=== PATIENT | female | born 1950 | race Two or more races ===

== ENCOUNTER 2023-02-03 12:11 | Outpatient (OUT) | payer MEDICARE, OTHER, SELFPAY ==
--- NOTE | 2023-02-03 | XR_ITS ---
[address] [address] Patient Name: DAMIR STAPLES MRN: [id number] date: 1950 Sex: F Assigned Patient Location: US Current Patient Location: US Accession/Order Number: [id number] Exam Date: 02/03/2023 12:45 Report Date: 02/03/2023 13:25 At the request of: SHAIKH FELICIANO Procedure: XR knee LT 3V PROCEDURE: XR knee LT 3V COMPARISON: None. HISTORY: left knee pain M25.562 FINDINGS: BONES:No acute fracture or dislocation. Mild degenerative changes with marginal osteophyte formation SOFT TISSUES:Negative. No visible soft tissue swelling. EFFUSION:None visible. OTHER: Negative. XR/XR knee LT 3V IMPRESSION: Mild degenerative changes Electronically authenticated by: ISABELLE ALICIA Date: 02/03/2023 13:25
--- NOTE | 2023-02-03 | US_ITS ---
The [address] [address] Patient Name: DAMIR STAPLES MRN: [id number] date: 1950 Sex: F Assigned Patient Location: US Current Patient Location: US Accession/Order Number: [id number] Exam Date: 02/03/2023 12:30 Report Date: 02/03/2023 13:03 At the request of: SHAIKH FELICIANO Procedure: US venous doppler LE LT EXAM: US venous doppler LE LT HISTORY: left leg pain M79.605 . Knee and leg pain for 3 weeks. COMPARISON: None. TECHNIQUE: Multiple sonographic images of the deep veins of the left lower extremity were obtained, supplemented with Doppler. FINDINGS: The deep veins of the left lower extremity are fairly well visualized from the groin to the mid calf. No filling defect is identified to indicate a thrombus. There is normal compression and augmentation to flow throughout. US/US venous doppler LE LT IMPRESSION: There is no direct or indirect evidence of deep vein thrombosis in the left lower extremity at this time. Electronically authenticated by: LYLE QUIÑONES Date: 02/03/2023 13:03
== END 2023-02-03 12:12 | disposition home or self-care (01) ==
LOC: US 12:19
PROVIDERS: PCP Internal Medicine; Visit Provider Internal Medicine
DX: M25.562 Pain in left knee (principal); M79.605 Pain in left leg
CPT/HCPCS: 73562; 93971

== ENCOUNTER 2024-04-25 14:31 | Emergency (ER) | payer MEDICARE, SELFPAY ==
[2024-04-25 14:46] VITALS: BP 182/85; PULSE 94; TEMP 36.8; O2SAT 95; BMI 27.1
--- NOTE | 2024-04-25 14:53 | XR_ITS ---
The [address] [address] Patient Name: DAMIR STAPLES MRN: [id number] date: 1950 Sex: F Assigned Patient Location: ER Current Patient Location: ED.MAIN Accession/Order Number: [id number] Exam Date: 04/25/2024 15:20 Report Date: 04/25/2024 16:10 At the request of: JACKELYN BURGOS Procedure: XR chest 1V EXAM: XR chest 1V, 04/25/2024. HISTORY: Cough. COMPARISON STUDY: PA and lateral chest 10/01/2014. FINDINGS: Upright AP chest image was obtained. XR/XR chest 1V IMPRESSION: 1. Calcified intrathoracic nodes with right upper lobe calcified granuloma and chronic biapical fibrotic changes from old healed granulomatous disease again noted. 2. Interval placement of left upper chest dual-lead pacer. Heart size is mildly enlarged. Moderate-sized hiatal hernia is noted. 3. No dense consolidation, effusion, edema, failure or pneumothorax otherwise noted. 4. No acute osseous abnormality. Electronically authenticated by: FRED MALIK Date: 04/25/2024 16:10
--- NOTE | 2024-04-25 14:53 | ECG_ITS ---
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
--- NOTE | 2024-04-25 15:01 | ED_ITS ---
HPI - SOB/Dyspnea General Chief Complaint: Shortness of Breath/Dyspnea Stated Complaint: urti complaints Time Seen by Provider: 04/25/24 14:37 Source: patient Mode of arrival: walk-in History of Present Illness HPI Narrative: Patient presents to ED complaining of cough and shortness of breath. She said she has been sick for about 5 days. She said she has been feeling maybe a little bit better but she still seems short of breath and winded. She states she has some pressure and tightness in her esophageal area but when she says that she points to her chest. She does have a cardiac history and pacemaker in place. No syncope. She says her cough is nonproductive. She states she has a lot of sinus drainage especially when she lays down at night. She denies any fevers. She was sent over by urgent care because they were worried about her work of breathing and shortness of breath with her recent history of cough. They also states over the phone that she was a poor historian but she does have an extensive cardiac history. Related Data Allergies Allergy/AdvReac Type Severity Reaction Status Date / Time amoxicillin (From Augmentin) AdvReac Severe Abdominal Verified 04/25/24 14:46 Pain clavulanic acid (From AdvReac Severe Abdominal Verified 04/25/24 14:46 Augmentin) Pain Sulfa (Sulfonamide AdvReac Severe Flushing Verified 04/25/24 14:46 Antibiotics) Review of Systems ROS Status of ROS 10 or more systems reviewed and unremark able except as noted in history and below PFSH PFSH Social History Little interest or pleasure in doing things: not at all Feeling down, depressed, or hopeless: not at all Exam Narrative Exam Narrative: Time Seen: [] Vital Signs: [Per nurse's notes.] General: [Alert] Skin: [Warm, dry, no rash.] Head: [Normocephalic, atraumatic.] Neck: [Supple, trachea midline.] Eye: [Pupils are equal, round and reactive to light, extraocular movements are intact, normal conjunctiva.] Ears, nose, mouth and throat: oral mucosa moist. Cardiovascular: [Regular rate and rhythm, no murmur.] Respiratory: [Lungs are clear to auscultation, respirations are non-labored, breath sounds are equal.] Chest wall: [No tenderness, no deformity.] Gastrointestinal: [Soft, nontender, non distended, normal bowel sounds.] MSK: 5 out of 5 muscle strength x 4 extremities no calf pain or edema Lymphatics: [No lymphadenopathy.] Psychiatric: [Cooperative, appropriate mood & affect.] Neurological: [Alert and oriented to person, place, time, and situation, no focal neurological deficit observed.] Constitutional Vital Signs, click to edit/add: Last Vital Signs Temp 98.2 F 04/25/24 14:46 Pulse 94 H 04/25/24 14:46 Resp 20 04/25/24 14:46 BP 178/84 H 04/25/24 16:06 Pulse Ox 95 04/25/24 14:46 O2 Del Method Room Air 04/25/24 14:46 Course Vital Signs Vital signs: Vital Signs Temperature 98.2 F 04/25/24 14:46 Pulse Rate 94 H 04/25/24 14:46 Respiratory Rate 20 04/25/24 14:46 Blood Pressure 182/85 H 04/25/24 14:46 Pulse Oximetry 95 04/25/24 14:46 Oxygen Delivery Method Room Air 04/25/24 14:46 Temperature 98.2 F 04/25/24 14:46 Pulse Rate 94 H 04/25/24 14:46 Respiratory Rate 20 04/25/24 14:46 Blood Pressure 178/84 H 04/25/24 16:06 Pulse Oximetry 95 04/25/24 14:46 Oxygen Delivery Method Room Air 04/25/24 14:46 MDM - SOB/Dyspnea MDM Narrative Medical decision making narrative: Patient's labs are negative including troponin and D-dimer as well as BNP. Patient does not appear to be in heart failure based on chest x-ray and BNP. No evidence of ACS. D-dimer was negative signifying no PE. No evidence of pneumonia on the chest x-ray. Patient does states she has been feeling better and was feeling worse at the beginning of this sickness 5 days ago. No hypoxia. I do not see any indication at this time for hospital admission or further workup or emergency intervention. Patient is to follow-up with her family doctor. Return to ED if worsening symptoms. She is comfortable with care plan for home. Differential Diagnosis Differential diagnosis: Likely congestive heart failure, community acquired pneumonia, pulmonary embolism and other (Flu COVID viral illness) Lab Data Attestation: I reviewed the patient's lab results. Labs: Lab Results 04/25/24 04/25/24 Range/Units 15:14 15:16 WBC 5.9 (4.0-11.0) 10^3/uL RBC 4.73 (4.20-5.40) 10^6/uL Hgb 15.1 (12.0-16.0) g/dL Hct 44.5 (36.0-48.0) % MCV 94.1 (81.0-99.0) fL MCH 31.9 (26.7-34.0) pg MCHC 33.9 (29.9-35.2) g/dL RDW 12.7 (11.0-15.0) % Plt Count 239 (150-450) 10^3/uL MPV 9.0 L (9.5-13.5) fL Neut % (Auto) 59.2 (43.0-75.0) % Lymph % (Auto) 28.5 (20.5-60.0) % [place] % (Auto) 7.2 (1.7-12.0) % Eos % (Auto) 4.6 (0.9-7.0) % Baso % (Auto) 0.5 (0.2-2.0) % Neut # (Auto) 3.5 (1.4-6.5) 10^3/uL Lymph # (Auto) 1.7 (1.2-3.8) 10^3/uL [place] # (Auto) 0.4 (0.3-0.8) 10^3/uL Eos # (Auto) 0.3 (0.0-0.7) 10^3/uL Baso # (Auto) 0.0 (0.0-0.1) 10^3/uL Abs Immat Gran (auto) 0.00 (0.00-0.03) 10^3/uL Imm/Tot Granulo (auto) 0.0 (0.0-0.5) % D-Dimer 0.19 (<=0.59) mg/L FEU Sodium 146 H (136-145) mmol/L Potassium 3.8 (3.5-5.1) mmol/L Chloride 106 (98-107) mmol/L Carbon Dioxide 31.8 (21.0-32.0) mmol/L Anion Gap 12.0 BUN 13.0 (7.0-18.0) mg/dL Creatinine 0.88 (0.55-1.02) mg/dL Est GFR ( Amer) >60 (>=60 mL/min/1.73m^2) Est GFR (Non-Af Amer) >60 (>=60 mL/min/1.73m^2) BUN/Creatinine Ratio 14.8 Glucose 110 H (74-106) mg/dL Calcium 9.3 (8.5-10.1) mg/dL Total Bilirubin 1.2 H (0.2-1.0) mg/dL AST 20 (15-37) U/L ALT 23 (14-59) U/L Alkaline Phosphatase 97 (46-116) U/L Troponin I High Sens 8.6 (4.0-51.3) pg/mL NT-Pro-B Natriuret Pep 106.0 (<=900.0) pg/mL Total Protein 7.1 (6.4-8.2) g/dL Albumin 3.5 (3.4-5.0) g/dL Globulin 3.6 g/dL Albumin/Globulin Ratio 1.0 Influenza Type A Ag Negative Influenza Type B Ag Negative SARS-CoV-2 Ag (CV2AG) Negative (NEGATIVE) Imaging Data Chest x-ray: Radiologist's impression: ITS Impressions Chest X-Ray 04/25/24 14:53 IMPRESSION: 1. Calcified intrathoracic nodes with right upper lobe calcified granuloma and chronic biapical fibrotic changes from old healed granulomatous disease again noted. 2. Interval placement of left upper chest dual-lead pacer. Heart size is mildly enlarged. Moderate-sized hiatal hernia is noted. 3. No dense consolidation, effusion, edema, failure or pneumothorax otherwise noted. 4. No acute osseous abnormality. Electronically authenticated by: FRED MALIK Date: 04/25/2024 16:10 ECG Data Attestation: I personally reviewed and interpreted this ECG as follows: Interpretation: EKG INTERPRETATION Time: [] 1459 Rate: [] 76 Rhythm: _ [] Sinus rhythm ST segments: _ [] T waves: _ [] Ectopy: _ [] P wave/[place] interval: _ [] QRS interval: _ [] QT interval: _ [] Comparison: _ [] Comparison EKG date: [] Performed by: [self] [facility] Discharge Plan Discharge Chief Complaint: Shortness of Breath/Dyspnea Clinical Impression: Viral syndrome Patient Disposition: Home, Self-Care Time of Disposition Decision: 16:04 Condition: Good Mode of Transportation: Private Vehicle Print Language: Micronesian Instructions: Viral Syndrome (ED) Referrals: ISSAC WHEAT [Primary Care Provider] - 1 week
--- OUTSIDE RECORDS SUMMARY | 2024-04-25 15:03 | XMS_ITS | CCD ---
Author Organization [facility] Care Team Providers Care [employer] Name Role Phone Angel Titus Unavailable Unavailable Unavailable MD Angel Titus Primary Care Provider MD Toney Prajapati Attending Provider DO Lazara Merchant Primary Care Provider NABILA Reyez Emergency Provider MD Ольга Raya Attending Provider MD Angel Titus Primary Care Provider MD Juliana Elder Other Provider Unavailable MD Kai Vang Other Provider Unava ilable MD Connie Thomas Attending Provider DO Lazara Merchant G Primary Care Provider MD Toney Prajapati Attending Provider Gabbi Velásquez Unavailable Juani Whitney Unavailable NABILA Whitney Attending Provider [phone] Shaikh Thacker Unavailable Unavailable Unavailable DO Lazara Merchant G Primary Care Provider NABILA Whitney Attending Provider MD Toney Prajapati Attending Provider CARLTON Reyez Attending Provider Cassie Reyez Unavailable Ganesh Coronel Unavailable MD Ольга Raya Attending Provider NON STAFF Primary Care Provider UnavailMD Lewis Lim Attending Provider MD King Thacker Attending Provider NON STAFF Primary Care Provider UnavailMD Ольга Moses Attending Provider MD Toney Prajapati Attending Provider DO Piop Beck Emergency Provider MD Kirstie [facility] Primary Care Provider NON STAFF Primary Care Provider UnavailMD Della Gamez Attending Provider Cassia, Dr. Corbin Attending Unavaila ble Traboulssi, Dr. Corbin Referring Unavaila ble Traboulssi, Dr. Corbin Attending Unavaila ble Traboulssi, Dr. Corbin Referring Unavaila ble Traboulssi, Dr. Corbin Attending Unavaila ble Traboulssi, Dr. Corbin Referring Unavaila ble Traboulssi, Dr. Corbin Attending Unavaila ble Traboulssi, Dr. Corbin Referring Unavaila ble Kirstie BRITO [facility] Primary Care Provider Idris Thacker MDikh Primary Care Provider Idris Thacker MDikh Primary Care Provider MD Ольга Raya Attending Provider MD Kirstie [facility] Primary Care Provider MD King Thacker Attending Provider MD Kirstie [facility] Primary Care Provider MD Toney Prajapati Attending Provider Kirstie RBITO [facility] Primary Care Provider Kirstie BRITO [facility] Primary Care Provider NON STAFF Primary Care Provider Unavailabl Ольга Hammond MD Attending Provider Deepak Alvarado MD Primary Care Provider [phone] Issac Edouard NP Unavailable Ольга Raya Attending Unavailable NON STAFF Primary Care Unavailable Trabbahman, Moleticiahaf Admitting Unavailable Fawwad, Calderon Primary Care Unavailable DeRiso, Toney Admitting Unavailable DeRiso Toney Attending Unavailable Fawwad, Calderon Admitting Unavailable Fawwad, Calderon Primary Care Unavailable Fajosephd, Calderon Attending Unavailable Cassia Mojudyf Admitting Unavailable TrabNoemy fallf Attending Unavailable Fawwad, Calderon Primary Care Unavailable Fawwad, Calderon Primary Care Unavailable DeRiso, Toney Admitting Unavailable DeRiso, Toney Attending Unavailable DeRiso, Toney Admitting Unavailable DeRiso, Toney Attending Unavailable NON STAFF Primary Care Unavailable TRABBAHMAN, MOLETICIAHAF Attending Unavailable FAWWAD, CALDERON Primary Care Unavailable NOEMY RAYAF Attending Unavailable TRABOULMAXWELLI, MOLETICIAHAF Referring Unavailable FAWWAD, CALDERON Primary Care Unavailable ADELAIDA AGUILA Attending Unavailable FAWWAD, CALDERON Referring Unavailable BRLINA VARELA Attending Unavailable FAWWAD, CALDERON Referring Unavailable BRLINA VARELA Attending Unavailable FAWWAD, CALDERON Referring Unavailable ADELAIDA AGUILA Attending Unavailable FAWWAD, CALDERON Referring Unavailable BRINKLINA Attending Unavailable FAWWAD, CALDERON Referring Unavailable FAWWAD, CALDERON Attending Unavailable ADELAIDA AGUILA Attending Unavailable FAWWAD, CALDERON Referring Unavailable FAWWAD, CALDERON Attending Unavailable FAWWAD, CALDERON Attending Unavailable FAWWAD, CALDERON Attending Unavailable ANKITA NUNEZ Attending Unavailable ISSAC EDOUARD Attending Unavailabl e RUSANKITA MARES Attending Unavailable ISSAC EDOUARD Attending Unavailabl e SERVICE, JOBST Referring Unavailable FAWWAD, CALDERON Primary Care Unavailable SERVICE, JOBST Referring Unavailable FAWWAD, [facility] Primary Care Unavailable SERVICE, JOBST Referring Unavailable FAWWAD, [facility] Primary Care Unavailable FAWWAD, [facility] Referring Unavailable FAWWAD, [facility] Primary Care Unavailable SERVICE, JOBST Referring Unavailable FAWWAD, [facility] Primary Care Unavailable SERVICE, JOBST Referring Unavailable FAWWAD, [facility] Primary Care Unavailable FAWWAD, [facility] Referring Unavailable FAWWAD, [facility] Primary Care Unavailable SERVICE, JOBST Referring Unavailable FAWWAD, [facility] Primary Care Unavailable SERVICE, JOBST Referring Unavailable FAWWAD, [facility] Primary Care Unavailable SERVICE, JOBST Referring Unavailable FAWWAD, [facility] Primary Care Unavailable SERVICE, JOBST Referring Unavailable FAWWAD, [facility] Primary Care Unavailable SERVICE, JOBST Referring Unavailable FAWWAD, [facility] Primary Care Unavailable SERVICE, JOBST Referring Unavailable FAWWAD, [facility] Primary Care Unavailable SERVICE, JOBST Referring Unavailable FAWWAD, [facility] Primary Care Unavailable SERVICE, JOBST Referring Unavailable FAWWAD, [facility] Primary Care Unavailable SERVICE, JOBST Referring Unavailable FAWWAD, [facility] Primary Care Unavailable SERVICE, JOBST Referring Unavailable FAWWAD, [facility] Primary Care Unavailable SERVICE, JOBST Referring Unavailable FAWWAD, [facility] Primary Care Unavailable JOBST ANTI COAG, AKA JOBST MTM MED THERAPY MGMT Referring Unavailable FAWWAD, [facility] Primary Care Unavailable Allergies Allergy Classification Reported Allergen(s) Allergy Type Date of Onset Reaction(s) Facility (20 sources) Sulfamethoxazole / Trimethoprim; Translations: [Bactrim DS TABS] Drug Allergy 01-11-20 Unknown, Other [place] [id number] [place] Work Phone: (20 sources) Amoxicillin / Clavulanate; Translations: [Augmentin] Drug Allergy 06-21-19 [facility] (10 sources) Sulfonamides (Antibiotic); Translations: [Sulfa Drugs] Allergy to drug (finding) Fatigue [address] Work Phone: (20 sources) Sulfamethoxazole; Translations: [sulfamethoxazole] Drug Allergy 06-21-19 22 [facility] (20 sources) Trimethoprim; Translations: [Trimethoprim] Drug Allergy 06-21-19 22 [facility] (7 sources) Sulfonamides (Antibiotic) Propensity to adverse reactions Unknown [employer] Other (19 sources) Amoxicillin; Translations: [amoxicillin] Drug Allergy 08-27-19 GI intolerance [facility] (19 sources) Clavulanate; Translations: [clavulanic acid] Drug Allergy 08-27-19 23 GI intolerance [facility] (20 sources) Sulfonamides (Antibiotic); Translations: [SULFA (SULFONAMIDE ANTIBIOTICS)] Drug Intolerance 05-23-19 18 Other [facility] Work Phone: (5 sources) Penicillins Drug Allergy 04-18-19 24 Unknown [facility] (12 sources) Amoxicillin-Pot Clavulanate; Translations: [AMOXICILLIN-POT CLAVULANATE] Drug Intolerance 06-21-19 23 GI intolerance, Unknown [facility] (1 source) Sulfonamides (Antibiotic) Drug allergy (disorder) 03-25-20 23 [facility] (1 source) Sulfamethoxazole / Trimethoprim; Translations: [SULFAMETHOXAZOLE-T RIMETHOPRIM] Drug Allergy 01-11-20 23 [facility] 3 Repository Medications Current Medications Medication Drug Class(es) Dates Sig (Normalized) Sig (Original) [id number] 200 actuat albuterol 0.09 mg/actuat metered dose inhaler (20 sources) beta2-Adrenergic Agonist Start: 07-28-2023 End: 04-18-2024 take 2 puff(s) by inhalation every four hours for wheezing albuterol HFA 90 mcg/act inhaler Indications: Reactive airway disease with wheezing without complication, unspecified asthma severity, unspecified whether persistent ([facility]) Inhale 2 puffs every 4 (four) hours if needed for wheezing 8.5 g 3 03/19/2024 04/18/2024 Active Start: 06-18-2022 take 2 puff(s) by in halation four times daily as needed Albuterol Sulfate HFA 108 (90 Base) MCG/ACT 2 puffs Inhalation 4 times a day prn Jun, Active Start: 06-18-2022 End: 01-11-2023 albuterol 90 mcg/actuation i nhaler Inhale. 0 06/18/2022 01/11/2023 Discontinued (Therapy completed) Start: 06-18-2022 take 2 puff(s) by in halation four times daily as needed Albuterol Sulfate HFA 108 (90 Base) MCG/ACT 2 puffs Inhalation 4 times a day prn Jun, Not-Taking/PRN Start: 05-30-2017 take 2 puff(s) by in halation every six hours as needed for wheezing albuterol (PROVENTIL HFA;VENTOLIN HFA) 90 mcg/actuation inhaler Indications: Asthma, unspecified asthma severity, unspecified whether complicated, unspecified whether persistent Inhale 2 puffs every 6 (six) hours as needed for wheezing or shortness of breath. 1 Inhaler 05/30/2017 Active End: 12-19-2023 take 2 puff(s) by inhalation every six hours albuterol HFA 90 mcg/act inhaler Inhale 2 puffs every 6 (six) hours if needed 12/19/2023 Discontinued (Duplicate order) amoxicillin 875 mg oral tablet (2 sources) Penicillin-class Antibacterial Start: 02-26-2022 take 1 tablet by mouth every twelve hours Amoxicillin 875 MG 1 tablet Orally Twice a day for 10 day(s) Feb, Active Start: 11-09-2021 take 1 tablet by neha th every twelve hours Amoxicillin 875 MG 1 tablet Orally every 12 hrs for 7 days Nov, Active betamethasone valerate 1.2 mg/ml topical foam (8 sources) Corticosteroid betamethasone va lerate (LUXIQ) 0.12 % foam Apply 1 application. topically in the morning and 1 application. before bedtime. Active Calcium Carbonate-Vitamin D3 (Calcium 500 + D) 500 mg(1,250mg) -200 unit Tablet (14 sources) Start: 03-01-2020 Calcium Carbonate-Vitamin D3 (Calcium 500 + D) 500 mg(1,250mg) -200 unit Tablet Active 1 TAB PO Daily March 01, 2020 2:53pm Start: 03-01-2020 Calcium Carbon ate-Vitamin D3 (Calcium 500 + D) 500 mg(1,250mg) -200 unit Tablet Active 1 TAB PO Daily March 01, 2020 12:00am Start: 03-01-2020 Calcium Carbon ate-Vitamin D3 (Calcium 500 + D) 500 mg(1,250mg) -200 unit Tablet Active 1 TAB PO Daily March 01, 2020 1:00am cloNIDine hydrochloride 0.2 mg oral tablet (8 sources) Central alpha-2 Adrenergic Agonist Start: 10-29-2022 take 1 tablet by mouth once daily as needed Clonidine Hcl 0.2 mg tablet Active 0.2 MG PO Daily as needed for hypertensive emergency October 29, 2022 10:03pm Coenzyme Q10 30 MG (4 sources) take 1 capsule by mouth once daily Coenzyme Q10 30 MG 1 capsule with a meal Orally Once a day Active dorzolamide 20 mg/ml / timolol 5 mg/ml ophthalmic solution (14 sources) Carbonic Anhydrase Inhibitor, beta-Adrenergic Estephania Start: 01-01-2019 Dorzolamide-Timolo l 22.3-6.8 mg/mL drops Active 1 APPLIC EYE-BOTH Twice daily December 31, 2018 11:00pm doxycycline hyclate 100 mg oral tablet (14 sources) Tetracycline-clas s Drug Start: 06-20-2021 take 1 tablet by mouth twice daily Doxycycline Hyclate 100 mg tablet Active 100 MG PO Twice daily June 19, 2021 11:00pm Fish Oils (7 sources) take 1 capsule by mouth once daily Fish Oil 1000 MG 1 capsule Orally Once a day Active furosemide 20 mg oral tablet (20 sources) Loop Diuretic Start: 06-26-2022 End: 01-11-2023 take 1 tablet by mouth once daily furosemide (LASIX) 20 mg tablet Take 1 tablet (20 mg total) by mouth daily. 30 tablet 2 06/26/2022 Active Start: 11-09-2017 End: 05-09-2018 take 1 tablet by mouth once daily Furosemide 20 mg tablet Discontinued 20 MG PO Daily November 08, 2017 11:00pm May 09, 2018 1:08pm latanoprost 0.05 mg/ml ophthalmic solution (20 sources) Prostaglandin Analog Start: 07-17-[address] (Xalatan) 0.005 % ophthalmic solution Administer into affected eye(s). as directed 07/17/2021 Active Start: 07-17-2021 Latanoprost 0. 005 % Ophthalmic Solution as directed Quantity: 0 Refills: 0 Ordered: 15-Apr-2022 DO Start : 17-Jul-2021 Active Start: 01-01-2019 Latanoprost 0. 005 % drops Active 1 APPLIC EYE-BOTH Bedtime December 31, 2018 11:00pm Start: 01-01-2019 Latanoprost Ac tive 1 APPLIC EYE-BOTH Bedtime January 01, 2019 12:00am take 1 drop(s) into the eye(s) once daily latanoprost (XALATAN) 0.005 % ophthalmic solution Administer 1 drop to both eyes nightly. Active take 1 drop(s) into the eye(s) at bedtime latanoprost (Xalatan) 0.005 % ophthalmic solution Administer 1 drop into both eyes at bedtime Active take 1 drop(s) into the eye(s) once daily in the evening Latanoprost 0.005 % 1 drop into affected eye in the evening Ophthalmic Once a day Active take 1 drop(s) into the eye(s) once daily in the evening Latanoprost 0.005 % 1 drop into affected eye in the evening Ophthalmic Once a day Active lisinopril 20 mg oral tablet (20 sources) Angiotensin Converting Enzyme Inhibitor Start: 03-19-2024 End: 09-15-2024 take 1.5 tablets by mouth once daily lisinopril 20 MG tablet Indications: Benign essential hypertension (CMS/HCC) Take 1.5 tablets (30 mg) by mouth Daily 03/19/2024 09/15/2024 Active Start: 11-11-2023 End: 05-09-2024 take 1 tablet by mouth once daily lisinopril 20 MG tablet Indications: Benign essential hypertension (CMS/HCC) Take 1 tablet (20 mg) by mouth Daily 90 tablet 1 11/11/2023 03/19/2024 Discontinued (Dose adjustment) Start: 06-25-2022 take 4 tablets by mo uth once daily lisinopril 5 mg tablet Take 4 tablets (20 mg) by mouth once daily. 06/25/2022 Active Start: 01-26-2022 End: 08-07-2023 take 1 tablet by mouth in the morning lisinopril 20 MG tablet Indications: Benign essential hypertension (CMS/HCC) Take 1 tablet (20 mg) by mouth in the morning. 90 tablet 0 05/09/2023 08/07/2023 Active Start: 10-15-2018 take 1 tablet by neha th in the morning lisinopriL (PRINIVIL,ZESTRIL) 5 mg tablet Take 1 tablet (5 mg total) by mouth in the morning. 30 tablet 2 06/26/2022 Active loratadine 10 mg oral tablet (9 sources) Start: 06-23-2023 End: 03-19-2024 take 1 tablet by mouth once daily loratadine (Claritin) 10 MG tablet Indications: Seasonal allergic rhinitis, unspecified trigger Take 1 tablet (10 mg) by mouth Daily 90 tablet 06/23/2023 03/19/2024 Discontinued (Med list cleanup) metoprolol tartrate 50 mg oral tablet (20 sources) beta-Adrenergic Estephania Start: 06-25-2022 End: 09-18-2024 take 1 tablet by mouth in the morning, then take 1 tablet by mouth at bedtime metoprolol tartrate (LOPRESSOR) 50 mg tablet Take 1 tablet (50 mg total) by mouth in the morning and 1 tablet (50 mg total) before bedtime. 60 tablet 2 06/25/2022 Active montelukast 10 mg oral tablet (20 sources) Leukotriene Receptor Antagonist Start: 10-13-2018 End: 06-17-2024 take 1 tablet by mouth once daily montelukast (Singulair) 10 MG tablet Indications: Allergic rhinitis, unspecified seasonality, unspecified trigger Take 1 tablet (10 mg) by mouth Daily 90 tablet 03/19/2024 06/17/2024 Active nitrofurantoin, macrocrystals 25 mg / nitrofurantoin, monohydrate 75 mg oral capsule (2 sources) Nitrofuran Antibacterial Start: 02-12-2022 take 1 capsule by mouth every twelve hours Macrobid 100 MG 1 cap(s) Orally 2 times a day for 5 day(s) Feb, Active nystatin [id number] unt/ml / triamcinolone acetonide 1 mg/ml topical cream (8 sources) Polyene Antifungal, Corticosteroid Start: 11-18-2022 nystatin-triamcin olone (MYCOLOG II) cream Indications: Yeast infection Apply 1 Application topically 4 (four) times a day as needed (itching). 60 g 2 11/18/2022 Active [place] 4-Ojo-Gis-Fish Oil (Fish Oil) 1,000 mg (120 mg-180 mg) Capsule (14 sources) Start: 01-01-2019 take 1 capsule by mouth once daily [place] 2-Fib-Iva-Fish Oil (Fish Oil) 1,000 mg (120 mg-180 mg) Capsule Active 1 CAP PO Daily January 01, 2019 1:58am Start: 01-01-2019 take 1 capsule by mo uth once daily [place] 0-Gdn-Mza-Fish Oil (Fish Oil) 1,000 mg (120 mg-180 mg) Capsule Active 1 CAP PO Daily December 31, 2018 11:00pm Start: 01-01-2019 take 1 capsule by mo uth once daily [place] 6-Wow-Gvh-Fish Oil (Fish Oil) 1,000 mg (120 mg-180 mg) Capsule Active 1 CAP PO Daily January 01, 2019 12:00am pantoprazole 40 mg delayed release oral tablet (20 sources) Proton Pump Inhibitor Start: 06-25-2022 End: 03-19-2024 take 1 tablet by mouth in the morning, then take 1 tablet by mouth at bedtime pantoprazole (PROTONIX) 40 mg EC tablet Take 1 tablet (40 mg total) by mouth in the morning and 1 tablet (40 mg total) before bedtime. 60 tablet 2 06/25/2022 Active Start: 06-25-2022 End: 07-26-2023 take 1 tablet by mouth before mealtime pantoprazole (ProtoNix) 40 MG EC tablet Indications: Gastroesophageal reflux disease without esophagitis Take 1 tablet (40 mg) by mouth in the morning. Take before meals. 90 tablet 0 04/27/2023 07/26/2023 Active phenazopyridine hydrochloride 200 mg oral tablet (2 sources) Start: 02-12-2022 take 1 tablet by mouth every eight hours Pyridium 200 MG 1 tablet after meals Orally Three times a day for 2 day(s) Feb, Active predniSONE 10 mg oral tablet (9 sources) Start: 06-25-2022 predniSONE (DELTASONE) 10 mg tablet 40 mg for 5 days, 30 mg for 4, 20 mg for 3, 10 mg for 2, then stop 40 tablet 06/25/2022 Active Start: 06-25-2022 End: 01-11-2023 predniSONE (Deltasone) 10 mg tablet Take by mouth. 0 06/25/2022 01/11/2023 Discontinued (Therapy completed) ubidecarenone 100 mg oral ca psule (20 sources) Start: 03-01-2020 Coenzyme Q10 ( Co Q-10) 100 mg Capsule Active 100 MG PO Daily March 01, 2020 12:00am Start: 01-01-2019 End: 01-23-2019 Coenzyme Q10 (Coq-10) 30 mg Capsule Discontinued 30 MG PO Daily December 31, 2018 11:00pm January 23, 2019 6:55am take 2 capsules by outh once in the morning, then take 2 capsules by mouth at bedtime coenzyme Q10 30 mg capsule Take 2 capsules (60 mg total) by mouth in the morning and 2 capsules (60 mg total) before bedtime. Active warfarin sodium 4 mg oral tablet (20 sources) Vitamin K Antagonist Start: 03-19-2024 warfarin (Coumadin) 4 MG tablet Indications: Paroxysmal atrial fibrillation (CMS/HCC) Take 1 tablet (4 mg) by mouth See administration instructions 1/2 tablet Sat/Wed, 1 tablet rest of the week. 03/19/2024 Active Start: 03-19-2024 warfarin (Coum sulaiman) 4 MG tablet Indications: Paroxysmal atrial fibrillation (CMS/HCC) Take 1 tablet (4 mg) by mouth See administration instructions 1/2 tablet Sat/Wed, 1 tablet rest of the week. 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 90 tablet 3 01/24/2024 Active Start: 05-08-2020 take 1 tablet by neha th once daily Warfarin 4 mg Tablet Active 4 MG PO Daily May 08, 2020 12:00am End: 03-19-2024 warfarin (Coumadin) 5 MG tab let 1 (one) time each day at the same time 03/19/2024 Discontinued (Med list cleanup) Warfarin Sodium TABS as directed [facility] Quantity: 0 Refills: 0 Ordered: 02-Dec-2022 DO Active Warfarin 1mg Act chio Warfarin Sodium TABS [facility] Quantity: 0 Refills: 0 Ordered: 08-Apr-2021 DO Active Completed/Discontinued Medications Medication Drug Class(es) Dates Sig (Normalized) Sig (Original) acetaminophen 325 mg / HYDROcodone bitartrate 5 mg oral tablet (14 sources) Opioid Agonist Start: 01-23-2019 End: 02-12-2019 take 0.5 tablet by mouth every four to six hours as needed for pain Hydrocodone-Acetami nophen ([place]) 5-325 mg Tablet Discontinued 0.5 TAB PO EVERY 4-6 HOURS as needed for Pain 7 3 January 22, 2019 11:00pm February 12, 2019 3:02pm alendronic acid 70 mg oral tablet (20 sources) Bisphosphonate Start: 04-21-2023 End: 02-23-2024 alendronate (Fosamax) 70 MG tablet Indications: Osteopenia, unspecified location Take 1 tablet (70 mg) by mouth every 7 (seven) days 12 tablet 04/21/2023 02/23/2024 Discontinued (Therapy completed) Start: 12-31-2016 End: 11-11-2020 take 1 tablet by mouth every week alendronate (FOSAMAX) 70 mg tablet Take 1 tablet (70 mg total) by mouth once a week. 05/03/2020 Active Start: 12-31-2016 End: 05-04-2017 Alendronate 70 mg tablet Discontinued TABLET December 30, 2016 11:00pm May 04, 2017 10:44am Fosamax 70 MG Or al Tablet TAKE DIRECTED. Quantity: 0 Refills: 0 Ordered: 08-Apr-2021 DO Active amLODIPine 5 mg oral tablet (14 sources) Dihydropyridine Calcium Channel Estephania Start: 12-31-2016 End: 10-15-2018 take 1 tablet by mouth once daily Amlodipine 5 mg tablet Discontinued 5 MG PO Daily December 30, 2016 11:00pm October 15, 2018 2:19pm atenolol 100 mg oral tablet (20 sources) beta-Adrenergic Estephania Start: 08-26-2021 End: 01-11-2023 take 1 tablet by mouth once daily atenolol (Tenormin) 100 mg tablet Take 1 tablet (100 mg) by mouth once daily. 0 08/26/2021 01/11/2023 Discontinued (Therapy completed) Start: 04-08-2021 take 1 tablet by neha th once daily Atenolol 50 MG Oral Tablet TAKE 1 TABLET DAILY. Quantity: 90 Refills: 3 Ordered: 08-Apr-2021 Ольга Raya MD Start : 08-Apr-2021 Active Start: 05-06-2020 take 1 tablet by neha th once daily Atenolol 25 MG Oral Tablet TAKE ONE TABLET BY MOUTH DAILY Quantity: 90 Refills: 0 Ordered: 29-Jan-2021 Ольга Raya MD Start : 06-May-2020 Active Start: 09-06-2019 take 2 tablets by mo uth once daily Atenolol 25 mg Tablet Active 50 MG PO Daily September 05, 2019 11:00pm Start: 09-06-2019 take 50 mg by mouth once daily Atenolol Active 50 MG PO Daily September 06, 2019 12:00am Start: 12-31-2016 End: 10-15-2018 take 1 tablet by mouth twice daily Atenolol 50 mg tablet Discontinued 50 MG PO Twice daily December 30, 2016 11:00pm October 15, 2018 2:19pm azithromycin 250 mg oral tablet (2 sources) Macrolide Antimicrobial Start: 06-18-2022 Azithromycin 250 MG 2 tablet on the first day, then 1 tablet daily for 4 days Orally Once a day for 5 day(s) Jun, Not-Taking/PRN clindamycin 300 mg oral capsule (18 sources) Lincosamide Antibacterial Start: 01-05-2019 End: 01-23-2019 take 2 capsules by mouth three times daily Clindamycin Hcl 300 mg capsule Discontinued 600 MG PO Three times daily 12 January 04, 2019 11:00pm January 23, 2019 6:55am Start: 01-05-2019 End: 01-23-2019 take 600 mg by mouth three times daily Clindamycin Hcl Discontinued 600 MG PO Three times daily 12 January 05, 2019 12:00am January 23, 2019 7:55am take 2 capsules by m outh every eight hours Clindamycin HCl 300 MG 2 capsules Orally every 8 hrs Not-Taking clotrimazole 20 mg/ml vaginal cream (3 sources) Azole Antifungal Start: 12-17-2021 Clotrimazole 2 % 1 application Externally Once a day for 14 days Dec, Not-Taking fluticasone propionate 0.05 mg/actuat metered dose nasal spray (5 sources) Corticosteroid Start: 12-19-2023 End: 02-23-2024 take 1 spray(s) nasal route once daily fluticasone (Flonase Allergy Relief) 50 MCG/ACT nasal spray Indications: Seasonal allergic rhinitis, unspecified trigger Administer 1 spray into each nostril Daily Shake gently. Before first use, prime pump. After use, clean tip and replace cap. 16 g 2 12/19/2023 02/23/2024 Discontinued (Therapy completed) hydroCHLOROthiazide 25 mg / spironolactone 25 mg oral tablet (4 sources) Thiazide Diuretic, Aldosterone Antagonist Start: 12-02-2022 take 1 tablet by mouth once daily Spironolactone-H CTZ 25-25 MG Oral Tablet TAKE 1 TABLET DAILY. Quantity: 90 Refills: 3 Ordered: 02-Dec-2022 Ольга Raya MD Start : 02-Dec-2022 Active new start/ stop lasix End: 01-04-2024 take 1 tablet by mouth every other day spironolacton-hydrochlorothiaz (Aldactaz izabella) 25-25 mg tablet Take 1 tablet (25 mg) by mouth once daily. Every other day 01/04/2024 Discontinued (Therapy completed) ketoconazole 20 mg/ml medicated shampoo (1 source) Azole Antifungal Start: 05-28-2022 End: 01-11-2023 ketoconazole (NIZOral) 2 % shampoo Apply topically. 0 05/28/2022 01/11/2023 Discontinued (Therapy completed) methylPREDNISolone 4 mg oral tablet (3 sources) Corticosteroid Start: 06-18-2022 Medrol 4 MG as directed Orally as directed for 6 days Jun, Not-Taking/PRN Start: 11-09-2021 methylPREDNISo lone 4 MG as directed Orally Once a day for 6 days Nov, Active Multivitamin preparation (19 sources) Start: 01-01-2019 End: 03-01-2020 take 1 tablet by mouth once daily Multivitamin Discontinued 1 TAB PO Daily January 01, 2019 1:58am March 01, 2020 2:54pm Start: 01-01-2019 End: 03-01-2020 take 1 tablet by mouth once daily Multivitamin Discontinued 1 TAB PO Daily December 31, 2018 11:00pm March 01, 2020 1:54pm Start: 01-01-2019 End: 03-01-2020 take 1 tablet by mouth once daily Multivitamin Discontinued 1 TAB PO Daily January 01, 2019 12:00am March 01, 2020 2:54pm Multivitamin Act chio Multivitamin Tablet (2 sources) Start: 01-01-2019 End: 03-01-2020 take 1 tablet by mouth once daily Multivitamin Tablet Discontinued 1 TAB PO Daily December 31, 2018 11:00pm March 01, 2020 1:54pm sucralfate 1000 mg oral tablet (1 source) Aluminum Complex Start: 06-25-2022 End: 01-11-2023 sucralfate (Carafate) 1 gram tablet Take by mouth. 0 06/25/2022 01/11/2023 Discontinued (Therapy completed) tamsulosin hydrochloride 0.4 mg oral capsule (3 sources) alpha-Adrenergic Estephania take 1 capsule by mouth once daily Tamsulosin HCl - 0.4 MG Oral Capsule TAKE 1 CAPSULE Daily Quantity: 0 Refills: 0 Ordered: 08-Apr-2021 DO Active Triamcinolone (7 sources) Corticosteroid Start: 01-02-2020 Kenalog -40 mg 30 Dec, 2019 40 mg Problems Active Problems Problem Classification Problem Date Documented Date Episodic/Chronic Asthma (20 sources) Exacerbation of asthma; Translations: [Unspecified asthma with (acute) exacerbation] Onset: 07-28-2023 06-21-2022 Chronic Cancer of breast (20 sources) Malignant tumor of breast ; Translations: [Malignant neoplasm of unspecified site of unspecified female breast] Onset: 07-28-2023 02-13-2019 Chronic Cardiac dysrhythmias (20 sources) Paroxysmal atrial fibrillation; Translations: [Atrial fibrillation] Onset: 05-01-2020 01-10-2023 Chronic Cardiac dysrhythmias (20 sources) Bradycardia; Translations: [Other specified cardiac dysrhythmias] Onset: 01-10-2023 03-01-2020 Episodic Comment on above: Problem List clean-u p per request of Phys. EHR Cmte Chronic obstructive pulmonary disease and bronchiectasis (2 sources) Bronchitis, not specified as acute or chronic Onset: 11-09-2021 Resolved: 11-09-2021 Episodic Conduction disorders (20 sources) Cardiac pacemaker in situ; Translations: [Cardiac pacemaker in situ] Onset: 01-10-2023 10-13-2018 Chronic Comment on above: Problem List clean-u p per request of Phys. EHR Cmte Congestive heart failure; nonhypertensive (20 sources) Chronic heart failure co-occurrent with normal ejection fraction; Translations: [Chronic diastolic (congestive) heart failure] Onset: 06-22-2022 04-19-2023 Chronic Esophageal disorders (14 sources) Gastroesophageal reflux disease; Translations: [Gastro-esophageal reflux disease without esophagitis] Onset: 04-19-2023 04-19-2023 Chronic Essential hypertension (20 sources) Benign essential hypertension; Translations: [Benign essential hypertension] Onset: 01-10-2023 02-13-2019 Chronic Comment on above: Problem List clean-u p per request of Phys. EHR Cmte Genitourinary symptoms and ill-defined conditions (9 sources) Dysuria; Translations: [Dysuria] Onset: 12-17-2021 Resolved: 12-17-2021 Episodic Lymphadenitis (16 sources) Mediastinal lymphadenopathy; Translations: [Localized enlarged lymph nodes] 02-13-2019 Episodic Nonspecific chest pain (20 sources) Atypical chest pain; Translations: [Other chest pain] Onset: 01-10-2023 01-23-2019 Episodic Comment on above: Problem List clean-u p per request of Phys. 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, site unspecified] Onset: 06-23-2023 06-23-2023 Chronic Other aftercare (20 sources) Long-term current use of anticoagulant; Translations: [penitentiary (current) use of anticoagulants] Onset: 05-01-2020 04-19-2023 Episodic Other connective tissue disease (2 sources) Pain in hallux; Translations: [Pain in right toe(s)] 02-23-2024 Episodic Other ear and sense organ disorders (9 sources) Conductive hearing loss, bilateral; Translations: [Conductive hearing loss, bilateral] Onset: 06-23-2023 06-23-2023 Chronic Other lower respiratory disease (20 sources) Pulmonary granuloma; Translations: [Pulmonary fibrosis, unspecified] Onset: 07-28-2023 12-31-2016 Chronic Other lower respiratory disease (2 sources) Pulmonary fibrosis, unspecified; Translations: [Other diseases of lung, not elsewhere classified] 10-19-2021 Chronic Other lower respiratory disease (14 sources) Dyspnea; Translations: [Shortness of breath] 10-13-2018 Episodic Comment on above: Problem List clean-u p per request of Phys. EHR Cmte Other nervous system disorders (2 sources) Difficulty walking; Translations: [Difficulty in walking, not elsewhere classified] 02-23-2024 Chronic Other nutritional; endocrine; and metabolic disorders (4 sources) Body mass index 25-29 - overweight; Translations: [Body Mass Index 27.0-27.9, adult] Episodic Other skin disorders (2 sources) Ingrowing nail; Translations: [Ingrowing nail] 02-23-2024 Episodic Other upper respiratory disease (11 sources) Seasonal allergic rhinitis; Translations: [Other seasonal allergic rhinitis] Onset: 06-23-2023 06-23-2023 Chronic Other upper respiratory disease (2 sources) Allergic rhinitis; Translations: [Allergic rhinitis, unspecified] 03-19-2024 Chronic Other upper respiratory infections (14 sources) Sinusitis; Translations: [Chronic sinusitis, unspecified] 06-20-2021 Chronic Comment on above: Problem List clean-u p per request of Phys. EHR Cmte Skin and subcutaneous tissue infections (2 sources) Paronychia of toe of right foot; Translations: [Cellulitis of right toe] 02-23-2024 Episodic Unclassified (1 source) Encounter for checking and testing of cardiac pacemaker pulse generator [battery]; Translations: [Encounter for checking and testing of cardiac pacemaker pulse generator [battery]] Onset: 04-29-2023 Urinary tract infections (3 sources) Urinary tract infection, site not specified; Translations: [Acute cystitis without hematuria] Episodic Past or Other Problems Problem Classification Problem Date Documented Da te Episodic/Chronic Acute bronchitis (8 sources) Acute bronchiolitis; Translations: [Acute bronchiolitis, unspecified] Onset: 06-20-2022 06-21-2022 Episodic Cancer of breast (20 sources) History of malignant neoplasm of breast; Translations: [Personal history of malignant neoplasm of breast] Onset: 07-28-2023 01-01-2019 Episodic Gastrointestinal hemorrhage (8 sources) Melena; Translations: [Melena] Onset: 06-21-2022 06-21-2022 Episodic Mood disorders (9 sources) Mood disorders Onset: 06-23-2023 06-23-2023 Other aftercare (20 sources) Drug therapy finding; Translations: [Long-term (current) use of anticoagulants] Onset: 01-10-2023 01-10-2023 Episodic Other aftercare (9 sources) Anticoagulant effect; Translations: [intermediate teacher (current) use of anticoagulants] Onset: 09-26-2023 09-26-2023 Episodic Other aftercare (2 sources) intermediate teacher (current) use of anticoagulants; Translations: [intermediate teacher (current) use of anticoagulants] Onset: 05-01-2020 Episodic Other and unspecified benign neoplasm (17 sources) History of polyp of colon; Translations: [Personal history of colonic polyps] Onset: 06-20-2022 06-24-2022 Episodic Other connective tissue disease (10 sources) Pain in right thumb; Translations: [Pain in right finger(s)] Onset: 12-19-2023 12-19-2023 Episodic Other female genital disorders (1 source) Other specified noninflammatory disorders of vagina Onset: 12-17-2021 Resolved: 12-17-2021 Episodic Other nutritional; endocrine; and metabolic disorders (20 sources) Overweight in adulthood with body mass index of 25 or more but less than 30; Translations: [Overweight] Onset: 01-10-2023 01-10-2023 Episodic Other nutritional; endocrine; and metabolic disorders (2 sources) Overweight; Translations: [Overweight] Onset: 01-10-2023 Episodic Other nutritional; endocrine; and metabolic disorders (2 sources) Body mass index (BMI) 27.0-27.9, adult; Translations: [Body mass index (BMI) 27.0-27.9, adult] Onset: 01-10-2023 Episodic Other screening for suspected conditions (not mental disorders or infectious disease) (20 sources) Hormone level - finding; Translations: [Other specified abnormal findings of blood chemistry] Onset: 06-21-2022 10-13-2018 Episodic Comment on above: Problem List clean-u p per request of Phys. EHR Cmte Other upper respiratory infections (9 sources) Acute upper respiratory infection; Translations: [Acute upper respiratory infection, unspecified] Onset: 09-26-2023 09-26-2023 Episodic Otitis media and related conditions (1 source) Otitis media, unspecified, bilateral Onset: 11-09-2021 Resolved: 11-09-2021 Episodic Respiratory failure; insufficiency; arrest (adult) (8 sources) Acute hypoxemic respiratory failure; Translations: [Acute respiratory failure with hypoxia] Onset: 06-21-2022 06-21-2022 Episodic Unclassified (10 sources) Never smoked tobacco; Translations: [Never a smoker] Unclassified (1 source) Contact with and (suspected) exposure to covid-19 Z20.822 Unclassified (2 sources) Onset: 04-05-2023 Resolved: 01-04-2024 04-05-2023 Viral infection (1 source) COVID-19 Results Test Name Value Interpretation Reference Range Facility POCT Protime / INRon 04-05- 025 INR Coag (PPP) [Relative time] 1.8 {INR} Abnormal 0.8 - 1.2 [facility] Interpretation and review of laboratory results Abnormal [facility] POCT Protime / INRon 03-07-2 024 INR Coag (PPP) [Relative time] 2 {INR} Abnormal 0.8 - 1.2 [facility] Interpretation and review of laboratory results Abnormal [facility] POCT Protime / INRon 02-20-2 024 INR Coag (PPP) [Relative time] 2.6 {INR} Abnormal 0.8 - 1.2 [facility] Interpretation and review of laboratory results Abnormal [facility] Basic Metabolic Panelon 02-02 Anion gap [Moles/Vol] 10.8 mmol/L Normal 6.0-15.0 [facility] Comment on above: Performed By: #### B MP #### [facility] [address] [place] [address] Calcium [Mass/Vol] 9.2 mg/dL Normal 8.6-10.3 [facility] Comment on above: Result Comment: PERF ORMED BY: [place] [address] PATHOLOGIST SWIFT TENDER DYLAN KHALIL M.D. Performed By: #### B MP #### [address] Chloride [Moles/Vol] 107 mmol/L Normal 98-107 [facility] Comment on above: Performed By: #### B MP #### [address] CO2 [Moles/Vol] 27.2 mmol/L Normal 21.0-31.0 [facility] Comment on above: Performed By: #### B MP #### [address] Creatinine [Mass/Vol] 0.69 mg/dL Normal 0.60-1.20 [facility] Comment on above: Performed By: #### B MP #### [place] [address] [place] GFR/1.73 sq M.predicted MDRD (S/P/Bld) [Vol rate/Area] mL/min/{1.73_m2} Normal [facility] Comment on above: Performed By: #### B MP #### [address] Glucose [Mass/Vol] 82 mg/dL Normal 70-100 [facility] Comment on above: Result Comment: [place] Glucose Reference Range is dependent on time and content of last meal. Glucose of more than 200 mg/dL in a nonstressed, ambulatory subject supports the diagnosis of Diabetes Mellitus. ADA recommended reference range Performed By: #### B MP #### [address] Potassium [Moles/Vol] 5.0 mmol/L Normal 3.5-5.1 [facility] Comment on above: Result Comment: Hemo lysis is present at a level that could interfere with the result. Contact lab if redraw is required Performed By: #### B MP #### [address] Sodium [Moles/Vol] 140 mmol/L Normal 136-145 [facility] Comment on above: Performed By: #### B MP #### [facility] [address] Urea nitrogen [Mass/Vol] 12 mg/dL Normal 7-25 [facility] Comment on above: Performed By: #### B MP #### [facility] [address] Calcium [Mass/volume] in Ser um or PlasmaOrdered By: Ольга Raya on 02-13-2024 Calcium [Mass/Vol] Calcium [Mass/volume ] in Serum or Plasma 8.6-10.3 [facility] Carbon dioxide, total [Moles /volume] in Serum or PlasmaOrdered By: Ольга Raya on 02-13-2024 CO2 [Moles/Vol] Carbon dioxide, tota l [Moles/volume] in Serum or Plasma 21.0-31.0 [facility] Chloride [Moles/volume] in S shanice or PlasmaOrdered By: Ольга Raya on 02-13-2024 Chloride [Moles/Vol] Chloride [Moles/vol ume] in Serum or Plasma 98-107 [facility] Creatinine [Mass/volume] in Serum or PlasmaOrdered By: Ольга Raya on 02-13-2024 Creatinine [Mass/Vol] Creatinine [Mass/v olume] in Serum or Plasma 0.60-1.20 [facility] Glucose [Mass/volume] in Ser um or PlasmaOrdered By: лОьга Raya on 02-13-2024 Glucose [Mass/Vol] Glucose [Mass/volume ] in Serum or Plasma 70-100 [facility] Comment on above: ADA recommended refe rence rangeRandom Glucose Reference Range is dependent on time and content of last meal. Glucose of more than 200 mg/dL in a nonstressed, ambulatory subject supports the diagnosis of Diabetes Mellitus. No Panel InformationOrdered By: Ольга Raya on 02-13-2024 Estimated GFR (CKD-EPI) > 60.0 mL/Min [facility] Creatinine Clearance (Chem N/A [facility] Potassium [Moles/volume] in Serum or PlasmaOrdered By: Ольга Raya on 02-13-2024 Potassium [Moles/Vol] Potassium [Moles/v olume] in Serum or Plasma 3.5-5.1 [facility] Comment on above: Hemolysis is present at a level that could interfere with the result.Contact lab if redraw is required Serum or plasma anion gap de terminationOrdered By: Ольга Raya on 02-13-2024 Anion gap [Moles/Vol] Serum or plasma an ion gap determination 6.0-15.0 [facility] Sodium [Moles/volume] in Ser um or PlasmaOrdered By: Ольга Raya on 02-13-2024 Sodium [Moles/Vol] Sodium [Moles/volume ] in Serum or Plasma 136-145 [facility] Urea nitrogen [Mass/volume] in Serum or PlasmaOrdered By: Ольга Raya on 02-13-2024 Urea nitrogen [Mass/Vol] Urea nitrogen [Mass/volume] in Serum or Plasma 7-25 [facility] POCT Protime / INRon 024 INR Coag (PPP) [Relative time] 2.4 {INR} Abnormal 0.8 - 1.2 [facility] Interpretation and review of laboratory results Abnormal [facility] POCT Protime / INRon 024 INR Coag (PPP) [Relative time] 3.6 {INR} Abnormal 0.8 - 1.2 [facility] Interpretation and review of laboratory results [facility]normal [facility] MM screening mammo BI w/CADo n 10-24-2023 MM screening mammo BI w/CAD [facility] [place] [address] Mammography Report Signed Patient: Damir Staples MR#: [id number] 64 : 1950 Acct:[id number] Age/Sex: 73 / F ADM Date: 10/24/23 Loc: [place] Room: Type: [facility] Attending Dr: Shaikh Kirstie BRITO Copies to: Shaikh Kirstie MD Ordering Provider: Shaikh Kirstie MD Date of Service: 10/24/23 MM/MM screening mammo BI w/CAD: SCREENING BILATERAL Screening Full Field digital mammogram with 3-D imaging. Full field digital CC and MLO imaging performed. CAD utilized. COMPARISON: 10/21/2022 HISTORY: Annual screening BREAST COMPOSITION: Scattered fibroglandular densities of the breast parenchyma identified BREAST CALCIFICATIONS: Benign calcifications present. VASCULAR CALCIFICATIONS: None ARCHITECTURAL DISTORTION: None BREAST NODULE: None AXILLARY LYMPH NODES: Normal POSTSURGICAL CHANGES: Stable right lumpectomy changes MM/MM screening mammo BI w/CAD IMPRESSION: No mammographic evidence of malignancy. Routine follow-up recommended in one year. RESULT CODE: 2 Benign Findings(s) DENSITY CODE: 2 (approximately 25-50% glandular) FOLLOW UP: 1YR THE FALSE-NEGATIVE RATE OF MAMMOGRAPHY IS APPROXIMATELY 10%. IMAGING OF A PALPABLE ABNORMALITY MUST BE BASED ON CLINICAL GROUNDS. PATIENT WAS ENTERED INTO A REMINDER SYSTEM WITH A TARGET DUE DATE FOR THE NEXT MAMMOGRAM. Impression dictated by: Lencho Julian M.D.10/24/2023 2:39 PM Dictation Location: [facility] Transcribed By: [facility] 10/24/23 1439 Dictated By: Lencho Julian DO 10/24/23 1437 Signed By: 10/24/23 1439 Normal [facility] POCT Protime / INRon 024 INR Coag (PPP) [Relative time] 2.5 {INR} Abnormal 0.8 - 1.2 [facility] Interpretation and review of laboratory results Abnormal [facility] POCT Protime / INRon 024 INR Coag (PPP) [Relative time] 2.2 {INR} Abnormal 0.8 - 1.2 [facility] Interpretation and review of laboratory results Abnormal [facility] CBC AND AUTO DIFFon 04-20-19 ABSOLUTE BASOPHIL 0.0 X10E9/L Normal 0.0-0.2 [facility] Comment on above: Performed By: #### C BCA, CMP #### [facility] ([id number]) [address], [address] [place] [address] ABSOLUTE NEUTROPHIL 4.2 X10E9/L Normal 1.5-6.6 [facility] Comment on above: Performed By: #### C BCA, CMP #### [facility] ([id number]) [address], [address] [place] [address] Basophils/100 WBC (Bld) 0.4 % Normal [facility] Comment on above: Performed By: #### C HEIDE, CMP #### [facility] ([id number]) [address], [address] [place] [address] Eosinophils (Bld) [#/Vol] 0.2 10*3/uL Normal 0.0-0.4 [facility] Comment on above: Performed By: #### C HEIDE, CMP #### [facility] ([id number]) [address], [address] [place] [address] Eosinophils/100 WBC (Bld) 3.1 % Normal [facility] Comment on above: Performed By: #### C HEIDE, CMP #### [facility] ([id number]) [address], [address] [place] [address] Erythrocyte distribution width (RBC) [Ratio] 14.4 % Normal 11.5-15.0 [facility] Comment on above: Performed By: #### C BCA, CMP #### [facility] ([id number]) [address], [address] [place] [address] Hematocrit (Bld) [Volume fraction] 42.1 % Normal 35-47 [facility] Comment on above: Performed By: #### C BCA, CMP #### [facility] ([id number]) [address], [address] [place] [address] Hemoglobin (Bld) [Mass/Vol] 14.1 g/dL Normal 11.7-15.5 [facility] Comment on above: Performed By: #### C BCA, CMP #### [facility] ([id number]) [address] [address] [place] [address] Lymphocytes (Bld) [#/Vol] 1.8 10*3/uL Normal 1.0-3.5 [facility] Comment on above: Performed By: #### C BCA, CMP #### [facility] ([id number]) [address], [address] [place] [address] Lymphocytes/100 WBC (Bld) 27.5 % Normal [facility] Comment on above: Performed By: #### C HEIDE, CMP #### [facility] ([id number]) [address] [facility] [address] [place] [address] MCH (RBC) [Entitic mass] 32.9 pg Normal 27-34 [facility] Comment on above: Performed By: #### C BCA, CMP #### [facility] ([id number]) [address], [address] [place] [address] MCHC (RBC) [Mass/Vol] 33.6 g/dL Normal 32-36 [facility] Comment on above: Performed By: #### C BCA, CMP #### [facility] ([id number]) [address], [address] [place] [address] MCV (RBC) [Entitic vol] 98 fL Normal 80-100 [facility] Comment on above: Performed By: #### C BCA, CMP #### [facility] ([id number]) [address], [address] [place] [address] Monocytes (Bld) [#/Vol] 0.5 10*3/uL Normal 0-0.9 [facility] Comment on above: Performed By: #### C BCA, CMP #### [facility] ([id number]) [address], [address] [place] [address] Monocytes/100 WBC (Bld) 6.8 % Normal [facility] Comment on above: Performed By: #### C HEIDE, CMP #### [facility] ([id number]) [address], [facility] [address] [place] [address] Neutrophils/100 WBC (Bld) 62.2 % Normal [facility] Comment on above: Performed By: #### C BCA, CMP #### [facility] ([id number]) [address] [address] [place] [address] Platelet mean volume (Bld) [Entitic vol] 7.6 fL Normal 7-12 [facility] Comment on above: Performed By: #### C HEIDE, CMP #### [facility] ([id number]) [address] [address] [place] [address] Platelets (Bld) [#/Vol] 257 10*3/uL Normal 150-450 [facility] Comment on above: Performed By: #### C HEIDE, CMP #### [facility] ([id number]) [address], [facility] [address] [place] [address] RBC COUNT 4.30 X10E12/L Normal 3.80-5.20 [facility] Comment on above: Performed By: #### C BCA, CMP #### [facility] ([id number]) [address] [address] [place] [address] WBC (Bld) [#/Vol] 6.7 10*3/uL Normal 4.0-11.0 [facility] Comment on above: Performed By: #### C BCA, CMP #### [facility] ([id number]) [address], [address] [place] [address] COMPREHENSIVE METABOLIC PANE Pranay 04-20-2023 Albumin [Mass/Vol] 4.1 g/dL Normal 3.2-5.3 [facility] Comment on above: Performed By: #### C BCA, CMP #### [facility] ([id number]) [address], [address] [place] [address] ALP [Catalytic activity/Vol] 107 U/L Normal 39-130 [facility] Comment on above: Performed By: #### C BCA, CMP #### [facility] ([id number]) [address], [address] [place] [address] ALT [Catalytic activity/Vol] 11 U/L Normal 0-31 [facility] Comment on above: Performed By: #### C BCA, CMP #### [facility] ([id number]) [address], [address] [place] [address] Anion gap [Moles/Vol] 7 mmol/L Normal 5-15 [facility] Comment on above: Performed By: #### C BCA, CMP #### [facility] ([id number]) [address], [address] [place] [address] AST [Catalytic activity/Vol] 22 U/L Normal 0-41 [facility] Comment on above: Performed By: #### C BCA, CMP #### [facility] ([id number]) [address], [address] [place] [address] Bilirubin [Mass/Vol] 0.7 mg/dL Normal 0.3-1.2 [facility] Comment on above: Performed By: #### C BCA, CMP #### [facility] ([id number]) [address], [address] [place] [address] Calcium [Mass/Vol] 8.5 mg/dL Normal 8.5-10.5 [facility] Comment on above: Performed By: #### C BCA, CMP #### [facility] ([id number]) [address], [address] [place] [address] Chloride [Moles/Vol] 104 mmol/L Normal 98-109 [facility] Comment on above: Performed By: #### C BCA, CMP #### [facility] ([id number]) [address], [address] [place] [address] CO2 [Moles/Vol] 27 mmol/L Normal 22-32 [facility] Comment on above: Performed By: #### C BCA, CMP #### [facility] ([id number]) [address], [address] [place] [address] Creatinine [Mass/Vol] 0.74 mg/dL Normal 0.40-1.00 [facility] Comment on above: Result Comment: METH OD TRACEABLE TO IDMS STANDARD Performed By: #### C BCA, CMP #### [facility] ([id number]) [address], [address] [place] [address] GFR/1.73 sq M.predicted among non-blacks MDRD (S/P/Bld) [Vol rate/Area] 86 mL/min/{1.73_m2} Normal >59 [facility] Comment on above: Result Comment: Reported eGFR is based on the CKD-EPI 2020 equation that does not use a race coefficient. Performed By: #### C BCA, CMP #### [facility] ([id number]) [address], [address] [place] [address] Glucose [Mass/Vol] 158 mg/dL High 65-99 [facility] Comment on above: Performed By: #### C BCA, CMP #### [facility] ([id number]) [address] [place] [address] Potassium [Moles/Vol] 4.3 mmol/L Normal 3.5-5.0 [facility] Comment on above: Performed By: #### C BCA, CMP #### [facility] ([id number]) [address], [address] [place] [address] Protein [Mass/Vol] 6.7 g/dL Normal 6.0-8.0 [facility] Comment on above: Performed By: #### C BCA, CMP #### [facility] ([id number]) [address], [address] [place] [address] Sodium [Moles/Vol] 138 mmol/L Normal 134-146 [facility] Comment on above: Performed By: #### C BCA, CMP #### [facility] ([id number]) [address], [address] [place] [address] Urea nitrogen [Mass/Vol] 22 mg/dL Normal 5-27 [facility] Comment on above: Performed By: #### C BCA, CMP #### [facility] ([id number]) [address], [address] [place] [address] COVID + FLU Quick Testingon 03-25-2023 SARS-CoV-2 (COVID-19) RNA JUVENAL+probe Ql (Unsp spec) Positive [employer] Other COVID + FLU Quick Testing negaitve [employer] Other Office Visit (Cardiology)on 12-02-2022 Follow-up visit Diagnoses/Problems Assessed Benign essential hypertension (401.1) (I10) Bradycardia (427.89) (R00.1) Paroxysmal atrial fibrillation (427.31) (I48.0) Sick sinus syndrome due to SA node dysfunction (427.81) (I49.5) Pacemaker (V45.01) (Z95.0) Atypical chest pain (786.59) (R07.89) Never a smoker Overweight with body mass index (BMI) of 27 to 27.9 in adult (278.02,V85.23) (E66.3,Z68.27) Anticoagulated (V58.61) (Z79.01) Orders Benign essential hypertension Start: Spironolactone-HCTZ 25-25 MG Oral Tablet; TAKE 1 TABLET DAILY Basic Metabolic Panel; Status:Active - Retrospective Authorization; Requested for:[id number]; Overweight with body mass index (BMI) of 27 to 27.9 in adult Healthy Weight Tips; Status:Complete - Retrospective Authorization; Done: [id number] Some eating tips that can help you lose weight.; Status:Complete - Retrospective Authorization; Done: [id number] SocHx: Never a smoker Tobacco Use Screening; Status:Complete; Done: [id number] Unlinked Stop: Furosemide 20 MG Oral Tablet Patient Instructions Please bring all medicines, vitamins, and herbal supplements with you when you come to the office. Prescriptions will not be filled unless you are compliant with your follow up appointments or have a follow up appointment scheduled as per instruction of your physician. Refills should be requested at the time of your visit. Continue with Coumadin management follow up as directed. Follow up in 4 months Blood Pressure Follow Up In 6 weeks Chief Complaint DAMIR STAPLES is being seen for a 3-4 month follow-up of. History of Present Illness Patient is here for follow-up continue management for previous evaluation for shortness of breath and diastolic heart failure, sick sinus syndrome with permanent pacemaker implantation, hypertension and paroxysmal atrial fibrillation since last time I saw her she had a visit to the emergency room because of significantly elevated the blood pressure. He reports recent intermittent episodes of headaches. Her recent visit to the emergency room noted and reviewed with her. She reports compliance with her medication. Assessment 1. Uncontrolled hypertension 2. Sick sinus syndrome with permanent pacemaker implantation. With appropriate device function 3. Previous evaluation for shortness of breath attributed to diastolic heart failure. Previous work-up reviewed with patient 4. Paroxysmal atrial fibrillation on Coumadin therapy noted on device check 5. Mild obesity 5. Previous complaint of chest pain. Stress test was negative previous echo also showed normal LV function Plan 1. I advised the patient to present medical therapy and continue to restrict her salt intake, try to lose weight and exercise and I advised her in regard to nonpharmacologic approach for hypertension 2. I reviewed with her her recent lab work and hospitalization record 3. Advised her to stop Lasix and start Aldactazide 1 tablet daily and to have a blood pressure check in 4 weeks and a basic metabolic profile 4. I advised her to notify me if with changes of her cardiac symptoms 5., Benefits alternative anticoagulation reviewed with patient 6. I will see back in the office in 3 months and follow-up Surgical History Problems History of Carpal tunnel surgery History of Complete colonoscopy History of Knee surgery History of Lumpectomy History of Pacemaker insertion Current Meds Medication NameInstruction Furosemide 20 MG Oral TabletTAKE 1 TABLET DAILY DIRECTED. Latanoprost 0.005 % Ophthalmic Solutionas directed Lisinopril 20 MG Oral TabletTAKE 1 TABLET DAILY. Metoprolol Tartrate 50 MG Oral TabletTAKE 1 TABLET TWICE DAILY. Montelukast Sodium 10 MG Oral TabletTAKE 1 TABLET DAILY. Pantoprazole Sodium 40 MG Oral Tablet Delayed ReleaseTAKE 1 TABLET TWICE DAILY 30 MINUTES BEFORE BREAKFAST AND DINNER. Warfarin Sodium TABSas directed [facility] Patient did not bring medication list or bottles. Updated verbally with patient Allergies Medication Augmentin Adverse Reaction; Gatrointestinal upset; Recorded By: Blanca Kemp; 04/08/2021 4:07:05 PM Sulfa Drugs Adverse Reaction; Fatigue; Recorded By: Blanca Kemp; 04/08/2021 4:07:05 PM Bactrim DS TABS Recorded By: Darlene Anderson; 01/29/2021 3:52:41 PM Social History Problems Daily caffeine consumption, 2-3 servings a day Never a smoker No illicit drug use Occasional alcohol use Review of Systems Constitutional: not feeling tired. Cardiovascular: no intermittent leg claudication and as noted in HPI. Respiratory: no cough and no shortness of breath. Gastrointestinal: no change in bowel habits and no blood in stools. Integumentary: no skin rashes. Neurological: no seizures and no frequent falls. All other systems have been reviewed and are negative for complaint. Vitals Vital Signs Recorded: 02Dec2022 02:10PMRecorded: 02Dec2022 01:44PM [id number], RUE, [id number], LUE, Sitting Erika (more content not included)... Normal [employer] Tobacco Screening.on 023 Fall risk assessment a) No falls within the last year [facility] y [address] DO Work Phone: Tobacco use status CP b) No [facility] [employer] y [address] DO Work Phone: Tobacco Screening. Yes [facility] y 250 DO Work Phone: Activated partial thrombopla stin time (aPTT) in platelet poor plasma by coagulation aOrdered By: Pipo Beck on 10-29-2022 aPTT Coag (PPP) [Time] 38.6 s 25.1-36.5 [facility] Alanine aminotransferase [En zymatic activity/volume] in Serum or PlasmaOrdered By: Pipo Beck on 10-29-2022 ALT [Catalytic activity/Vol] 17 U/L 7-52 [facility] Albumin [Mass/volume] in Ser um or Plasma by Bromocresol green (BCG) dye binding methoOrdered By: Pipo Beck on 10-29-2022 Albumin BCG dye [Mass/Vol] 4.4 g/dL 3.5-5.7 [facility] Alkaline phosphatase [Enzyma tic activity/volume] in Serum or PlasmaOrdered By: Pipo Beck on 10-29-2022 ALP [Catalytic activity/Vol] 86 U/L 34-104 [facility] Aspartate aminotransferase [ Enzymatic activity/volume] in Serum or PlasmaOrdered By: Pipo Beck on 10-29-2022 AST [Catalytic activity/Vol] 21 U/L 13-39 [facility] Basophils Auto (Bld) [#/Vol] Ordered By: Pipo Beck on 10-29-2022 Basophils (Bld) [#/Vol] 0.0 10*3/uL 0.0-0.2 [facility] Basophils/100 WBC Auto (Bld) Ordered By: Pipo Beck on 10-29-2022 Basophils/100 WBC (Bld) 0.6 % . [facility] Bilirubin.direct [Mass/volum e] in Serum or PlasmaOrdered By: Pipo Beck on 10-29-2022 Bilirubin.direct [Mass/Vol] 0.10 mg/dL 0.03-0.18 [facility] Bilirubin.total [Mass/volume ] in Serum or PlasmaOrdered By: Pipo Beck on 10-29-2022 Bilirubin [Mass/Vol] 0.8 mg/dL 0.3-1.0 [facility] Calcium [Mass/volume] in Ser um or PlasmaOrdered By: Pipo Beck on 10-29-2022 Calcium [Mass/Vol] 9.7 mg/dL 8.6-10.3 [facility] Carbon dioxide, total [Moles /volume] in Serum or PlasmaOrdered By: Pipo Beck on 10-29-2022 CO2 [Moles/Vol] 28.5 mmol/L 21.0-31.0 [facility] Chloride [Moles/volume] in S shanice or PlasmaOrdered By: Pipo Beck on 10-29-2022 Chloride [Moles/Vol] 105 mmol/L 98-107 [facility] Creatine kinase [Enzymatic a ctivity/volume] in Serum or PlasmaOrdered By: Pipo Beck on 10-29-2022 CK [Catalytic activity/Vol] 64 U/L 30-223 [facility] Creatinine [Mass/volume] in Serum or PlasmaOrdered By: Pipo Beck on 10-29-2022 Creatinine [Mass/Vol] 0.77 mg/dL 0.60-1.20 [facility] Eosinophils Auto (Bld) [#/Vo l]Ordered By: Pipo Beck on 10-29-2022 Eosinophils (Bld) [#/Vol] 0.2 10*3/uL 0.0-0.45 [facility] Eosinophils/100 WBC Auto (Bl d)Ordered By: Pipo Beck on 10-29-2022 Eosinophils/100 WBC (Bld) 3.5 % . [facility] Erythrocyte distribution wid th Auto (RBC) [Ratio]Ordered By: Pipo Beck on 10-29-2022 Erythrocyte distribution width (RBC) [Ratio] 14.0 % 11.9-15.3 [facility] Globulin Calc (S) [Mass/Vol] Ordered By: Pipo Beck on 10-29-2022 Globulin (S) [Mass/Vol] 3.0 g/dL [facility] Glucose [Mass/volume] in Ser um or PlasmaOrdered By: Pipo Beck on 10-29-2022 Glucose [Mass/Vol] 103 mg/dL 70-100 [facility] Comment on above: ADA recommended refe rence rangeRandom Glucose Reference Range is dependent on time and content of last meal. Glucose of more than 200 mg/dL in a nonstressed, ambulatory subject supports the diagnosis of Diabetes Mellitus. Hematocrit Auto (Bld) [Volum e fraction]Ordered By: Pipo Beck on 10-29-2022 Hematocrit (Bld) [Volume fraction] 43.0 % 34.0-46.4 [facility] Hemoglobin [Mass/volume] in BloodOrdered By: Pipo Beck on 10-29-2022 Hemoglobin (Bld) [Mass/Vol] 14.5 g/dL 11.8-15.4 [facility] Laboratory - CoagulationOrde red By: Piop Beck on 10-29-2022 PT Coag (PPP) [Time] 19.2 s 9.0-12.9 [facility] Leukocytes [#/volume] correc rebecca for nucleated erythrocytes in Blood by Automated counOrdered By: Pipo Beck on 10-29-2022 WBC corrected for nucl RBC Auto (Bld) [#/Vol] 7.0 10*3/uL 3.8-11.6 [facility] Lymphocytes Auto (Bld) [#/Vo l]Ordered By: Pipo Beck on 10-29-2022 Lymphocytes (Bld) [#/Vol] 1.9 10*3/uL 1.00-4.8 [facility] Lymphocytes/100 WBC Auto (Bl d)Ordered By: Pipo Beck on 10-29-2022 Lymphocytes/100 WBC (Bld) 26.8 % . [facility] MCH Auto (RBC) [Entitic mass ]Ordered By: Pipo Beck on 10-29-2022 MCH (RBC) [Entitic mass] 30.7 pg 24.7-34.3 [facility] MCHC Auto (RBC) [Mass/Vol]Or dered By: Pipo Beck on 10-29-2022 MCHC (RBC) [Mass/Vol] 33.8 g/dL 32.0-35.0 [facility] MCV Auto (RBC) [Entitic vol] Ordered By: Pipo Beck on 10-29-2022 MCV (RBC) [Entitic vol] 91.0 fL 80-100 [facility] Monocyte distribution width [Entitic volume] in Blood by AutomatedOrdered By: Pipo Beck on 10-29-2022 Monocyte distribution width Auto (Bld) [Entitic vol] 20.10 % 0.00-20.00 [facility] Comment on above: For adults in ED, MD W > 20.0 may be associated with a higher risk of sepsis during the first 12 hrs of hospital admission Monocytes Auto (Bld) [#/Vol] Ordered By: Pipo Beck on 10-29-2022 Monocytes (Bld) [#/Vol] 0.5 10*3/uL 0.0-0.8 [facility] Monocytes/100 WBC Auto (Bld) Ordered By: Pipo Beck on 10-29-2022 Monocytes/100 WBC (Bld) 7.6 % . [facility] Natriuretic peptide B [Mass/ Vol]Ordered By: Pipo Beck on 10-29-2022 Natriuretic peptide B (Bld) [Mass/Vol] 77.0 pg/mL 5-100 [facility] Neutrophils Auto (Bld) [#/Vo l]Ordered By: Pipo Beck on 10-29-2022 Neutrophils (Bld) [#/Vol] 4.3 10*3/uL 1.8-7.7 [facility] Neutrophils/100 WBC Auto (Bl d)Ordered By: Pipo Beck on 10-29-2022 Neutrophils/100 WBC (Bld) 61.5 % . [facility] No Panel InformationOrdered By: Pipo Beck on 10-29-2022 Estimated GFR (CKD-EPI) > 60.0 mL/Min [facility] Creatinine Clearance (Chem 53.88 [facility] Nucleated erythrocytes [Pres ence] in Blood by Automated countOrdered By: Pipo Beck on 10-29-2022 Nucleated RBC Auto Ql (Bld) 0.1 /100{WBC} 0-0.5 [facility] Platelet mean volume Auto (B ld) [Entitic vol]Ordered By: Pipo Beck on 10-29-2022 Platelet mean volume (Bld) [Entitic vol] 7.1 fL 6.3-10.7 [facility] Platelet poor plasma interna tional normalized ratio (INR) by coagulation assay (relatOrdered By: Pipo Beck on 10-29-2022 INR Coag (PPP) [Relative time] 1.7 {INR} [facility] Comment on above: INR Therapeutic Rang e A) Pre- and Peroperative OAT started two weeks before surgery. NOT HIP SURGERY: 1.5 - 2.5 HIP SURGERY: 2 - 3B) Primary and secondary prevention of venous THROMBOSIS: 2 - 3C) Active venous thrombosis, pulmonary embolismand prevention of recurrent venous thrombosis: 2 - 3D) Prevention of arterial thromboembolismincluding patients with mechanical heart valves: 3 - 4.5 Platelets Auto (Bld) [#/Vol] Ordered By: iPpo Beck on 10-29-2022 Platelets (Bld) [#/Vol] 270 10*3/uL 150-450 [facility] Potassium [Moles/volume] in Serum or PlasmaOrdered By: Pipo Beck on 10-29-2022 Potassium [Moles/Vol] 3.8 mmol/L 3.5-5.1 [facility] Protein [Mass/volume] in Ser um or PlasmaOrdered By: Pipo Beck on 10-29-2022 Protein [Mass/Vol] 7.4 g/dL 6.4-8.9 [facility] RBC Auto (Bld) [#/Vol]Ordere d By: Pipo Beck on 10-29-2022 RBC (Bld) [#/Vol] 4.72 10*6/uL 3.60-5.00 [facility] Serum or plasma albumin/glob ulin mass ratioOrdered By: Pipo Beck on 10-29-2022 Albumin/Globulin [Mass ratio] 1.5 {ratio} [facility] Serum or plasma anion gap de terminationOrdered By: Pipo Beck on 10-29-2022 Anion gap [Moles/Vol] 12.3 mmol/L 6.0-15.0 [facility] Serum or plasma non-glucuron idated bilirubin measurement (mass/volume)Ordered By: Pipo Beck on 10-29-2022 Bilirubin.indirect [Mass/Vol] 0.7 mg/dL [facility] Sodium [Moles/volume] in Ser um or PlasmaOrdered By: Pipo Beck on 10-29-2022 Sodium [Moles/Vol] 142 mmol/L 136-145 [facility] Troponin I.cardiac [Mass/vol ume] in Serum or Plasma by Detection limit <= 0.01 ng/Ordered By: Pipo Beck on 10-29-2022 Troponin I.cardiac DL <= 0.01 ng/mL [Mass/Vol] 4.9 pg/mL 0.0-15.0 [facility] Urea nitrogen [Mass/volume] in Serum or PlasmaOrdered By: Pipo Beck on 10-29-2022 Urea nitrogen [Mass/Vol] 19 mg/dL 7-25 [facility] WBC Auto (Bld) [#/Vol]Ordere d By: Pipo Beck on 10-29-2022 WBC (Bld) [#/Vol] 7.0 10*3/uL 3.8-11.6 [facility] Calcium [Mass/volume] in Ser um or PlasmaOrdered By: Ольга Raya on 10-21-2022 Calcium [Mass/Vol] 9.2 mg/dL 8.6-10.3 [facility] Carbon dioxide, total [Moles /volume] in Serum or PlasmaOrdered By: Ольга Raya on 10-21-2022 CO2 [Moles/Vol] 32.2 mmol/L 21.0-31.0 [facility] Chloride [Moles/volume] in S shanice or PlasmaOrdered By: Ольга Raya on 10-21-2022 Chloride [Moles/Vol] 108 mmol/L 98-107 [facility] Creatinine [Mass/volume] in Serum or PlasmaOrdered By: Ольга Raya on 10-21-2022 Creatinine [Mass/Vol] 0.75 mg/dL 0.60-1.20 [facility] Glucose [Mass/volume] in Ser um or PlasmaOrdered By: Ольга Raya on 10-21-2022 Glucose [Mass/Vol] 75 mg/dL 70-100 [facility] Comment on above: ADA recommended refe rence rangeRandom Glucose Reference Range is dependent on time and content of last meal. Glucose of more than 200 mg/dL in a nonstressed, ambulatory subject supports the diagnosis of Diabetes Mellitus. No Panel InformationOrdered By: Ольга Raya on 10-21-2022 Estimated GFR (CKD-EPI) > 60.0 mL/Min [facility] Creatinine Clearance (Chem N/A [facility] No Panel Informationon 10-21 > 60.0 Normal [facility] y 250 DO Work Phone: [phone] 8.2\S\8.2 Normal 6.0-15.0 [facility] [employer] y 250 DO Work Phone: [phone] 9.2\S\9.2 Normal 8.6-10.3 [facility] y 250 DO Work Phone: [phone] Comment on above: PERFORMED BY:[facility] [place], [place] [id number] MEDICAL DIRECTORDYLAN KHALIL M.D. 32.2\S\32.2 above high threshold 21.0-31.0 [facility] y 250 DO Work Phone: [phone] 108\S\108 above high threshold 98-107 [facility] Yoli y 250 DO Work Phone: [phone] 4.4\S\4.4 Normal 3.5-5.1 [facility] y 250 DO Work Phone: [phone] 144\S\144 Normal 136-145 [facility] [employer] y 250 DO Work Phone: [phone] 0.75\S\0.75 Normal 0.60-1.20 [facility] [employer] y 250 DO Work Phone: [phone] 17\S\17 Normal 7-25 [facility] [employer] y 250 DO Work Phone: [phone] 75\S\75 Normal 70-100 [facility] [employer] y 250 DO Work Phone: [phone] Comment on above: Random Glucose Refer ence Range is dependent on time and content of last meal. Glucose of more than 200 mg/dL in a nonstressed, ambulatory subject supports the diagnosis of Diabetes Mellitus. ADA recommended reference range Potassium [Moles/volume] in Serum or PlasmaOrdered By: Ольга Raya on 10-21-2022 Potassium [Moles/Vol] 4.4 mmol/L 3.5-5.1 [facility] Serum or plasma anion gap de terminationOrdered By: Ольга Raya on 10-21-2022 Anion gap [Moles/Vol] 8.2 mmol/L 6.0-15.0 [facility] Sodium [Moles/volume] in Ser um or PlasmaOrdered By: Ольга Raya on 10-21-2022 Sodium [Moles/Vol] 144 mmol/L 136-145 [facility] Urea nitrogen [Mass/volume] in Serum or PlasmaOrdered By: Ольга Raya on 10-21-2022 Urea nitrogen [Mass/Vol] 17 mg/dL 10-26 [facility] Creatinine (Bld) [Mass/Vol]O rdered By: Lewis Ohara on 08-26-2022 Creatinine [Mass/Vol] 0.9 mg/dL 0.6-1.3 [facility] Comment on above: ER/ESD physician is notified/shown all ISTAT results.Critical values may be confirmed by laboratory testing ifdeemed necessary by ER attending doctor. Office Visit (Cardiology)on 08-02-2022 Follow-up visit Diagnoses/Problems Assessed Atypical chest pain (786.59) (R07.89) Benign essential hypertension (401.1) (I10) Paroxysmal atrial fibrillation (427.31) (I48.0) Pacemaker (V45.01) (Z95.0) Sick sinus syndrome due to SA node dysfunction (427.81) (I49.5) Never a smoker Bradycardia (427.89) (R00.1) Anticoagulated (V58.61) (Z79.01) Overweight with body mass index (BMI) of 27 to 27.9 in adult (278.02,V85.23) (E66.3,Z68.27) Orders Benign essential hypertension, Paroxysmal atrial fibrillation Basic Metabolic Panel; Status:Active - Retrospective Authorization; Requested for:08Nov2022; Overweight with body mass index (BMI) of 27 to 27.9 in adult Healthy Weight Tips; Status:Complete - Retrospective Authorization; Done: 02Aug2022 Some eating tips that can help you lose weight.; Status:Complete - Retrospective Authorization; Done: [id number] SocHx: Never a smoker Tobacco Use Screening; Status:Complete; Done: [id number] Patient Instructions Please bring all medicines, vitamins, and herbal supplements with you when you come to the office. Prescriptions will not be filled unless you are compliant with your follow up appointments or have a follow up appointment scheduled as per instruction of your physician. Refills should be requested at the time of your visit. Follow up in 3 months chem. 6 3 months Chief Complaint DAMIR STAPLES is being seen for follow-up of a [facility]. History of Present Illness Patient is here for follow-up continue management for previous evaluation for atypical chest pain, sick sinus syndrome, hypertension. I received a phone call recently that she was in the hospital for questionable heart failure. I was able to retrieve the records and review. Chest x-ray was not very convincingly consistent with heart failure. Her BNP was normal. She reports she felt better with low-dose diuretics. She denies lightheadedness, dizziness or syncope. His previous echocardiogram showed normal LV systolic function. Previous stress test was negative. Assessment 1. Complaint of shortness of breath with questionable diastolic heart failure. Seems to be improving. Her BMP and chest x-ray was okay. The previous echo showed normal LV systolic function. Previous stress test was negative 2. Sick sinus syndrome with recent permanent pacemaker implantation. With appropriate device function 3. Hypertension controlled 4. Paroxysmal atrial fibrillation on Coumadin therapy 5. Mild obesity 5. BS t complaint of chest pain. Stress test was negative previous echo also showed normal LV function Plan 1. I advised the patient to present medical therapy and continue to restrict her salt intake 2. I reviewed with her her recent lab work and hospitalization record 3. Patient was counseled regarding losing weight and exercise 4. I advised her to notify me if symptoms does not improve. If continues to have shortness of breath we may consider cardiac catheterization 5., Benefits alternative anticoagulation reviewed with patient 6. I will see er back in the office in 3 months and follow-up Surgical History Problems History of Carpal tunnel surgery History of Complete colonoscopy History of Knee surgery History of Lumpectomy History of Pacemaker insertion Current Meds Medication NameInstruction Furosemide 20 MG Oral TabletTAKE 1 TABLET DAILY DIRECTED. Latanoprost 0.005 % Ophthalmic Solutionas directed Lisinopril 5 MG Oral TabletTAKE 1 TABLET DAILY. Metoprolol Tartrate 50 MG Oral TabletTAKE 1 TABLET TWICE DAILY. Montelukast Sodium 10 MG Oral TabletTAKE 1 TABLET DAILY. Pantoprazole Sodium 40 MG Oral Tablet Delayed ReleaseTAKE 1 TABLET TWICE DAILY 30 MINUTES BEFORE BREAKFAST AND DINNER. [facility] Allerg[facility] Medication Augmentin Adverse Reaction; Gatrointestinal upset; Recorded By: Blanca Kemp; 04/08/2021 4:07:05 PM Sulfa Drugs Adverse Reaction; Fatigue; Recorded By: Blanca Kemp; 04/08/2021 4:07:05 PM Bactrim DS TABS Recorded By: Darlene Anderson; 01/29/2021 3:52:41 PM Social History Problems Daily caffeine consumption, 2-3 servings a day Never a smoker No illicit drug use Occasional alcohol use Review of Systems Constitutional: not feeling tired. Cardiovascular: no intermittent leg claudication and as noted in HPI. Respiratory: shortness of breath, but no cough. Gastrointestinal: no change in bowel habits and no blood in stools. Integumentary: no skin rashes. Neurological: no seizures and no frequent falls. All other systems have been reviewed and are negative for complaint. Vitals Vital Signs Recorded: 02Aug2022 10:49AM Heart Rate84, L Radial Ioepbdip159, LUE, Sitting [id number], LUE, Sitting Height5 ft [id number] lb BMI Fphcynuukq52.54 kg/m2 BSA Calculated1.61 Tobacco Useb) No PHQ-2 #1. Over the last 2 weeks have you felt down, depressed or hopeless? (If yes, answer PHQ-9 below)No PHQ-2 (more content not included)... Normal [employer] Tobacco Screening.on 023 Adult depression screening assessment No [facility] [employer] DO Work Phone: Fall risk assessment a) No falls within the last year [facility] [facility] DO Work Phone: Tobacco use status CPHS b) No [facility] DO Work Phone: Urinalysis - AUTOMATEDon Appearance (U) cloudy [employer] Other Bilirubin Ql (U) Negative [employer] Other Color (U) yellow [employer] Other Glucose Ql (U) Negative [employer] Other Hemoglobin Ql (U) Negative [employer] Other Ketones Ql (U) Negative [employer] Other Leukocyte esterase Test strip Ql (U) small [employer] Other Nitrite Ql (U) Negative [employer] Other pH (U) 6.0 [pH] [employer] Other Protein Ql (U) Negative [employer] Other Specific gravity (U) [Rel density] 1.010 [employer] Other Urobilinogen (U) [Mass/Vol] 0.2 mg/dL [employer] Other Urinalysis - AUTOMATED [employer] Other Urinalysis - AUTOMATEDon Appearance (U) clear [employer] Other Bilirubin Ql (U) Negative [employer] Other Color (U) yellow [employer] Other Glucose Ql (U) Negative [employer] Other Hemoglobin Ql (U) large [employer] Other Ketones Ql (U) Negative [employer] Other Leukocyte esterase Test strip Ql (U) small [employer] Other Nitrite Ql (U) Negative [employer] Other pH (U) 5.5 [pH] [employer] Other Protein Ql (U) 100 [employer] Other Specific gravity (U) [Rel density] 1.015 [employer] Other Urobilinogen (U) [Mass/Vol] 0.2 mg/dL [employer] Other Urinalysis - AUTOMATED [employer] Other Urine Cultureon 02-12-2022 Urine Culture >100,000 [employer] Other Office Visit (Cardiology)on 01-26-2022 Follow-up visit Diagnoses/Problems Assessed Benign essential hypertension (401.1) (I10) Overweight with body mass index (BMI) of 27 to 27.9 in adult (278.02,V85.23) (E66.3,Z68.27) Orders Benign essential hypertension Start: Lisinopril 20 MG Oral Tablet; TAKE 1 TABLET DAILY Basic Metabolic Panel; Status:Active; Requested for:23Feb2022; Unlinked Stop: Lisinopril 5 MG Oral Tablet Patient Instructions Increase Lisinopril from 10 mg to 20 mg daily. Lab and repeat b/p check in 6-8 weeks Chief Complaint DAMIR STAPLES is being seen for hypertension. History of Present Illness Patient is here for follow-up to management for hypertension. Last time we increase her amlodipine. Blood pressure remains elevated and actually her family physician also increase lisinopril to 10 mg daily. Despite this her blood pressure remains elevated. Assessment 1. Hypertension suboptimally controlled Plan 1. We will increase lisinopril to 20 mg daily. The patient will have a blood pressure check and BMP in 6 to 8 weeks Active Problems Problems Benign essential hypertension (401.1) (I10) Assessed By: Maggie Gandhi; Last Assessed: 26 Jan 2022 Current Meds Medication NameInstruction Atenolol 100 MG Oral TabletTAKE 1 TABLET DAILY. Latanoprost 0.005 % Ophthalmic Solutionas directed Lisinopril 5 MG Oral TabletTAKE 2 TABLET Daily Montelukast Sodium 10 MG Oral TabletTAKE 1 TABLET DAILY. [facility]in [facility] Allergies Medication Augmentin Adverse Reaction; Gatrointestinal upset; Recorded By: Blanca Kemp; 04/08/2021 4:07:05 PM Sulfa Drugs Adverse Reaction; Fatigue; Recorded By: Blanca Kemp; 04/08/2021 4:07:05 PM Bactrim DS TABS Recorded By: Darlene Anderson; 01/29/2021 3:52:41 PM Vitals Vital Signs Printed in Appendix #1 below. Signatures Electronically signed by : Ольга Raya MD; Jan 26 2022 5:07PM EST (Author) Appendix #1 Vital Signs Patient: DAMIR STAPLES; : 1950; Recorded: 26Jan2022 01:36PMRecorded: [id number] 01:31PMRecorded: [id number] 01:30PM [id number], RUE, [id number], LUE, Zdmdpqp662, LUE, Azvqzmy103, RUE, Sitting Jveccfrct49, RUE, Dysdmff55, LUE, Zdfbgsw38, LUE, Abquyvi54, RUE, Sitting Heart Rate64, R Radial Height5 ft Xhnspj954 lb BMI Divnflsahv68.54 kg/m2 BSA Calculated1.61 Normal [employer] Urine culture routineOrdered By: Juani Whitney on 12-19-2021 Bacteria identified Cx Nom (U) Strep. agalactiae Grp B [facility] No Panel InformationOrdered By: Juani Whitney on 12-17-2021 Bella albicans (JUVENAL) Negative Negative [facility] Comment on above: This test was develo ped and its performance characteristicsdetermined by [facility]. It has not been cleared orapproved by the Food and Drug Administration. Bella glabrata (JUVENAL) Negative Negative [facility] Comment on above: This test was develo ped and its performance characteristicsdetermined by [employer]. It has not been cleared orapproved by the Food and Drug Administration. Trichomonas vaginalis (JUVENAL) Negative Negative [facility] Comment on above: Performed at: =[address] [id number] Director: Maile Aponte MD, Phone: [phone] Urinalysis - AUTOMATEDon Appearance (U) clear [employer] Other Bilirubin Ql (U) Negative [employer] Other Color (U) yellow [employer] Other Glucose Ql (U) Negative [employer] Other Hemoglobin Ql (U) Negative [employer] Other Ketones Ql (U) Negative [employer] Other Leukocyte esterase Test strip Ql (U) Negative [employer] Other Nitrite Ql (U) Negative [employer] Other pH (U) 6.5 [pH] [employer] Other Protein Ql (U) Negative [employer] Other Specific gravity (U) [Rel density] 1.010 [employer] Other Urobilinogen (U) [Mass/Vol] 0.20 mg/dL [employer] Other Urinalysis - AUTOMATED [employer] Other Vaginal fluid Atopobium vagi ariel DNA detection by probe and target amplification methoOrdered By: Juani Whitney on 12-17-2021 A. vaginae DNA JUVENAL+probe Ql (Vag fld) Low - 0 Score . [facility] Vaginal fluid Megasphaera sp ecies type 1 DNA detection by probe and target amplificatOrdered By: Juani Whitney on 12-17-2021 Megasphaera sp type 1 DNA JUVENAL+probe Ql (Vag fld) Low - 0 Score . [facility] Comment on above: Calculate total scor e by adding the 3 individual bacterialvaginosis (BV) marker scores together. Total score isinterpreted as follows:Total score 0-1: Indicates the absence of BV.Total score 2: Indeterminate for BV. Additional clinical data should be evaluated to establish a diagnosis.Total score 3-6: Indicates the presence of BV.This test was developed and its performance characteristicsdetermined by [employer]. It has not been cleared or approvedby the Food and Drug Administration. Vaginal fluid bacterial vagi nosis associated bacterium 2 DNA detection by probe and tOrdered By: Juani Whitney on 12-17-2021 Bacterial vaginosis associated bacterium 2 DNA JUVENAL+probe Ql (Vag fld) Low - 0 Score . [facility] SARS-CoV-2 (COVID-19) RNA NA A+probe Ql (Resp)on 11-09-2021 SARS-CoV-2 (COVID-19) RNA JUVENAL+probe Ql (Unsp spec) Negative [employer] Other Tobacco Screening.on Adult depression screening assessment No [facility] 250 DO Work Phone: Fall risk assessment a) No falls within the last year [place] [address] DO Work Phone: Tobacco use status CP b) No [facility] 250 DO Work Phone: Tobacco Screening.on 022 Fall risk assessment a) No falls within the last year [facility] 250 DO Work Phone: Tobacco use status CPHS b) No [place] [address] DO Work Phone: [facility] CARDIAC STRESS/REST INJE CTIONon 02-09-2019 [facility] CARDIAC STRESS/REST INJECTION Patient Name: DAMIR STAPLES STUDY: MYOCARDIAL PERFUSION STRESS TEST WITH LEXISCAN Performing facility: [facility], [address] [place] [address], [address] [facility], [place] [address] [facility] Provider: Michael RAYA PCP: Dr. Kevin TITUS Supervising provider: FELIPE ROSENTHAL INDICATION: CP BRADYCARDIA HISTORY: Gender: F; Age: 68 y/o ; Height: 152.4 cm; Weight: 64.9384021 kg. HTN CP PPM Family HX CAD; Denies smoking. COMPARISON: ACCESSION NUMBER(S): [id number] ORDERING CLINICIAN: ОЛЬГА RAYA TECHNIQUE: ONE DAY protocol. Stress injection: Date:01/09/19, 34.6 mCi of Myoview IV 20 seconds after rapid injection of Lexiscan. Rest injection: Date: 01/09/19, 11.3 mCi of Myoview IV at rest. The patient had a rapid injection of 0.4 mg of Lexiscan IV over 10 seconds. Imaging was performed by GATED tomographic technique. Reason for Lexiscan: PPM STRESS TEST DATA: Resting heart rate was 86 BPM. Resting blood pressure was 128/78 mmHg. Peak blood pressure was 142/80 mmHg. Peak heart rate was 105 BPM. TEST TERMINATED DUE TO: Protocol completed FINDINGS: STRESS TEST RESULTS: Resting electrocardiogram revealed ventricular pacemaker rhythm. There were no significant ischemic ECG changes. There were no dysrhythmias. The patient did not have chest pain/symptoms during the procedure. There was a normal recovery phase. IMAGING RESULTS: Image quality was good. Rest and stress tomographic images were reviewed and revealed normal perfusion without evidence of ischemia, myocardial infarction, or left ventricular dilatation with stress. Overall left ventricular systolic function appeared to be normal without regional wall motion abnormalities. Ejection fraction was 97%. TID is 0.70 and is normal. There was no evidence of attenuation artifact. IMPRESSION: Normal Lexiscan Myoview cardiac perfusion stress test. No evidence of ischemia or myocardial infarction by perfusion imaging. Normal left ventricular systolic function, ejection fraction 97%. No previous studies are available for comparison. Electronically signed by: YANIQUE MOTLEY MD Normal [facility] Albumin [Mass/volume] in Ser um or Plasmaon 05-02-2017 Albumin [Mass/Vol] 3.9 g/dL 3.2-5.5 [facility] Basophils Auto (Bld) [#/Vol] on 05-02-2017 Basophils (Bld) [#/Vol] 0.0 10*3/uL 0.0-0.2 [facility] Basophils/100 WBC Auto (Bld) on 05-02-2017 Basophils/100 WBC (Bld) 0.3 % . [facility] Blood hemoglobin measurement (mass/volume)on 05-02-2017 Hemoglobin (Bld) [Mass/Vol] 14.6 g/dL 11.8-15.4 [facility] Creatinine and Glomerular fi ltration rate.predicted panel (S/P/Bld)on 05-02-2017 Creatinine [Mass/Vol] 0.78 mg/dL 0.44-1.03 [facility] Eosinophils Auto (Bld) [#/Vo l]on 05-02-2017 Eosinophils (Bld) [#/Vol] 0.3 10*3/uL 0.0-0.45 [facility] Eosinophils/100 WBC Auto (Bl d)on 05-02-2017 Eosinophils/100 WBC (Bld) 4.0 % . [facility] Erythrocyte distribution wid th Auto (RBC) [Ratio]on 05-02-2017 Erythrocyte distribution width (RBC) [Ratio] 13.8 % 11.9-15.3 [facility] Estimated glomerular filtrat ion rate (GFR) non- Americanon 05-02-2017 GFR/1.73 sq M.predicted among non-blacks MDRD (S/P/Bld) [Vol rate/Area] mL/min/{1.73_m2} [facility] Globulin Calc (S) [Mass/Vol] on 05-02-2017 Globulin (S) [Mass/Vol] 2.8 g/dL [facility] Hematocrit Auto (Bld) [Volum e fraction]on 05-02-2017 Hematocrit (Bld) [Volume fraction] 42.7 % 34.0-46.4 [facility] Laboratory - Chemistry and C hemistry - challengeon 05-02-2017 GFR/1.73 sq M.predicted among blacks MDRD (S/P/Bld) [Vol rate/Area] mL/min/{1.73_m2} [facility] Comment on above: GFR estimated refere nce range: According to KDOQI guidelines, <60 ml/min/1.73m2 is sufficient to diagnose a patient with chronic kidney disease. Lymphocytes Auto (Bld) [#/Vo l]on 05-02-2017 Lymphocytes (Bld) [#/Vol] 2.2 10*3/uL 1.00-4.8 [facility] Lymphocytes/100 WBC Auto (Bl d)on 05-02-2017 Lymphocytes/100 WBC (Bld) 33.2 % . [facility] MCH Auto (RBC) [Entitic mass ]on 05-02-2017 MCH (RBC) [Entitic mass] 32.6 pg 24.7-34.3 [facility] MCHC Auto (RBC) [Mass/Vol]on 05-02-2017 MCHC (RBC) [Mass/Vol] 34.2 g/dL 32.0-35.0 [facility] MCV Auto (RBC) [Entitic vol] on 05-02-2017 MCV (RBC) [Entitic vol] 95.4 fL 80-100 [facility] Monocytes Auto (Bld) [#/Vol] on 05-02-2017 Monocytes (Bld) [#/Vol] 0.6 10*3/uL 0.0-0.8 [facility] Monocytes/100 WBC Auto (Bld) on 05-02-2017 Monocytes/100 WBC (Bld) 9.7 % . [facility] Neutrophils Auto (Bld) [#/Vo l]on 05-02-2017 Neutrophils (Bld) [#/Vol] 3.5 10*3/uL 1.8-7.7 [facility] Neutrophils/100 WBC Auto (Bl d)on 05-02-2017 Neutrophils/100 WBC (Bld) 52.8 % . [facility] No Panel Informationon 05-02 Pharmacy Creatinine Clearance (Chem 40.2865 [facility] Platelet mean volume Auto (B ld) [Entitic vol]on 05-02-2017 Platelet mean volume (Bld) [Entitic vol] 7.4 fL 6.3-10.7 [facility] Platelets Auto (Bld) [#/Vol] on 05-02-2017 Platelets (Bld) [#/Vol] 272 10*3/uL 150-450 [facility] Protein [Mass/volume] in Ser um or Plasmaon 05-02-2017 Protein [Mass/Vol] 6.7 g/dL 6.1-7.9 [facility] RBC Auto (Bld) [#/Vol]on RBC (Bld) [#/Vol] 4.47 10*6/uL 3.60-5.00 [facility] Serum or plasma alanine mazariegos otransferase measurement without P-5'-P (enzymatic activion 05-02-2017 ALT No additional P-5'-P [Catalytic activity/Vol] 21 U/L 10-60 [facility] Serum or plasma albumin/glob ulin mass ratioon 05-02-2017 Albumin/Globulin [Mass ratio] 1.4 {ratio} [facility] Serum or plasma alkaline eduardo sphatase measurement (enzymatic activity/volume)on 05-02-2017 ALP [Catalytic activity/Vol] 71 U/L 32-92 [facility] Serum or plasma aspartate am inotransferase measurement (enzymatic activity/volume)on 05-02-2017 AST [Catalytic activity/Vol] 25 U/L 10-42 [facility] Serum or plasma calcium fabian urement (mass/volume)on 05-02-2017 Calcium [Mass/Vol] 9.6 mg/dL 8.2-10.2 [facility] Serum or plasma chloride cassandra surement (moles/volume)on 05-02-2017 Chloride [Moles/Vol] 103 mmol/L 95-114 [facility] Serum or plasma glucose fabian urement (mass/volume)on 05-02-2017 Glucose [Mass/Vol] 93 mg/dL 70-100 [facility] Comment on above: ADA recommended refe rence range Random Glucose Reference Range is dependent on time and content of last meal. Glucose of more than 200 mg/dL in a nonstressed, ambulatory subject supports the diagnosis of Diabetes Mellitus. Serum or plasma potassium me asurement (moles/volume)on 05-02-2017 Potassium [Moles/Vol] 3.8 mmol/L 3.5-5.1 [facility] Serum or plasma sodium measu rement (moles/volume)on 05-02-2017 Sodium [Moles/Vol] 139 mmol/L 136-146 [facility] Serum or plasma total biliru bin measurement (mass/volume)on 05-02-2017 Bilirubin [Mass/Vol] 1.2 mg/dL 0.3-1.2 [facility] Serum or plasma total carbon dioxide measurement (moles/volume)on 05-02-2017 CO2 [Moles/Vol] 27.5 mmol/L 22.0-30.0 [facility] Serum or plasma urea nitroge n measurement (mass/volume)on 05-02-2017 Urea nitrogen [Mass/Vol] 15 mg/dL 9- [facility] WBC Auto (Bld) [#/Vol]on WBC (Bld) [#/Vol] 6.5 10*3/uL 3.8-11.6 [facility] Vital Signs Date Time Vital Sign Value Performing Clinician Facility 03-19-2024 10:33-0500 Body height 152.4 cm Issac Edouard MOLDING ENGINEER Work Phone: [facility] 03-19-2024 10:33-0500 Body mass index (BMI) [Ratio] 27.58 kg/m2 Issac Edouard MOLDING ENGINEER Work Phone: [facility] 03-19-2024 10:33-0500 Body temperature 96.4 [degF] Issac Edouard MOLDING ENGINEER Work Phone: [facility] 03-19-2024 10:33-0500 Body weight 64.05 kg Issac Edouard MOLDING ENGINEER Work Phone: [facility] 03-19-2024 10:33-0500 Diastolic blood pressure 82 mm[Hg] Issac Edouard MOLDING ENGINEER Work Phone: [facility] 03-19-2024 10:33-0500 Heart rate 87 /min Issac Edouard MOLDING ENGINEER Work Phone: [facility] 03-19-2024 10:33-0500 Respiratory rate 16 /min Issac Edouard MOLDING ENGINEER Work Phone: [facility] 03-19-2024 10:33-0500 SaO2% (BldA) [Mass fraction] 97 % Issac Edouard MOLDING ENGINEER Work Phone: [facility] 03-19-2024 10:33-0500 Systolic blood pressure 144 mm[Hg] Issac Edouard MOLDING ENGINEER Work Phone: [facility] 02-23-2024 13:27-0500 Body height 152.4 cm Ankita Nunez DPM Work Phone: [facility] 02-23-2024 13:27-0500 Body mass index (BMI) [Ratio] 28.12 kg/m2 Ankita Hayden DPM Work Phone: [facility] 02-23-2024 13:27-0500 Body weight 65.32 kg Ankita Mayra DPM Work Phone: [facility] 01-04-2024 13:31-0400 Body height 152.4 cm Ольга Raya MD Work Phone: [facility] 01-04-2024 13:31-0400 Body mass index (BMI) [Ratio] 27.34 kg/m2 Ольга Raya MD Work Phone: [facility] 01-04-2024 13:31-0400 Body weight 63.5 kg Ольга Raya MD Work Phone: [facility] 01-04-2024 13:31-0400 Diastolic blood pressure 80 mm[Hg] Ольга Raya MD Work Phone: [facility] 01-04-2024 13:31-0400 Heart rate 66 /min Ольга Raya MD Work Phone: [facility] 01-04-2024 13:31-0400 Systolic blood pressure 138 mm[Hg] Ольга Raya MD Work Phone: [facility] 12-19-2023 10:06-0400 Body height 152.4 cm Issac Edouard MOLDING ENGINEER Work Phone: [facility] 12-19-2023 10:06-0400 Body mass index (BMI) [Ratio] 28.12 kg/m2 Issac Edouard MOLDING ENGINEER Work Phone: [facility] 12-19-2023 10:06-0400 Body temperature 96.69 [degF] Issac Edouard MOLDING ENGINEER Work Phone: [facility] 12-19-2023 10:06-0400 Body weight 65.32 kg Issac Vegaspatrick MOLDING ENGINEER Work Phone: [facility] 12-19-2023 10:06-0400 Diastolic blood pressure 84 mm[Hg] Issac Edouard MOLDING ENGINEER Work Phone: [facility] 12-19-2023 10:06-0400 Heart rate 81 /min Issac Edouard MOLDING ENGINEER Work Phone: [facility] Comment on above: 95% O2 12-19-2023 10:06-0400 Systolic blood pressure 150 mm[Hg] Issac Edouard MOLDING ENGINEER Work Phone: [facility] 04-05-2023 13:20-0500 Body height 152.4 cm Ольга Raya MD Work Phone: [facility] 04-05-2023 13:20-0500 Body mass index (BMI) [Ratio] 27.93 kg/m2 Ольга Raya MD Work Phone: [facility] 04-05-2023 13:20-0500 Body weight 64.86 kg Ольга Raya MD Work Phone: [facility] 04-05-2023 13:20-0500 Diastolic blood pressure 80 mm[Hg] Ольга Raya MD Work Phone: [facility] 04-05-2023 13:20-0500 Heart rate 60 /min Ольга Raya MD Work Phone: [facility] 04-05-2023 13:20-0500 Systolic blood pressure 120 mm[Hg] Ольга Raya MD Work Phone: [facility] 03-25-2023 10:00-0500 Body height 152.4 cm Cassie Reyez Other [employer] Other 03-25-2023 10:00-0500 Body mass index (BMI) [Ratio] 27.34 kg/m2 Cassie Reyez Other [employer] Other 03-25-2023 10:00-0500 Body temperature 98.1 [degF] Cassie Reyez Other [employer] Other 03-25-2023 10:00-0500 Body weight 63.5 kg Cassie Reyez Other [employer] Other 03-25-2023 10:00-0500 Diastolic blood pressure 66 mm[Hg] Cassie Reyez Other [employer] Other 03-25-2023 10:00-0500 Respiratory rate 18 /min Cassie Reyez Other [employer] Other 03-25-2023 10:00-0500 SaO2% (BldA) [Mass fraction] 98 % Cassie Reyez Other [employer] Other 03-25-2023 10:00-0500 Systolic blood pressure 109 mm[Hg] Cassie iNnamond Other [employer] Other 01-11-2023 13:50-0400 Body height 152.4 cm Ольга Raya MD Work Phone: [facility] 01-11-2023 13:50-0400 Body mass index (BMI) [Ratio] 28.32 kg/m2 Ольга Raya MD Work Phone: [facility] 01-11-2023 13:50-0400 Body weight 65.77 kg Ольга Raya MD Work Phone: [facility] 01-11-2023 13:50-0400 Diastolic blood pressure 80 mm[Hg] Ольга Raya MD Work Phone: [facility] 01-11-2023 13:50-0400 Systolic blood pressure 138 mm[Hg] Ольга Raya MD Work Phone: [facility] 01-11-2023 13:46-0400 Heart rate 68 /min Ольга Raya MD Work Phone: [facility] 12-02-2022 14:10-0400 Diastolic blood pressure 89 mm[Hg] Calderonmarsha Thacker Work Phone: [facility] 250 DO Work Phone: 12-02-2022 14:10-0400 Systolic blood pressure 165 mm[Hg] Shaikh Teresageovanna Work Phone: [facility] 250 DO Work Phone: 12-02-2022 13:44-0400 Body height 152.4 cm Shaikh Mckennawad Work Phone: [facility] 250 DO Work Phone: 12-02-2022 13:44-0400 Body mass index (BMI) [Ratio] 27.93 kg/m2 Shaikh Teresafeliciawad Work Phone: [facility] 250 DO Work Phone: 12-02-2022 13:44-0400 Body surface area Derived from formula 1.62 m2 Shaikh Teresafeliciawad Work Phone: [facility] 250 DO Work Phone: 12-02-2022 13:44-0400 Body weight 64.86 kg Shaikh Mckennawad Work Phone: [facility] 250 DO Work Phone: 12-02-2022 13:44-0400 Diastolic blood pressure 106 mm[Hg] Shaikh Mckennawad Work Phone: [facility] 250 DO Work Phone: 12-02-2022 13:44-0400 Heart rate 70 /min Shaikh Mckennawad Work Phone: [facility] 250 DO Work Phone: 12-02-2022 13:44-0400 Systolic blood pressure 198 mm[Hg] Shaikh Mckennawad Work Phone: [facility] 250 DO Work Phone: 10-29-2022 23:00-0400 Diastolic blood pressure 81 mm[Hg] [facility] 10-29-2022 23:00-0400 Heart rate 74 /min [facility] 10-29-2022 23:00-0400 Respiratory rate 18 /min [facility] 10-29-2022 23:00-0400 SaO2% (BldA) [Mass fraction] 94 % [facility] 10-29-2022 23:00-0400 Systolic blood pressure 180 mm[Hg] [facility] 10-29-2022 20:06-0400 Body height 152.4 cm [facility] 10-29-2022 20:06-0400 Body temperature 97.7 [degF] [facility] 10-29-2022 20:06-0400 Body weight 64.05 kg [facility] 08-02-2022 10:49-0400 Body height 152.4 cm Shaikh Mckennawad Work Phone: [facility] 600 DO Work Phone: 08-02-2022 10:49-0400 Body mass index (BMI) [Ratio] 27.54 kg/m2 Shaikh Mckennawad Work Phone: [facility] [employer] 600 DO Work Phone: 08-02-2022 10:49-0400 Body surface area Derived from formula 1.61 m2 Shaikh Kirstie Work Phone: [facility] [employer] 600 DO Work Phone: 08-02-2022 10:49-0400 Body weight 63.96 kg Shaikh Kirstie Work Phone: [facility] [employer] 600 DO Work Phone: 08-02-2022 10:49-0400 Diastolic blood pressure 70 mm[Hg] Shaikh Kirstie Work Phone: [facility] [employer] 600 DO Work Phone: 08-02-2022 10:49-0400 Heart rate 84 /min Shaikh Kirstie Work Phone: [facility] [employer] 600 DO Work Phone: 08-02-2022 10:49-0400 Systolic blood pressure 132 mm[Hg] Shaikh Kirstie Work Phone: [facility] [employer] 600 DO Work Phone: 06-18-2022 13:35-0400 Body height 152.4 cm Cassie Reyez Other [employer] Other 06-18-2022 13:35-0400 Body mass index (BMI) [Ratio] 27.34 kg/m2 Cassie Reyez Other [employer] Other 06-18-2022 13:35-0400 Body temperature 97.9 [degF] Cassie Reyez Other [employer] Other 06-18-2022 13:35-0400 Body weight 63.5 kg Cassie Reyez Other [employer] Other 06-18-2022 13:35-0400 Respiratory rate 18 /min Cassie Reyez Other [employer] Other 06-18-2022 13:35-0400 SaO2% (BldA) [Mass fraction] 93 % Cassie Reyez Other [employer] Other 03-09-2022 13:17-0500 Diastolic blood pressure 80 mm[Hg] Shaikh [facility]ckennawad [facility] DO Work Phone: 03-09-2022 13:17-0500 Systolic blood pressure 132 mm[Hg] Shaikh Mckennawad Work Phone[facility] [place] [facility] DO Work Phone: 03-09-2022 13:16-0500 Body height 152.4 cm Shaikh Mckennawad Work [facility] DO Work Phone: 03-09-2022 13:16-0500 Body mass index (BMI) [Ratio] 27.73 kg/m2 Shaikh Mckennawad Work [facility] DO Work Phone: 03-09-2022 13:16-0500 Body surface area Derived from formula 1.61 m2 Shaikh Mckennawad [facility] Phone[facility] 250 DO Work Phone: 03-09-2022 13:16-0500 Body weight 64.41 kg Shaikh Teresawwad Work Phone: [facility] 250 DO Work Phone: 03-09-2022 13:16-0500 Diastolic blood pressure 84 mm[Hg] Shaikh Kirstie Work Phone: [facility] [employer] 250 DO Work Phone: 03-09-2022 13:16-0500 Systolic blood pressure 138 mm[Hg] Shaikh Kirstie Work Phone: [facility] [employer] 250 DO Work Phone: 02-26-2022 11:40-0500 Body height 152.4 cm Ganesh Coronel Other [employer] Other 02-26-2022 11:40-0500 Body mass index (BMI) [Ratio] 27.73 kg/m2 Ganesh Coronel Other [employer] Other 02-26-2022 11:40-0500 Body temperature 97.7 [degF] Ganesh Coronel Other [employer] Other 02-26-2022 11:40-0500 Body weight 64.41 kg Ganesh Coronel Other [employer] Other 02-26-2022 11:40-0500 Diastolic blood pressure 66 mm[Hg] Ganesh Coronel Other [employer] Other 02-26-2022 11:40-0500 Respiratory rate 18 /min Ganesh Coronel Other [employer] Other 02-26-2022 11:40-0500 SaO2% (BldA) [Mass fraction] 95 % Ganesh Coronel Other [employer] Other 02-26-2022 11:40-0500 Systolic blood pressure 119 mm[Hg] Ganesh Coronel Other [employer] Other 02-12-2022 13:00-0500 Body height 152.4 cm Cassie Reyez Other [employer] Other 02-12-2022 13:00-0500 Body mass index (BMI) [Ratio] 27.5 kg/m2 Cassie Reyez Other [employer] Other 02-12-2022 13:00-0500 Body temperature 97.7 [degF] Cassie Reyez Other [employer] Other 02-12-2022 13:00-0500 Body weight 63.87 kg Cassie Reyez Other [employer] Other 02-12-2022 13:00-0500 Diastolic blood pressure 77 mm[Hg] Cassie Reyez Other [employer] Other 02-12-2022 13:00-0500 Respiratory rate 18 /min Cassie Reyez Other [employer] Other 02-12-2022 13:00-0500 SaO2% (BldA) [Mass fraction] 96 % Cassie Reyez Other [employer] Other 02-12-2022 13:00-0500 Systolic blood pressure 152 mm[Hg] Cassie Nniamond Other [employer] Other 01-26-2022 13:36-0400 Diastolic blood pressure 78 mm[Hg] Shaikh Kirstie Work Phone: [facility] 250 DO Work Phone: 10-25-2022 13:36-0400 Diastolic blood pressure 88 mm[Hg] Calderon Fawwad Work Phone: [facility] 250 DO Work Phone: 01-26-2022 13:36-0400 Systolic blood pressure 144 mm[Hg] Calderon Fawwad Work Phone: [facility] 250 DO Work Phone: 01-26-2022 13:36-0400 Systolic blood pressure 150 mm[Hg] Shaikh Teresawwad Work Phone: [facility] 250 DO Work Phone: 01-26-2022 13:31-0400 Diastolic blood pressure 80 mm[Hg] Calderon Fawwad Work Phone: [facility] 250 DO Work Phone: 01-26-2022 13:31-0400 Systolic blood pressure 142 mm[Hg] Shaikh Teresawwad Work Phone: [facility] 250 DO Work Phone: 01-26-2022 13:30-0400 Body height 152.4 cm Shaikh Teresawwad Work Phone: [facility] 250 DO Work Phone: 01-26-2022 13:30-0400 Body mass index (BMI) [Ratio] 27.54 kg/m2 Calderon Teresawwad Work Phone: [facility] 250 DO Work Phone: 01-26-2022 13:30-0400 Body surface area Derived from formula 1.61 m2 Calderon Fawwad Work Phone: [facility] 250 DO Work Phone: 01-26-2022 13:30-0400 Body weight 63.96 kg Shaikh Faustinad Work Phone: [facility] 250 DO Work Phone: 01-26-2022 13:30-0400 Diastolic blood pressure 80 mm[Hg] Shaikh Faustinad Work Phone: [facility] 250 DO Work Phone: 01-26-2022 13:30-0400 Heart rate 64 /min Shaikh Kirstie Work Phone: [facility] 250 DO Work Phone: 01-26-2022 13:30-0400 Systolic blood pressure 152 mm[Hg] Shaikh Faustinad Work Phone: [facility] 250 DO Work Phone: 12-17-2021 12:00-0400 Body height 152.4 cm Juani Whitney Other [employer] Other 12-17-2021 12:00-0400 Body mass index (BMI) [Ratio] 27.34 kg/m2 Juani Whitney Other [employer] Other 12-17-2021 12:00-0400 Body temperature 97.4 [degF] Juani Whitney Other [employer] Other 12-17-2021 12:00-0400 Body weight 63.5 kg Juani Whitney Other [employer] Other 12-17-2021 12:00-0400 Diastolic blood pressure 77 mm[Hg] Junai Whitney Other [employer] Other 12-17-2021 12:00-0400 Respiratory rate 16 /min Juani Whitney Other [employer] Other 12-17-2021 12:00-0400 SaO2% (BldA) [Mass fraction] 99 % Juani Whitney Other [employer] Other 12-17-2021 12:00-0400 Systolic blood pressure 138 mm[Hg] Juani Whitney Other [employer] Other 11-09-2021 11:15-0400 Body height 152.4 cm Gabbi Velásquez Other [employer] Other 11-09-2021 11:15-0400 Body mass index (BMI) [Ratio] 27.73 kg/m2 Gabbi Velásquez Other [employer] Other 11-09-2021 11:15-0400 Body temperature 96.2 [degF] Gabbi Velásquez Other [employer] Other 11-09-2021 11:15-0400 Body weight 64.41 kg Gabbi Velásquez Other [employer] Other 11-09-2021 11:15-0400 Respiratory rate 18 /min Gabbi Angelesault Other [employer] Other 11-09-2021 11:15-0400 SaO2% (BldA) [Mass fraction] 94 % Gabbi Angelesault Other [employer] Other 08-26-2021 15:10-0400 Body height 152.4 cm Angel Titus Work Phone: [facility] 250 DO Work Phone: 08-26-2021 15:10-0400 Body mass index (BMI) [Ratio] 28.32 kg/m2 Angel Korey [place] Work Phone: [facility] 250 DO Work Phone: 08-26-2021 15:10-0400 Body surface area Derived from formula 1.63 m2 Angel Titus Work Phone: [facility] 250 DO Work Phone: 08-26-2021 15:10-0400 Body weight 65.77 kg Angel Titus Work Phone: [facility] 250 DO Work Phone: 08-26-2021 15:10-0400 Diastolic blood pressure 80 mm[Hg] Angel Titus Work Phone: [facility] 250 DO Work Phone: 08-26-2021 15:10-0400 Heart rate 76 /min Angel Titus Work Phone: [facility] 250 DO Work Phone: 08-26-2021 15:10-0400 Systolic blood pressure 156 mm[Hg] Angel Titus Work Phone: [facility] 250 DO Work Phone: 06-20-2021 15:15-0400 Diastolic blood pressure 98 mm[Hg] MD Angel Titus Work Phone: [facility] 06-20-2021 15:15-0400 Systolic blood pressure 182 mm[Hg] MD Angel Titus Work Phone: [facility] 06-20-2021 14:26-0400 Body height 152.4 cm MD Angel Titus Work Phone: [facility] 06-20-2021 14:26-0400 Body mass index (BMI) [Ratio] 27.8 kg/m2 MD Angel Titus Work Phone: [facility] 06-20-2021 14:26-0400 Body temperature 98.3 [degF] MD Angel Titus Work Phone: [facility] 06-20-2021 14:26-0400 Body weight 64.8 kg MD Angel Titus Work Phone: [facility] 06-20-2021 14:26-0400 Heart rate 82 /min MD Angel Titus Work Phone: [facility] 06-20-2021 14:26-0400 Respiratory rate 18 /min MD Angel Titus Work Phone: [facility] 06-20-2021 14:26-0400 SaO2% (BldA) [Mass fraction] 96 % MD Angel Titus Work Phone: [facility] 04-08-2021 16:08-0500 Body height 152.4 cm Angel Titus Work Phone: [facility] 250 DO Work Phone: 04-08-2021 16:08-0500 Body mass index (BMI) [Ratio] 28.75 kg/m2 Angel Titus Work Phone: [facility] 250 DO Work Phone: 04-08-2021 16:08-0500 Body surface area Derived from formula 1.64 m2 Angel Titus Work Phone: [facility] 250 DO Work Phone: 04-08-2021 16:08-0500 Body weight 66.77 kg Angel Titus Work Phone: [facility] 250 DO Work Phone: 04-08-2021 16:08-0500 Diastolic blood pressure 106 mm[Hg] Angel Titus Work Phone: [facility] 250 DO Work Phone: 04-08-2021 16:08-0500 Heart rate 78 /min Angel Titus Work Phone: [facility] 250 DO Work Phone: 04-08-2021 16:08-0500 Systolic blood pressure 160 mm[Hg] Angel Titus Work Phone: [facility] 250 DO Work Phone: 10-17-2020 10:02-0400 Body temperature 97 [degF] MD Angel Titus Work Phone: [facility] 10-17-2020 10:02-0400 Body weight 65.9 kg MD Angel Titus Work Phone: [facility] 10-17-2020 10:02-0400 Diastolic blood pressure 83 mm[Hg] MD Angel Titus Work Phone: [facility] 10-17-2020 10:02-0400 Heart rate 76 /min MD Angel Titus Work Phone: [facility] 10-17-2020 10:02-0400 Respiratory rate 20 /min MD Angel Titus Work Phone: [facility] 10-17-2020 10:02-0400 SaO2% (BldA) [Mass fraction] 99 % MD Angel Titus Work Phone: [facility] 10-17-2020 10:02-0400 Systolic blood pressure 141 mm[Hg] MD Angel Titus Work Phone: [facility] 05-08-2020 14:28-0500 Body height 152.4 cm MD Angel Titus Work Phone: [facility] Encounters Encounter Date Encounter Type Care Provider Facility Start: 04-05-2024 End: 04-05-2024 Follow-up encounter [facility] 1 [facility] Medication Therapy Management Comment on above: penitentiary (current) use of anticoagulants (Primary Dx) Start: 04-05-2024 End: 04-05-2024 ambulatory [facility]AP[facility] Start: 03-19-2024 End: 03-19-2024 Bamboo flowsheet Issac Edouard MOLDING ENGINEER Work Phone: [facility] Start: 03-19-2024 End: 03-19-2024 Bamboo flowsheet Issac Edouard MOLDING ENGINEER Work Phone: [facility] Start: 03-19-2024 End: 03-19-2024 ambulatory ISSAC DAVIDSONTRICK Not Available Start: 03-19-2024 End: 03-19-2024 Office outpatient visit 15 minutes Issac Edouard MOLDING ENGINEER Work Phone: [facility] Comment on above: Primary hypertension (CMS/HCC) (Primary Dx); Gastroesophageal reflux disease without esophagitis; Benign essential hypertension (CMS/HCC); Paroxysmal atrial fibrillation (CMS/HCC); Allergic rhinitis, unspecified seasonality, unspecified trigger; Reactive airway disease with wheezing without complication, unspecified asthma severity, unspecified whether persistent (CMS/HCC) Start: 03-07-2024 End: 03-07-2024 Follow-up encounter [facility] 1 [facility] Medication Therapy Management Comment on above: 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) Start: 03-07-2024 End: 03-07-2024 ambulatory [facility] Start: 02-23-2024 End: 02-23-2024 Bamboo flowsheet Ankita Nunez DPM Work Phone: [facility] Start: 02-23-2024 End: 02-23-2024 Bamboo flowsheet Ankita Nunez DPM Work Phone: [facility] Start: 02-23-2024 End: 02-23-2024 Office outpatient visit 15 minutes Ankita Nunez DP Work Phone: [facility] Comment on above: Paronychia of great toe of right foot (Primary Dx); Onychocryptosis; Pain of right great toe; Difficulty walking Start: 02-23-2024 End: 02-23-2024 ambulatory ANKITA NUNEZ Not Available Start: 02-21-2024 End: 02-21-2024 Follow-up encounter [facility] 1 [facility] Medication Therapy Management Comment on above: penitentiary (current) use of anticoagulants (Primary Dx) Start: 02-21-2024 End: 02-21-2024 ambulatory [facility] Start: 02-17-2024 End: 02-17-20[facility] Start: 02-17-2024 Non-patient / Non-visit [facility] Start: 02-13-2024 End: 02-13-2024 Patient encounter procedure [facility] [place] Work Phone: Start: 02-13-2024 End: 02-13-2024 ambulatory NON STAFF [facility] Work Phone: Start: 01-24-2024 End: 01-24-2024 Follow-up encounter [facility] 1 [facility] Medication Therapy Management Comment on above: 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); Atrial fibrillation, unspecified type ([facility]-HCC) Start: 01-24-2024 End: 01-24-2024 ambulatory [facility] Start: 01-19-2024 End: 01-19-2024 Telephone encounter Amanda Zamora MA [facility] Medication Therapy Management Start: 01-10-2024 End: 01-10-2024 Follow-up encounter [facility] 1 [facility] Medication Therapy Management Comment on above: penitentiary (current) use of anticoagulants (Primary Dx) Start: 01-10-2024 End: 01-10-2024 ambulatory [facility] Start: 01-04-2024 End: 01-04-2024 Office outpatient visit 25 minutes Ольга Raya MD Work Phone: [facility] Comment on above: Paroxysmal atrial fi brillation (Multi); Benign essential hypertension; Sick sinus syndrome due to SA node dysfunction (Multi); Atypical chest pain; Bradycardia; Pacemaker; Anticoagulated; Overweight with body mass index (BMI) of 27 to 27.9 in adult Start: 01-04-2024 End: 01-04-2024 ambulatory [facility] Start: 01-03-2024 Non-patient / Non-visit [facility] Start: 12-19-2023 End: 12-19-2023 Bamboo flowsheet Issac Davidsontrick MOLDING ENGINEER Work Phone: [facility] Start: 12-19-2023 End: 12-19-2023 Bamboo flowsheet Issac Davidsontrick MOLDING ENGINEER Work Phone: [facility] Start: 12-19-2023 End: 12-19-2023 ambulatory ISSAC EDOUARD Not Available Start: 12-19-2023 End: 12-19-2023 Office outpatient visit 15 minutes Issac Edouard MOLDING ENGINEER Work Phone: [facility] Comment on above: Benign essential hyp ertension (CMS/HCC) (Primary Dx); Gastroesophageal reflux disease without esophagitis; Seasonal allergic rhinitis, unspecified trigger; Chronic heart failure with preserved ejection fraction (CMS/HCC); Thumb pain, right Start: 12-13-2023 End: 12-13-2023 ambulatory [facility] Start: 11-18-2023 End: 11-18-2023 Patient encounter procedure MD Shaikh Thacker Work Phone: [facility] Start: 11-18-2023 End: 11-18-2023 ambulatory MD Shaikh Thacker Work Phone: [facility] Work Phone: Start: 11-09-2023 End: 11-09-2023 ambulatory [facility] Start: 10-24-2023 End: 10-24-2023 Patient encounter procedure MD Shaikh Thacker Work Phone: [facility] Work Phone: Start: 10-24-2023 End: 10-24-2023 ambulatory MD Shaikh Thacker Work Phone: [facility] Work Phone: Start: 10-24-2023 End: 10-24-2023 ambulatory [facility] Start: 10-17-2023 End: 10-17-2023 ambulatory ANKITA NUNEZ Not Available Start: 10-07-2023 End: 10-07-2023 ambulatory [facility] Start: 09-30-2023 End: 09-30-2023 ambulatory [facility] Start: 09-26-2023 End: 09-26-2023 ambulatory SHAIKH KIRSTIE Not Available Start: 09-02-2023 End: 09-02-2023 ambulatory [facility] Start: 08-23-2023 End: 08-23-2023 ambulatory [place] Start: 08-18-2023 End: 08-18-2023 Patient encounter procedure MD Shaikh Thacker Work Phone: [facility] Start: 08-18-2023 End: 08-18-2023 ambulatory MD Shaikh Thacker Work Phone: [facility] Work Phone: Start: 08-04-2023 End: 08-04-2023 ambulatory [facility] Start: 08-04-2023 End: 09-03-2023 [facility] Start: 07-28-2023 End: 07-28-2023 ambulatory SHAIKH FAUSTINAD Not Available Start: 07-08-2023 End: 07-08-2023 [facility] Start: 06-23-2023 Patient encounter procedure Issac Davidsontrick MOLDING ENGINEER Work Phone: [facility] Start: 06-23-2023 End: 06-23-2023 ambulatory SHAIKH MCKENNATATIANAD Not Available Start: 06-10-2023 End: 06-10-2023 [facility] Start: 06-10-2023 End: 06-10-2023 Follow-up encounter [facility] 1 [facility] Medication Therapy Management Comment on above: Atrial fibrillation, unspecified type (CMS-HCC) (Primary Dx); intermediate teacher (current) use of anticoagulants Start: 05-13-2023 End: 05-13-2023 Follow-up encounter [facility] 1 [facility] Medication Therapy Management Comment on above: 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) Start: 05-13-2023 End: 05-13-2023 [facility] Start: 05-09-2023 Orders Only Shaikh Kirstie BRITO Work Phone: [facility] Comment on above: Benign essential hyp ertension (CMS/HCC) (Primary Dx) Start: 05-03-2023 End: 05-03-2023 [facility] Start: 04-29-2023 End: 04-29-2023 ambulatory Calderon Mckennatatianajim Facility:[facility] Start: 04-20-2023 End: 04-20-2023 ambulatory CALDERON MCKENNAMEJim [facility] Start: 04-19-2023 End: 04-19-2023 ambulatory CALDERON FAUSTINAD Not Available Start: 04-14-2023 End: 04-14-2023 ambulatory LINA MASTERS Not Available Start: 04-12-2023 End: 04-12-2023 ambulatory ADELAIDA AGUILA Not Available Start: 04-08-2023 End: 04-08-2023 ambulatory LINA MASTERS Not Available Start: 04-06-2023 End: 04-06-2023 ambulatory LINA MASTERS Not Available Start: 04-05-2023 End: 04-05-2023 Office outpatient visit 25 minutes Ольга Raya MD Work Phone: [facility] Comment on above: Benign essential hyp ertension (Primary Dx); Pacemaker; Sick sinus syndrome due to SA node dysfunction (CMS/HCC); Anticoagulated; Overweight with body mass index (BMI) of 27 to 27.9 in adult Start: 04-05-2023 End: 04-05-2023 ambulatory [facility] Start: 03-31-2023 End: 03-31-2023 ambulatory ADELAIDA AYLA Not Available Start: 03-25-2023 End: 03-25-2023 ambulatory Cassie Reyez Other [facility] [employer] Other Start: 03-25-2023 Office outpatient vi sit 15 minutes Cassie Reyez [facility] Start: 03-22-2023 End: 03-22-2023 ambulatory ADELAIDA TATKIRBY Not Available Start: 01-11-2023 End: 01-11-2023 Office outpatient visit 10 minutes Ольга Raya MD Work Phone: [facility] Comment on above: Benign essential hyp ertension (Primary Dx) Start: 12-02-[address] Ольга Raya Facility: Start: 12-02-2022 Office outpatient vi sit 25 minutes Shaikh Kirstie Work Phone: [facility] 250 DO Work Phone: Start: 12-02-2022 End: 12-02-2022 ambulatory NON STAFF [facility] Work Phone: Start: 12-02-2022 End: 12-02-2022 Patient encounter procedure [facility] [place] Work Phone: Start: 10-29-2022 End: 10-29-2022 Emergency department patient visit [facility] Work Phone: Start: 10-29-2022 End: 10-29-2022 ambulatory NON STAFF [facility] Work Phone: Start: 10-29-2022 End: 10-29-2022 Patient encounter procedure [facility] Start: 10-29-[address] Ольга Raya Facility:[id number] Start: 10-21-2022 Chart Update Shaikh Kirstie Work Phone: [facility] 250 DO Work Phone: Start: 10-21-2022 End: 10-21-2022 ambulatory NON STAFF [facility] Work Phone: Start: 10-21-2022 End: 10-21-2022 Patient encounter procedure MD Ольга Raya Work Phone: [facility] Work Phone: Start: 09-20-2022 Rx Renewal Shaikh Kirstie Work Phone: [facility] [address] [place] Work Phone: Start: 08-26-2022 End: 08-26-2022 Patient encounter procedure MD Ольга Raya Work Phone: [facility]-CT Scan [facility] [place] Work Phone: Start: 08-02-[address] Ольга Ryaa Facility: Start: 08-02-2022 Office outpatient vi sit 25 minutes Shaikh Kirstie Work Phone: [facility] 600 DO Work Phone: Start: 07-27-[address] Ольга Raya Facility:[id number] Start: 07-27-2022 End: 07-27-2022 ambulatory NON STAFF [facility] Work Phone: Start: 07-27-2022 End: 07-27-2022 Patient encounter procedure MD Ольга Raya Work Phone: [facility] Check Start: 06-18-2022 End: 06-18-2022 ambulatory Cassie Reyez Other [employer] Other Start: 06-18-2022 Office outpatient vi sit 15 minutes Cassiethomas Reyez [facility] Start: 03-09-2022 Office outpatient vi sit 5 minutes Shaikh Kirstie Work Phone: [facility] 250 DO Work Phone: Start: 03-09-[address] Ольга Raya Facility: Start: 02-26-2022 End: 02-26-2022 ambulatory Ganesh Coronel Other [employer] Other Start: 02-26-2022 Office outpatient vi sit 15 minutes Ganesh Coronel [facility] Start: 02-12-2022 Office outpatient vi sit 25 minutes Cassie Reyez [facility] Start: 02-12-2022 End: 02-12-2022 ambulatory DO Lazara G Mayur Work Phone: [facility] Work Phone: Start: 02-12-2022 End: 02-12-2022 Departed Referred DO Lazara Mayur Work Phone: [facility] [place] Start: 01-26-2022 Office outpatient vi sit 10 minutes Calderon Kirstie Work Phone: [facility] 250 DO Work Phone: Start: 01-26-[address] Ольга Raya Facility: Start: 01-21-2022 End: 01-21-2022 Patient encounter procedure DO Lazara Merchant Work Phone: [facility]Pac[facility] Check Start: 01-21-[address] Ольга Abernathywalerebekah Facility:[id number] Start: 12-17-2021 End: 12-17-2021 ambulatory Juani Whitney Other [employer] Other Start: 12-17-2021 Office outpatient vi sit 15 minutes Juani Whitney [facility] Start: 12-17-2021 End: 12-17-2021 Departed Referred MD Angel Titus Work Phone: [facility] [place] Start: 11-09-2021 End: 11-09-2021 ambulatory Gabbi Velásquez Other [facility] [employer] Other Start: 11-09-2021 Office outpatient vi sit 15 minutes Gabbi Velásquez [facility] Start: 10-22-2021 End: 10-22-2021 Patient encounter procedure MD Angel Titus Work Phone: [facility] Start: 10-19-2021 Registered Recurring MD Yadira Titus Work Phone: [facility] Start: 08-26-2021 Office outpatient vi sit 25 minutes Angel Titus Work Phone: [facility] 250 DO Work Phone: Start: 07-22-2021 End: 07-22-2021 Patient encounter procedure MD Angel Titus Work Phone: [facility] Start: 07-06-2021 Rx Renewal Angel garcia Work Phone: [facility] 250 DO Work Phone: Start: 06-20-2021 End: 06-20-2021 Emergency department patient visit MD Angel Titus Work Phone: [facility] Start: 05-05-2021 End: 05-05-2021 Patient encounter procedure MD Angel Titus Work Phone: [facility] Start: 04-08-2021 Office outpatient vi sit 25 minutes Angel Titus Work Phone: [facility] 250 DO Work Phone: Start: 01-29-2021 AUDIT Angel garcia Work Phone: [facility] [address] [place] Work Phone: Procedures Date Procedure Procedure Detail Performing Clinician Start: 04-05-2024 Prothrombin time Jobst Service Work Phone: Start: 03-07-2024 Prothrombin time Jobst Service Work Phone: Start: 02-21-2024 Prothrombin time Jobst Service Work Phone: Start: 01-24-2024 Prothrombin time Jobst Service Work Phone: Start: 01-10-2024 Prothrombin time Jobst Service Work Phone: Start: 10-24-2023 End: 10-24-2023 Screening mammography of bilateral breasts MD Shaikh Thacker Work Phone: Start: 06-10-2023 Prothrombin time [employer] Work Phone: Start: 05-13-2023 [employer] time [employer] Work Phone: Start: 10-29-2022 CT of head without contrast Start: 10-29-2022 Plain chest X-ray Start: 10-21-2022 Screening mammograph y of bilateral breasts MD Ольга Raya Work Phone: Start: 10-02-2022 Mammography Shaikh Mckenna izaguirre MD Work Phone: Start: 08-26-2022 Computed tomography of abdomen and pelvis with contrast MD Ольга Raya Work Phone: Start: 06-25-2022 Colonoscopy Pmh 1 Start: 10-19-2021 Screening mammograph y of bilateral breasts MD Angel Titus Work Phone: Start: 10-15-2020 End: 10-15-2020 Bilateral mammography MD Angel Titus Work Phone: Start: 05-05-2020 Dual energy X-ray absorptiometry MD Angel Titus Work Phone: Start: 10-15-2019 Bilateral mammography M D Angel Titus Work Phone: Start: 10-10-2018 Bilateral mammography M D Angel Titus Work Phone: Start: 05-11-2018 Colonoscopy Shaikh Mckenna izaguirre MD Work Phone: Start: 05-05-2018 Total colonoscopy Lorenzo Titus Work Phone: Start: 05-01-2018 Dual energy X-ray absorptiometry MD Angel Titus Work Phone: Start: 09-26-2017 Screening mammography M Jim Titus Work Phone: Start: 05-02-2017 CT chest w con MD Lorenzo iTtus Work Phone: Start: 12-29-2016 CT chest w con MD Lorenzo Titus Work Phone: Decompression of med lisa nerve Angel Titus Work Phone: Insertion of pacemak er pulse generator Angel Titus Work Phone: Lumpectomy of breast Alcon Titus Work Phone: Operative procedure on knee Angel Titus Work Phone: Urine culture DO Lazara Merchant Work Phone: Plan of Treatment Date Care Activity Detail Author Start: 06-25-2032 Screening for malign ant neoplasm of colon [facility] Start: 05-11-2028 Screening for malign ant neoplasm of colon [facility] Start: 06-26-2027 Screening for malign ant neoplasm of colon Colonoscopy [facility] Start: 10-23-2024 Screening for malign ant neoplasm of breast Mammogram [facility] Start: 07-04-2024 End: 07-04-2024 Patient encounter procedure 07/04/2024 10:40 AM EDT Office Visit [facility] [address] [place] [phone] Ольга Raya MD [address] [facility] [address] [place] [phone] [facility] Start: 06-21-2024 End: 06-21-2024 Patient encounter procedure 06/21/2024 10:30 AM EDT Office Visit [facility] [address] [place] [phone] Issac Edouard NP [address] [place] [address] [facility] Start: 04-26-2024 End: 04-26-2024 Follow-up encounter 04/26/2024 10:45 AM EST Follow Up Anticoagulation [facility]ication Therapy Management [address] [place] [address] [facility] Start: 04-05-2024 End: 04-05-2024 Follow-up encounter 04/05/2024 9:45 AM EST Follow Up Anticoagulation [facility]ication Therapy Management [address] [place] [address] [facility] Start: 03-19-2024 End: 03-19-2024 Patient encounter procedure 03/19/2024 10:30 AM EST Office Visit [facility] [address] [place] [phone] Issac Edouard NP [address] [facility] [place] [address] [facility] Start: 03-07-2024 End: 03-07-2024 Follow-up encounter 03/07/2024 9:45 AM EST Follow Up Anticoagulation [facility] Medication Therapy Management [address] [place] [address] [facility] Start: 02-23-2024 End: 02-23-2024 Patient encounter procedure 02/23/2024 1:30 PM EST Office Visit [facility] [address] [place] [phone] Ankita Nunez DPM [address] [place], [place] [phone] Arrived [facility] Comment on above: Arrived Start: 02-21-2024 End: 02-21-2024 Follow-up encounter 02/21/2024 10:30 AM EST Follow Up Anticoagulation [facility] Medication Therapy Management [address] [place] [address] [facility] Start: 01-24-2024 End: 01-24-2024 Follow-up encounter 01/24/2024 10:30 AM EDT Follow Up Anticoagulation [facility] Medication Therapy Management [address] [place] [place] [address] [facility] Start: 01-04-2024 End: 01-04-2024 Patient encounter procedure 01/04/2024 1:20 PM EDT Office Visit [facility] [address] [facility] [address] [place] [phone] Ольга Raya MD [address] [facility] [address] [place] [address] [facility] Start: 12-04-2023 COVID-19 Vaccine ( season) COVID-19 Vaccine ( season) [facility] Start: 12-04-2023 Influenza vaccination [facility] Start: 10-03-2023 Screening for malign ant neoplasm of breast Mammogram [facility] Start: 07-25-2023 Adult BMI Screening Adult BMI Screen ing [facility] Start: 07-25-2023 Tobacco Screening Tobacco Screening [facility] Start: 07-08-2023 End: 07-08-2023 Follow-up encounter 07/08/2023 9:45 AM EDT Follow Up Anticoagulation [facility] Medication Therapy Management [address] [place] [address] [facility] Start: 06-23-2023 Echocardiography Echocardiogram [facility] Start: 06-23-2023 End: 06-23-2023 Patient encounter procedure 06/23/2023 11:00 AM EDT Office Visit [facility] [address] [place] [address] Shaikh Thacker MD [address] [place] [address] [facility] Start: 06-22-2023 Screening for malign ant neoplasm of colon [facility] Start: 06-10-2023 End: 06-10-2023 Follow-up encounter 06/10/2023 10:30 AM EST Follow Up Anticoagulation [facility] Medication Therapy Management [address] [place] [address] [facility] Start: 04-05-2023 FUV, Provider: Ольга Raya, Status: Pen, Time: 1:10 PM FUV, Provider: Ольга Raya, Status: Pen, Time: 1:[address] [facility] 250 DO Work Phone: Start: 04-05-2023 End: 04-05-2023 Patient encounter procedure 04/05/2023 1:10 PM EST Office Visit [facility] [address] [facility] [address] [place] [phone] Ольга Raya MD [address] [place] [address] [facility] Start: 03-11-2023 Administration of varicella zoster vaccine Zoster (Shingles) Vaccine (2 of 2) [facility] Start: 03-11-2023 Zoster Vaccines (2 of 2) Zoster Vacc macarena (2 of 2) [facility] Start: 01-11-2023 NURSEVST, Provider: JAMEY ALMEIDA SUPERVISOR TUMBLERS 1,[id number], Status: Pen, Time: 1:00 PM NURSEVST, Provider: JAMEY ALMEIDA SUPERVISOR TUMBLERS 1,[id number], Status: Pen, Time: 1:[address] [facility] 250 DO Work Phone: Start: 12-03-2022 Influenza vaccination Influenza Vacc ine (#1) [facility] Start: 12-02-2022 FUV, Provider: Ольга Raya, Status: Pen, Time: 1:20 PM FUV, Provider: Ольга Raya, Status: Pen, Time: 1:[address] [facility] 600 DO Work Phone: Start: 12-02-2022 [facility] Start: 10-29-2022 CT of head without contrast CT head/brain wo con [facility] Start: 10-29-2022 CT Unspecified body region WO contrast [facility] Start: 10-29-2022 Plain chest X-ray XR chest 1V portab le [facility] Start: 10-29-2022 XR Chest Single view [facility] Start: 08-26-2022 FUV, Provider: Ольга Raya, Status: Pen, Time: 1:10 PM FUV, Provider: Ольга Raya, Status: Pen, Time: 1:10 PM -[facility] 250 DO Work Phone: Start: 05-05-2022 Screening for osteoporosis Bone Density Scan [facility] Start: 03-09-2022 NURSEVST, Provider: JAMEY ALMEIDA SUPERVISOR TUMBLERS 1,[id number], Status: Pen, Time: 1:00 PM NURSEVST, Provider: JAMEY ALMEIDA SUPERVISOR TUMBLERS 1,[id number], Status: Pen, Time: 1:00 PM -[facility] 250 DO Work Phone: Start: 10-15-2021 Screening for malign ant neoplasm of breast Mammogram [facility] Start: 10-13-2021 NURSEVST, Provider: JAMEY ALMEIDA SUPERVISOR TUMBLERS 1,[id number], Status: Pen, Time: 2:30 PM NURSEVST, Provider: JAMEY ALMEIDA SUPERVISOR TUMBLERS 1,[id number], Status: Pen, Time: 2:30 PM -[facility] 250 DO Work Phone: Start: 08-26-2021 FUV, Provider: Ольга Raya, Status: Pen, Time: 2:40 PM FUV, Provider: Ольга Raya, Status: Pen, Time: 2:40 PM [facility] 250 DO Work Phone: Start: 05-19-2021 FUV, Provider: Ольга Raya, Status: Pen, Time: 12:50 PM [facility] 250 DO Work Phone: Start: 05-05-2021 Screening for osteoporosis Bone Density Scan [facility] Start: 08-16-2016 Fall Risk Screening Fall Risk Screen [facility] Start: 2011 RSV patient s and/or patients aged 60+ years (1 - 1-dose 60+ series) RSV patients and/or patients aged 60+ years (1 - 1-dose 60+ series) [facility] Start: 08-16-2001 Zoster Vaccines (1 of 2) Zoster Vacc macarena (1 of 2) [facility] Start: 08-16-1973 DTaP/Tdap/Td Vaccine s (1 - Tdap) DTaP/Tdap/Td Vaccines (1 - Tdap) [facility] Start: 08-16-1970 DTaP,Tdap and Td Vac cines (1 - Tdap) DTaP,Tdap and Td Vaccines (1 - Tdap) [facility] Start: 08-16-1969 Adult BMI Follow Up Plan Adult BMI F ollow Up Plan [facility] Start: 08-16-1969 Diabetes mellitus screening Diabetes Screening [facility] Start: 08-16-1969 Hepatitis C screening Hepatitis C Sc reening [facility] Start: 1963 Depression Screening Depression Scre ening [facility] Start: 02-17-1952 COVID-19 Vaccine (#1) COVID-19 Vacci ne (#1) [facility] Start: 1950 Creatinine measurement Creatinine Le wili [facility] Start: 1950 Lipid panel Lipid Panel [facility] Start: 1950 Medicare Annual Well ness (AWV) Medicare Annual Wellness (AWV) [facility] Start: 1950 Medicare Annual Well ness Visit [facility] Start: 1950 Potassium measurement Potassium Leve l [facility] Start: 1950 Screening for malign ant neoplasm of colon [facility] Atopobium vaginae DN A [Presence] in Vaginal fluid by JUVENAL with probe detection [facility] Work Phone: Bacteria identified in Urine by Culture [facility] Bacterial vaginosis associated bacterium 2 DNA [Presence] in Vaginal fluid by JUVENAL with probe detection [facility] Work Phone: Megasphaera sp type 1 DNA [Presence] in Vaginal fluid by JUVENAL with probe detection [facility] Work Phone: Patient Education [facility] Work Phone: Patient referral [facility] Work Phone: Testosterone Free [Mass/volume] in Serum or Plasma [facility] Immunizations Immunization Date Immunization Notes Care Provider [facility] 03-05-2024 influenza, seasonal, injectable Issac Edouard MOLDING ENGINEER Work Phone: [facility] 01-14-2023 Influenza, High-dose Seasonal, Quadrivalent, Preservative Free Shaikh Kirstie BRITO Work Phone: [facility] 01-14-2023 zoster vaccine recombinant Shaikh Kirstie BRITO Work Phone: [facility] 01-14-2023 Shingrix 50 MCG/0.5M L vaccine Issac Edouard MOLDING ENGINEER Work Phone: [facility] 01-14-2023 influenza virus vaccine, unspecified formulation Issac Edouard MOLDING ENGINEER Work Phone: [facility] 01-14-2023 zoster vaccine, unspecified formulation [facility] 1 [facility] 02-04-2022 Fluzone High-Dose Quadrivalent 0.7 ML Intramuscular Suspension Prefilled Syringe Shaikh Kirstie Work Phone: [facility] 250 DO Work Phone: 02-04-2022 influenza virus vaccine, unspecified formulation Ольга Raya MD Work Phone: [facility] Work Phone: 03-10-2020 influenza, high dose seasonal, preservative-free Angel Titus Work Phone: [facility] 250 DO Work Phone: 04-20-2019 influenza, high dose seasonal, preservative-free Ольга Raya MD Work Phone: [facility] Work Phone: 04-04-2019 influenza virus vaccine, unspecified formulation Angel Titus Work Phone: [facility] 250 DO Work Phone: 01-02-2019 pneumococcal polysaccharide vaccine, 23 valent Angel Nair Ariela Work Phone: [facility] 250 DO Work Phone: 06-13-2018 pneumococcal polysaccharide vaccine, 23 valent Angel Nair Ariela Work Phone: [place] [address] DO Work Phone: 01-18-2018 influenza, high dose seasonal, preservative-free Angel Titus Work Phone: [place] [address] DO Work Phone: 05-30-2017 pneumococcal conjuga te vaccine, 13 valent Angel Titus Work Phone: [place] [address] DO Work Phone: 04-13-2017 Influenza, High-dose Seasonal, Quadrivalent, Preservative Free Shaikh Kirstie BRITO Work Phone: [facility] Healthcare Payers Date Payer Category Payer Medicare HMO [employer] [id number] 2022 Self-pay [id number] 2022 Private Health Insurance [facility] [id number] [id number] 2022 Unknown [id number] 2.16.840.1.574366.19 2016 Managed Care Other (unspecified) [facility] [place] [address] [id number]. 2.7.9.002546.832.315 2016 Medicare [id number] [id number]. [id number] 2016 Unknown 2016 Medicare [id number] 2016 Medicare [id number] 2016 Unknown [id number] 1951 Unknown [id number] 2.16.840.1.276437.3.579. 2.356 1951 Unknown [id number] 2.16.840.1.716831.3.579. 2.356 1951 Unknown [id number] 2.16.840.1.104147.3.579. 2.356 1951 Unknown [id number] 2.16.840.1.670665.3.579. 2. 1951 Unknown [id number] 2.16.840.1.175704.3.579. 2. 1951 Unknown [id number] 2.16.840.1.068015.3.579. 2. 1951 Unknown [id number] 2.16.840.1.935116.3.579. 2. 1951 Unknown [id number] 2.16.840.1.116547.3.579. 2.1243 1951 Unknown [id number] 2.16.840.1.120584.3.579. 2.1243 1951 Unknown [id number] 2.16.840.1.536586.3.579. 2.1258 1951 Unknown [id number] 2.16.840.1.444800.3.579. 2.1258 1951 Unknown [id number] 2.16.840.1.816000.3.579. 2.1258 1951 Unknown [id number] 2.16.840.1.034975.3.579. 2.1258 1951 Unknown [id number] 2.16.840.1.315149.3.579. 2.1258 1951 Unknown [id number] 2.16.840.1.282868.3.579. 2.1258 1951 Unknown [id number] 2.16.840.1.139780.3.579. 2.1258 1951 Unknown [id number] 2.16.840.1.112871.3.579. 2.1258 1951 Unknown [id number] 2.16.840.1.483244.3.579. 2.1258 1951 Unknown [id number] 2.16.840.1.628450.3.579. 2.1258 1951 Unknown [id number] 2.16.840.1.288625.3.579. 2.1258 1951 Unknown [id number] 2.16.840.1.177700.3.579. 2.1258 1951 Unknown [id number] 2.16.840.1.573298.3.579. 2.1258 1951 Unknown [id number] 2.16.840.1.399330.3.579. 2.1258 1951 Unknown [id number] 2.16.840.1.168077.3.579. 2.1285 1951 Unknown [id number] 2.16.840.1.408419.3.579. 2.1285 1951 Unknown [id number] 2.16.840.1.435756.3.579. 2.1285 1951 Unknown [id number] 2.16.840.1.720150.3.579. 2.1285 1951 Unknown [id number] 2.16.840.1.615242.3.579. 2.1285 1951 Unknown [id number] 2.16.840.1.721133.3.579. 2.1285 1951 Unknown [id number] 2.16.840.1.879648.3.579. 2.1285 1951 Unknown [id number] 2.16.840.1.979695.3.579. 2.1285 1951 Unknown [id number] 2.16.840.1.814607.3.579. 2.1285 1951 Unknown [id number] 2.16.840.1.781037.3.579. 2.1285 1951 Unknown [id number] 2.16.840.1.550943.3.579. 2.1285 1951 Unknown [id number] 2.16.840.1.748502.3.579. 2.1285 1951 Unknown [id number] 2.16.840.1.373702.3.579. 2.1285 1951 Unknown [id number] 2..840.1.162311.3.579. 2.1285 1951 Unknown [id number] 2.16.840.1.587444.3.579. 2.1285 1951 Unknown [id number] 2..840.1.858892.3.579. 2.1285 1951 Unknown [id number] 2.16.840.1.989051.3.579. 2.1285 1951 Unknown [id number] 2..840.1.987106.3.579. 2.1285 1951 Unknown [id number] 2.16.840.1.446127.3.579. 2.1286 Unknown [id number] Unknown [id number] 2.16.840.1.555312.3.579. 2.531 Unknown [id number] 2.16.840.1.284389.3.579. 2.531 Unknown [id number] 2.16.840.1.036630.3.579. 2.531 Unknown [id number] 2.16.840.1.333248.3.579. 2.531 Unknown [id number] 2.16.840.1.921566.3.579. 2.531 Unknown [id number] 2.16.840.1.469149.3.579. 2.531 Social History Date Type Detail Facility Start: 05-01-2020 End: 04-19-2023 No illicit drug use No illicit drug use -[facility] 250 DO Work Phone: Start: 06-20-2021 End: 06-21-2022 Tobacco smoking status NHIS Never smoked tobacco (finding) [facility] Start: 1950 Sex Assigned At Female F [facility] Start: 05-01-2020 End: 04-19-2023 Sex Assigned At [facility] [employer] Other Start: 01-10-2023 Tobacco smoking status NHIS Tobacco smoking consumption unknown [facility] Work Phone: Start: 1950 [facility]igned [facility] Work Phone: Start: 01-01-2023 End: 01-04-2024 Exposure to SARS-CoV-2 (event) Not sure [facility] Start: 06-21-2022 End: 04-05-2023 Tobacco use and exposure Smokeless tobacco non-user [facility] Work Phone: Start: 04-05-2023 End: 03-19-2024 Alcohol intake Lifetime non-drinker (finding) [facility] Work Phone: Start: 04-19-2023 Alcohol Comment caffeine: 1-2 cups per day [facility] History of tobacco use Passive smoker [facility] Start: 07-24-2022 Alcohol intake Current drinke r of alcohol (finding) [facility] Are you worried or concerned that in the next two months you may not have stable housing that you own, rent or stay in as a part of a household? No [facility] Start: 02-17-2022 Alcohol Comment occasional [facility] Start: 06-21-2022 Gender identity Identifies as female gender (finding) [facility] Start: 06-21-2022 Sexual orientation Heterosexual (fin ding) [facility] Start: 11-07-2014 End: 02-18-2024 Sex Female (finding) [facility] NEGATED: Highlighted rowStart: DIMPLEF History of tobacco use Passive smoker [facility] Medical Equipment Procedure Code Equipment Code Equipment Origin al Text Equipment Identifier Dates Insertion, pacemaker Endocardial pacing lead [id number] FDA Start: 01-04-2019 Insertion, pacemaker Endocardial pacing lead [id number] FDA Start: 01-04-2019 Insertion, pacemaker Endocardial pacing lead [id number] FDA Start: 01-04-2019 Insertion, pacemaker Dual-chamber implantable pacemaker, rate-responsive [id number] FDA Start: 01-04-2019 Goals Date Patient Goal Desired Activity /State Personal health goal Comment on above: Formatting of this n ote might be different from the original. Evaluation of progress towards goal: safe transition from hospital to home with family support. Clinical Notes 12-31-2016 to 04-05-2024 Torie Osuna, [facility] - 04/05/2024 9:45 AM Renuka Edouard, DEAN - 03/19/2024 10:47 AM Renuka Edouard, DEAN - 03/19/2024 10:46 AM Renuka Edouard, DEAN - 03/19/2024 10:30 AM EST Note Date & Type Note Facility 04-05-2024 History of Presen t illness Narrative 15 minute [id number] follow-up anticoagulation appointment. INR performed in office per protocol. INR 1.8 (goal range: 2.0-3.0). Patient reports: Taking warfarin dosing as documented. Missed or extra doses of warfarin: No Changes to medications: No Changes to lifestyle (diet / alcohol / smoking / activity): No Recent emergency department visit / hospitalization / health changes / new contraindication to current anticoagulant: YES Heart has been racing recently-- encouraged to call mattress and foundation sewer with symptoms Signs/symptoms of bruising/bleeding or clotting or any intolerable adverse events: No Upcoming procedures: No Anticoagulant prescription needed: No Seen referring provider in the last year Duration of therapy reviewed Assessment: INR is slightly low and has been trending down the past few visits. We will increase weekly dose 10%. If INR becomes elevated, will consider changing tablet size to 2 mg for more precise dosing. Plan: Patient instructed to increase to warfarin 2 mg Sun/Tue/Thurs and 4 mg AOD. Check INR in 3 week(s). Patient verbalizes understanding of anticoagulant dosing instructions and information discussed. Dosing regimen, counseling, and follow-up appointment were provided to the patient. Patient reminded to call with questions or any medication changes. Patient instructed to seek medical attention if any major bleeding/bleeding that persists or worsens. Torie Osuna RPH 04/05/24 0952 documented in this encounter [facility] [employer] [facility] 03-19-2024 History of Presen t illness Narrative Associated Problem(s): Gastroesophageal reflux disease Taking protonix 40mg Feels symptoms are well controlled Continue current regimen. Associated Problem(s): Hypertension (CMS/HCC) Currently taking Metoprolol 50mg Lisinopril 30mg Cardiology manages Checks BP at home; Averages are 130's Denies orthostatic changes, dizziness, cough, shortness of breath, swelling in extremities. Continue current regimen. Given BP log, advised pt to record BP and bring log back with them to next visit. Images from the original note were not included. Subjective Patient ID: Damir Staples is a 73 y.o. female who presents for Follow-up. HPI Specialists: Cardiology- [facility] Follows again on 01/04/24- will have blood work done then. [facility] Reports frequent post nasal drip. HTN: Currently taking Metoprolol 50mg Lisinopril 30mg Cardiology manages Checks BP at home; Averages are 130's Denies orthostatic changes, dizziness, cough, shortness of breath, swelling in extremities. Continue current regimen. Given BP log, advised pt to record BP and bring log back with them to next visit. GERD: Taking protonix 40mg Feels symptoms are well controlled Continue current regimen. Review of Systems Constitutional: Negative for activity change, appetite change, chills, diaphoresis, fatigue, fever and unexpected weight change. HENT: Negative for congestion, ear pain, rhinorrhea, sinus pressure, sinus pain, sneezing, sore throat, trouble swallowing and voice change. Eyes: Negative for visual disturbance. Respiratory: Negative for cough, chest tightness, shortness of breath and wheezing. Cardiovascular: Negative for chest pain, palpitations and leg swelling. Gastrointestinal: Negative for abdominal distention, abdominal pain, blood in stool, constipation, diarrhea and vomiting. Genitourinary: Negative for decreased urine volume, dysuria, flank pain, frequency, hematuria and urgency. Musculoskeletal: Negative for arthralgias, gait problem, joint swelling and myalgias. Skin: Negative for rash. Neurological: Negative for dizziness, tremors, syncope, weakness, light-headedness and headaches. Psychiatric/Behavioral: Negative for decreased concentration and suicidal ideas. The patient is not nervous/anxious. Hematological: Does not bruise/bleed easily. Endocrine: Negative for cold intolerance, heat intolerance, polydipsia, polyphagia and polyuria. Objective Physical Exam Vitals reviewed. Constitutional: Appearance: Normal appearance. HENT: Right Ear: Tympanic membrane normal. Left Ear: Tympanic membrane normal. Nose: Nose normal. Mouth/Throat: Mouth: Mucous membranes are moist. Pharynx: Oropharynx is clear. Eyes: Pupils: Pupils are equal, round, and reactive to light. Cardiovascular: Rate and Rhythm: Normal rate and regular rhythm. Pulses: Normal pulses. Heart sounds: Normal heart sounds. Pulmonary: Effort: Pulmonary effort is normal. Breath sounds: Normal breath sounds. Abdominal: General: Abdomen is flat. Bowel sounds are normal. Palpations: Abdomen is soft. Musculoskeletal: General: Normal range of motion. Skin: Capillary Refill: Capillary refill takes less than 2 seconds. Neurological: Mental Status: She is alert and oriented to person, place, and time. Assessment/Plan Problem List Items Addressed This Visit Benign essential hypertension (CMS/HCC) Relevant Medications lisinopril 20 MG tablet Gastroesophageal reflux disease Taking protonix 40mg Feels symptoms are well controlled Continue current regimen. Paroxysmal atrial fibrillation (CMS/HCC) Relevant Medications warfarin (Coumadin) 4 MG tablet Hypertension (CMS/HCC) - Primary Currently taking Metoprolol 50mg Lisinopril 30mg Cardiology manages Checks BP at home; Averages are 130's Denies orthostatic changes, dizziness, cough, shortness of breath, swelling in extremities. Continue current regimen. Given BP log, advised pt to record BP and bring log back with them to next visit. Reactive airway disease with wheezing without complication (CMS/HCC) Relevant Medications albuterol HFA 90 mcg/act inhaler Other Visit Diagnoses Allergic rhinitis, unspecified seasonality, unspecified trigger Relevant Medications montelukast (Singulair) 10 MG tablet documented in this encounter [facility] 03-07-2024 History of Presen t illness Narrative 15 minute [id number] follow-up anticoagulation appointment. INR performed in office per protocol. INR 2.0 (goal range: 2.0-3.0). Patient reports: Taking warfarin dosing as documented. Missed or extra doses of warfarin: No Changes to medications: No Changes to lifestyle (diet / alcohol / smoking / activity): No Recent emergency department visit / hospitalization / health changes / new contraindication to current anticoagulant: No Signs/symptoms of bruising/bleeding or clotting or any intolerable adverse events: No Upcoming procedures: No Anticoagulant prescription needed: No Seen referring provider in the last year Duration of therapy reviewed Assessment: INR is remaining stable in therapeutic range on current warfarin regimen. Plan: Patient instructed to continue warfarin 4 mg MWF and 2 mg AOD. Check INR in 4 week(s). Patient verbalizes understanding of anticoagulant dosing instructions and information discussed. Dosing regimen, counseling, and follow-up appointment were provided to the patient. Patient reminded to call with questions or any medication changes. Patient instructed to seek medical attention if any major bleeding/bleeding that persists or worsens. Torie Osuna RPH 03/07/24 0946 documented in this encounter [facility] [employer] 02-23-2024 History of Presen t illness Narrative Images from the original note were not included. Subjective Patient ID: Damir Staples is a 73 y.o. female who presents for Ingrown Toenail (Established pt presents today with concerns with pain in RGT, ongoing for about a month. States pain mostly when in bed, unsure if it is ingrown nail. ). HPI Chief complaint: Symptomatic, mildly inflamed ingrown toenail medial margin of the right great toe; several weeks duration, impacting ADLs and her ability to wear footwear comfortably. Denies injury or trauma. Relates no recent change in activity or shoe gear. Relates mild localized redness along the medial paronychia margin, without bleeding or drainage. Attempts at self-care have been difficult, ineffective and not practical. Medications Current Outpatient Medications: albuterol HFA 90 mcg/act inhaler, Inhale 2 puffs every 4 (four) hours if needed for wheezing, Disp: 8.5 g, Rfl: 3 furosemide (Lasix) 20 MG tablet, Take 1 tablet by mouth in the morning., Disp: , Rfl: latanoprost (Xalatan) 0.005 % ophthalmic solution, Administer 1 drop into both eyes at bedtime, Disp: , Rfl: lisinopril 20 MG tablet, Take 1 tablet (20 mg) by mouth Daily, Disp: 90 tablet, Rfl: 1 metoprolol tartrate (Lopressor) 50 MG tablet, Take 1 tablet by mouth in the morning and 1 tablet in the evening., Disp: , Rfl: montelukast (Singulair) 10 MG tablet, Take 1 tablet (10 mg) by mouth in the morning., Disp: 90 tablet, Rfl: 0 warfarin (Coumadin) 4 MG tablet, Take 4 mg by mouth See administration instructions 1/2 tablet Tue/Tue, 1 tablet rest of the week., Disp: , Rfl: loratadine (Claritin) 10 MG tablet, Take 1 tablet (10 mg) by mouth Daily, Disp: 90 tablet, Rfl: 0 pantoprazole (ProtoNix) 40 MG EC tablet, Take 1 tablet (40 mg) by mouth in the morning. Take before meals. (Patient not taking: Reported on 02/23/2024), Disp: 90 tablet, Rfl: 0 Shingrix 50 MCG/0.5ML vaccine, Inject 50 mcg into the shoulder, thigh, or buttocks 1 (one) time (Patient not taking: Reported on 02/23/2024), Disp: , Rfl: warfarin (Coumadin) 5 MG tablet, 1 (one) time each day at the same time (Patient not taking: Reported on 02/23/2024), Disp: , Rfl: Allergies Amoxicillin-pot clavulanate, Sulfa antibiotics, Sulfamethoxazole-trimethoprim, Amoxicillin, Clavulanic acid, Sulfamethoxazole, and Trimethoprim Past Surgical History Past Surgical History: Procedure Laterality Date BREAST LUMPECTOMY Right 12/09/2015 with micro seed implant-ltzkowitz CARDIAC PACEMAKER PLACEMENT 12/2018 CARPAL TUNNEL RELEASE CERVICAL DISCECTOMY 1991 C-5-C-6 with fusion/Dr. Ray COLONOSCOPY 08/31/[address] cecal lipoma,focal [address] Walsh COLONOSCOPY 05/2018 polyps x2 tubular adenomas, repeat colonoscopy 3 yrs/[place] CT ANGIOGRAM HEART CORONARY 06/20/2022 CT ANGIOGRAM TAVR 06/20/2022 EGD 05/2018 esohagitis,gastritis dueodenitis KNEE ARTHROSCOPY W/ DEBRIDEMENT Left Dr. Samano NASAL SEPTUM SURGERY 1981 Deviated septum Family History Family History Problem Relation Name Age of Onset Heart disease Mother CHF /pacemaker Heart disease Father Myocardial infarction Diabetes Sister Osteoarthritis Sister knees Other (High blood pressure) Sister x2 sisters Diabetes Mother's Brother Objective General Examination: GENERAL EXAMINATION: alert and oriented. Pleasant disposition. Vascular: DORSALIS PEDIS PULSE: 2/4, bilaterally. POSTERIOR TIBIAL PULSE: 2/4, bilaterally. TEMPERATURE GRADIENT: warm to warm. EDEMA: Unremarkable for ankle edema. VARICOSITIES: absent. CAPILLARY FILLING TIME(sec): capillary fill intact bilateral digits less than 3 secs. HAIR GROWTH: present. Neurologic: TINELS SIGN: negative along the tarsal canal. SHARP SENSATION: tactile and light touch sensation intact. NEUROLOGIC: light touch (normal). Dermatologic: SKIN FINDINGS: intact. Skin turgor is good. HYPERTROPHIC LESION: no discrete forefoot or digital keratotic pressure lesions are noted. INTERDIGITAL MACERATION: clean, dry, non-inflamed. Left great toe: Effective nail plate clearing, with minimal residual toenail dystrophy and pincer deformity. Right great toe: Mild pincer toenail deformity. The medial paronychial margin is incurvated, keratotic, tender, slightly inflamed, without drainage or abscess formation. The lateral paronychial margin is non-tender, non-inflamed. Orthopedic: FOOT MORPHOLOGY: stance assessment: Symmetrical, stable, rectus foot alignment. JOINT RANGE OF MOTION: maintains functional ankle, subtalar and midtarsal joint range of motion. Demonstrates functional 1st MTP joint range of motion left. DEFORMITIES: Prominent dorsal bunion deformity right foot. Otherwise, there appeared to be no distinct or obvious forefoot or digital deformities. PAIN ELICITED WITH PALPATION OF: Unremarkable for musculoskeletal tenderness. MUSCLE STRENGTH: no focal deficits. Radiology: Assessment/Plan Onychocryptosis with mild paronychia medial margin of the right great toe. Effective repair of post-traumatic toenail dystrophy of the left great toe. Plan: Review of clinical findings, etiology and contributing/aggravating factors, treatment strategy, rationale and objectives. Right great toe: Aseptic technique: Debridement and curettage of offending incurvated medial margin; reducing direct and indirect pressure; providing favorable symptom relief. Instructions on cuticle massage. Procedure: This note was created with the assistance of a speech recognition program. While intending to generate a timely document that accurately reflects the content of the visit, no guarantee can be provided that every grammatical or spelling mistake has been or will be identified or corrected. Thank you for your understanding. Ankita Nunez DPM documented in this encounter [facility] 02-23-2024 Instructions Ankita Nunez DPM - 02/23/2024 1:30 PM EST As noted documented in this encounter [facility] 02-21-2024 History of Presen t illness Narrative 15 minute [id number] follow-up anticoagulation appointment. INR performed in office per protocol. INR 2.6 (goal range: 2.0-3.0). Patient reports: Taking warfarin dosing as documented. Missed or extra doses of warfarin: YES Patient reports she has been taking 4 mg on Tuesday Changes to medications: No Changes to lifestyle (diet / alcohol / smoking / activity): No Recent emergency department visit / hospitalization / health changes / new contraindication to current anticoagulant: No Signs/symptoms of bruising/bleeding or clotting or any intolerable adverse events: No Upcoming procedures: YES Seeing podiatry on for ingrown toe nail Anticoagulant prescription needed: No Seen referring provider in the last year Duration of therapy reviewed Assessment: INR is remaining stable in therapeutic range on current warfarin regimen. However, patient reports she has been taking 4 mg on Tuesday. Discussed her dose has not changed since October. Given patients confusion, we will continue with documented dosing and reassess in 2 weeks Plan: Patient instructed to continue warfarin 4 mg MWF and 2 mg AOD. Check INR in 2 week(s). Patient verbalizes understanding of anticoagulant dosing instructions and information discussed. Dosing regimen, counseling, and follow-up appointment were provided to the patient. Patient reminded to call with questions or any medication changes. Patient instructed to seek medical attention if any major bleeding/bleeding that persists or worsens. Torie Osuna RPH 02/21/24 1036 documented in this encounter [facility] 01-24-2024 History of Presen t illness Narrative 15 minute sqbb-ry-[id number] follow-up anticoagulation appointment. INR performed in office per protocol. INR 2.4 (goal range: 2.0-3.0). Patient reports: Taking warfarin dosing as documented. Missed or extra doses of warfarin: No Changes to medications: YES Lisinopril 30 mg daily Changes to lifestyle (diet / alcohol / smoking / activity): No Recent emergency department visit / hospitalization / health changes / new contraindication to current anticoagulant: No Signs/symptoms of bruising/bleeding or clotting or any intolerable adverse events: No Upcoming procedures: No Anticoagulant prescription needed: YES- Ramirez Armando Seen referring provider in the last year-yes Duration of therapy reviewed-yes Assessment: INR is remaining stable in therapeutic range on current warfarin regimen. Plan: Patient instructed to continue warfarin 4 mg MWF and 2 mg AOD. Check INR in 4 week(s). Patient verbalizes understanding of anticoagulant dosing instructions and information discussed. Dosing regimen, counseling, and follow-up appointment were provided to the patient. Patient reminded to call with questions or any medication changes. Patient instructed to seek medical attention if any major bleeding/bleeding that persists or worsens. Torie Osuna RPH 01/24/24 1037 documented in this encounter [facility] 01-19-2024 Miscellaneous Notes Stockbroker faxed a consult agreement (renewal) to Ольга Raya MD, however the office states they haven't seen patient for quite some time. Stockbroker JAKE requesting patient call back with the name of the provider who follows her for her Warfarin. documented in this encounter [facility] 01-19-2024 Telephone encounter Note Stockbroker faxed a consult agreement (renewal) to Ольга Raya MD, however the office states they haven't seen patient for quite some time. Stockbroker JAKE requesting patient call back with the name of the provider who follows her for her Warfarin. [facility] 01-10-2024 History of Presen t illness Narrative 15 minute [id number]-cm-[id number] follow-up anticoagulation appointment. INR performed in office per protocol. INR 3.6 (goal range: 2.0-3.0). Patient reports: Taking warfarin dosing as documented. Missed or extra doses of warfarin: No Changes to medications: YES Lisinopril increased to 30 mg daily Changes to lifestyle (diet / alcohol / smoking / activity): No Recent emergency department visit / hospitalization / health changes / new contraindication to current anticoagulant: YES Recently had a cold Currently having increased foot pain- started last night Signs/symptoms of bruising/bleeding or clotting or any intolerable adverse events: No Upcoming procedures: No Anticoagulant prescription needed: No Seen referring provider in the last year Duration of therapy reviewed Assessment: INR is elevated, possible due to recent illness. We will hold x1, then resume usual dosing. Plan: Patient instructed to hold warfarin 01/09, then resume 4 mg MWF and 2 mg AOD. Check INR in 2 week(s). Patient verbalizes understanding of anticoagulant dosing instructions and information discussed. Dosing regimen, counseling, and follow-up appointment were provided to the patient. Patient reminded to call with questions or any medication changes. Patient instructed to seek medical attention if any major bleeding/bleeding that persists or worsens. Torie Osuna RPH 01/10/24 0835 documented in this encounter [facility] 01-04-2024 History of Presen t illness Narrative Subjective Damir Staples is a 73 y.o. female Chief Complaint Follow-up HPI Patient is here for follow-up to management for hypertension, sick sinus syndrome and paroxysmal atrial fibrillation. Since last time I saw her she reports she is feeling reasonably well. She denies any complaint of chest pain, palpitation, lightheadedness, dizziness or syncope. Her blood pressure seem to be running a little bit on the higher range recently. She does not know the exact dosage of her medication. Assessment 1. Essential hypertension. She reports is running a little bit higher recently but does not know the exact dose of her lisinopril 2. Sick sinus syndrome with permanent pacemaker implantation. With appropriate device function. Recent device check noted 3. Previous evaluation for shortness of breath attributed to diastolic heart failure. Previous work-up reviewed with patient. She recently have mild COVID-19 infection 4. Paroxysmal atrial fibrillation on Coumadin therapy noted on device check 5. Mild obesity 5. Previous complaint of chest pain. Stress test was negative previous echo also showed normal LV function Plan 1. I advised the patient to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 by Connie Thomas MD) Carpal tunnel syndrome of left wrist Glaucoma Hx of cardiac pacemaker Hypertension - Surgical History Surgical History: Surgical History (Last Reviewed 10/18/20 @ 11:50 by Connie Thomas MD) H/O arthroscopic knee surgery left knee 1990 H/O lumpectomy right with radioactive seed localization on 12/09/[address] 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, retired dye worker, no children Home Medications & Allergies Allergies sulfamethoxazole [From Bactrim] Allergy (Verified 05/08/20 14:27) Hives trimethoprim [From Bactrim] Allergy (Verified 05/08/20 14:27) Hives Home Medications montelukast 10 mg tablet (Singulair) 10 mg PO QPM PRN 10/13/18 [History Confirmed 10/17/20] lisinopril 5 mg tablet 5 mg PO DAILY #30 tab 10/15/18 [Rx Confirmed 10/17/20] dorzolamide 22.3 mg-timolol 6.8 mg/mL eye drops 1 applic EYE-BOTH BID 01/01/19 [History Confirmed 10/17/20] latanoprost 0.005 % eye drops 1 applic EYE-BOTH HS 01/01/19 [History Confirmed 10/17/20] omega 2-bao-eod-fish oil 1,000 mg (120 mg-180 mg) capsule (Fish Oil) 1 cap PO DAILY 01/01/19 [History Confirmed 10/17/20] atenolol 25 mg tablet 50 mg PO DAILY 09/06/19 [History Confirmed 10/17/20] alendronate 70 mg tablet 70 mg PO QWEEK 90 Days #12 tab 12/03/19 [Rx Confirmed 10/17/20] calcium carbonate 500 mg (1,250 mg)-vitamin D3 200 unit tablet (Calcium 500 + D)1 tab PO DAILY 03/01/20 [History Confirmed 10/17/20] coenzyme Q10 100 mg capsule (Co Q-10) 100 mg PO DAILY 03/01/20 [History Confirmed 10/17/20] warfarin 4 mg tablet 4 mg PO DAILY 05/08/20 [History Confirmed 10/17/20] Objective - Height/Weight Height/Weight: Height 5 ft Weight 65.9 kg - Vital Signs Vital Signs: 10/17/20 10:02 Temperature 97 F L Pulse Rate [Left Brachial] 76 Respiratory Rate 20 Blood Pressure [Left Arm] 141/83 H 02 Sat by Pulse Oximetry 99 - Pain Bilateral Breast Pain Intensity: 5 Right Breast Pain Intensity: 3 - Emotional Needs Assessment Emotional Needs Assessment: Emotional Needs Identified? No Physical Exam Narrative: Constitutional: No acute distress, well-nourished, alert/oriented x 3, cooperative HEENT: Head: Normocephalic, atraumatic; Eyes: EOMI, PERRL, clear conjunctiva; ENT: not examined due to coronavirus pandemic; Neck: Supple, trachea midline, full range of motion Chest/breast/axilla exam: No tenderness, no supra/infra clavicular, right breastlumpectomy incision well-healed, no erythema, no dimpling, no discharge, no evidence on examination of recurrence, left breast no dimpling, no discharge no axillary adenopathy Respiratory: No accessory muscle use, anterior and posterior chest clear, no rales, no rhonchi, no wheeze, room air Cardiovascular: S1-S2, no murmur, no rubs, no gallop, no peripheral edema Gastrointestinal: Normal active bowel sounds, no abdominal tenderness, no distention, no organomegaly, no gross bleeding/bruising : No CVA tenderness; Groin: No inguinal lymphadenopathy Back/spine/pelvis exam: Full range of motion, no vertebral tenderness Skin: Intact, dry, warm, normal turgor Neurologic: Alert, oriented x3, cranial nerves II-XII intact, reflexes, moving all extremities, vision grossly intact, hearing grossly intact, normal speech, normal gait, no visible tremors Psychiatric: Normal affect, normal thought process, cooperative - ECOG Performance Status ECOG Score: 1 Results - Labs Labs: Diagram of Most Recent CBC and CMP 05/02/17 10:17 05/02/17 10:17 - Impressions Date of Service: 10/15/20 MM/MM diagnostic mammo BI w/CAD: follow up breast cancer Copies to: MD Maverick Dan MD Jonathan Diller, MD Mersiha Hadziahmetovic, MD~ DIAGNOSTIC BILATERAL MAMMOGRAM - FULL FIELD DIGITAL WITH TOMOSYNTHESIS CLINICAL DATA: History of right-sided breast cancer status post lumpectomy and radiation therapy Tomosynthesis Craniocaudal and mediolateral oblique views of the bilateral breasts were obtained using low-dose digital technique. Comparison is made to prior studies from 10/15/2019 and 10/10/2018. This examination was reviewed with the aid of CAD. There are scattered fibroglandular tissue. Surgical clips are noted in the upper outer breast with architectural distortion consistent with a history of lumpectomy. A pacer generator is present over the left chest wall. There are afew scattered punctate benign-appearing calcifications. There are no dominant masses, typically malignant calcifications or architectural distortion. There has been no significant interval change. MM/MM diagnostic mammo BI w/CAD IMPRESSION: NO MAMMOGRAPHIC EVIDENCE OF MALIGNANCY. ROUTINE FOLLOW-UP IS RECOMMENDED IN ONE YEAR. RESULT CODE: 2 Benign Findings(s) DENSITY CODE: 2 (approximately 25-50% glandular) FOLLOW UP: 1YR The false-negative rate of mammography is approximately 10-percent. Management of a palpable abnormality must be based on clinical grounds. 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 2.) Adjuvant radiotherapy (01/21/16-02/17/16) 3.) Adjuvant endocrine therapy (Arimidex 1mg PO daily) started 02/18/16--patientchose to stop after 6 months of therapy, now observation only. 09/07/2019: Patient requested visit for right breast fullness/tenderness. S/p right breast lumpectomy 12/09/2015. -Clinical examination did not suggest evidence of recurrence, axillary tenderness or lymphedema. Her next mammogram is 10/2019 and was already ordered. -RISE order for massage therapy. -Continue Fosamax as ordered by PCP. Annual wellness examination with labs in October PCP. Next DEXA scan due 04/2020. 11/08/2019: No recurrence on annual mammogram or exam (although persistent breast tenderness). I will reassess in 05/2020 after 2 year DEXA scan and subsequent f/u 11/2020 for 5 years from diagnosis. If no recurrence, she may be followed by Primary care after that visit. 05/08/2020: No recurrence on exam with improved right breast tenderness. We reviewed DEXA scan showing osteoporosis and discussed parenteral options since still showing osteoporosis despite weekly Fosamax. She declines Reclast or Denosumab therapy instead. She will f/u in 6 months after annual mammogram, andif no recurrence at that time, followup mammograms and exam with primary care. 10/17/2020: No recurrence on annual mammogram or exam. She may continue followup with primary care for annual breast exam and management of osteoporosis The patient agrees with this plan and will call if questions or concerns. Low complexity visit 20 minutes. (2) Osteoporosis She was diagnosed with osteoporosis and started on Fosamax weekly by her primarycare physician. 2 year f/u DEXA scan April 2018--repeat May 2020 with continued osteoporosis bilateral femoral neck. Continues Calcium/Vitamin D bid with weekly Fosamax and declines changing to parenteral therapy with Reclast or Denosumab. --She may have f/u DEXA scan in 05/2022. -04/2018: T score -2.8 left femoral neck. -05/2020: T score -2.5 left femoral neck--mild improvement. (3) Pacemaker Mrs. Staples noted intermittent substernal chest pain with dizziness and dyspnea--found to have second degree heart block and received pacemaker about 01/2019 with improvement of these symptoms. The patient is followed by cardiology and will see Dr. Page in followup soon. She notes intermittent tenderness to pacemaker site. She remains without dyspnea, chest pain, or erythema to site. (4) Mediastinal lymphadenopathy This has been stable on serial CT scans. She had repeat CT Chest in early Jan 2019 that was reviewed with patient--nonenlarged mediastinal lymph nodes and calcified hilar lymph node consistent with granulomatous disease. No indicationfor further imaging. - Chemo Plan Chemo Plan (Dose, Rate, Freq): 1 month AI therapy--declined further hormonal options for DCIS Goal of Treatment: Curative - Time with Patient Time Spent with Patient (Follow Up Visit): Less than 20 minutes Coordination of Care & Counseling Time: Greater than 50% of time spent with patient was for coordination of care (as documented) and [id number] counseling of patient and/or family. Dictated By: Connie Thomas MD DD/ [id number] Signed By: <Electronically signed by MD Connie Thomas> 10/18/20 [address] [facility] Work Phone: [phone] 660-774402-05-2021 Progress note Author Connie Thomas [facility] May 09, 2020 9:51pm Note Date/Time May 08, 2020 2 :31pm [facility] [place] [address] Hem/Onc Follow Up Note - OP Signed Patient: Damir Staples MR#: [id number] : 1950 Acct:[id number] Age/Sex: 69 / F Type: REG RCR Copies to: Angel Titus MD~ Subjective Date/Time of Service: Date of Service: 05/08/2020 Time of Service: 14:31 Chief Complaint: Patient is here today for 6 month follow up visit for breast cancer. No new concerns HPI: Mrs. Staples was seen by BELINDA Chairez in September 2019 for requested appointment for c/o intermittent tenderness or fullness to her right breast and left chest wall pain at pacemaker site. Damir denied any changes to her right lumpectomy incision, dimpling, discharge, axillary changes or lymphedema. Her mammogram was scheduled for October 2019 and she last saw me in November 2019 to review results--unremarkable mammogram and no longer had pain. Now denies any significant right breast pain. She stopped aromatase inhibitor therapy for DCISbeyond 6 month after radiation due to myalgias and declined another hormonal therapy. Unchanged chronic left hip pain. --Since her original diagnosis was in Dec 2015 and she is no longer on aromataseinhibitor therapy, she was advised she may f/u after 6 month mammogram, then only as needed. - Summary of Therapies Summary of Therapies: Summary of Therapies: 1.) Right breast lumpectomy with radioactive seed localization on 12/09/15 per . 2.) Adjuvant radiotherapy (01/21/16-02/17/16) 3.) Adjuvant endocrine therapy (Arimidex 1mg PO daily) started 02/18/16--stoppedmedication after 6 months due to leg cramps. ROS Details: All systems reviewed & no additional complaints except as documented Subjective/ROS - Narrative: Constitutional: Negative: No chills, fever, weakness. Positive: stable chronic mild fatigue HEENT: Negative: epistaxis, rhinorrhea, sore throat Cardiovascular: Negative: Chest pain, edema, palpitations Respiratory: Negative: Cough, shortness of breath, hemoptysis Gastrointestinal: Negative: pain, bloating, constipation, diarrhea, nausea, vomiting Genitourinary: Negative: Frequency, dysuria, flank pain, hematuria Musculoskeletal: Positive occasional left hip pain Breasts: Positive: Right tenderness/fullness (improved from prior exams), deniesdimpling, discharge, any new lumps/bumps or axillary adenopathy Neurologic: Negative: Dizziness, headache, numbness, tingling Psychiatric: Negative: Anxiety, depression Hematologic/lymphatic: Negative: Bleeding, bruising, enlarged lymph nodes Endocrine: Negative: Excessive sweating, flushing, intolerance to cold, intolerance to heat, weight gain/loss Allergic/immunology: Negative: Pruritus, rash PMFSH - History Attestation statement: The following information was validated with the patient. Source: Old Records Reviewed - Medical History Medical History: Medical History (Last Reviewed 05/08/20 @ 14:32 by Connie Thomas MD) Carpal tunnel syndrome of left wrist Glaucoma Hx of cardiac pacemaker Hypertension - Surgical History Surgical History: Surgical History (Last Reviewed 05/08/20 @ 14:32 by Connie Thomas MD) H/O arthroscopic knee surgery left knee 1990 H/O lumpectomy right with radioactive seed localization on 12/09/[address] 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 Medications & Allergies Allergies sulfamethoxazole [From Bactrim] Allergy (Verified 05/08/20 14:27) Hives trimethoprim [From Bactrim] Allergy (Verified 05/08/20 14:27) Hives Home Medications montelukast [Singulair] 10 mg PO QPM PRN 10/13/18 [History Confirmed 05/08/20] lisinopril 5 mg PO DAILY #30 tab 10/15/18 [Rx Confirmed 05/08/20] dorzolamide-timolol 1 applic EYE-BOTH BID 01/01/19 [History Confirmed 05/08/20] latanoprost 1 applic EYE-BOTH HS 01/01/19 [History Confirmed 05/08/20] omega 1-brb-boi-fish oil [Fish Oil] 1 cap PO DAILY 01/01/19 [History Confirmed 05/08/20] atenolol 50 mg PO DAILY 09/06/19 [History Confirmed 05/08/20] alendronate 70 mg PO QWEEK 90 Days #12 tab 12/03/19 [Rx Confirmed 05/08/20] calcium carbonate-vitamin D3 [Calcium 500 + D] 1 tab PO DAILY 03/01/20 [History Confirmed 05/08/20] coenzyme Q10 [Co Q-10] 100 mg PO DAILY 03/01/20 [History Confirmed 05/08/20] warfarin 4 mg PO DAILY 05/08/20 [History Confirmed 05/08/20] Objective - Height/Weight Height/Weight: Height 5 ft Weight 64.864 kg - Vital Signs Vital Signs: 05/08/20 14:28 Temperature 95 F L Pulse Rate [Left Brachial] 79 Respiratory Rate 20 Blood Pressure [Left Arm] 145/85 H 02 Sat by Pulse Oximetry 96 - Pain Bilateral Breast Pain Intensity: 5 Right Breast Pain Intensity: 3 - Emotional Needs Assessment Emotional Needs Assessment: Emotional Needs Identified? No Physical Exam Narrative: Constitutional: No acute distress, well-nourished, alert/oriented x 3, cooperative HEENT: Head: Normocephalic, atraumatic; Eyes: EOMI, PERRL, clear conjunctiva; ENT: not examined due to coronavirus pandemic; Neck: Supple, trachea midline, full range of motion Chest/breast/axilla exam: No tenderness, no supra/infra clavicular, right breastlumpectomy incision well-healed, no erythema, no dimpling, no discharge, no evidence on examination of recurrence, left breast no dimpling, no discharge no axillary adenopathy Respiratory: No accessory muscle use, anterior and posterior chest clear, no rales, no rhonchi, no wheeze, room air Cardiovascular: S1-S2, no murmur, no rubs, no gallop, no peripheral edema Gastrointestinal: Normal active bowel sounds, no abdominal tenderness, no distention, no organomegaly, no gross bleeding/bruising : No CVA tenderness; Groin: No inguinal lymphadenopathy Back/spine/pelvis exam: Full range of motion, no vertebral tenderness Skin: Intact, dry, warm, normal turgor Neurologic: Alert, oriented x3, cranial nerves II-XII intact, reflexes, moving all extremities, vision grossly intact, hearing grossly intact, normal speech, normal gait, no visible tremors Psychiatric: Normal affect, normal thought process, cooperative - ECOG Performance Status ECOG Score: 0 Results - Labs Labs: Diagram of Most Recent CBC and CMP 05/02/17 10:17 05/02/17 10:17 Normal CBC and CMP in 02/2020 - Impressions BILATERAL DIAGNOSTIC MAMMOGRAMS - FULL FIELD DIGITAL WITH TOMOSYNTHESIS AND CAD Tomosynthesis craniocaudal and mediolateral oblique views of both breasts were obtained using low-dose digital technique. Comparison is made to prior studies from September 23, 2016 through October 10, 2018. This examination was reviewed with theaid of CAD. There are scattered fibroglandular densities. Hemostasis clips and postoperative scarring are seen at the central lateral left breast. There are no developing masses, typically malignant calcifications or architectural distortion. There has been no significant interval change. MM/MM diagnostic mammo BI w/CAD IMPRESSION: NO MAMMOGRAPHIC EVIDENCE OF MALIGNANCY. ROUTINE FOLLOW-UP IS RECOMMENDED IN ONE YEAR. RESULT CODE: 2 Benign Findings(s) DENSITY CODE: 2 (approximately 25-50% glandular) FOLLOW UP: 1YR The false-negative rate of mammography is approximately 10-percent. Management of a palpable abnormality must be based on clinical grounds. Patient was entered into a reminder system with a target due date for the next mammogram. Impression dictated by: Cathy Coto M.D.10/15/2019 2:26 PM 2 year f/u DEXA scan 05/05/2020: AP Spine T-score -2.1, osteopenia Left femoral neck T score -2.5, osteoporosis Right femoral neck T score -2.6, osteoporosis We discussed change to annual Reclast IV or every 6 month Denosumab 60mg sq but she declines these options--will continue to follow with Dr. Titus her primary physician. 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 2.) Adjuvant radiotherapy (01/21/16-02/17/16) 3.) Adjuvant endocrine therapy (Arimidex 1mg PO daily) started 02/18/16--patientchose to stop after 6 months of therapy, now observation only. 09/07/2019: Patient requested visit for right breast fullness/tenderness. S/p right breast lumpectomy 12/09/2015. -Clinical examination did not suggest evidence of recurrence, axillary tenderness or lymphedema. Her next mammogram is 10/2019 and was already ordered. -RISE order for massage therapy. -Continue Fosamax as ordered by PCP. Annual wellness examination with labs in October PCP. Next DEXA scan due 04/2020. 11/08/2019: No recurrence on annual mammogram or exam (although persistent breast tenderness). I will reassess in 05/2020 after 2 year DEXA scan and subsequent f/u 11/2020 for 5 years from diagnosis. If no recurrence, she may be followed by Primary care after that visit. 05/08/2020: No recurrence on exam with improved right breast tenderness. We reviewed DEXA scan showing osteoporosis and discussed parenteral options since still showing osteoporosis despite weekly Fosamax. She declines Reclast or Denosumab therapy instead. She will f/u in 6 months after annual mammogram, andif no recurrence at that time, followup mammograms and exam with primary care. The patient agrees with this plan and will call if questions or concerns. Moderate complexity visit 30 minutes. (2) Osteoporosis She was diagnosed with osteoporosis and started on Fosamax weekly by her primarycare physician. 2 year f/u DEXA scan April 2018--repeat May 2020 with continued osteoporosis bilateral femoral neck. Continues Calcium/Vitamin D bid with weekly Fosamax and declines changing to parenteral therapy with Reclast or Denosumab. --She may have f/u DEXA scan in 05/2022. -04/2018: T score -2.8 left femoral neck. -05/2020: T score -2.5 left femoral neck--mild improvement. (3) Pacemaker Mrs. Staples noted intermittent substernal chest pain with dizziness and dyspnea--found to have second degree heart block and received pacemaker about 01/2019 with improvement of these symptoms. The patient is followed by cardiology and recent visit without new issues. She note tenderness to pacemakersite. She remains without dyspnea, chest pain, or erythema to site. (4) Mediastinal lymphadenopathy This has been stable on serial CT scans. She had repeat CT Chest in early Jan 2019 that was reviewed with patient--nonenlarged mediastinal lymph nodes and calcified hilar lymph node consistent with granulomatous disease. No indicationfor further imaging. -Will monitor clinical for symptoms. - Chemo Plan Chemo Plan (Dose, Rate, Freq): 1 month AI therapy--declined further hormonal options for DCIS Goal of Treatment: Curative - Time with Patient Time Spent with Patient (Follow Up Visit): 35 minutes - discussion of osteoporosis options Coordination of Care & Counseling Time: Greater than 50% of time spent with patient was for coordination of care (as documented) and [id number] counseling of patient and/or family. Dictated By: Connie Thomas MD DD/ [id number] Signed By: <Electronically signed by MD Connie Thomas> 05/09/20 [address] [facility] Work Phone: [phone]) 263-249308-08-2020 Progress note Author Connie Thomas [facility] November 10, 2019 10:07am Note Date/Time November 08, 2019 2:1 3pm [facility] [place] [address] Hem/Onc Follow Up Note - OP Signed Patient: Damir Staples MR#: [id number] : 1950 Acct:[id number] Age/Sex: 69 / F Type: REG RCR Copies to: MD Ольга Woods MD~ Subjective Date/Time of Service: Date of Service: 11/08/2019 Time of Service: 14:13 Chief Complaint: Patient here for two month follow up appointment to review mammogram results. Patient reports increased fatigue over the last couple of days but notes improvement today. HPI: Mrs. Staples was seen by BELINDA Chairez in September 2019 for requested appointment for c/o intermittent tenderness or fullness to her right breast and left chest wall pain at pacemaker site. Damir denied any changes to her right lumpectomy incision, dimpling, discharge, axillary changes or lymphedema. Her mammogram was scheduled for October 2019 and she is here to review results today. No change in right incisional pain. She has not continued aromatase inhibitor therapy forDCIS beyond 6 month after radiation due to myalgias and declined another hormonal therapy. Unchanged chronic left hip pain. - Summary of Therapies Summary of Therapies: Summary of Therapies: 1.) Right breast lumpectomy with radioactive seed localization on 12/09/15 per . 2.) Adjuvant radiotherapy (01/21/16-02/17/16) 3.) Adjuvant endocrine therapy (Arimidex 1mg PO daily) started 02/18/16--stoppedmedication after 6 months due to leg cramps. ROS Details: All systems reviewed & no additional complaints except as documented Subjective/ROS - Narrative: Constitutional: Negative: No chills, fever, weakness. Positive: stable chronic mild fatigue HEENT: Negative: epistaxis, rhinorrhea, sore throat Cardiovascular: Negative: Chest pain, edema, palpitations Respiratory: Negative: Cough, shortness of breath, hemoptysis Gastrointestinal: Negative: pain, bloating, constipation, diarrhea, nausea, vomiting Genitourinary: Negative: Frequency, dysuria, flank pain, hematuria Musculoskeletal: Positive occasional left hip pain Breasts: Positive: Right tenderness/fullness (unchanged), denies dimpling, discharge, any new lumps/bumps or axillary adenopathy Neurologic: Negative: Dizziness, headache, numbness, tingling Psychiatric: Negative: Anxiety, depression Hematologic/lymphatic: Negative: Bleeding, bruising, enlarged lymph nodes Endocrine: Negative: Excessive sweating, flushing, intolerance to cold, intolerance to heat, weight gain/loss Allergic/immunology: Negative: Pruritus, rash PMFSH - History Attestation statement: The following information was validated with the patient. Source: Old Records Reviewed - Medical History Medical History: Medical History (Last Reviewed 11/10/19 @ 09:59 by Connie Thomas MD) Glaucoma Hx of cardiac pacemaker Hypertension - Surgical History Surgical History: Surgical History (Last Reviewed 11/10/19 @ 09:59 by Connie Thomas MD) H/O arthroscopic knee surgery left knee 1990 H/O lumpectomy right with radioactive seed localization on 12/09/[address] 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 Medications & Allergies Allergies sulfamethoxazole [From Bactrim] Allergy (Verified 12/31/18 20:50) Hives trimethoprim [From Bactrim] Allergy (Verified 12/31/18 20:50) Hives Home Medications montelukast [Singulair] 10 mg PO QPM PRN 10/13/18 [History Confirmed 11/08/19] lisinopril 5 mg PO DAILY #30 tab 10/15/18 [Rx Confirmed 11/08/19] dorzolamide-timolol 1 applic EYE-BOTH BID 01/01/19 [History Confirmed 11/08/19] latanoprost 1 applic EYE-BOTH HS 01/01/19 [History Confirmed 11/08/19] multivitamin 1 tab PO DAILY 01/01/19 [History Confirmed 11/08/19] omega 6-jva-yzt-fish oil [Fish Oil] 1 cap PO DAILY 01/01/19 [History Confirmed 11/08/19] atenolol 50 mg PO DAILY 09/06/19 [History Confirmed 11/08/19] alendronate 70 mg PO QWEEK 90 Days #12 tab 11/08/19 [Rx] Objective - Height/Weight Height/Weight: Height 4 ft 11.84 in Weight 66.587 kg - Vital Signs Vital Signs: 11/08/19 14:11 Temperature 97.9 F Pulse Rate [Left Brachial] 71 Respiratory Rate 18 Blood Pressure [Left Arm] 161/88 H 02 Sat by Pulse Oximetry 95 - Pain Bilateral Breast Pain Intensity: 5 Right Breast Pain Intensity: 3 - Emotional Needs Assessment Emotional Needs Assessment: Emotional Needs Identified? No Distress Screening Total 0 - ECOG Performance Status ECOG Score: 1 - mild fatigue Physical Exam Narrative: Constitutional: No acute distress, well-nourished, alert/oriented x 3, cooperative HEENT: Head: Normocephalic, atraumatic; Eyes: EOMI, PERRL, clear conjunctiva; ENT: Moist mucous membrane, nares patent; Neck: Supple, trachea midline, full range of motion Chest/breast/axilla exam: No tenderness, no supra/infra clavicular, right breastlumpectomy incision well-healed, no erythema, no dimpling, no discharge, no evidence on examination of recurrence, left breast no dimpling, no discharge no axillary adenopathy Respiratory: No accessory muscle use, anterior and posterior chest clear, no rales, no rhonchi, no wheeze, room air Cardiovascular: S1-S2, no murmur, no rubs, no gallop, no peripheral edema Gastrointestinal: Normal active bowel sounds, no abdominal tenderness, no distention, no organomegaly, no gross bleeding/bruising : No CVA tenderness; Groin: No inguinal lymphadenopathy Back/spine/pelvis exam: Full range of motion, no vertebral tenderness Skin: Intact, dry, warm, normal turgor Neurologic: Alert, oriented x3, cranial nerves II-XII intact, reflexes, moving all extremities, vision grossly intact, hearing grossly intact, normal speech, normal gait, no visible tremors Psychiatric: Normal affect, normal thought process, cooperative Results - Labs Labs: Diagram of Most Recent CBC and CMP 05/02/17 10:17 05/02/17 10:17 - Impressions Date of Service: 10/15/19 MM/MM diagnostic mammo BI w/CAD: annual mammogram followup right DCIS Copies to: MD Maverick Dan MD Jonathan Diller, MD Mersiha Hadziahmetovic, MD~ CLINICAL DATA: History of right breast cancer. BILATERAL DIAGNOSTIC MAMMOGRAMS - FULL FIELD DIGITAL WITH TOMOSYNTHESIS AND CAD Tomosynthesis craniocaudal and mediolateral oblique views of both breasts were obtained using low-dose digital technique. Comparison is made to prior studies from September 23, 2016 through October 10, 2018. This examination was reviewed with theaid of CAD. There are scattered fibroglandular densities. Hemostasis clips and postoperative scarring are seen at the central lateral left breast. There are no developing masses, typically malignant calcifications or architectural distortion. There has been no significant interval change. MM/MM diagnostic mammo BI w/CAD IMPRESSION: NO MAMMOGRAPHIC EVIDENCE OF MALIGNANCY. ROUTINE FOLLOW-UP IS RECOMMENDED IN ONE YEAR. RESULT CODE: 2 Benign Findings(s) DENSITY CODE: 2 (approximately 25-50% glandular) FOLLOW UP: 1YR The false-negative rate of mammography is approximately 10-percent. Management of a palpable abnormality must be based on clinical grounds. Patient was entered into a reminder system with a target due date for the next mammogram. 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 2.) Adjuvant radiotherapy (01/21/16-02/17/16) 3.) Adjuvant endocrine therapy (Arimidex 1mg PO daily) started 02/18/16--patientchose to stop after 6 months of therapy, now observation only. 09/07/2019: Patient requested visit for right breast fullness/tenderness. S/p right breast lumpectomy 12/09/2015. -Clinical examination did not suggest evidence of recurrence, axillary tenderness or lymphedema. Her next mammogram is 10/2019 and was already ordered. -RISE order for massage therapy. -Continue Fosamax as ordered by PCP. Annual wellness examination with labs in October PCP. Next DEXA scan due 04/2020. 11/08/2019: No recurrence on annual mammogram or exam (although persistent breast tenderness). I will reassess in 05/2020 after 2 year DEXA scan and subsequent f/u 11/2020 for 5 years from diagnosis. If no recurrence, she may be followed by Primary care after that visit. The patient agrees with this plan and will call if questions or concerns. Low complexity visit 15 minutes. (2) Pacemaker Mrs. Staples noted intermittent substernal chest pain with dizziness and dyspnea--found to have second degree heart block and received pacemaker about 01/2019 with improvement of these symptoms. The patient is followed by cardiology and recent visit without new issues. She note tenderness to pacemakersite. She remains without dyspnea, chest pain, or erythema to site. (3) Osteoporosis She was diagnosed with osteoporosis and started on Fosamax weekly by her primarycare physician. 2 year f/u DEXA scan April 2018. Continue Calcium/Vitamin D bid with weekly Fosamax and may have f/u DEXA scan in 04/2020. -T score -2.8 left femoral neck. If worsening left hip pain, may xray left hip or consult ortho. (4) Mediastinal lymphadenopathy This has been stable on serial CT scans. She had repeat CT Chest in early Jan 2019 that was reviewed with patient--nonenlarged mediastinal lymph nodes and calcified hilar lymph node consistent with granulomatous disease. No indicationfor further imaging. -Will monitor clinical for symptoms. - Chemo Plan Chemo Plan (Dose, Rate, Freq): 6 months AI therapy after radiation, stopped for leg cramps, declines further AItherapy for DCIS. Goal of Treatment: Curative - Time with Patient Coordination of Care & Counseling Time: Greater than 50% of time spent with patient was for coordination of care (as documented) and [id number] counseling of patient and/or family. Dictated By: Connie Thomas MD DD/ [id number] Signed By: <Electronically signed by MD Connie Thomas> 11/10/19 [address] [facility] Work Phone: [phone]) [phone] Progress note Author Mariah Chairez [facility] September 07, 2019 7:59am Note Date/Time September 06, 2019 3:31p m [facility] [place] [address] Hem/Onc Follow Up Note - OP Signed Patient: Damir Staples MR#: [id number] : 1950 Acct:[id number] Age/Sex: 69 / F Type: REG RCR Copies to: MD Angel Dan MD~ Subjective Date/Time of Service: Date of Service: 09/06/2019 Time of Service: 15:00 Chief Complaint: Requested appointment for right breast tenderness and left chest wall- pacemaker site tenderness HPI: Mrs. Staples requested an appointment for c/o intermittent tenderness or fullness to her right breast and left chest wall pain at pacemaker site. Damir denies, any changes to her right lumpectomy incision, dimpling, discharge, axillary changes or lymphedema. Her next mammogram was scheduled and ordered for October 2019. Chronic left hip pain. - Summary of Therapies Summary of Therapies: Summary of Therapies: 1.) Right breast lumpectomy with radioactive seed localization on 12/09/15 per . 2.) Adjuvant radiotherapy (01/21/16-02/17/16) 3.) Adjuvant endocrine therapy (Arimidex 1mg PO daily) started 02/18/16--stoppedmedication after 6 months due to leg cramps. ROS Details: All systems reviewed & no additional complaints except as documented Subjective/ROS - Narrative: Subjective/ROS-narrative: Constitutional: Negative: No chills, fever, weakness positive: mild fatigue HEENT: Negative: epistaxis, rhinorrhea, sore throat Cardiovascular: Negative: Chest pain, edema, palpitations Respiratory: Negative: Cough, shortness of breath, hemoptysis Gastrointestinal: Negative: pain, bloating, constipation, diarrhea, nausea, vomiting Genitourinary: Negative: Frequency, dysuria, flank pain, hematuria Musculoskeletal: Positive occasional left hip pain Breasts: Positive: Right tenderness/fullness, denies dimpling, discharge, any new lumps/bumps or axillary adenopathy Neurologic: Negative: Dizziness, headache, numbness, tingling Psychiatric: Negative: Anxiety, depression Hematologic/lymphatic: Negative: Bleeding, bruising, enlarged lymph nodes Endocrine: Negative: Excessive sweating, flushing, intolerance to cold, intolerance to heat, weight gain/loss Allergic/immunology: Negative: Pruritus, rash PMFSH - History Attestation statement: The following information was validated with the patient. Source: Old Records Reviewed - Medical History Medical History: Medical History (Last Reviewed 09/06/19 @ 15:41 by Mariah Chairez APRN) Glaucoma Hx of cardiac pacemaker Hypertension - Surgical History Surgical History: Surgical History (Last Reviewed 09/06/19 @ 15:41 by Mariah Chairez APRN) H/O arthroscopic knee surgery left knee 1990 H/O lumpectomy right with radioactive seed localization on 12/09/[address] 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 Home Medications & Allergies Allergies sulfamethoxazole [From Bactrim] Allergy (Verified 12/31/18 20:50) Hives trimethoprim [From Bactrim] Allergy (Verified 12/31/18 20:50) Hives Home Medications alendronate [Fosamax] 70 mg PO QWEEK #12 tab 12/15/17 [Rx Confirmed 09/06/19] montelukast [Singulair] 10 mg PO QPM PRN 10/13/18 [History Confirmed 09/06/19] lisinopril 5 mg PO DAILY #30 tab 10/15/18 [Rx Confirmed 09/06/19] dorzolamide-timolol 1 applic EYE-BOTH BID 01/01/19 [History Confirmed 09/06/19] latanoprost 1 applic EYE-BOTH HS 01/01/19 [History Confirmed 09/06/19] multivitamin 1 tab PO DAILY 01/01/19 [History Confirmed 09/06/19] omega 2-tae-ldm-fish oil [Fish Oil] 1 cap PO DAILY 01/01/19 [History Confirmed 09/06/19] atenolol 25 mg PO DAILY 09/06/19 [History Confirmed 09/06/19] Objective - Height/Weight Height/Weight: Height 4 ft 11.84 in Weight 65.6 kg - Vital Signs Vital Signs: 09/06/19 14:49 Temperature 97.9 F Pulse Rate [Left Brachial] 65 Respiratory Rate 20 Blood Pressure [Left Arm] 139/73 02 Sat by Pulse Oximetry 95 - Pain Bilateral Breast Pain Intensity: 5 Right Breast Pain Intensity: 3 - Emotional Needs Assessment Emotional Needs Assessment: Emotional Needs Identified? No - ECOG Performance Status ECOG Score: 1 - mild fatigue Physical Exam Narrative: Constitutional: No acute distress, well-nourished, alert/oriented x 3, cooperative HEENT: Head: Normocephalic, atrophic Eyes: EOMI, PERRL, clear conjunctiva ENT: Moist mucous membrane, nares patent Neck: Supple, trachea midline, full range of motion Chest/breast/axilla exam: No tenderness, no supra/infra clavicular, right breastlumpectomy incision well-healed, no erythema, no dimpling, no discharge, no evidence on examination of recurrence, left breast no dimpling, no discharge no axillary adenopathy Respiratory: No accessory muscle use, anterior and posterior chest clear, no rales, no rhonchi, no wheeze, room air Cardiovascular: S1-S2, no murmur, no rubs, no gallop, no peripheral edema Gastrointestinal: Normal active bowel sounds, no abdominal tenderness, no distention, no organomegaly, no gross bleeding/bruising : No gross hematuria Groin: No inguinal lymphadenopathy Back/spine/pelvis exam: Full range of motion, no vertebral tenderness Skin: Intact, dry, warm, normal turgor Neurologic: Alert, oriented x3, cranial nerves II-XII intact, reflexes, moving all extremities, vision grossly intact, hearing grossly intact, normal speech, normal gait, no visible tremors Psychiatric: Normal affect, normal thought process, cooperative Results - Labs Labs: Diagram of Most Recent CBC and CMP 05/02/17 10:17 05/02/17 10:17 Assessment and Plan (1) 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 2.) Adjuvant radiotherapy (01/21/16-02/17/16) 3.) Adjuvant endocrine therapy (Arimidex 1mg PO daily) started 02/18/16--patientchose to stop after 6 months of therapy, now observation only. 09/07/2019: Patient requested visit for right breast fullness/tenderness. S/p right breast lumpectomy 12/09/2015. -Clinical examination did not suggest evidence of recurrence, axillary tenderness or lymphedema. Her next mammogram is 10/2019 and was already ordered. -RISE order for massage therapy. -Continue Fosamax as ordered by PCP. Annual wellness examination with labs in October PCP. -Next DEXA scan due 04/2020. -She will follow up in [address] Thomas to review mammogram. If no recurrence, will continue annual f/u to complete 5 years from diagnosis. The patient agrees with this plan and will call if questions or concerns. -Low complexity visit 15 minutes. (2) Substernal chest pain Mrs. Staples noted intermittent substernal chest pain with dizziness and dyspnea--found to have second degree heart block and received pacemaker about 01/2019 with improvement of these symptoms. -Followed by PCP and Cardiology. (3) Osteoporosis She was diagnosed with osteoporosis and started on Fosamax weekly by her primarycare physician. 2 year f/u DEXA scan April 2018. Continue Calcium/Vitamin D bid with weekly Fosamax and may have f/u DEXA scan in 04/2020. -T score -2.8 left femoral neck, if worsening left hip pain. May xray left hip or consult ortho. (4) Mediastinal lymphadenopathy This has been stable on serial CT scans. She had repeat CT Chest in early Jan 2019 that was reviewed with patient--nonenlarged mediastinal lymph nodes and calcified hilar lymph node consistent with granulomatous disease. No indicationfor further imaging. -Will monitor clinical for symptoms. (5) Pacemaker Placed 01/2019, for symptomatic second degree heart block. The patient is followed by cardiology and recent visit. She note tenderness to pacemaker site. She remains without dyspnea, chest pain, and erythema to site. - Chemo Plan Goal of Treatment: Curative - Time with Patient Coordination of Care & Counseling Time: Greater than 50% of time spent with patient was for coordination of care (as documented) and [id number] counseling of patient and/or family. Dictated By: Mariah Chairez APRN DD/ [id number] Signed By: <Electronically signed by NABILA Chairez> 09/07/19 0[facility] Work Phone: 1(808) 957-928411-12-2019 Progress note Author Connie Thomas [facility] February 13, 2019 7:02pm Note Date/Time February 12, 2019 3:09pm [facility] [place] [address] Hem/Onc Follow Up Note - OP Signed Patient: Damir Staples MR#: [id number] : 1950 Acct:[id number] Age/Sex: 68 / F Type: REG RCR Copies to: Angel Titus MD~ Subjective Date/Time of Service: Date of Service: 02/12/2019 Time of Service: 15:09 Chief Complaint: Patient is here for requested visit history of right breast cancer with complaints of right breast soreness and posibble lump. HPI: Mrs. Staples, presents to the clinic for 4 month follow-up. She met with BELINDA Chairez to review mammogram completed on 10/10/2018 which showed no evidence of recurrence. Today she notes intermittent tenderness and fullness over prior lumpectomy incision--no skin changes or dimpling, no UE lymphedema. She notes improvement of chest discomfort, dizziness and shortness of breath since pacemaker placement in early January. She otherwise denies any recent illnesses. No other issues today. DIAGNOSIS: 1. Right Ductal carcinoma in situ, nuclear grade 2-3, cribriform and comedo type. Largest area of DCIS was 1.2 cm. There was a focus of microinvasive ductalcarcinoma (0.05 cm) associated with the ductal carcinoma in situ. Margins were negative for both microinvasive and ductal carcinoma in situ. Tumor was negativefor lymphovascular invasion, and was ER/NV positive and HER-2 nonamplified by IHC. Diagnosis 12/09/2015. PAST MEDICAL HISTORY: 1. Hypertension. 2. Glaucoma. 3. Arthroscopic left knee surgery in 1990. 4. Cervical fusion in 1991. 5. Pacemaker placement for symptomatic second degree heart block 01/04/2019. ALLERGIES: She is allergic to Bactrim, this causes hives all over her body. FAMILY HISTORY: Negative for malignancy that she is aware of. Her father because of a heartattack at age 58. PERSONAL HISTORY: There is no history of smoking, alcoholism or recreational drug usage. SOCIAL HISTORY: She is and lives with her in [place]. 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 The couple have no children,but her says it is primarily because he had testicular cancer when he was young and underwent surgery and radiation therapy. GYNECOLOGICAL HISTORY: Menarche at age 15. Menopause at age 48. G0, P0, A0. - Summary of Therapies Summary of Therapies: Summary of Therapies: 1.) Right breast lumpectomy with radioactive seed localization on 12/09/15 per . 2.) Adjuvant radiotherapy (01/21/16-02/17/16) 3.) Adjuvant endocrine therapy (Arimidex 1mg PO daily) started 02/18/16--stoppedmedication after 6 months due to leg cramps. ROS Details: All systems reviewed & no additional complaints except as documented Subjective/ROS - Narrative: Subjective/ROS-narrative: Constitutional: Negative: No chills, fever, night sweats, weakness, fatigue HEENT: Negative: Blurred vision, epistaxis, rhinorrhea, sore throat, sinus congestion Cardiovascular: Negative: edema, palpitations. Positive: Intermittent substernal chest pain with anxiety (last ER visit late Jan 2019) Respiratory: Negative: Cough, hemoptysis positive: Shortness of breath at rest, improved with pacemaker placement 01/04/2019) Gastrointestinal: Negative: pain, bloating, constipation, diarrhea, nausea, vomiting Genitourinary: Negative: Frequency, dysuria, flank pain, hematuria Breasts: Negative: dimpling, lymphedema of extremity. Positive: subjective sensation right breast fullness, lateral breast pain near lumpectomy scar Neurologic: Negative: headache, numbness, tingling, dizziness (resolved after pacemaker placement 01/04/2019) Psychiatric: Negative: depression, sleep changes. Positive: Anxiety Hematologic/lymphatic: Negative: Bleeding, bruising, enlarged lymph nodes Endocrine: Negative: Excessive sweating, flushing, intolerance to cold, intolerance to heat, weight gain/loss Allergic/immunology: Negative: Pruritus, rash PMFSH - History Attestation statement: The following information was validated with the patient. Source: Old Records Reviewed - Medical History Medical History: Medical History (Last Reviewed 02/13/19 @ 18:27 by Connie Thomas MD) Glaucoma Hypertension Hx of cardiac pacemaker - Surgical History Surgical History: Surgical History (Last Reviewed 02/13/19 @ 18:27 by Connie Thomas MD) H/O arthroscopic knee surgery left knee 1990 H/O lumpectomy right with radioactive seed localization on 12/09/[address] 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 Home Medications & Allergies Allergies sulfamethoxazole [From Bactrim] Allergy (Verified 12/31/18 20:50) Hives trimethoprim [From Bactrim] Allergy (Verified 12/31/18 20:50) Hives Home Medications alendronate [Fosamax] 70 mg PO QWEEK #12 tab 12/15/17 [Rx Confirmed 02/12/19] montelukast [Singulair] 10 mg PO QPM PRN 10/13/18 [History Confirmed 02/12/19] lisinopril 5 mg PO DAILY #30 tab 10/15/18 [Rx Confirmed 02/12/19] dorzolamide-timolol 1 applic EYE-BOTH BID 01/01/19 [History Confirmed 02/12/19] latanoprost 1 applic EYE-BOTH HS 01/01/19 [History Confirmed 02/12/19] multivitamin 1 tab PO DAILY 01/01/19 [History Confirmed 02/12/19] omega 0-mmq-fcr-fish oil [Fish Oil] 1 cap PO DAILY 01/01/19 [History Confirmed 02/12/19] Objective - Height/Weight Height/Weight: Height 4 ft 11.84 in Weight 63.957 kg - Vital Signs Vital Signs: 02/12/19 15:03 Temperature 97.6 F Pulse Rate [Left Brachial] 94 H Respiratory Rate 18 Blood Pressure [Left Arm] 163/60 H 02 Sat by Pulse Oximetry 96 - Pain Bilateral Breast Pain Intensity: 6 Right Breast Pain Intensity: 2 - Emotional Needs Assessment Emotional Needs Assessment: Emotional Needs Identified? No Distress Screening Total 0 - ECOG Performance Status ECOG Score: 1 Physical Exam Narrative: Constitutional: no distress, average body habitus, alert and oriented, cooperative HEENT: Head: Normocephalic, atrophic Eyes: EOMI, PERRL, clear conjunctiva, scleral injection ENT: Moist mucous membrane, oropharynx clear, dentition, nares patent Neck: Supple, full range of motion, no lymphadenopathy, no tenderness Chest/breast/axilla exam: No palpable masses right breast, mild tenderness near lumpectomy incision--unchanged from prior exams, no left breast masses or tenderness, no lymphadenopathy or lymphedema. Respiratory: No accessory muscle use, clear to auscultation bilaterally, no rhonchi, no crackles, no wheezes Cardiovascular: Interval placement of pacemaker 01/04/2019--now regular rate and rhythm, no murmur, no rubs, no gallop, no peripheral edema, pedal pulses palpable Gastrointestinal:, Normal active bowel sounds, no tenderness, no distention, no mass, no organomegaly, no bleeding, no nausea/vomiting : No hematuria. Groin: No inguinal lymphadenopathy Back/spine/pelvis exam: Full range of motion, no tenderness, no back pain Skin: Intact, dry, warm, normal turgor Neurologic: Alert, oriented x3, cranial nerves II-XII intact, reflexes, moving all extremities, vision grossly intact, hearing grossly intact, normal speech normal gait, no tremors Psychiatric: Anxious, normal thought process, cooperative Results - Labs Labs: Diagram of Most Recent CBC and CMP 05/02/17 10:17 05/02/17 10:17 01/23/2019: WBC 8000, hemoglobin 13.8, hematocrit 40.4, Platelets 290,000, ANC 5600 Na 143, K 3.9, BUN 11, Creat 0.61, Glu 108, Ca 9.4, TB 0.9, AST 20, ALT 15, Alk Phos 69, Alb 3.7 - Impressions Date of Service: 01/03/19 CT/CT chest wo con: Nodular density right upper lobe rule out granuloma Copies to: MD Ari Haynes, DO~ CT chest withoutcontrast TECHNIQUE: Axial imaging with 2-D reconstruction. The CT exam was performed using one or more the following dose reduction techniques: Automated exposure control, adjustment of the MA and/or Kv according to patient size, or use of theiterative reconstruction technique. History: Right upper lobe density. Shortness of breath. History of breast cancer. COMPARISON: Plain film imaging 12/31/2018. CT chest 05/02/2017 The thyroid gland is normal. Central airway is patent. Esophagus is normal course and caliber. Moderate hiatal hernia identified. Heart is not enlarged. No pericardial effusion is seen. Nonenlarged mediastinal lymph nodes identified. No hilar mass or adenopathy is seen. No thoracic aortic aneurysm is seen. Calcified right peritracheal lymph node identified. Similar small calcified granulomata right upper lung identified. No new lung nodules identified. No infiltrate or congestion identified. No pleural effusion identified. No pneumothorax seen. Right breast lumpectomy changes identified. The bony structures are intact. Images of the upper abdomen are noncontributory. CT/CT chest wo con IMPRESSION: Stable remote granulomatous changes. No acute cardiopulmonary disease. No new lung nodule. Impression dictated by: Lencho Julian M.D.01/03/2019 3:00 PM Date of Service: 01/23/19 XR/XR chest 2V*: Chest Pain Copies to: Gurpreet Fountain MD~ PA AND LATERAL CHEST: CLINICAL HISTORY: Chest pain since yesterday along with cough and nausea. Recent pacemaker placement. COMPARISON: 01/10/2019 A left dual-lead pacemaker is again visualized. Central and peripheral granulomatous changes are again noted on the right. Minor chronic interstitial changes are seen. There is no developing consolidation, effusion or pneumothorax. The heart is mildly prominent. The hilar and mediastinal silhouettes are within normal limits. There is no vascular congestion. The visualized bony structures are osteopenic. There is thoracolumbar scoliotic curvature and tiny endplate spurs. XR/XR chest 2V* IMPRESSION: MILD CHRONIC CHANGES. NO ACUTE FINDINGS. 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 2.) Adjuvant radiotherapy (01/21/16-02/17/16) 3.) Adjuvant endocrine therapy (Arimidex 1mg PO daily) started 02/18/16--patientchose to stop after 6 months of therapy, now observation only. Examination of bilateral breasts and review of systems did not suggest any evidence of cancer recurrence. Mammogram without evidence of recurrence 10/2018. Will followup in 8 months (after annual mammogram)--if no recurrence, will continue annual f/u to complete 5 years from diagnosis. Patient is in agreementwith this plan. 30 minute f/u visit for evaluation of intermittent breast discomfort. (2) Substernal chest pain Mrs. Staples noted intermittent substernal chest pain with dizziness and dyspnea--found to have second degree heart block and received pacemaker about one month ago with improvement of these symptoms. She was seen in ED 3 weeks ago with atypical chest pain associated with anxiety which was deemed noncardiacin nature. Continue f/u with her primary physician and cardiology. (3) Osteoporosis She was diagnosed with osteoporosis and started on Fosamax weekly by her primarycare physician. 2 year f/u DEXA scan April 2018. Continue Calcium/Vitamin D bid with weekly Fosamax and may have f/u DEXA scan in 04/2020. (4) Mediastinal lymphadenopathy This has been stable on serial CT scans. She had repeat CT Chest in early Jan 2019 that was reviewed with patient--nonenlarged mediastinal lymph nodes and calcified hilar lymph node consistent with granulomatous disease. No indicationfor further imaging. (5) Pacemaker Placed one month ago for symptomatic second degree heart block--seen in ED for noncardiac chest pain 3 weeks ago but improved dizziness and dyspnea since placement. - Chemo Plan Chemo Plan (Dose, Rate, Freq): Patient stopped aromatase inhibitor after 6 months, now observation only. Goal of Treatment: Curative - Time with Patient Coordination of Care & Counseling Time: Greater than 50% of time spent with patient was for coordination of care (as documented) and [id number] counseling of patient and/or family. Dictated By: Connie Thomas MD DD/ [id number] Signed By: <Electronically signed by MD Connie Thomas> 02/13/19 0521 [facility] Work Phone: [phone] 570-672007-12-2019 Progress note Author Mariah Chualar [facility] October 13, 2018 10:59am Note Date/Time October 13, 2018 10:2 1am [facility] [place] [address] Hem/Onc Follow Up Note - OP Signed Patient: Damir Staples MR#: [id number] : 1950 Acct:[id number] Age/Sex: 68 / F Type: REG RCR Copies to: Angel Titus MD~ Subjective Date/Time of Service: Date of Service: 10/13/2018 Time of Service: 10:00 Chief Complaint: 6 month follow up- my breathing is off this week, I should seepulmonologist - Diagnosis DIAGNOSIS: 1. Right Ductal carcinoma in situ, nuclear grade 2-3, cribriform and comedo type. Largest area of DCIS was 1.2 cm. There was a focus of microinvasive ductalcarcinoma (0.05 cm) associated with the ductal carcinoma in situ. Margins were negative for both microinvasive and ductal carcinoma in situ. Tumor was negativefor lymphovascular invasion, and was ER/NV positive and HER-2 nonamplified by IHC. HPI: Mrs. Staples, presents to the clinic for 5 month follow-up. She is her to review her mammogram completed on 10/10/2018. She notes, she had Shortness of breath at rest for last 4 nights. She denies any recent illness, and hospitalizations. Shereports taking her atenolol 50mg this am and did not check her HR. She notes intermittent chest pain with anxiety denies neck pain, jaw pain, n/v, does not radiate. - Summary of Therapies Summary of Therapies: Summary of Therapies: 1.) Right breast lumpectomy with radioactive seed localization on 12/09/15 per . 2.) Adjuvant radiotherapy (01/21/16-02/17/16) 3.) Adjuvant endocrine therapy (Arimidex 1mg PO daily) started 02/18/16--stoppedmedication after 6 months due to leg cramps. ROS Details: All systems reviewed & no additional complaints except as documented Subjective/ROS - Narrative: Subjective/ROS-narrative: Constitutional: Negative: No chills, fever, night sweats, Positive: weakness/fatigue last 4 nights HEENT: Negative: Blurred vision, epistaxis, rhinorrhea, sore throat (she states she had a recent ENT visit with Dr. Brady) positive: Lid margins with erythema Cardiovascular: Negative: edema, palpitations Positive: Intermittent substernal chest pain with anxiety Respiratory: Negative: Cough, hemoptysis positive: Shortness of breath at rest Gastrointestinal: Negative: pain, bloating, constipation, diarrhea, nausea, vomiting Genitourinary: Negative: Frequency, dysuria, flank pain, hematuria Breasts: Negative: Pain, dimpling Neurologic: Negative: headache, numbness, tingling positive: Dizzy while laying down Psychiatric: Negative: depression, sleep changes positive: Anxiety Hematologic/lymphatic: Negative: Bleeding, bruising, enlarged lymph nodes Endocrine: Negative: Excessive sweating, flushing, intolerance to cold, intolerance to heat, weight gain/loss Allergic/immunology: Negative: Pruritus, rash PMFSH - Medical History Medical History: Medical History (Last Updated 10/13/18 @ 07:31 by Mariah Chairez APRN) Glaucoma Hypertension - Surgical History Surgical History: Surgical History (Last Updated 10/13/18 @ 07:34 by Mariah Chairez APRN) H/O arthroscopic knee surgery left knee 1990 H/O lumpectomy right with radioactive seed localization on 12/09/[address] 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 Home Medications & Allergies Allergies Allergy/AdvReac Type Severity Reaction Status Date / Time sulfamethoxazole Allergy Hives Verified 10/13/18 10:55 [From Bactrim] trimethoprim [From Bactrim] Allergy Hives Verified 10/13/18 10:55 Home Medications Medication Instructions Recorded Confirmed Type RX: amlodipine 5 mg PO DAILY 12/31/16 11/09/17 History RX: atenolol 50 mg PO BID 12/31/16 11/09/17 History RX: alendronate [Fosamax] 70 mg PO QWEEK #12 tab 12/15/17 Rx montelukast [Singulair] 10 mg PO QPM 10/13/18 10/13/18 History Objective - Height/Weight Height/Weight: Height 4 ft 11.84 in Weight 65.6 kg - Vital Signs Vital Signs: 10/13/18 10:02 Temperature 97.8 F Pulse Rate [Left Brachial] 47 L Respiratory Rate 20 Blood Pressure [Left Arm] 134/71 02 Sat by Pulse Oximetry 98 - Pain Bilateral Breast Pain Intensity: 6 - Emotional Needs Assessment Emotional Needs Assessment: Emotional Needs Identified? No - ECOG Performance Status ECOG Score: 0 Physical Exam Narrative: Constitutional: mild distress, average body habitus, alert and oriented, cooperative HEENT: Head: Normocephalic, atrophic Eyes: EOMI, PERRL, clear conjunctiva, scleral injection ENT: Moist mucous membrane, oropharynx clear, dentition, nares patent Neck: Supple, full range of motion, no lymphadenopathy, no tenderness Chest/breast/axilla exam: No tenderness, no lymphadenopathy Respiratory: No accessory muscle use, anterior and posterior chest Diminshed, ariella, SOB while laying down during examination, no rhonchi, no wheeze Cardiovascular: Sinus bradycardia, with intermittent substernal chest pain, no murmur, no rubs, no gallop, no peripheral edema, pedal pulses palpable Gastrointestinal:, Normal active bowel sounds, no tenderness, no distention, no mass, no organomegaly, no bleeding, no nausea/vomiting : No hematuria Groin: No inguinal lymphadenopathy Back/spine/pelvis exam: Full range of motion, no tenderness, no back pain Skin: Intact, dry, warm, normal turgor Neurologic: Alert, oriented x3, cranial nerves II-XII intact, reflexes, moving all extremities, vision grossly intact, hearing grossly intact, normal speech normal gait, no tremors Psychiatric: Anxious, normal thought process, cooperative Results - Labs Labs: Diagram of Most Recent CBC and CMP - Imaging Other Additional comments: MM/MM diagnostic mammo BI w/CAD IMPRESSION: NO MAMMOGRAPHIC EVIDENCE OF MALIGNANCY. ROUTINE FOLLOW-UP IS RECOMMENDED IN ONE YEAR. RESULT CODE: 2 Benign Findings(s) DENSITY CODE: 2 (approximately 25-50% glandular) FOLLOW UP: 1YR The false-negative rate of mammography is approximately 10-percent. Management of a palpable abnormality must be based on clinical grounds. Impression dictated by: Timothy Negro M.D.10/10/2018 12:36 PM Dictation Location: [facility] Transcribed By: [facility] 10/10/18 1236 Dictated By: Timothy Negro MD 10/10/18 1231 Signed By: <Electronically signed by MD Timothy Negro in OV> 10/10/18 1236 Assessment and Plan (1) Substernal chest pain Mrs. Staples presented to clinic with c/o 4 days sob with intermittent substernal chest pain. She reports no recent illness, and hospitalizations. She took her atenolol 50 mg this a.m. Her current heart rate in the office was 47. On examination, she complained of substernal chest pain with anxiety, did not radiate down the arm, jaw, neck, further denies nausea/vomiting. We brought herover to the ER for further cardiac work-up. 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 2.) Adjuvant radiotherapy (01/21/16-02/17/16) 3.) Adjuvant endocrine therapy (Arimidex 1mg PO daily) started 02/18/16--patientchose to stop after 6 months of therapy, now observation only. Examination of bilateral breasts and review of systems did not suggest any evidence of cancer recurrence. Mammogram ordered for 09/2018. Will followup in 6 months--if no recurrence, will continue annual f/u to complete 5 years from diagnosis. Patient is in agreement with this plan. 30 minute f/u visit for transfer of care from Dr. Elder. 10/13/2018: -Physical examination benign bilateral breasts completed. Mammogram completed 10/10/2018 no evidence of malignancy. (3) Osteoporosis She was diagnosed with osteoporosis and started on Fosamax weekly by her primarycare physician. 2 year f/u DEXA scan is improved. Continue Calcium/Vitamin D bid with weekly Fosamax and may have f/u DEXA scan in 04/2020. (4) Mediastinal lymphadenopathy This has been stable on serial CT scans. Plan is to repeat a CT scan in 4 months 10/13/2018: Ct scan chest not completed for this visit will order prior to next visit - Chemo Plan Goal of Treatment: Curative - Time with Patient Total Time Spent with Patient: 30 min Coordination of Care & Counseling Time: Greater than 50% of time spent with patient was for coordination of care (as documented) and [id number] counseling of patient and/or family. Dictated By: Mariah Chairez APRN DD/ 1021 Signed By: <Electronically signed by NABILA Chairez> 10/13/18 1059 [facility] Work Phone: [phone] Progress note Author Connie Thomas [facility] May 10, 2018 11:03pm Note Date/Time May 09, 2018 1 :20pm [facility] [place] [id number] Hem/Onc Follow Up Note - OP Signed Patient: Damir Staples MR#: [id number] : 1950 Acct:[id number] Age/Sex: 67 / F Type: REG RCR Copies to: Angel Titus MD, Fredric DO~ Subjective Date/Time of Service: Date of Service: 05/09/2018 Time of Service: 13:19 Chief Complaint: Patient is here for follow up history of right breast cancer, amada for review. Patient complains of biltateral breast ache. - Diagnosis DIAGNOSIS: 1. Right Ductal carcinoma in situ, nuclear grade 2-3, cribriform and comedo type. Largest area of DCIS was 1.2 cm. There was a focus of microinvasive ductalcarcinoma (0.05 cm) associated with the ductal carcinoma in situ. Margins were negative for both microinvasive and ductal carcinoma in situ. Tumor was negativefor lymphovascular invasion, and was ER/NV positive and HER-2 nonamplified by IHC. PAST MEDICAL HISTORY: 1. Hypertension. 2. Glaucoma. 3. Arthroscopic left knee surgery in 1990. 4. Cervical fusion in 1991. ALLERGIES: She is allergic to Bactrim, this causes hives all over her body. FAMILY HISTORY: Negative for malignancy that she is aware of. Her father because of a heartattack at age 58. PERSONAL HISTORY: There is no history of smoking, alcoholism or recreational drug usage. SOCIAL HISTORY: She is and lives with her in [place]. 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 The couple have no children,but her says it is primarily because he had testicular cancer when he was young and underwent surgery and radiation therapy. GYNECOLOGICAL HISTORY: Menarche at age 15. Menopause at age 48. G0, P0, A0. HPI: Patient returns to the clinic for transfer of care from Dr. Elder. Notes breast tenderness both breasts--left breast over 3 years (before breast cancer diagnosis right breast). Ms. Damir Staples had a routine screening mammogram at a hospital in [place] through the [facility]. Per history, it showed some abnormal calcifications but an initial biopsy was nondiagnostic. She was then referred toDr. Shipman. On 12/05/2015, she had a seed localization of the right breast lesion and then on 12/09/2015, she underwent right lumpectomy with radioactive seed. Specimen radiograph was obtained and a biopsy marking clip and radiation seed were present within the tissue. She completed adjuvant radiation therapy, then placed on Arimidex 02/2016. She noted myalgias then decided to stop therapy after about 6 months due to myalgias. She declines repeat trial of AI therapy or Tamoxifen. Here for every 6 month f/u. Not followed by Dr. Silverman--last seen about 2 years ago. 2 year f/u DEXA bone density reviewed improved spine osteopenia by 6%, hip improved by 9.8%. Colonoscopy this week wth Dr. Walsh, constipation every 3-4 days, no melana orBRBPR. last 10 years ago. No other complaints today. - Summary of Therapies Summary of Therapies: 1.) Right breast lumpectomy with radioactive seed localization on 12/09/15 per . 2.) Adjuvant radiotherapy (01/21/16-02/17/16) 3.) Adjuvant endocrine therapy (Arimidex 1mg PO daily) started 02/18/16--stoppedmedication after 6 months due to leg cramps. ROS Details: All systems reviewed & no additional complaints except as documented Constitutional: fair state of general health, no weight gain, no weight loss Eyes: no change in vision, no double vision ENT: no headaches, no vertigo, no lightheadedness, no nasal congestion, no rhinorrhea, no epistaxis, no sore throat Cardiovascular: no chest pain, no palpitations, no syncope, no dyspnea on exertion, no edema, no heart murmur Respiratory: no cough, no pain with respirations, no respiratory infections, no shortness of breath, no sputum production, no TB exposure, no wheezing Gastrointestinal: no change in appetite, no dysphagia, no indigestion, no abdominal pain, no nausea, no vomiting, no jaundice, no constipation, no diarrhea, no change in bowel habits Genitourinary: no frequency, no dysuria, no hematuria, no oliguria, no stones, no urinary retention Musculoskeletal: no joint pain, no swelling, no redness Integumentary: no rash, no bruising LEFT breast: tenderness, no changes, no lumps, no swelling, no nipple discharge RIGHT breast: tenderness, incision site - well healed, mild stable fibrocystic changes, no changes, no lumps, no swelling, no nipple discharge Neurological: no dizzy, no headache, no numbness, no memory loss, no parasthesias, no pre-existing deficit, no tremors Psychiatric: no anxiety, no depression Endocrine: no excessive sweating - off aromatase inhibitor since mid 2016, no intolerance to heat Hematologic/Lymphatic: no anemia, no enlarged lymph nodes Allergic/Immunologic: no reaction to drugs ONC PMFSH - General Attestation statement: The following information was validated with the patient. Source: Old Records Reviewed - Medical History Medical history: Arthritis, Cancer - right breast DCIS with microinvasion, Glaucoma, Hypertension - Surgical History Surgical history female: breast surgery - Social History Hx Recreational Drug Use?: No Home Medications & Allergies Allergies Allergy/AdvReac Type Severity Reaction Status Date / Time No Known Allergies Allergy Verified 12/29/16 12:14 Home Medications Medication Instructions Recorded Confirmed Type amlodipine 5 mg PO DAILY 12/31/16 11/09/17 History atenolol 50 mg PO BID 12/31/16 11/09/17 History alendronate [Fosamax] 70 mg PO QWEEK #12 tab 12/15/17 Rx Objective - Resuscitation Status Resuscitation Status: Full Code - Height/Weight Height/Weight: Height 4 ft 11.84 in Weight 64.41 kg - Vital Signs Vital Signs: 05/09/18 13:09 Temperature 96.8 F L Pulse Rate [Left Brachial] 76 Respiratory Rate 18 Blood Pressure [Left Arm] 143/82 H 02 Sat by Pulse Oximetry 96 - Pain Bilateral Breast Pain Intensity: 6 - Emotional Needs Assessment Emotional Needs Assessment: Emotional Needs Identified? Yes Distress Screening Total 0 - ECOG Performance Status ECOG Score: 0 Physical Exam - Constitutional no acute distress, average body habitus, no chronically ill appearing, cooperative - Routine HEENT Exam Head: normocephalic, atraumatic, no cushingoid faces Eye: EOMI, PERRL, no conjunctival injection, no scleral icterus ENT: mucous membranes moist, oropharynx clear, dentition normal - Routine Neck Exam supple, full ROM, no lymphadenopathy, no thyromegaly, no tenderness - Routine Chest/Breast/Axilla Exam Chest wall: no tenderness, no mass Breast: tenderness - bilateral, unchanged from prior exams, no mass, no swelling, scars - well healed lumpectomy incision Axillae: no lymphadenopathy, no swelling - no right upper extremity lymphedema - Routine Respiratory Exam no accessory muscle use, CTA bilaterally, no respiratory distress, no rhonchi, no wheezes, no crackles - Routine Cardiovascular Exam RRR, no murmur, no gallop, no irregular rhythm - Routine Abdominal Exam soft, normoactive bowel sounds, no tenderness, no distended, no organomegaly, nomass - Routine Exam Groin: Present: inguinal lymphadenopathy - Routine Extremities Exam Present: full ROM, pulses intact, normal capillary refill. Absent: cyanosis, clubbing, edema, calf tenderness, tenderness - Routine Back/Spine/Pelvis Exam Back/Spine: Present: full ROM. Absent: CVA tenderness, paraspinal tenderness, vertebral tenderness - Routine Skin Exam Present: intact, warm, normal turgor. Absent: petechiae, lesions, jaundice, rash, ecchymosis - Routine Neurological Exam Present: alert, oriented X3, CN II-XII intact, moving all extremities, vision grossly intact, hearing grossly intact, normal speech. Absent: sensory deficit,motor deficit, abnormal gait, tremors - Routine Psychiatric Exam Present: normal affect, normal thought process, cooperative. Absent: depressed,anxious Results - Labs Labs: Diagram of Most Recent CBC and CMP 05/02/17 10:17 05/02/17 10:17 - Impressions Any impression(s) listed above is documentation that was entered by the reading physician into a diagnostic report(s) for Damir Staples. I have reviewedthe report(s) and am incorporating any findings in the treatment plan of this patient where applicable. Date of Service: 09/26/17 MM/MM screening mammo BI w/CAD: cancer screening Copies to: Kai Vang MD, Hammad MD~ Bilateral Screening Full Field digital mammogram with 3-D imaging. Full field digital CC and MLO imaging performed. CAD utilized. COMPARISON: 09/23/16 HISTORY:Screening FINDINGS: The breast parenchyma is heterogeneously dense. No developing architectural distortion, developing focal breast asymmetry or developing malignant calcifications identified. Post therapy changes of the RIGHT breast including scarring and surgical clips in the superior portion are stable. IMPRESSION:No mammographic evidence of malignancy. Routine follow-up recommended in one year. RESULT CODE: 1 Negative DENSITY CODE: 3 FOLLOW UP: 1YR THE FALSE-NEGATIVE RATE OF MAMMOGRAPHY IS APPROXIMATELY 10%. IMAGING OF A PALPABLE ABNORMALITY MUST BE BASED ON CLINICAL GROUNDS. PATIENT WAS ENTERED INTO A REMINDER SYSTEM WITH A TARGET DUE DATE FOR THE NEXT MAMMOGRAM. 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 2.) Adjuvant radiotherapy (01/21/16-02/17/16) 3.) Adjuvant endocrine therapy (Arimidex 1mg PO daily) started 02/18/16--patientchose to stop after 6 months of therapy, now observation only. Examination of bilateral breasts and review of systems did not suggest any evidence of cancer recurrence. Mammogram ordered for 09/2018. Will followup in 6 months--if no recurrence, will continue annual f/u to complete 5 years from diagnosis. Patient is in agreement with this plan. 30 minute f/u visit for transfer of care from Dr. Elder. (2) Osteoporosis Status: Chronic She was diagnosed with osteoporosis and started on Fosamax weekly by her primarycare physician. 2 year f/u DEXA scan is improved. Continue Calcium/Vitamin D bid with weekly Fosamax and may have f/u DEXA scan in 04/2020. (3) Mediastinal lymphadenopathy Status: Chronic This has been stable on serial CT scans. Plan is to repeat a CT scan in 4 months just before her next visit - Chemo Plan Chemo Plan (Dose, Rate, Freq): Patient stopped aromatase inhibitor after 6 months, now observation only. Goal of Treatment: Curative - Time with Patient Total Time Spent with Patient: 30 min Coordination of Care & Counseling Time: Greater than 50% of time spent with patient was for coordination of care (as documented) and [id number] counseling of patient and/or family. Dictated By: Connie Thomas MD DD/ [id number] Signed By: <Electronically signed by MD Connie Thomas> 05/10/18 2220 [facility] Work Phone: [phone] Progress note Author Maverick Elder [facility] September 28, 2017 11:36am Note Date/Time September 28, 2017 11:[address] [place] [address] Cancer Center at [address] [address] Hem/Onc Follow Up Note - OP Signed Patient: Damir Staples MR#: [id number] : 1950 Acct:[id number] Age/Sex: 67 / F Type: REG RCR Copies to: Angel Titus MD~ Subjective Date/Time of Service: Date of Service: 09/28/2017 Time of Service: 11:35 Chief Complaint: Patient here fto follow up mammogram results. HPI: Patient returns to the clinic for a pre-scheduled follow-up visit that reports that 1. there has been no significant change in symptoms since the last visit ROS Details: All systems reviewed & no additional complaints except as documented Home Medications & Allergies Allergies Allergy/AdvReac Type Severity Reaction Status Date / Time No Known Allergies Allergy Verified 12/29/16 12:14 Home Medications Medication Instructions Recorded Confirmed Type Ca-D3-mag ax-ymds-bcb-bianka-bor 2 tab PO DAILY 12/31/16 05/04/17 History [Calcium 600-D3 Plus] alendronate [Fosamax] 70 mg PO QWEEK 12/31/16 05/04/17 History amlodipine 1 tab PO DAILY 12/31/16 05/04/17 History anastrozole 1 tab PO DAILY 12/31/16 05/04/17 History atenolol 2 tab PO DAILY 12/31/16 05/04/17 History dorzolamide-timolol 1 drp OPHTHALMIC BID 12/31/16 05/04/17 History latanoprost 1 drp OPHTHALMIC DAILY 12/31/16 05/04/17 History meloxicam 1 tab PO DAILY PRN 12/31/16 05/04/17 History Objective - Resuscitation Status Resuscitation Status: Full Code - Height/Weight Height/Weight: Height 5 ft Weight 68.946 kg - Vital Signs Vital Signs: Temp 97.7 F 09/28/17 10:40 Pulse 72 09/28/17 10:40 Resp 16 09/28/17 10:40 BP 140/83 09/28/17 10:40 Pulse Ox 96 09/28/17 10:40 - Emotional Needs Assessment Emotional Needs Assessment: Emotional Needs Identified? No Distress Screening Total 0 - ECOG Performance Status ECOG Score: 0 Physical Exam Narrative: Examination of bilateral breasts, bilateral axillary, infraclavicular, supraclavicular and cervical lymph nodes was carefully performed. She is a lumpectomy scar on the right side. There was no clinical evidence of cancer recurrence. - Routine HEENT Exam Head: normocephalic, atraumatic Eye: EOMI, PERRL, normal accommodation ENT: mucous membranes moist, dentition normal - Routine Neck Exam supple, full ROM - Routine Chest/Breast/Axilla Exam Chest wall: no tenderness, no mass Breast: no mass Axillae: no lymphadenopathy - Routine Respiratory Exam no accessory muscle use, no respiratory distress - Routine Cardiovascular Exam RRR - Routine Abdominal Exam soft, normoactive bowel sounds, no tenderness, no distended - Routine Extremities Exam Present: full ROM, pulses intact, normal capillary refill - Routine Back/Spine/Pelvis Exam Back/Spine: Present: full ROM - Routine Skin Exam Present: intact, warm, normal turgor - Routine Neurological Exam Present: alert, oriented X3, normal reflexes, normal speech - Routine Psychiatric Exam Present: normal affect, normal thought process Results - Labs CBC & Chem 7: 05/02/17 10:17 05/02/17 10:17 Labs: Laboratory Last Values WBC 6.5 X10E3/uL (3.8-11.6) 05/02/17 10:17 RBC 4.47 x10E6/uL (3.60-5.00) 05/02/17 10:17 Hgb 14.6 g/dL (11.8-15.4) 05/02/17 10:17 Hct 42.7 % (34.0-46.4) 05/02/17 10:17 MCV 95.4 fl (80-100) 05/02/17 10:17 MCH 32.6 pg (24.7-34.3) 05/02/17 10:17 MCHC 34.2 g/dL (32.0-35.0) 05/02/17 10:17 RDW 13.8 % (11.9-15.3) 05/02/17 10:17 Plt Count 272 x10E3/uL (150-450) 05/02/17 10:17 MPV 7.4 fl (6.3-10.7) 05/02/17 10:17 Neut % (Auto) 52.8 % (.) 05/02/17 10:17 Lymph % (Auto) 33.2 % (.) 05/02/17 10:17 Foard % (Auto) 9.7 % (.) 05/02/17 10:17 Eos % (Auto) 4.0 % (.) 05/02/17 10:17 Baso % (Auto) 0.3 % (.) 05/02/17 10:17 Neut # (Auto) 3.5 x10E3/uL (1.8-7.7) 05/02/17 10:17 Lymph # (Auto) 2.2 x10E3/uL (1.00-4.8) 05/02/17 10:17 Foard # (Auto) 0.6 x10E3/uL (0.0-0.8) 05/02/17 10:17 Eos # (Auto) 0.3 x10E3/uL (0.0-0.45) 05/02/17 10:17 Baso # (Auto) 0.0 x10E3/uL (0.0-0.2) 05/02/17 10:17 PHA Creatinine Clear 40.2865 05/02/17 10:17 Sodium 139 mmol/L (136-146) 05/02/17 10:17 Potassium 3.8 mmol/L (3.5-5.1) 05/02/17 10:17 Chloride 103 mmol/L (95-114) 05/02/17 10:17 Carbon Dioxide 27.5 mmol/L (22.0-30.0) 05/02/17 10:17 BUN 15 mg/dL (9-23) 05/02/17 10:17 Creatinine 0.78 mg/dL (0.44-1.03) 05/02/17 10:17 Est GFR ( Amer) > 60 05/02/17 10:17 Est GFR (Non-Af Amer) > 60 05/02/17 10:17 Glucose 93 mg/dL (70-100) 05/02/17 10:17 Calcium 9.6 mg/dL (8.2-10.2) 05/02/17 10:17 Total Bilirubin 1.2 mg/dL (0.3-1.2) 05/02/17 10:17 AST 25 U/L (10-42) 05/02/17 10:17 ALT 21 U/L (10-60) 05/02/17 10:17 Alkaline Phosphatase 71 U/L (32-92) 05/02/17 10:17 Total Protein 6.7 gm/dL (6.1-7.9) 05/02/17 10:17 Albumin 3.9 gm/dL (3.2-5.5) 05/02/17 10:17 Globulin 2.8 gm/dL 05/02/17 10:17 Albumin/Globulin Ratio 1.4 05/02/17 10:17 Assessment and Plan (1) 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 Shipman. 2.) Adjuvant radiotherapy (01/21/16-02/17/16) 3.) Adjuvant endocrine therapy (Arimidex 1mg PO daily) started 02/18/16. Examination of bilateral breasts and review of systems did not suggest any evidence of cancer recurrence. Mammogram was negative. (2) Osteoporosis Status: Chronic She was recently diagnosed with osteoporosis and started on Fosamax by her primary care physician (3) Granulomatous lung disease Status: Chronic This was reported on CT scan done in December 2016. She is asymptomatic and is currently being observed (4) Mediastinal lymphadenopathy Status: Chronic This has been stable on serial CT scans. Plan is to repeat a CT scan in 4 months just before her next visit - Time Spent with Patient Greater than 50% of time spent with patient was for coordination of care (as documented) and [id number] counseling of patient and/or family. Dictated By: Maverick Elder MD DD/ [id number] Signed By: <Electronically signed by Maverick Elder MD> 09/28/17 1136 [facility] Work Phone: [phone] Progress note Author Maverick Elder [facility] May 04, 2017 11:05am Note Date/Time May 04, 2017 1 1:02am [facility] [place] [id number] Hem/Onc Follow Up Note - OP Signed Patient: Damir Staples MR#: [id number] : 1950 Acct:[id number] Age/Sex: 66 / F Type: REG RCR Copies to: Angel Titus MD~ Subjective Date/Time of Service: Date of Service: 05/04/2017 Time of Service: 11:00 Chief Complaint: Patient here for four month follow up appointment with labs andCT. HPI: Patient returns to the clinic for a pre-scheduled follow-up visit that reports that 1. there has been no significant change in symptoms since the last visit ROS Details: All systems reviewed & no additional complaints except as documented Home Medications & Allergies Allergies Allergy/AdvReac Type Severity Reaction Status Date / Time No Known Allergies Allergy Verified 12/29/16 12:14 Home Medications Medication Instructions Recorded Confirmed Type Ca-D3-mag vz-lgok-iuf-bianka-bor 2 tab PO DAILY 12/31/16 05/04/17 History [Calcium 600-D3 Plus] alendronate [Fosamax] 70 mg PO QWEEK 12/31/16 05/04/17 History amlodipine 1 tab PO DAILY 12/31/16 05/04/17 History anastrozole 1 tab PO DAILY 12/31/16 05/04/17 History atenolol 2 tab PO DAILY 12/31/16 05/04/17 History dorzolamide-timolol 1 drp OPHTHALMIC BID 12/31/16 05/04/17 History latanoprost 1 drp OPHTHALMIC DAILY 12/31/16 05/04/17 History meloxicam 1 tab PO DAILY PRN 12/31/16 05/04/17 History Objective - Resuscitation Status Resuscitation Status: Full Code - Height/Weight Height/Weight: Height 5 ft Weight 68.356 kg - Vital Signs Vital Signs: Last Vital Signs Temp 97.6 F 05/04/17 10:45 Pulse 66 05/04/17 10:45 Resp 16 05/04/17 10:45 BP 131/71 05/04/17 10:45 Pulse Ox 95 05/04/17 10:45 - Emotional Needs Assessment Emotional Needs Assessment: Emotional Needs Identified? No Distress Screening Total 0 - ECOG Performance Status ECOG Score: 0 Physical Exam Narrative: Examination of bilateral breasts, bilateral axillary, infraclavicular, supraclavicular and cervical lymph nodes was carefully performed. She is a lumpectomy scar on the right side. There was no clinical evidence of cancer recurrence. - Routine HEENT Exam Head: normocephalic, atraumatic Eye: EOMI, PERRL, normal accommodation ENT: mucous membranes moist, dentition normal - Routine Neck Exam supple, full ROM - Routine Chest/Breast/Axilla Exam Chest wall: no tenderness, no mass Breast: no mass Axillae: no lymphadenopathy - Routine Respiratory Exam no accessory muscle use, no respiratory distress - Routine Cardiovascular Exam RRR - Routine Abdominal Exam soft, normoactive bowel sounds, no tenderness, no distended - Routine Extremities Exam Present: full ROM, pulses intact, normal capillary refill - Routine Back/Spine/Pelvis Exam Back/Spine: Present: full ROM - Routine Skin Exam Present: intact, warm, normal turgor - Routine Neurological Exam Present: alert, oriented X3, normal reflexes, normal speech - Routine Psychiatric Exam Present: normal affect, normal thought process Results - Labs CBC & Chem 7: 05/02/17 10:17 05/02/17 10:17 Labs: Laboratory Last Values WBC 6.5 X10E3/uL (3.8-11.6) 05/02/17 10:17 RBC 4.47 x10E6/uL (3.60-5.00) 05/02/17 10:17 Hgb 14.6 g/dL (11.8-15.4) 05/02/17 10:17 Hct 42.7 % (34.0-46.4) 05/02/17 10:17 MCV 95.4 fl (80-100) 05/02/17 10:17 MCH 32.6 pg (24.7-34.3) 05/02/17 10:17 MCHC 34.2 g/dL (32.0-35.0) 05/02/17 10:17 RDW 13.8 % (11.9-15.3) 05/02/17 10:17 Plt Count 272 x10E3/uL (150-450) 05/02/17 10:17 MPV 7.4 fl (6.3-10.7) 05/02/17 10:17 Neut % (Auto) 52.8 % (.) 05/02/17 10:17 Lymph % (Auto) 33.2 % (.) 05/02/17 10:17 Foard % (Auto) 9.7 % (.) 05/02/17 10:17 Eos % (Auto) 4.0 % (.) 05/02/17 10:17 Baso % (Auto) 0.3 % (.) 05/02/17 10:17 Neut # (Auto) 3.5 x10E3/uL (1.8-7.7) 05/02/17 10:17 Lymph # (Auto) 2.2 x10E3/uL (1.00-4.8) 05/02/17 10:17 Foard # (Auto) 0.6 x10E3/uL (0.0-0.8) 05/02/17 10:17 Eos # (Auto) 0.3 x10E3/uL (0.0-0.45) 05/02/17 10:17 Baso # (Auto) 0.0 x10E3/uL (0.0-0.2) 05/02/17 10:17 PHA Creatinine Clear 40.2865 05/02/17 10:17 Sodium 139 mmol/L (136-146) 05/02/17 10:17 Potassium 3.8 mmol/L (3.5-5.1) 05/02/17 10:17 Chloride 103 mmol/L (95-114) 05/02/17 10:17 Carbon Dioxide 27.5 mmol/L (22.0-30.0) 05/02/17 10:17 BUN 15 mg/dL (9-23) 05/02/17 10:17 Creatinine 0.78 mg/dL (0.44-1.03) 05/02/17 10:17 Est GFR ( Amer) > 60 05/02/17 10:17 Est GFR (Non-Af Amer) > 60 05/02/17 10:17 Glucose 93 mg/dL (70-100) 05/02/17 10:17 Calcium 9.6 mg/dL (8.2-10.2) 05/02/17 10:17 Total Bilirubin 1.2 mg/dL (0.3-1.2) 05/02/17 10:17 AST 25 U/L (10-42) 05/02/17 10:17 ALT 21 U/L (10-60) 05/02/17 10:17 Alkaline Phosphatase 71 U/L (32-92) 05/02/17 10:17 Total Protein 6.7 gm/dL (6.1-7.9) 05/02/17 10:17 Albumin 3.9 gm/dL (3.2-5.5) 05/02/17 10:17 Globulin 2.8 gm/dL 05/02/17 10:17 Albumin/Globulin Ratio 1.4 05/02/17 10:17 Assessment and Plan (1) 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 Shipman. 2.) Adjuvant radiotherapy (01/21/16-02/17/16) 3.) Adjuvant endocrine therapy (Arimidex 1mg PO daily) started 02/18/16. Examination of bilateral breasts and review of systems did not suggest any evidence of cancer recurrence We will reassess her in August when she will also be due for her next mammogram (2) Osteoporosis Status: Chronic She was started on Fosamax by her primary care physician (3) Granulomatous lung disease Status: Chronic This was reported on CT scan done in December 2016. She is asymptomatic and is currently being observed. On the most recent CT scan done in April 2017 there was no evidence of progression. Plan is to repeat a CT scan in 1 year (April 2018) (4) Mediastinal lymphadenopathy Status: Chronic This has been stable on serial CT scans, including on the most recent CT scan that was done in April 2017. plan is to repeat a CT scan in 1 year - Time Spent with Patient Greater than 50% of time spent with patient was for coordination of care (as documented) and [id number] counseling of patient and/or family. Dictated By: Maverick Elder MD DD/ [id number] Signed By: <Electronically signed by Maverick Elder MD> 05/04/17 1629 [facility] Work Phone: [phone] Progress note Author Maverick Elder [facility] December 31, 2016 10:03am Note Date/Time December 31, 2016 9:59am [facility] at [address] [address] Hem/Onc Follow Up Note - OP Signed Patient: Damir Staples MR#: [id number] : 1950 Acct:[id number] Age/Sex: 66 / F Type: REG RCR cc: Angel Titus MD~ Subjective Date/Time of Service: Date of Service: 12/31/2016 Time of Service: 09:58 Chief Complaint: Patient here for four month follow up appointment with labs. HPI: Patient returns to the clinic for a pre-scheduled follow-up visit that reports that 1. there has been no significant change in symptoms since the last visit ROS Details: All systems reviewed & no additional complaints except as documented Home Medications & Allergies Allergies Allergy/AdvReac Type Severity Reaction Status Date / Time No Known Allergies Allergy Verified 12/29/16 12:14 Home Medications Medication Instructions Recorded Confirmed Type Ca-D3-mag gz-ppql-hce-bianka-bor 2 tab PO DAILY 12/31/16 12/31/16 History [Calcium 600-D3 Plus] alendronate 12/31/16 History alendronate [Fosamax] 70 mg PO QWEEK 12/31/16 12/31/16 History amlodipine 1 tab PO DAILY 12/31/16 12/31/16 History anastrozole 1 tab PO DAILY 12/31/16 12/31/16 History atenolol 2 tab PO DAILY 12/31/16 12/31/16 History dorzolamide-timolol 1 drp OPHTHALMIC BID 12/31/16 12/31/16 History latanoprost 1 drp OPHTHALMIC DAILY 12/31/16 12/31/16 History meloxicam 1 tab PO DAILY PRN 12/31/16 12/31/16 History Objective - Resuscitation Status Resuscitation Status: Full Code - Height/Weight Height/Weight: Height 5 ft Weight 68.084 kg - Vital Signs Vital Signs: Last Vital Signs Temp 97.4 F L 12/31/16 09:24 Pulse 85 12/31/16 09:24 Resp 16 12/31/16 09:24 BP 141/85 H 12/31/16 09:24 Pulse Ox 96 12/31/16 09:24 - Emotional Needs Assessment Emotional Needs Assessment: Emotional Needs Identified? No Distress Screening Total 0 - ECOG Performance Status ECOG Score: 0 Physical Exam - Routine HEENT Exam Head: normocephalic, atraumatic Eye: EOMI, PERRL, normal accommodation ENT: mucous membranes moist, dentition normal - Routine Neck Exam supple, full ROM - Routine Chest/Breast/Axilla Exam Chest wall: no tenderness, no mass Breast: no mass Axillae: no lymphadenopathy - Routine Respiratory Exam no accessory muscle use, no respiratory distress - Routine Cardiovascular Exam RRR - Routine Abdominal Exam soft, normoactive bowel sounds, no tenderness, no distended - Routine Extremities Exam Present: full ROM, pulses intact, normal capillary refill - Routine Back/Spine/Pelvis Exam Back/Spine: Present: full ROM - Routine Skin Exam Present: intact, warm, normal turgor - Routine Neurological Exam Present: alert, oriented X3, normal reflexes, normal speech - Routine Psychiatric Exam Present: normal affect, normal thought process Results - Labs CBC & Chem 7: 12/29/16 12:15 12/29/16 12:15 Labs: Laboratory Last Values WBC 5.7 X10E3/uL (3.8-11.6) 12/29/16 12:15 RBC 4.46 x10E6/uL (3.60-5.00) 12/29/16 12:15 Hgb 14.5 g/dL (11.8-15.4) 12/29/16 12:15 Hct 41.9 % (34.0-46.4) 12/29/16 12:15 MCV 94.0 fl (80-100) 12/29/16 12:15 MCH 32.6 pg (24.7-34.3) 12/29/16 12:15 MCHC 34.6 g/dL (32.0-35.0) 12/29/16 12:15 RDW 14.3 % (11.9-15.3) 12/29/16 12:15 Plt Count 245 x10E3/uL (150-450) 12/29/16 12:15 MPV 7.3 fl (6.3-10.7) 12/29/16 12:15 Neut % (Auto) 58.4 % (.) 12/29/16 12:15 Lymph % (Auto) 28.8 % (.) 12/29/16 12:15 Foard % (Auto) 7.6 % (.) 12/29/16 12:15 Eos % (Auto) 4.7 % (.) 12/29/16 12:15 Baso % (Auto) 0.5 % (.) 12/29/16 12:15 Neut # (Auto) 3.4 x10E3/uL (1.8-7.7) 12/29/16 12:15 Lymph # (Auto) 1.7 x10E3/uL (1.00-4.8) 12/29/16 12:15 Foard # (Auto) 0.4 x10E3/uL (0.0-0.8) 12/29/16 12:15 Eos # (Auto) 0.3 x10E3/uL (0.0-0.45) 12/29/16 12:15 Baso # (Auto) 0.0 x10E3/uL (0.0-0.2) 12/29/16 12:15 PHA Creatinine Clear 40.2865 12/29/16 12:15 Sodium 142 mmol/L (136-146) 12/29/16 12:15 Potassium 3.8 mmol/L (3.5-5.1) 12/29/16 12:15 Chloride 109 mmol/L (95-114) 12/29/16 12:15 Carbon Dioxide 23.3 mmol/L (22.0-30.0) 12/29/16 12:15 BUN 12 mg/dL (9-23) 12/29/16 12:15 Creatinine 0.66 mg/dL (0.44-1.03) 12/29/16 12:15 Est GFR ( Amer) > 60 12/29/16 12:15 Est GFR (Non-Af Amer) > 60 12/29/16 12:15 Glucose 142 mg/dL (70-100) H 12/29/16 12:15 Calcium 9.4 mg/dL (8.2-10.2) 12/29/16 12:15 Total Bilirubin 1.3 mg/dL (0.3-1.2) H 12/29/16 12:15 AST 24 U/L (10-42) 12/29/16 12:15 ALT 18 U/L (10-60) 12/29/16 12:15 Alkaline Phosphatase 74 U/L (32-92) 12/29/16 12:15 Total Protein 6.9 gm/dL (6.1-7.9) 12/29/16 12:15 Albumin 4.1 gm/dL (3.2-5.5) 12/29/16 12:15 Globulin 2.8 12/29/16 12:15 Albumin/Globulin Ratio 1.5 12/29/16 12:15 Assessment and Plan (1) 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 Shipman. 2.) Adjuvant radiotherapy (01/21/16-02/17/16) 3.) Adjuvant endocrine therapy (Arimidex 1mg PO daily) started 02/18/16. Examination of bilateral breasts and review of systems did not suggest any evidence of cancer recurrence (2) Osteoporosis Status: Chronic She was recently diagnosed with osteoporosis and started on Fosamax by her primary care physician (3) Granulomatous lung disease Status: Chronic This was reported on CT scan done in December 2016. She is asymptomatic and is currently being observed (4) Mediastinal lymphadenopathy Status: Chronic This has been stable on serial CT scans. Plan is to repeat a CT scan in 4 months just before her next visit - Time Spent with Patient Greater than 50% of time spent with patient was for coordination of care (as documented) and [id number] counseling of patient and/or family. Dictated By: Maverick Elder MD DD/ [id number] Signed By: <Electronically signed by Maverick Elder MD> 12/31/16 1003 [facility] Work Phone: Evaluation noteNo assessment information available [facility] Work Phone: Evaluation note* Diagnosis Onset Date Resolution Status Ductal carcinoma in situ (DC IS) of right breast with microinvasive component chronic Granulomatous lung disease c hronic Osteoporosis chronic Pacemaker chronic Substernal chest pain chroni c Mediastinal lymphadenopathy resolved [facility] Work Phone: Evaluation note* Diagnosis Benign essential hypertension- Primary Essential hypertension, benign documented in this encounter [facility] Work Phone: Evaluation note* Diagnosis Benign essential hypertension- Primary Essential hypertension, benign Pacemaker Cardiac pacemaker in situ Sick sinus syndrome due to SA node dysfunction (CMS/HCC) Anticoagulated Encounter for long-term (current) use of anticoagulants Overweight with body mass index (BMI) of 27 to 27.9 in adult documented in this encounter [facility] Work Phone: Evaluation note* Diagnosis Benign essential hypertension (CMS/HCC)- Primary Essential hypertension, benign [facility] Diagnosis intermediate teacher (current) use of anticoagulants- Primary Long-term (current) use of anticoagulants [facility] Diagnosis Atrial fibrillation, unspecified type (CMS-HCC)- Primary intermediate teacher (current) use of anticoagulants Long-term (current) use of anticoagulants [facility]* Diagnosis Paroxysmal atrial fibrillation (Multi) Atrial fibrillation Benign essential hypertension Essential hypertension, benign Sick sinus syndrome due to SA node dysfunction (Multi) Atypical chest pain Other chest pain Bradycardia Other specified cardiac dysrhythmias Pacemaker Cardiac pacemaker in situ Anticoagulated Encounter for long-term (current) use of anticoagulants Overweight with body mass index (BMI) of 27 to 27.9 in adult documented in this encounter [facility] Work Phone: Evaluation note* Diagnosis penitentiary (current) use of anticoagulants- Primary Long-term (current) use of anticoagulants [facility]* Diagnosis penitentiary (current) use of anticoagulants- Primary Long-term (current) use of anticoagulants Atrial fibrillation, unspecified type (CMS-HCC) documented [facility]* Diagnosis penitentiary (current) use of anticoagulants- Primary Long-term (current) use of anticoagulants [facility]* Diagnosis Primary hypertension (CMS/HCC)- Primary Unspecified essential hypertension Benign essential hypertension (CMS/HCC) Essential hypertension, benign Paroxysmal atrial fibrillation (CMS/HCC) Atrial fibrillation Gastroesophageal reflux disease without esophagitis Esophageal reflux Paroxysmal atrial fibrillation (CMS/HCC)- Primary Atrial fibrillation Primary hypertension (CMS/HCC) Unspecified essential hypertension Seasonal allergic rhinitis, unspecified trigger Chronic heart failure with preserved ejection fraction (CMS/HCC) Sick sinus syndrome (I49.5) Sinoatrial node dysfunction Medicare annual wellness visit, subsequent Reactive airway disease with wheezing without complication, unspecified asthma severity, unspecified whether persistent (CMS/HCC)- Primary URTI (acute upper respiratory infection)- Primary Acute upper respiratory infections of unspecified site Mild intermittent reactive airway disease with wheezing without complication (CMS/HCC) Anticoagulated on Coumadin Benign essential hypertension (CMS/HCC)- Primary Essential hypertension, benign Gastroesophageal reflux disease without esophagitis Esophageal reflux Seasonal allergic rhinitis, unspecified trigger Chronic heart failure with preserved ejection fraction (CMS/HCC) Thumb pain, right Paronychia of great toe of right foot- Primary Onychocryptosis Ingrowing nail Pain of right great toe Difficulty walking Difficulty in walking documented in this encounter [facility]* Diagnosis Benign essential hypertension (CMS/HCC)- Primary Essential hypertension, benign Gastroesophageal reflux disease without esophagitis Esophageal reflux Seasonal allergic rhinitis, unspecified trigger Chronic heart failure with preserved ejection fraction ([facility]) Thumb pain, right documented in this encounter [facility] Healthcare[facility] note* Diagnosis Primary hypertension ([facility]/HCC)- Primary Unspecified essential hypertension Benign essential hypertension ([facility]/HCC) Essential hypertension, benign Paroxysmal atrial fibrillation ([facility]/HCC) Atrial fibrillation Gastroesophageal reflux disease without esophagitis Esophageal reflux Paroxysmal atrial fibrillation ([facility]/HCC)- Primary Atrial fibrillation Primary hypertension ([facility]) Unspecified essential hypertension Seasonal allergic rhinitis, unspecified trigger Chronic heart failure with preserved ejection fraction ([facility]/HCC) Sick sinus syndrome (I49.5) Sinoatrial node dysfunction Medicare annual wellness visit, subsequent Reactive airway disease with wheezing without complication, unspecified asthma severity, unspecified whether persistent (CMS/HCC)- Primary URTI (acute upper respiratory infection)- Primary Acute upper respiratory infections of unspecified site Mild intermittent reactive airway disease with wheezing without complication (CMS/HCC) Anticoagulated on Coumadin Benign essential hypertension (CMS/HCC)- Primary Essential hypertension, benign Gastroesophageal reflux disease without esophagitis Esophageal reflux Seasonal allergic rhinitis, unspecified trigger Chronic heart failure with preserved ejection fraction ([facility]/HCC) Thumb pain, right Primary hypertension ([facility]/HCC)- Primary Unspecified essential hypertension Gastroesophageal reflux disease without esophagitis Esophageal reflux Benign essential hypertension (CMS/HCC) Essential hypertension, benign Paroxysmal atrial fibrillation ([facility]/HCC) Atrial fibrillation Allergic rhinitis, unspecified seasonality, unspecified trigger Reactive airway disease with wheezing without complication, unspecified asthma severity, unspecified whether persistent (CMS/HCC) documented in this encounter [facility] Healthcare[facility] general Narrative - Reported* Type Description Date Medical History hypertension Medical History glaucoma Medical History hx of bradycardia Medical History stomach or duodenal ulcer Medical History Atrial fibrillation Surgical History Lumpectomy with adjuvant radiot herapy Surgical History arthoscopic left knee Surgical History cervical spinal fusion Surgical History Pacemaker 2019 Hospitalization History heart palpitations 2019 [employer] Other History of Present illness Narrative* Patient is here for earlier follow-up. She complains of chest pain and left arm pain. Patient with known history of sick sinus syndrome. She is status post permanent pacemaker implantation. Since last time I saw her she report recently few episodes of constant left arm and left shoulder pain. She described localized tenderness to left shoulder. There is no clear associated, precipitated or alleviated symptoms. Patient also reports some symptoms of epigastric discomfort improved with Maalox. Patient underwent stress test years ago which was negative. Recent device check was noted and reviewed with her. * Assessment * 1. Patient with complaint of atypical chest pain. Appears musculoskeletal. She had a localized numbness over the back of her left shoulder. Symptoms ongoing and clearly not cardiac in nature. The stress test was negative. * 2. Sick sinus syndrome with recent permanent pacemaker implantation. With appropriate device function * 3. Hypertension suboptimally controlled. * 4. Patient continues to complain of minor pacemaker site discomfort. Site looks good * 5. Mild obesity * 5. Recent complaint of chest pain. Stress test was negative previous echo also showed normal LV function * 6. Paroxysmal atrial fibrillation noted on pacemaker on Coumadin therapy * Plan * 1. I advised the patient to increase her atenolol to 50 mg daily * 2. I advised the patient to avoid touching or manipulating the pacemaker pocket * 3. Patient was counseled regarding losing weight and exercise * 4. I advised patient's to take some nonsteroidal * 5. The patient continued complaint of chest pain related to the cardiac catheterization down the road * 6. I advised patient and consuled her regarding symptoms of angina and advised the patient to notify me if she had any exertional symptoms * 7 we will be assessed the patient in 1 month or earlier if need arise * 5. Risk, benefit and alternative anticoagulation reviewed with patient she understood and agreed -[facility] 250 DO Work Phone: History of Present illness Narrative* Here for follow- up to management for previous evaluation for atypical chest pain, sick sinus syndrome and mild shortness of breath. Since last time I saw her she continues to complain of same complaint of atypical symptoms of chest pain and shortness of breath. She denies lightheadedness, dizzinessor syncope. She remains fairly active. Her recent device check noted and reviewed with her. * Assessment * 1. Patient with complaint of atypical chest pain. Appears musculoskeletal. She had a localized numbness over the back of her left shoulder. Symptoms ongoing and clearly not cardiac in nature. The stress test was negative. Change from before * 2. Sick sinus syndrome with recent permanent pacemaker implantation. With appropriate device function * 3. Hypertension suboptimally controlled. * 4. Patient continues to complain of minor pacemaker site discomfort. Site looks good * 5. Mild obesity * 5. Recent complaint of chest pain. Stress test was negative previous echo also showed normal LV function * 6. Paroxysmal atrial fibrillation noted on pacemaker on Coumadin therapy * Plan * 1. I advised the patient to increase her atenolol to milligrams daily and to have a blood pressure check in 8 weeks * 2. I advised the patient to avoid touching or manipulating the pacemaker pocket * 3. Patient was counseled regarding losing weight and exercise * 4. I advised patient's to take some nonsteroidal * 5. The patient continued complaint of chest pain related to the cardiac catheterization down the road * 6. I advised patient and consuled her regarding symptoms of angina and advised the patient to notify me if she had any exertional symptoms * 7 we will be assessed the patient in 1 month or earlier if need arise * 5. Risk, benefit and alternative anticoagulation reviewed with patient she understood and [facility] Work Phone: History of Present illness Narrative* Patient is here for follow-up to management for hypertension. Last time we increase her amlodipine.Blood pressure remains elevated and actually her family physician also increase lisinopril to 10 mgdaily. Despite this her blood pressure remains elevated. * Assessment * 1. Hypertension suboptimally controlled * Plan * 1. We will increase lisinopril to 20 mg daily. The patient will have a blood pressure check and BMPin 6 to 8 weeks [facility] [address]el[address] DO Work Phone: History of Present illness Narrative* Patient is here for follow-up continue management for previous evaluation for atypical chest pain, sick sinus syndrome, hypertension. I received a phone call recently that she was in the hospital forquestionable heart failure. I was able to retrieve the records and review. Chest x-ray was not veryconvincingly consistent with heart failure. Her BNP was normal. She reports she felt better with low-dose diuretics. She denies lightheadedness, dizziness or syncope. His previous echocardiogram showed normal LV systolic function. Previous stress test was negative. * Assessment * 1. Complaint of shortness of breath with questionable diastolic heart failure. Seems to be improving. Her BMP and chest x-ray was okay. The previous echo showed normal LV systolic function. Previous stress test was negative * 2. Sick sinus syndrome with recent permanent pacemaker implantation. With appropriate device function * 3. Hypertension controlled * 4. Paroxysmal atrial fibrillation on Coumadin therapy * 5. Mild obesity * 5. BS t complaint of chest pain. Stress test was negative previous echo also showed normal LV function * Plan * 1. I advised the patient to present medical therapy and continue to restrict her salt intake * 2. I reviewed with her her recent lab work and hospitalization record * 3. Patient was counseled regarding losing weight and exercise * 4. I advised her to notify me if symptoms does not improve. If continues to have shortness of breath we may consider cardiac catheterization * 5., Benefits alternative anticoagulation reviewed with patient * 6. I will see er back in the office in 3 months and follow-up [facility] 600 DO Work Phone: History of Present illness Narrative* Patient is here for follow-up continue management for previous evaluation for shortness of breath and diastolic heart failure, sick sinus syndrome with permanent pacemaker implantation, hypertension and paroxysmal atrial fibrillation since last time I saw her she had a visit to the emergency room because of significantly elevated the blood pressure. * He reports recent intermittent episodes of headaches. Her recent visit to the emergency room noted and reviewed with her. She reports compliance with her medication. * Assessment * 1. Uncontrolled hypertension * 2. Sick sinus syndrome with permanent pacemaker implantation. With appropriate device function * 3. Previous evaluation for shortness of breath attributed to diastolic heart failure. Previous work-up reviewed with patient * 4. Paroxysmal atrial fibrillation on Coumadin therapy noted on device check * 5. Mild obesity * 5. Previous complaint of chest pain. Stress test was negative previous echo also showed normal LV function * Plan * 1. I advised the patient to present medical therapy and continue to restrict her salt intake, try to lose weight and exercise and I advised her in regard to nonpharmacologic approach for hypertension * 2. I reviewed with her her recent lab work and hospitalization record * 3. Advised her to stop Lasix and start Aldactazide 1 tablet daily and to have a blood pressure check in 4 weeks and a basic metabolic profile * 4. I advised her to notify me if with changes of her cardiac symptoms * 5., Benefits alternative anticoagulation reviewed with patient * 6. I will see back in the office in 3 months and follow-up [facility] 250 DO Work Phone: Hospital Discharge instructions Additional Instructions Follow-up with your primary care doctor Return to ED if develop worsening symptoms or concerns Take 10mg of Lisinopril instead of 5mg until you see your primary care doctor Take the clonidine as needed if your blood pressure is still elevated [facility] Phone: InstructionsNot on filedocumented in this encounter [facility]ructionsNot on filedocumented in this encounter [facility]ructionsNot on filedocumented in this encounter [facility] SystemInstructionsNot on filedocumented in this encounter [facility] SystemReason for referral (narrative)* Consultation (Routine) - Authorized Specialty Diagnoses / Procedures Referred By Contac t Referred To Contact Cardiology Diagnoses Benign essential hypertension Procedures Follow Up In Cardiology Ольга Raya MD [address] [address] Ольга Raya MD [address] [address] Referral ID Status Reason Start Date Expiration Date V isits Requested Visits Authorized [id number] Authorized 04/05/2023 04/04/2024 1 1 [facility] Work Phone: Reason for referral (narrative)* Consultation (Routine) - Authorized Specialty Diagnoses / Procedures Referred By Francisco Javier abdalla Referred To Contact Cardiology Diagnoses Paroxysmal atrial fibrillation (Multi) Procedures Follow Up In Cardiology Ольга Raya MD [facility], [place] [address] [place] [address] Ольга Raya MD [facility], [place] [address] [place] [address] Referral ID Status Reason Start Date Expiration Date V isits Requested Visits Authorized [id number] Authorized 01/04/2024 01/03/2025 1 1 [facility] Work Phone: Summary Purpose Family History No Family History Records FoundUnknown Family Member Name Dates Details Family history of myocardial infarction: Father(V17.3, Z82.49) Status:Active Heart problem: Mother Status:Active Family history of hypertensi on: Mother, Sister(V17.49, Z82.49) Status:Active Unknown Family Member Name Dates Details Family history of myocardial infarction: Father(V17.3, Z82.49) Status:Active Heart problem: Mother Status:Active Family history of hypertensi on: Mother, Sister(V17.49, Z82.49) Status:Active Family history of cardiac pa cemaker: Mother(V17.49, Z82.49) Status:Active Family history of congestive heart failure: Mother(V17.49, Z82.49) Status:Active Family history of coronary a rtery disease: Father(V17.3, Z82.49) Status:Active Family history of hyperlipid emia: Father(V18.19, Z83.438) Status:Active No pertinent family history: Brother(V49.89, Z78.9) Status:Active Unknown Family Member Name Dates Details Family history of myocardial infarction: Father(V17.3, Z82.49) Status:Active Heart problem: Mother Status:Active Family history of hypertensi on: Mother, Sister(V17.49, Z82.49) Status:Active Family history of cardiac pa cemaker: Mother(V17.49, Z82.49) Status:Active Family history of congestive heart failure: Mother(V17.49, Z82.49) Status:Active Family history of coronary a rtery disease: Father(V17.3, Z82.49) Status:Active Family history of hyperlipid emia: Father(V18.19, Z83.438) Status:Active No pertinent family history: Brother(V49.89, Z78.9) Status:Active Relationship Condition Age at Onset Recorded Date/T susie father Myocardial infarction Unknown Not Specified Presence of cardiac pacemaker Unknown Congestive heart failure Unknown Unknown Family Member Name Dates Details Family history of myocardial infarction: Father(V17.3, Z82.49) Status:Active Heart problem: Mother Status:Active Family history of hypertensi on: Mother, Sister(V17.49, Z82.49) Status:Active Family history of cardiac pa cemaker: Mother(V17.49, Z82.49) Status:Active Family history of congestive heart failure: Mother(V17.49, Z82.49) Status:Active Family history of coronary a rtery disease: Father(V17.3, Z82.49) Status:Active Family history of hyperlipid emia: Father(V18.19, Z83.438) Status:Active No pertinent family history: Brother(V49.89, Z78.9) Status:Active Unknown Family Member Name Dates Details Family history of myocardial infarction: Father(V17.3, Z82.49) Status:Active Heart problem: Mother Status:Active Family history of hypertensi on: Mother, Sister(V17.49, Z82.49) Status:Active Family history of cardiac pa cemaker: Mother(V17.49, Z82.49) Status:Active Family history of congestive heart failure: Mother(V17.49, Z82.49) Status:Active Family history of coronary a rtery disease: Father(V17.3, Z82.49) Status:Active Family history of hyperlipid emia: Father(V18.19, Z83.438) Status:Active No pertinent family history: Brother(V49.89, Z78.9) Status:Active Unknown Family Member Name Dates Details Family history of myocardial infarction: Father(V17.3, Z82.49) Status:Active Heart problem: Mother Status:Active Family history of hypertensi on: Mother, Sister(V17.49, Z82.49) Status:Active Family history of cardiac pa cemaker: Mother(V17.49, Z82.49) Status:Active Family history of congestive heart failure: Mother(V17.49, Z82.49) Status:Active Family history of coronary a rtery disease: Father(V17.3, Z82.49) Status:Active Family history of hyperlipid emia: Father(V18.19, Z83.438) Status:Active No pertinent family history: Brother(V49.89, Z78.9) Status:Active Unknown Family Member Name Dates Details Family history of myocardial infarction: Father(V17.3, Z82.49) Status:Active Heart problem: Mother Status:Active Family history of hypertensi on: Mother, Sister(V17.49, Z82.49) Status:Active Family history of cardiac pa cemaker: Mother(V17.49, Z82.49) Status:Active Family history of congestive heart failure: Mother(V17.49, Z82.49) Status:Active Family history of coronary a rtery disease: Father(V17.3, Z82.49) Status:Active Family history of hyperlipid emia: Father(V18.19, Z83.438) Status:Active No pertinent family history: Brother(V49.89, Z78.9) Status:Active Unknown Family Member Name Dates Details Family history of myocardial infarction: Father(V17.3, Z82.49) Status:Active Heart problem: Mother Status:Active Family history of hypertensi on: Mother, Sister(V17.49, Z82.49) Status:Active Family history of cardiac pa cemaker: Mother(V17.49, Z82.49) Status:Active Family history of congestive heart failure: Mother(V17.49, Z82.49) Status:Active Family history of coronary a rtery disease: Father(V17.3, Z82.49) Status:Active Family history of hyperlipid emia: Father(V18.19, Z83.438) Status:Active No pertinent family history: Brother(V49.89, Z78.9) Status:Active Unknown Family Member Name Dates Details Family history of myocardial infarction: Father(V17.3, Z82.49) Status:Active Heart problem: Mother Status:Active Family history of hypertensi on: Mother, Sister(V17.49, Z82.49) Status:Active Family history of cardiac pa cemaker: Mother(V17.49, Z82.49) Status:Active Family history of congestive heart failure: Mother(V17.49, Z82.49) Status:Active Family history of coronary a rtery disease: Father(V17.3, Z82.49) Status:Active Family history of hyperlipid emia: Father(V18.19, Z83.438) Status:Active No pertinent family history: Brother(V49.89, Z78.9) Status:Active Unknown Family Member Name Dates Details Family history of myocardial infarction: Father(V17.3, Z82.49) Status:Active Heart problem: Mother Status:Active Family history of hypertensi on: Mother, Sister(V17.49, Z82.49) Status:Active Family history of cardiac pa cemaker: Mother(V17.49, Z82.49) Status:Active Family history of congestive heart failure: Mother(V17.49, Z82.49) Status:Active Family history of coronary a rtery disease: Father(V17.3, Z82.49) Status:Active Family history of hyperlipid emia: Father(V18.19, Z83.438) Status:Active No pertinent family history: Brother(V49.89, Z78.9) Status:Active Relationship Condition Age at Onset Recorded Date/T susie father Myocardial infarction Unknown mother Presence of cardiac pacemaker Unknown Congestive heart failure Unknown Advance Directives No Advanced Directives Records Found Advance Directive Response Recorded Date/ Time Advance Directives Yes November 27, 2016 11:12am Advance Directive Response Recorded Date/ Time Advance Directives Yes November 27, 2016 10:12am Latest Code Status on File Code Status Date Activated Date Inactivated Comments Full Code 06/21/2022 3:22 AM 06/25/2022 4:30 PM Date Activated Date Inactivated Comments 06/21/2022 3:22 AM 06/25/2022 4:30 PM Chief Complaint DAMIR STAPLES is being seen for Left arm pain.DAMIR STAPLES is being seen for a 4 month follow-up of.DAMIR STAPLES is being seen for hypertension.Patient here for BP check ordered by Dr. Ольга Raya MD due to hypertension. Eileen Soto NP in suite. Patient is here due to Lisinopril dosage increase from 10-20 mg once daily at last office visit. Medication list was reviewed verbally with patient. Patient states she took medicationprior to office visit. Denies any cardiac complaints. Discussed with Jim Bonilla RN prior to discharge. To Dr. Ольга Raya MD for review.DAMIR STAPLES is being seen for follow-up of a hospitalization for [facility] 07/07.DAMIR STAPLES is being seen for a 3-4 month follow-up of. 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 Osteoporosis Pacemaker Substernal chest pain Mediastinal lymphadenopathy Chief Complaint Dysuria bradycardia Dysuria Chief Complaint bradycardia Chief Complaint bradycardia R79.89 I48.0/I10 Screening Chief Complaint R79.89 I48.0/I10 Screening bradycardia High bp Chief Complaint I48.0/I10 Screening bradycardia High bp L65.9 Chief Complaint bradycardia z12.31 Chief Complaint z12.31 bradycardia Chief Complaint Admit Date bradycardia January 03, 2024 9: 31am i10 February 13, 2024 11:22am Chief Complaint Admit Date bradycardia January 03, 2024 9: 31am i10 February 13, 2024 11:22am bradycardia February 17, 2024 7:13am Additional Source Comments INFORMATION SOURCE (unrecogn ized section and content) DATE CREATED AUTHOR 02/11/2019 [facility] DATE CREATED AUTHOR AUTHOR'S ORGANIZ ATION 12/03/2022 [facility] DATE CREATED AUTHOR AUTHOR'S ORGANIZ ATION 12/03/2022 [employer] DATE CREATED AUTHOR AUTHOR'S ORGANIZ ATION 02/25/2024 [facility] DATE CREATED AUTHOR AUTHOR'S ORGANIZ ATION 03/16/2024 [facility] DATE CREATED AUTHOR AUTHOR'S ORGANIZ ATION 03/21/2024 [facility] DATE CREATED AUTHOR AUTHOR'S ORGANIZ ATION 04/06/2024 [facility] Teams (unrecognized sec tion and content) Team Status: Active Member Role Status Dates NON STAFF Primary Care Provider Active Team Status: Active Member Role Status Dates Shaikh Kirstie MD Primary Care Provider Active Start: January 03, 2024 Toney Prajapati MD Other Provider Active Start: January 03, 2024 Cheryl Wilcox MD Attending Provider Active Start: January 03, 2024 Team Status: Inactive Member Role Status Dates NON STAFF Primary Care Provider Active Start: February 13, 2024 End: February 13, 2024 Ольга Raya MD Attending Provider Active Start: February 13, 2024 End: February 13, 2024 Team Status: Inactive Member Role Status Dates Lazara Merchant , DO Primary Care Provider Active Guillermo Reyez APRN Emergency Provider Active Team Status: Inactive Member Role Status Dates Ольга Raya MD Attending Provider Active Lazara Merchant , DO Primary Care Provider Active Team Status: Inactive Member Role Status Dates Angel Titus MD Primary Care Provider Active Toney Prajapati MD Attending Provider Active Team Status: Active Member Role Status Dates Lazara Merchant , DO Primary Care Provider Active Team Status: Inactive Member Role Status Dates Lazara Merchant , DO Primary Care Provider Active Toney Prajapati MD Attending Provider Active Team Status: Active Member Role Status Dates Angel Titus MD Primary Care Provider Active Juliana Elder MD Other Provider Active Kai Vang MD Other Provider Active Connie Thomas MD Attending Provider Active Team Status: Inactive Member Role Status Dates Lazara Merchant , DO Primary Care Provider Active Juani Whitney APRN Attending Provider Active Team Status: Inactive Member Role Status Dates Lazara Merchant , DO Primary Care Provider Active CARLTON Bueno Attending Provider Active Team Status: Inactive Member Role Status Dates Ольга aRya MD Attending Provider Active NON STAFF Primary Care Provider Active Team Status: Active Member Role Status Dates NON STAFF Primary Care Provider Active Shaikh Kirstie MD Attending Provider Active Team Status: Inactive Member Role Status Dates NON STAFF Primary Care Provider Active Lewis Ohara MD Attending Provider Active Team Status: Inactive Member Role Status Dates NON STAFF Primary Care Provider Active Ольга Raya MD Attending Provider Active Team Status: Active Member Role Status Dates Shaikh Kirstie MD Primary Care Provider Active Team Status: Inactive Member Role Status Dates NON STAFF Primary Care Provider Active Shaikh Kirstie MD Attending Provider Active Team Status: Inactive Member Role Status Dates NON STAFF Primary Care Provider Active Toney Prajapati MD Attending Provider Active Team Status: Inactive Member Role Status Dates Pipo Beck DO Emergency Provider Active Shaikh Kirstie MD Primary Care Provider Active Team Status: Active Member Role Status Dates Shaikh Kirstie MD Primary Care Provider Active Della Garcia MD Attending Provider Active Team Status: Inactive Member Role Status Dates Shaikh Kirstie MD Primary Care Provider Active Della Garcia MD Attending Provider Active Armed Security Guard Relationship Specialty Start Date End Date Shaikh Thacker MD [facility] [id number] [place] [address] PCP - General 04/04/21 Armed Security Guard Relationship Specialty Start Date End Date Shaikh Thacker MD [id number] [place] [address] PCP - General 04/04/21 Armed Security Guard Relationship Specialty Start Date End Date Shaikh Thacker MD PCP - General Internal Medicine 10/26/22 Armed Security Guard Relationship Specialty Start Date End Date Shaikh Thacker MD [facility] [place] [address] PCP - General Internal Medicine 12/18/21 Armed Security Guard Relationship Specialty Start Date End Date Shaikh Thacker MD [address] [place] [address] PCP - General Internal Medicine 12/18/21 Team Status: Inactive Member Role Status Dates Ольга Raya MD Attending Provider Active Start: August 18, 2023 End: August 18, 2023 Shaikh Kirstie MD Primary Care Provider Active Start: August 18, 2023 End: August 18, 2023 Team Status: Inactive Member Role Status Dates Shaikh Kirstie MD Primary Care Provide r, Attending Provider Active Start: October 24, 2023 End: October 24, 2023 Team Status: Inactive Member Role Status Dates Shaikh Kirstie MD Primary Care Provider Active Start: November 18, 2023 End: November 18, 2023 Toney Prajapati MD Attending Provider Active St art: November 18, 2023 End: November 18, 2023 Armed Security Guard Relationship Specialty Start Date End Date Shaikh Thacker MD PCP - General 04/04/21 Armed Security Guard Relationship Specialty Start Date End Date Shaikh Thacker MD PCP - General Internal Medicine 12/18/21 Armed Security Guard Relationship Specialty Start Date End Date Shaikh Thacker MD PCP - General Internal Medicine 12/18/21 Armed Security Guard Relationship Specialty Start Date End Date Shaikh Thacker MD PCP - General Internal Medicine 12/18/21 Team Status: Active Member Role Status Dates Toney Prajapati MD Other Provider Active Start: February 17, 2024 NON STAFF Primary Care Provider Active Start: February 17, 2024 Cheryl Wilcox MD Attending Provider Active Start: February 17, 2024 Armed Security Guard Relationship Specialty Start Date End Date Deepak Alvarado MD [address] [place] [phone] PCP - General Family Medicine 11/10/23 Issac Edouard NP [address] [place] [phone] Nurse Practitioner Family Medicine 11/10/23 Armed Security Guard Relationship Specialty Start Date End Date Deepak Alvarado MD [address] [place] [phone] PCP - General Family Medicine 11/10/23 Issac Edouard NP [address] [place] [address] Nurse Practitioner Family Medicine 11/10/23 Armed Security Guard Relationship Specialty Start Date End Date Deepak Alvarado MD [address] [place] [phone] PCP - General Family Medicine 11/10/23 Issac Edouard NP [address] [place] [address] Nurse Practitioner Family Medicine 11/10/23 Armed Security Guard Relationship Specialty Start Date End Date Deepak Alvarado MD [address] [place] [phone] PCP - General Family Medicine 11/10/23 Issac Edouard NP [address] [place] [address] Nurse Practitioner Family Medicine 11/10/23 Armed Security Guard Relationship Specialty Start Date End Date Deepak Alvarado MD [address] [place] [phone] PCP - General Family Medicine 11/10/23 Issac Edouard NP [address] [place] [phone] Nurse Practitioner Family Medicine 11/10/23 Armed Security Guard Relationship Specialty Start Date End Date Deepak Alvarado MD [address] [place] [phone] PCP - General Family Medicine 11/10/23 Issac Edouard NP [address] [place] [phone] Nurse Practitioner Family Medicine 11/10/23 Armed Security Guard Relationship Specialty Start Date End Date Shaikh Thacker MD PCP - General Internal Medicine 12/18/21 Goals (unrecognized section and content) Goals may be documented in a n alternate sectionGoals may be documented in an alternate sectionNo InformationNo InformationGoals may be documented in an alternate sectionGoals may be documented in an alternate sectionNo InformationNo InformationNo InformationNo InformationGoals may be documented in an alternate sectionGoals may be documented in an alternate sectionGoals may be documented in an alternate sectionGoals may be documented in an alternate sectionGoals may be documented in an alternate sectionNo InformationGoals may be documented in an alternate sectionGoals may be documented in an alternate sectionGoals may be documented in an alternate sectionGoals may be documented in an alternate sectionGoals may be documented in an alternate section REASON FOR VISIT (unrecogniz ed section and content) Reason Comments Follow-up Blood Pressure Check hypertension Reason Comments Hypertension Follow-up Reason Comments Follow-up 9m Specialty Diagnoses / Procedures Referred By Francisco Javier t Referred To Contact Cardiology Diagnoses Benign essential hypertension Procedures Follow Up In Cardiology Ольга Raya MD [facility] 2, [address] [address] Ольга Raya MD [facility], [facility] [address] [place] [address] Referral ID Status Reason Start Date Expiration Date V isits Requested Visits Authorized [id number] Authorized 04/05/2023 04/04/2024 1 1 Reason Comments Ingrown Toenail Established pt prese nts today with concerns with pain in RGT, ongoing for about a month. States pain mostly when in bed, unsure if it is ingrown nail. Reason Comments Hand Pain Sinus Problem Reason Comments Follow-up FOR RECORDS PERTAINING TO PATIENTS WHO ARE OR HAVE BEEN ENROLLED IN A CHEMICAL DEPENDENCY/SUBSTANCEABUSE PROGRAM, SOME INFORMATION MAY BE OMITTED. This clinical summary was aggregated from multiple sources. Caution should be exercised in using it in the provision of clinical care. This summary normalizes information from multiple sources, and as a consequence, information in this document may materially change the coding, format and clinical context of patient data. In addition, data may be omitted in some cases. CLINICAL DECISIONS SHOULD BE BASED ON THE PRIMARY CLINICAL RECORDS. [employer] provides no warranty or guarantee of the accuracy or completeness of information in this document.
[2024-04-25 15:21] LABS: Basophils Percent Auto 0.5 % (0.2-2.0); Eosinophils Absolute Auto 0.3 10^3/uL (0.0-0.7); Eosinophils Percent Auto 4.6 % (0.9-7.0); Hematocrit 44.5 % (36.0-48.0); Hemoglobin 15.1 g/dL (12.0-16.0); Lymphocytes Absolute Auto 1.7 10^3/uL (1.2-3.8); Lymphocytes Percent Auto 28.5 % (20.5-60.0); Mean Corpuscular HGB Conc 33.9 g/dL (29.9-35.2); Mean Corpuscular Hemoglobin 31.9 pg (26.7-34.0); Mean Corpuscular Volume 94.1 fL (81.0-99.0); Monocytes Absolute Auto 0.4 10^3/uL (0.3-0.8); Monocytes Percent Auto 7.2 % (1.7-12.0); Neutrophils Absolute Auto 3.5 10^3/uL (1.4-6.5); Neutrophils Percent Auto 59.2 % (43.0-75.0); Platelet Count 239 10^3/uL (150-450); Red Blood Count 4.73 10^6/uL (4.20-5.40); Red Cell Distribution Width 12.7 % (11.0-15.0); White Blood Count 5.9 10^3/uL (4.0-11.0)
[2024-04-25 15:34] LABS: Influenza Virus A Antigen Negative; Influenza Virus B Antigen Negative; Internal Control Within Normal Limits; SARS-CoV-2 Ag NEGATIVE (NEGATIVE)
[2024-04-25 15:49] LABS: Alanine Aminotransferase 23 U/L (14-59); Albumin Level 3.5 g/dL (3.4-5.0); Alkaline Phosphatase 97 U/L (46-116); Aspartate Amino Transferase 20 U/L (15-37); BUN Creatinine Ratio 14.8; Bilirubin Total 1.2 mg/dL (0.2-1.0); Calcium 9.3 mg/dL (8.5-10.1); Carbon Dioxide 31.8 mmol/L (21.0-32.0); Chloride 106 mmol/L (98-107); Estimated GFR (African America >60 (>=60 mL/min/1.73m^2); Estimated GFR (Non-African Ame >60 (>=60 mL/min/1.73m^2); Globulin 3.6 g/dL; Glucose 110 mg/dL (74-106); Potassium 3.8 mmol/L (3.5-5.1); Sodium 146 mmol/L (136-145); Total Protein 7.1 g/dL (6.4-8.2); Troponin I High Sensitivity 8.6 pg/mL (4.0-51.3)
[2024-04-25 15:51] LABS: D Dimer 0.19 mg/L FEU (<=0.59)
[2024-04-25 16:06] VITALS: BP 178/84
== END 2024-04-25 16:22 | disposition home or self-care (01) ==
PROVIDERS: Emergency Provider Emergency Medicine
DX: B34.9 Viral infection, unspecified (principal); R06.02 Shortness of breath; Z95.0 Presence of cardiac pacemaker
CPT/HCPCS: 36415; 71045; 80053; 83880; 84484; 85025; 85378; 87804; 87811; 93005; 99285

== ENCOUNTER 2024-05-30 08:56 | Outpatient (OUT) | payer MEDICARE, SELFPAY ==
--- OUTSIDE RECORDS SUMMARY | 2024-05-30 09:18 | XMS_ITS | CCD ---
Author Organization [facility] Care Team Providers Care Customs Compliance Analyst Name Role Phone Angel Titus Unavailable Unavailable [...] DO Lazara Merchant G Primary Care Provider [phone] MD Toney Prajapati Attending Provider [phone] Gabbi Velásquez Unavailable Juani Whitney Unavailable NABILA Whitney Attending Provider Shaikh Thacker Unavailable Unavailable Unavailable DO Mayur Lazara G Primary Care Provider NABILA Whitney Attending Provider MD Toney Prajapati Attending Provider [phone] CARLTON Reyez Attending Provider [phone] Cassie Reyez Unavailable Ganesh Coronel Unavailable MD Ольга Raya Attending Provider NON STAFF Primary Care Provider UnavailMD Lewis Lim Attending Provider MD King Thacker Attending Provider NON STAFF Primary Care Provider MD Ольга Santos Attending Provider MD Toney Prajapati Attending Provider DO Pipo Beck Emergency Provider MD Idris Thackerikh Primary Care Provider NON STAFF Primary Care Provider UnavailMD Della Gamez Attending Provider Cassia, Dr. Corbin Attending Unavaila ble Traboulssi, Dr. Corbin Referring Unavaila ble Traboulssi, Dr. Corbin Attending Unavaila ble Traboulssi, Dr. Corbin Referring Unavaila ble Traboulssi, Dr. Corbin Attending Unavaila ble Traboulssi, Dr. Corbin Referring Unavaila ble Traboulssi, Dr. Corbin Attending Unavaila ble Traboulssi, Dr. Corbin Referring Unavaila ble Kirstie BRITO, [facility] Primary Care Provider Kirstie BRITO, Calderon Primary Care Provider MD Ольга Raya Attending Provider MD Idris Thackerikh Primary Care Provider MD King Thacker Attending Provider MD Idris Thackerikh Primary Care Provider MD Toney Prajapati Attending Provider Kirstie BRITO [facility] Primary Care Provider NON STAFF Primary Care Provider Ольга Santos MD Attending Provider Jenny BRITO, Deepak Primary Care Provider Javan MORAN, Issac Unavailable [phone] Kirstie BRITO, [facility] Primary Care Provider SERVICE, JOBST Referring Unavailable [facility] Primary Care Unavailable SERVICE, JOBST Referring Unavailable [facility] Primary Care Unavailable SERVICE, JOBST Referring Unavailable [facility] Primary Care Unavailable [facility] Referring Unavailable [facility] Primary Care Unavailable SERVICE, JOBST Referring Unavailable [facility] Primary Care Unavailable SERVICE, JOBST Referring Unavailable [facility] Primary Care Unavailable SERVICE, JOBST Referring Unavailable [facility] Primary Care Unavailable SERVICE, JOBST Referring Unavailable [facility] Primary Care Unavailable SERVICE, JOBST Referring Unavailable [facility] Primary Care Unavailable SERVICE, JOBST Referring Unavailable [facility] Primary Care Unavailable SERVICE, JOBST Referring Unavailable [facility] Primary Care Unavailable SERVICE, JOBST Referring Unavailable [facility] Primary Care Unavailable SERVICE, JOBST Referring Unavailable [facility] Primary Care Unavailable SERVICE, JOBST Referring Unavailable [facility] Primary Care Unavailable SERVICE, JOBST Referring Unavailable [facility] Primary Care Unavailable [facility] Referr ing [facility]available [facility] Primary Care Unavailable [facility] Referr ing Unavailable [facility] Primary Care Unavailable [facility], [facility] Referr ing Unavailable [facility], [facility] Primary Care Unavailable ISSAC EDOUARD Primary Care Unavaila ble [facility] Admitting Unavailable [facility] Primary Care Unavailable [facility] Attending Unavailable [facility] Unavailable Toney Prajapati Admitting Unavailable Toney Prajapati Attending Unavailable Ольга Raya Attending Unavailable NON STAFF Primary Care Unavailable Ольга Raya Admitting Unavailable Toney Prajapati Admitting Unavailable Toney Prajapati Attending Unavailable NON STAFF Primary Care Unavailable Traboulssi, Mourhaf Admitting Unavailable Traboulssi, Mourhaf Attending Unavailable Fawwad, Calderon Primary Care Unavailable Traboulssi, Mourhaf Attending Unavailable NON STAFF Primary Care Unavailable Traboulssi, Mourhaf Admitting Unavailable TRABOULSSI, MOURHAF Attending Unavailable TRABOULSSI, MOURHAF Referring Unavailable [facility] Primary Care Unavailable Lazara Merchant DO Unavailable Sarah RN, Crystal Unavailable Javan WATERWORKS PUMP STATION OPERATOR, Issac Unavailable ISSAC EDOUARD Attending Unavailabl e MARIAH DURAN Attending Unavailable FAWW[facility], CALDERON Attending Unavailable FAWWAD, CALDERON Attending Unavailable [facility], CALDERON Attending Unavailable MAYRA, ANKITA Medrano Attending Unavailable EDOUARD, ISSAC Attending Unavailabl e RUSANKITA MARES Attending Unavailable EDOUARD, ISSAC Attending Unavailabl e Allergies Allergy Classification Reported Allergen(s) Allergy Type Date of Onset Reaction(s) Facility (20 sources) Sulfamethoxazole / Trimethoprim; Translations: [Bactrim DS TABS] Drug Allergy 01-11-20 23 Unknown, Other [address] Work Phone: (20 sources) Amoxicillin / Clavulanate; Translations: [Augmentin] Drug Allergy 06-21-19 23 [facility] (10 sources) Sulfonamides (Antibiotic); Translations: [Sulfa Drugs] Allergy to drug (finding) Fatigue [facility] 250 DO Work Phone: (20 sources) Sulfamethoxazole; Translations: [sulfamethoxazole] Drug Allergy 06-21-19 [facility] (20 sources) Trimethoprim; Translations: [Trimethoprim] Drug Allergy 06-21-19 [facility] (7 sources) Sulfonamides (Antibiotic) Propensity to adverse reactions Unknown [employer] Other (20 sources) Amoxicillin; Translations: [amoxicillin] Drug Allergy 08-27-19 23 GI intolerance [facility] (20 sources) Clavulanate; Translations: [clavulanic acid] Drug Allergy 08-27-19 23 GI intolerance [facility] (20 sources) Sulfonamides (Antibiotic); Translations: [SULFA (SULFONAMIDE ANTIBIOTICS)] Drug Intolerance 05-23-19 18 Other [facility] Work Phone: (5 sources) Penicillins Drug Allergy 04-18-19 24 Unknown [facility] (18 sources) Amoxicillin-Pot Clavulanate; Translations: [AMOXICILLIN-POT CLAVULANATE] Drug Intolerance 06-21-19 23 GI intolerance, Unknown [facility] (1 source) Sulfonamides (Antibiotic) Drug allergy (disorder) 03-25-20 23 [facility] Repository (1 source) Sulfamethoxazole / Trimethoprim; Translations: [SULFAMETHOXAZOLE-T RIMETHOPRIM] Drug Allergy 01-11-20 23 [facility] 3 Repository Medications Current Medications Medication Drug Class(es) Dates Sig (Normalized) Sig (Original) [id number] 200 actuat albuterol 0.09 mg/actuat metered dose inhaler (20 sources) beta2-Adrenergic Agonist Start: 07-28-2023 End: 04-18-2024 take 2 puff(s) by inhalation every four hours for wheezing albuterol HFA 90 mcg/act inhaler Indications: Reactive airway disease with wheezing without complication, unspecified asthma severity, unspecified whether persistent ([facility]) Inhale 2 puffs every 4 (four) hours if needed for wheezing 8.5 g 3 03/19/2024 Active Start: 06-18-2022 take 2 puff(s) by [...] Active betamethasone valerate 1.2 mg/ml topical foam (1 source) Corticosteroid betamethasone va lerate (LUXIQ) 0.12 % foam Apply 1 application. topically in the morning and 1 application. before bedtime. Active Calcium Carbonate-Vitamin D3 (Calcium 500 + D) 500 mg(1,250mg) -200 unit Tablet (15 sources) Start: 03-01-2020 Calcium Carbonate-Vitamin D3 (Calcium [...] 1:00am cloNIDine hydrochloride 0.2 mg oral tablet (9 sources) Central alpha-2 Adrenergic Agonist Start: 10-29-2022 [...] mg/ml / timolol 5 mg/ml ophthalmic solution (15 sources) Carbonic Anhydrase Inhibitor, beta-Adrenergic Artemio Start: 01-01-2019 Dorzolamide-Timolo l 22.3-6.8 mg/mL drops Active 1 APPLIC EYE-BOTH Twice daily December 31, 2018 11:00pm doxycycline hyclate 100 mg oral tablet (15 sources) Tetracycline-clas s Drug Start: 06-20-2021 take [...] End: 01-11-2023 take 1 tablet by mouth in the morning furosemide (Lasix) 20 MG tablet Take 1 tablet by mouth in the morning. 06/26/2022 Active Start: 11-09-2017 End: 05-09-2018 take [...] as directed Quantity: 0 Refills: 0 Ordered: 17-Jul-2021 DO Start : 17-Jul-2021 Active Start: 01-01-2019 Latanoprost 0. 005 % drops Active 1 APPLIC EYE-BOTH Bedtime December 31, 2018 11:00pm Start: 01-01-2019 Latanoprost Ac tive 1 APPLIC EYE-BOTH Bedtime January 01, 2019 12:00am take 1 drop(s) into the eye(s) at [...] evening Ophthalmic Once a day Active lisinopril 30 mg oral tablet (20 sources) Angiotensin Converting Enzyme Inhibitor Start: 04-04-2024 take 1 tablet by mouth once daily lisinopril 30 MG tablet Take 30 mg by mouth Daily 04/04/2024 Active Start: 03-19-2024 End: 09-15-2024 take 1.5 tablets by mouth once daily lisinopril 20 MG tablet Indications: Benign essential hypertension (CMS/HCC) Take 1.5 tablets (30 mg) by mouth Daily 03/19/2024 05/28/2024 Discontinued (Therapy completed) Start: 11-11-2023 End: 05-09-2024 take 1 tablet by mouth once daily lisinopril 20 MG tablet Indications: Benign essential hypertension (CMS/HCC) Take 1 tablet (20 mg) by mouth Daily 90 tablet 1 11/11/2023 03/19/2024 Discontinued (Dose adjustment) Start: 06-25-2022 take 4 tablets by mo [facility] once daily lisinopril 5 mg tablet Take 4 tablets (20 mg) by mouth once daily. 06/25/2022 Active Start: 01-26-2022 End: 08-07-2023 take 1 tablet by mouth in the morning lisinopril 20 MG tablet Indications: Benign essential hypertension (CMS/HCC) Take 1 tablet (20 mg) by mouth in the morning. 90 tablet 0 05/09/2023 08/07/2023 Active Start: 10-15-2018 [facility] Lisinopril 5 mg Tablet Active 5 MG PO Daily October 14, 2018 11:00pm loratadine 10 mg oral tablet (9 sources) Start: 06-23-2023 End: 03-19-2024 take 1 tablet by mouth once daily loratadine (Claritin) 10 MG tablet Indications: Seasonal allergic rhinitis, unspecified trigger Take 1 tablet (10 mg) by mouth Daily 90 tablet 06/23/2023 03/19/2024 Discontinued (Med list cleanup) metoprolol tartrate 50 mg oral tablet (20 sources) beta-Adrenergic Artemio Start: 06-25-2022 End: 09-18-2024 take 1 tablet by mouth in the morning metoprolol tartrate (Lopressor) 50 MG tablet Take 1 tablet by mouth in the morning and 1 tablet in the evening. 06/25/2022 Active montelukast 10 mg oral tablet [...] day for 5 day(s) Feb, Active nystatin [id number] unt/ml / triamcinolone acetonide 1 mg/ml topical cream (1 source) Polyene Antifungal, Corticosteroid Start: 11-18-2022 nystatin-triamcin olone (MYCOLOG II) cream Indications: Yeast infection Apply 1 Application topically 4 (four) times a day as needed (itching). 60 g 2 11/18/2022 Active [place] 3-Qst-Jea-Fish Oil (Fish Oil) 1,000 mg (120 mg-180 mg) Capsule (15 sources) Start: 01-01-2019 take 1 capsule by mouth once daily [place] 5-Xss-Zih-Fish Oil (Fish Oil) 1,000 mg (120 mg-180 mg) Capsule Active 1 CAP PO Daily January 01, 2019 1:58am Start: 01-01-2019 take 1 capsule by [facility] once daily [place] 9-Ldq-Dmd-Fish Oil (Fish Oil) 1,000 mg (120 mg-180 mg) Capsule Active 1 CAP PO Daily December 31, 2018 11:00pm Start: 01-01-2019 take 1 capsule by [facility] once daily [place] 8-Jik-Uva-Fish Oil (Fish Oil) 1,000 mg (120 mg-180 mg) Capsule Active 1 CAP PO Daily January 01, 2019 12:00am pantoprazole 40 mg delayed release oral tablet (18 sources) Proton Pump Inhibitor Start: 07-21-2022 take 1 tablet by mouth twice daily before mealtime pantoprazole (ProtoNix) 40 mg EC tablet Take 1 tablet (40 mg) by mouth 2 times a day before meals. 0 07/21/2022 Active Start: 06-25-2022 End: 03-19-2024 take 1 tablet by mouth before mealtime pantoprazole (ProtoNix) 40 MG EC tablet Indications: Gastroesophageal reflux disease without esophagitis Take 1 tablet (40 mg) by mouth in the morning. Take before meals. 90 tablet 04/27/2023 03/19/2024 Discontinued (Med list cleanup) phenazopyridine hydrochloride 200 mg oral tablet (2 sources) Start: 02-12-2022 take 1 tablet by mouth every eight hours Pyridium 200 MG 1 tablet after meals Orally Three times a day for 2 day(s) Feb, Active predniSONE 10 mg oral tablet (2 sources) Start: 06-25-2022 predniSONE (DELTASONE) 10 mg [...] 23, 2019 6:55am take 2 capsules by m outh once in the morning, then take 2 capsules by mouth at bedtime coenzyme Q10 30 mg capsule Take 2 capsules (60 mg total) by mouth in the morning and 2 capsules (60 mg total) before bedtime. Active warfarin sodium 4 mg oral tablet (20 sources) Vitamin K Antagonist Start: 11-15-2022 End: 03-19-2024 warfarin (Coumadin) 4 MG tablet Indications: Paroxysmal atrial fibrillation (CMS/HCC) Take 1 tablet (4 mg) by mouth See administration instructions 1/2 tablet Tue/Tue, 1 tablet rest of the week. 03/19/2024 Active Start: 05-08-2020 take 1 tablet by neha th once daily Warfarin 4 mg Tablet Active 4 MG PO Daily May 08, 2020 12:00am End: 03-19-2024 warfarin (Coumadin) 5 MG tab let 1 (one) time each day at the same time 03/19/2024 Discontinued (Med list cleanup) Warfarin Sodium TABS as directed [place] [facility] Quantity: 0 Refills: 0 Ordered: 02-Dec-2022 DO Active Warfarin 1mg Act chio Warfarin Sodium TABS [place] [facility] Quantity: 0 Refills: 0 Ordered: 08-Apr-2021 DO Active Completed/Discontinued Medications Medication Drug Class(es) Dates Sig (Normalized) Sig (Original) acetaminophen 325 mg / HYDROcodone bitartrate 5 mg oral tablet (15 sources) Opioid Agonist Start: 01-23-2019 End: 02-12-2019 take 0.5 tablet by mouth every four to six hours as needed for pain Hydrocodone-Acetami nophen ([place]) 5-325 mg Tablet Discontinued 0.5 TAB PO [...] 02/23/2024 Discontinued (Therapy completed) Start: 12-31-2016 End: 05-04-2017 Alendronate 70 mg tablet Discontinued TABLET December 30, 2016 11:00pm May 04, 2017 10:44am Start: 12-31-2016 End: 11-11-2020 take 1 tablet by mouth every week Alendronate 70 mg Tablet Discontinued 70 MG PO every week 12 October 31, 2020 9:06am November 11, 2020 3:30pm Fosamax 70 MG Or al Tablet TAKE DIRECTED. Quantity: 0 Refills: 0 Ordered: 08-Apr-2021 DO Active amLODIPine 5 mg oral tablet (15 sources) Dihydropyridine Calcium Channel Artemio Start: 12-31-2016 End: 10-15-2018 take 1 tablet by mouth once daily Amlodipine 5 mg tablet Discontinued 5 MG PO Daily December 30, 2016 11:00pm October 15, 2018 2:19pm atenolol 100 mg oral tablet (20 sources) beta-Adrenergic Artemio Start: 08-26-2021 End: 01-11-2023 take 1 tablet [...] Jun, Not-Taking/PRN clindamycin 300 mg oral capsule (19 sources) Lincosamide Antibacterial Start: 01-05-2019 End: 01-23-2019 [...] 2020 2:54pm Multivitamin Act chio Multivitamin Tablet (3 sources) Start: 01-01-2019 End: 03-01-2020 take 1 tablet by mouth once daily Multivitamin Tablet Discontinued 1 TAB PO Daily December 31, 2018 11:00pm March 01, 2020 1:54pm sucralfate 1000 mg oral tablet (1 source) Aluminum Complex Start: 06-25-2022 End: 01-11-2023 sucralfate (Carafate) 1 gram tablet Take by mouth. 0 06/25/2022 01/11/2023 Discontinued (Therapy completed) tamsulosin hydrochloride 0.4 mg oral capsule (3 sources) alpha-Adrenergic Artemio take 1 capsule by mouth once daily Tamsulosin HCl - 0.4 MG Oral Capsule TAKE 1 CAPSULE Daily Quantity: 0 Refills: 0 Ordered: 08-Apr-2021 DO Active Triamcinolone (7 sources) Corticosteroid Start: 01-02-2020 Kenalog -40 mg 30 Dec, 2019 40 mg Problems Active Problems Problem Classification Problem Date Documented Date Episodic/Chronic Asthma (20 sources) Reactive airway disease; Translations: [Unspecified asthma, uncomplicated] Onset: 07-28-2023 07-28-2023 Chronic Cancer of breast (20 sources) Malignant tumor of breast ; Translations: [Malignant neoplasm of unspecified site of unspecified female breast] Onset: 07-28-2023 02-13-2019 Chronic Cardiac dysrhythmias (20 sources) Paroxysmal atrial fibrillation; Translations: [Atrial fibrillation] Onset: 05-01-2020 Resolved: 05-28-2024 01-10-2023 Chronic Chronic obstructive pulmonary disease and bronchiectasis (3 sources) Bronchitis, not specified as acute or chronic; Translations: [Bronchitis, not specified as acute or chronic] Onset: 11-09-2021 Resolved: 11-09-2021 Episodic Conduction disorders (20 sources) Cardiac pacemaker in situ; Translations: [Cardiac pacemaker in situ] Onset: 01-10-2023 Resolved: 05-28-2024 10-13-2018 Chronic Comment on above: Problem List clean-u p per request of Phys. EHR Cmte Congestive heart failure; nonhypertensive (20 sources) Chronic heart failure co-occurrent with normal ejection fraction; Translations: [Chronic diastolic (congestive) heart failure] Onset: 06-22-2022 04-19-2023 Chronic Esophageal disorders (20 sources) Gastroesophageal reflux disease; Translations: [Gastro-esophageal reflux disease without esophagitis] Onset: 04-19-2023 04-19-2023 Chronic Essential hypertension (20 sources) Benign essential hypertension; Translations: [Benign essential hypertension] Onset: 01-10-2023 Resolved: 05-28-2024 02-13-2019 Chronic Comment on above: Problem List clean-u p per request of Phys. EHR Cmte Genitourinary symptoms and ill-defined conditions (9 sources) Dysuria; Translations: [Dysuria] Onset: 12-17-2021 Resolved: 12-17-2021 Episodic Lymphadenitis (17 sources) Mediastinal lymphadenopathy; Translations: [Localized enlarged lymph nodes] 02-13-2019 Episodic Osteoarthritis (7 sources) Osteoarthritis of left hip joint; Translations: [Unilateral primary osteoarthritis, left hip] Chronic Osteoporosis (20 sources) Osteoporosis; Translations: [Age-related osteoporosis without current pathological fracture] Onset: 06-23-2023 12-31-2016 Chronic Other acquired deformities (15 sources) Postural kyphosis; 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, site unspecified] Onset: 06-23-2023 06-23-2023 Chronic Other aftercare (17 sources) Anticoagulant effect; Translations: [parts counterman (current) use of anticoagulants] Onset: 09-26-2023 09-26-2023 Episodic Other connective tissue disease (2 sources) Pain in hallux; Translations: [Pain in right toe(s)] 02-23-2024 Episodic Other ear and sense organ disorders (15 sources) Conductive hearing loss, bilateral; Translations: [Conductive hearing loss, bilateral] Onset: 06-23-2023 06-23-2023 Chronic Other lower respiratory disease (20 sources) Pulmonary granuloma; Translations: [Pulmonary fibrosis, unspecified] Onset: 07-28-2023 12-31-2016 Chronic Other lower respiratory disease (2 sources) Pulmonary fibrosis, unspecified; Translations: [Other diseases of lung, not elsewhere classified] 10-19-2021 Chronic Other lower respiratory disease (5 sources) Fibrosis of lung; Translations: [Pulmonary fibrosis, unspecified] Onset: 07-28-2023 Resolved: 05-28-2024 05-28-2024 Chronic Other lower respiratory disease (20 sources) Dyspnea; Translations: [Shortness of breath] Onset: 05-17-2024 10-13-2018 Episodic Comment on above: Problem List [...] nail] 02-23-2024 Episodic Other upper respiratory disease (17 sources) Seasonal allergic rhinitis; Translations: [Other seasonal allergic rhinitis] Onset: 06-23-2023 06-23-2023 Chronic Other upper respiratory disease (2 sources) Allergic rhinitis; Translations: [Allergic rhinitis, unspecified] 03-19-2024 Chronic Other upper respiratory infections (15 sources) Sinusitis; Translations: [Chronic sinusitis, unspecified] 06-20-2021 Chronic Comment on above: Problem List clean-u p per request of Phys. EHR Cmte Skin and subcutaneous tissue infections (2 sources) Paronychia of toe of right foot; Translations: [Cellulitis of right toe] 02-23-2024 Episodic Unclassified (1 source) Cold Like Symptoms Onset: 05-17-2024 Unclassified (2 sources) Chronic heart failure co-occurrent with normal ejection fraction 05-28-2024 Urinary tract infections (3 sources) Urinary tract infection, site not specified; Translations: [Acute cystitis without hematuria] Episodic Past or Other Problems Problem Classification Problem Date Documented Da te Episodic/Chronic Acute bronchitis (1 source) Acute bronchiolitis; Translations: [Acute bronchiolitis, unspecified] Onset: 06-20-2022 06-21-2022 Episodic Cancer of breast (20 sources) History of malignant neoplasm of breast; Translations: [Personal history of malignant neoplasm of breast] Onset: 07-28-2023 01-01-2019 Episodic Cardiac dysrhythmias (20 sources) Bradycardia; Translations: [Other specified cardiac dysrhythmias] Onset: 01-10-2023 03-01-2020 Episodic Comment on above: Problem List clean-u p per request of Phys. EHR Cmte Gastrointestinal hemorrhage (1 source) Melena; Translations: [Melena] Onset: 06-21-2022 06-21-2022 Episodic Mood disorders (15 sources) Mood disorders Onset: 06-23-2023 06-23-2023 Nonspecific chest pain (20 sources) Atypical chest pain; Translations: [Other chest pain] Onset: 01-10-2023 01-23-2019 Episodic Comment on above: Problem List clean-u p per request of Phys. EHR Cmte Other aftercare (20 sources) Drug therapy finding; Translations: [Long-term (current) use of anticoagulants] Onset: 01-10-2023 Resolved: 05-28-2024 01-10-2023 Episodic Other aftercare (19 sources) Long-term current use of anticoagulant; Translations: [prison (current) use of anticoagulants] Onset: 05-01-2020 04-19-2023 Episodic Other aftercare (2 sources) prison (current) use of anticoagulants; Translations: [parts counterman (current) use of anticoagulants] Onset: 05-01-2020 Episodic Other and unspecified benign neoplasm (16 sources) History of polyp of colon; Translations: [History of colon polyps] Onset: 06-20-2022 06-23-2023 Episodic Other connective tissue disease (16 sources) Pain in right thumb; Translations: [Pain [...] conditions (not mental disorders or infectious disease) (17 sources) Hormone level - finding; Translations: [Other specified abnormal findings of blood chemistry] Onset: 06-21-2022 10-13-2018 Episodic Comment on above: Problem List clean-u p per request of Phys. EHR Cmte Other upper respiratory infections (15 sources) Acute upper respiratory infection; Translations: [Acute upper respiratory infection, unspecified] Onset: 09-26-2023 09-26-2023 Episodic Otitis media and related conditions (1 source) Otitis media, unspecified, bilateral Onset: 11-09-2021 Resolved: 11-09-2021 Episodic Respiratory failure; insufficiency; arrest (adult) (1 source) Acute hypoxemic respiratory failure; Translations: [Acute respiratory failure with hypoxia] Onset: 06-21-2022 06-21-2022 Episodic Unclassified (10 sources) Never smoked tobacco; Translations: [Never a smoker] Unclassified (1 source) Contact with and (suspected) exposure to covid-19 Z20.822 Unclassified (2 sources) Onset: 04-05-2023 Resolved: 01-04-2024 04-05-2023 Viral infection (1 source) COVID-19 Results Test Name Value Interpretation Reference Range Facility POCT Protime / INRon 025 INR Coag (PPP) [Relative time] 1.7 {INR} Abnormal 0.8 - 1.2 [facility] Interpretation and review of laboratory results Abnormal [facility] Basic Metabolic Panelon 02-02 Anion gap [Moles/Vol] 10.8 mmol/L Normal 6.0-15.0 [facility] e [facility] Comment on above: Performed By: #### B MP #### [address] Calcium [Mass/Vol] 9.2 mg/dL Normal 8.6-10.3 [facility] Comment on above: Result Comment: PERF ORMED BY: [place] [address] PATHOLOGIST RAG WILLOW OPERATOR DYLAN KHALIL M.D. Performed By: #### B MP #### [place] [address] [place] Chloride [Moles/Vol] 107 mmol/L Normal 98-107 [facility] Comment on above: Performed By: #### B MP #### [address] CO2 [Moles/Vol] 27.2 mmol/L Normal 21.0-31.0 [facility] Comment on above: Performed By: #### B MP #### [address] Creatinine [Mass/Vol] 0.69 mg/dL Normal 0.60-1.20 [facility] Comment on above: Performed By: #### B MP #### [place] [address] [place] GFR/1.73 sq M.predicted MDRD (S/P/Bld) [Vol rate/Area] mL/min/{1.73_m2} Normal [facility] Comment on above: Performed By: #### B MP #### [facility] [address] Glucose [Mass/Vol] 82 mg/dL Normal 70-100 [facility] Comment on above: Result Comment: [place] Glucose Reference Range is dependent on time and content of last meal. Glucose of more than 200 mg/dL in a nonstressed, ambulatory subject supports the diagnosis of Diabetes Mellitus. ADA recommended reference range Performed By: #### B MP #### [facility] [address] Potassium [Moles/Vol] 5.0 mmol/L Normal 3.5-5.1 [facility] Comment on above: Result Comment: Hemo lysis is present at a level that could interfere with the result. Contact lab if redraw is required Performed By: #### B MP #### [address] Sodium [Moles/Vol] 140 mmol/L Normal 136-145 [facility] Comment on above: Performed By: #### B MP #### [place] [id number] [facility] Urea nitrogen [Mass/Vol] 12 mg/dL Normal 7-25 [facility] Comment on above: Performed By: #### B MP #### [place] [id number] [facility] Calcium [Mass/volume] in Ser um or PlasmaOrdered By: Ольга Raya on 02-13-2024 Calcium [Mass/Vol] Calcium [Mass/volume ] in Serum or Plasma 8.6-10.3 [facility] Carbon dioxide, total [Moles /volume] in Serum or PlasmaOrdered By: Ольга Raya on 02-13-2024 CO2 [Moles/Vol] Carbon dioxide, tota l [Moles/volume] in Serum or Plasma 21.0-31.0 [facility] Chloride [Moles/volume] in S shanice or PlasmaOrdered By: Ольга Raya on 02-13-2024 Chloride [Moles/Vol] Chloride [Moles/vol ume] in Serum or Plasma 98-107 [facility] Creatinine [Mass/volume] in Serum or PlasmaOrdered By: Ольга Raya on 02-13-2024 Creatinine [Mass/Vol] Creatinine [Mass/v olume] in Serum or Plasma 0.60-1.20 [facility] Glucose [Mass/volume] in Ser um or PlasmaOrdered By: Ольга Raya on 02-13-2024 Glucose [Mass/Vol] Glucose [Mass/volume ] in Serum or Plasma 70-100 [facility] Comment on above: ADA recommended refe rence rangeRandom Glucose Reference Range is dependent on time and content of last meal. Glucose of more than 200 mg/dL in a nonstressed, ambulatory subject supports the diagnosis of Diabetes Mellitus. No Panel InformationOrdered By: Ольга Raya on 02-13-2024 Estimated GFR (CKD-EPI) > 60.0 mL/Min [facility] Creatinine Clearance (Chem N/A [facility] Potassium [Moles/volume] in Serum or PlasmaOrdered By: Ольга Raya on 02-13-2024 Potassium [Moles/Vol] Potassium [Moles/v olume] in Serum or Plasma 3.5-5.1 [facility] Comment on above: Hemolysis is present at a level that could interfere with the result.Contact lab if redraw is required Serum or plasma anion gap de terminationOrdered By: Ольга Raya on 02-13-2024 Anion gap [Moles/Vol] Serum or plasma an ion gap determination 6.0-15.0 [facility] Sodium [Moles/volume] in Ser um or PlasmaOrdered By: Ольга Raya on 02-13-2024 Sodium [Moles/Vol] Sodium [Moles/volume ] in Serum or Plasma 136-145 [facility] Urea nitrogen [Mass/volume] in Serum or PlasmaOrdered By: Ольга Raya on 02-13-2024 Urea nitrogen [Mass/Vol] Urea nitrogen [Mass/volume] in Serum or Plasma 7-25 [facility] MM screening mammo BI w/CADo n 10-24-2023 MM screening mammo BI w/CAD [facility] [address] [place] [address] [place] [address] Mammography Report Signed Patient: Damir Staples MR#: [id number] 64 : 1950 Acct:[id number] Age/Sex: 73 / F ADM Date: 10/24/23 Loc: [place] Room: Type: [facility] Attending Dr: Shaikh Kirstie BRITO Copies to: [...] Lencho Julian M.D.10/24/2023 2:39 PM Dictation Location: [facility] Transcribed By: [facility] 10/24/23 1439 Dictated By: Lencho Julian DO 10/24/23 1437 Signed By: 10/24/23 1439 Normal [facility] COVID + FLU Quick Testingon 03-25-2023 SARS-CoV-2 (COVID-19) RNA JUVENAL+probe Ql (Unsp spec) Positive [employer] Other COVID + FLU Quick Testing negaitve [employer] Other Office Visit (Cardiology)on 12-02-2022 Follow-up visit [...] Metabolic Panel; Status:Active - Retrospective Authorization; Requested for:[id number]; Overweight with body mass index (BMI) of 27 to 27.9 in adult Healthy Weight Tips; Status:Complete - Retrospective Authorization; Done: [id number] Some eating tips that can help you lose weight.; Status:Complete - Retrospective Authorization; Done: [id number] SocHx: Never a smoker Tobacco Use Screening; Status:Complete; Done: [id number] Unlinked Stop: Furosemide 20 MG Oral Tablet [...] BREAKFAST AND DINNER. Warfarin Sodium TABSas directed [facility] Patient did not bring medication [...] Vital Signs Recorded: 02Dec2022 02:10PMRecorded: 02Dec2022 01:44PM Jhrfuzca250, RUE, Rtajpdr878, LUE, Sitting Erika (more content not included)... Normal [facility] Tobacco Screening.on 023 Fall risk assessment a) No falls within the last year [facility] 250 DO Work Phone: Tobacco use status CPHS b) No [facility] 250 DO Work Phone: Tobacco Screening. Yes [facility] 250 DO Work Phone: Activated partial thrombopla stin time (aPTT) in platelet poor plasma by coagulation aOrdered By: Pipo Beck on 10-29-2022 aPTT Coag (PPP) [Time] 38.6 s 25.1-36.5 [facility] Alanine aminotransferase [En zymatic activity/volume] in Serum or PlasmaOrdered By: Pipo Beck on 10-29-2022 ALT [Catalytic activity/Vol] 17 U/L 7-52 [facility] Albumin [Mass/volume] in Ser um or Plasma by Bromocresol green (BCG) dye binding methoOrdered By: Pipo Beck on 10-29-2022 Albumin BCG dye [Mass/Vol] 4.4 g/dL 3.5-5.7 [facility] Alkaline phosphatase [Enzyma tic activity/volume] in Serum or PlasmaOrdered By: Pipo Beck on 10-29-2022 ALP [Catalytic activity/Vol] 86 U/L 34-104 [facility] Aspartate aminotransferase [ Enzymatic activity/volume] in Serum or PlasmaOrdered By: Pipo Beck on 10-29-2022 AST [Catalytic activity/Vol] 21 U/L 13-39 [facility] Basophils Auto (Bld) [#/Vol] Ordered By: Pipo Beck on 10-29-2022 Basophils (Bld) [#/Vol] 0.0 10*3/uL 0.0-0.2 [facility] Basophils/100 WBC Auto (Bld) Ordered By: Pipo Beck on 10-29-2022 Basophils/100 WBC (Bld) 0.6 % . [facility] Bilirubin.direct [Mass/volum e] in Serum or PlasmaOrdered By: Pipo Beck on 10-29-2022 Bilirubin.direct [Mass/Vol] 0.10 mg/dL 0.03-0.18 [facility] Bilirubin.total [Mass/volume ] in Serum or PlasmaOrdered By: Pipo Beck on 10-29-2022 Bilirubin [Mass/Vol] 0.8 mg/dL 0.3-1.0 [facility] Calcium [Mass/volume] in Ser um or PlasmaOrdered By: Pipo Beck on 10-29-2022 Calcium [Mass/Vol] 9.7 mg/dL 8.6-10.3 [facility] Carbon dioxide, total [Moles /volume] in Serum or PlasmaOrdered By: Pipo Beck on 10-29-2022 CO2 [Moles/Vol] 28.5 mmol/L 21.0-31.0 [facility] Chloride [Moles/volume] in S shanice or PlasmaOrdered By: Pipo Beck on 10-29-2022 Chloride [Moles/Vol] 105 mmol/L 98-107 [facility] Creatine kinase [Enzymatic a ctivity/volume] in Serum or PlasmaOrdered By: Pipo Beck on 10-29-2022 CK [Catalytic activity/Vol] 64 U/L 30-223 [facility] Creatinine [Mass/volume] in Serum or PlasmaOrdered By: Pipo Beck on 10-29-2022 Creatinine [Mass/Vol] 0.77 mg/dL 0.60-1.20 [facility] Eosinophils Auto (Bld) [#/Vo l]Ordered By: Pipo Beck on 10-29-2022 Eosinophils (Bld) [#/Vol] 0.2 10*3/uL 0.0-0.45 [facility] Eosinophils/100 WBC Auto (Bl d)Ordered By: Pipo Beck on 10-29-2022 Eosinophils/100 WBC (Bld) 3.5 % . [facility] Erythrocyte distribution wid th Auto (RBC) [Ratio]Ordered By: Pipo Beck on 10-29-2022 Erythrocyte distribution width (RBC) [Ratio] 14.0 % 11.9-15.3 [facility] Globulin Calc (S) [Mass/Vol] Ordered By: Pipo Beck on 10-29-2022 Globulin (S) [Mass/Vol] 3.0 g/dL [facility] Glucose [Mass/volume] in Ser um or PlasmaOrdered By: Pipo Beck on 10-29-2022 Glucose [Mass/Vol] 103 mg/dL 70-100 [facility] Comment on above: ADA recommended refe rence rangeRandom Glucose Reference Range is dependent on time and content of last meal. Glucose of more than 200 mg/dL in a nonstressed, ambulatory subject supports the diagnosis of Diabetes Mellitus. Hematocrit Auto (Bld) [Volum e fraction]Ordered By: Pipo Beck on 10-29-2022 Hematocrit (Bld) [Volume fraction] 43.0 % 34.0-46.4 [facility] Hemoglobin [Mass/volume] in BloodOrdered By: Pipo Beck on 10-29-2022 Hemoglobin (Bld) [Mass/Vol] 14.5 g/dL 11.8-15.4 [facility] Laboratory - CoagulationOrde red By: Pipo Beck on 10-29-2022 PT Coag (PPP) [Time] 19.2 s 9.0-12.9 [facility] Leukocytes [#/volume] correc rebecca for nucleated erythrocytes in Blood by Automated counOrdered By: Pipo Beck on 10-29-2022 WBC corrected for nucl RBC Auto (Bld) [#/Vol] 7.0 10*3/uL 3.8-11.6 [facility] Lymphocytes Auto (Bld) [#/Vo l]Ordered By: Pipo Beck on 10-29-2022 Lymphocytes (Bld) [#/Vol] 1.9 10*3/uL 1.00-4.8 [facility] Lymphocytes/100 WBC Auto (Bl d)Ordered By: Pipo Beck on 10-29-2022 Lymphocytes/100 WBC (Bld) 26.8 % . [facility] MCH Auto (RBC) [Entitic mass ]Ordered By: Pipo Beck on 10-29-2022 MCH (RBC) [Entitic mass] 30.7 pg 24.7-34.3 [facility] MCHC Auto (RBC) [Mass/Vol]Or dered By: Pipo Beck on 10-29-2022 MCHC (RBC) [Mass/Vol] 33.8 g/dL 32.0-35.0 [facility] MCV Auto (RBC) [Entitic vol] Ordered By: Pipo Beck on 10-29-2022 MCV (RBC) [Entitic vol] 91.0 fL 80-100 [facility] Monocyte distribution width [Entitic volume] in Blood by AutomatedOrdered By: Pipo Beck on 10-29-2022 Monocyte distribution width Auto (Bld) [Entitic vol] 20.10 % 0.00-20.00 [facility] Comment on above: For adults in ED, MD W > 20.0 may be associated with a higher risk of sepsis during the first 12 hrs of hospital admission Monocytes Auto (Bld) [#/Vol] Ordered By: Pipo Beck on 10-29-2022 Monocytes (Bld) [#/Vol] 0.5 10*3/uL 0.0-0.8 [facility] Monocytes/100 WBC Auto (Bld) Ordered By: Pipo Beck on 10-29-2022 Monocytes/100 WBC (Bld) 7.6 % . [facility] Natriuretic peptide B [Mass/ Vol]Ordered By: Pipo Beck on 10-29-2022 Natriuretic peptide B (Bld) [Mass/Vol] 77.0 pg/mL 5-100 [facility] Neutrophils Auto (Bld) [#/Vo l]Ordered By: Pipo Beck on 10-29-2022 Neutrophils (Bld) [#/Vol] 4.3 10*3/uL 1.8-7.7 [facility] Neutrophils/100 WBC Auto (Bl d)Ordered By: Pipo Beck on 10-29-2022 Neutrophils/100 WBC (Bld) 61.5 % . [facility] No Panel InformationOrdered By: Pipo Beck on 10-29-2022 Estimated GFR (CKD-EPI) > 60.0 mL/Min [facility] Creatinine Clearance (Chem 53.88 [facility] Nucleated erythrocytes [Pres ence] in Blood by Automated countOrdered By: Pipo Beck on 10-29-2022 Nucleated RBC Auto Ql (Bld) 0.1 /100{WBC} 0-0.5 [facility] Platelet mean volume Auto (B ld) [Entitic vol]Ordered By: Pipo Beck on 10-29-2022 Platelet mean volume (Bld) [Entitic vol] 7.1 fL 6.3-10.7 [facility] Platelet poor plasma interna tional normalized ratio (INR) by coagulation assay (relatOrdered By: Pipo Beck on 10-29-2022 INR Coag (PPP) [Relative time] 1.7 {INR} [facility] Comment on above: INR Therapeutic Rang e [...] 4.5 Platelets Auto (Bld) [#/Vol] Ordered By: Pipo Beck on 10-29-2022 Platelets (Bld) [#/Vol] 270 10*3/uL 150-450 [facility] Potassium [Moles/volume] in Serum or PlasmaOrdered By: Pipo Beck on 10-29-2022 Potassium [Moles/Vol] 3.8 mmol/L 3.5-5.1 [facility] Protein [Mass/volume] in Ser um or PlasmaOrdered By: Pipo Beck on 10-29-2022 Protein [Mass/Vol] 7.4 g/dL 6.4-8.9 [facility] RBC Auto (Bld) [#/Vol]Ordere d By: Pipo Beck on 10-29-2022 RBC (Bld) [#/Vol] 4.72 10*6/uL 3.60-5.00 [facility] Serum or plasma albumin/glob ulin mass ratioOrdered By: Pipo Beck on 10-29-2022 Albumin/Globulin [Mass ratio] 1.5 {ratio} [facility] Serum or plasma anion gap de terminationOrdered By: Pipo Beck on 10-29-2022 Anion gap [Moles/Vol] 12.3 mmol/L 6.0-15.0 [facility] Serum or plasma non-glucuron idated bilirubin measurement (mass/volume)Ordered By: Pipo Beck on 10-29-2022 Bilirubin.indirect [Mass/Vol] 0.7 mg/dL [facility] Sodium [Moles/volume] in Ser um or PlasmaOrdered By: Pipo Beck on 10-29-2022 Sodium [Moles/Vol] 142 mmol/L 136-145 [facility] Troponin I.cardiac [Mass/vol ume] in Serum or Plasma by Detection limit <= 0.01 ng/Ordered By: Pipo Beck on 10-29-2022 Troponin I.cardiac DL <= 0.01 ng/mL [Mass/Vol] 4.9 pg/mL 0.0-15.0 [facility] Urea nitrogen [Mass/volume] in Serum or PlasmaOrdered By: Pipo Beck on 10-29-2022 Urea nitrogen [Mass/Vol] 19 mg/dL 7-25 [facility] WBC Auto (Bld) [#/Vol]Ordere d By: Pipo Beck on 10-29-2022 WBC (Bld) [#/Vol] 7.0 10*3/uL 3.8-11.6 [facility] Calcium [Mass/volume] in Ser um or PlasmaOrdered By: Ольга Raya on 10-21-2022 Calcium [Mass/Vol] 9.2 mg/dL 8.6-10.3 [facility] Carbon dioxide, total [Moles /volume] in Serum or PlasmaOrdered By: Ольга Raya on 10-21-2022 CO2 [Moles/Vol] 32.2 mmol/L 21.0-31.0 [facility] Chloride [Moles/volume] in S shanice or PlasmaOrdered By: Ольга Raya on 10-21-2022 Chloride [Moles/Vol] 108 mmol/L 98-107 [facility] Creatinine [Mass/volume] in Serum or PlasmaOrdered By: Ольга Raya on 10-21-2022 Creatinine [Mass/Vol] 0.75 mg/dL 0.60-1.20 [facility] Glucose [Mass/volume] in Ser um or PlasmaOrdered By: Ольга Raya on 10-21-2022 Glucose [Mass/Vol] 75 mg/dL 70-100 [facility] Comment on above: ADA recommended refe rence rangeRandom Glucose Reference Range is dependent on time and content of last meal. Glucose of more than 200 mg/dL in a nonstressed, ambulatory subject supports the diagnosis of Diabetes Mellitus. No Panel InformationOrdered By: Ольга Raya on 10-21-2022 Estimated GFR (CKD-EPI) > 60.0 mL/Min [facility] Creatinine Clearance (Chem N/A [facility] No Panel Informationon 10-21 > 60.0 Normal [facility] Work Phone: 8.2\S\8.2 Normal 6.0-15.0 [facility] Work Phone: 9.2\S\9.2 Normal 8.6-10.3 [facility] Work Phone: Comment on above: PERFORMED BY:[place] [address] [place], [place] [id number] MEDICAL DIRECTORDYLAN KHALIL M.D. 32.2\S\32.2 above high threshold 21.0-31.0 [facility] DO Work Phone: 108\S\108 above high threshold 98-107 [facility] Work Phone: 4.4\S\4.4 Normal 3.5-5.1 [facility] Work Phone: 144\S\144 Normal 136-145 [facility] 250 DO Work Phone: 0.75\S\0.75 Normal 0.60-1.20 [facility] y 250 DO Work Phone: 17\S\17 Normal 7-25 [facility] DO Work Phone: 75\S\75 Normal 70-100 [facility] y 250 DO Work Phone: Comment on above: Random Glucose Refer ence Range is dependent on time and content of last meal. Glucose of more than 200 mg/dL in a nonstressed, ambulatory subject supports the diagnosis of Diabetes Mellitus. ADA recommended reference range Potassium [Moles/volume] in Serum or PlasmaOrdered By: Ольга Raya on 10-21-2022 Potassium [Moles/Vol] 4.4 mmol/L 3.5-5.1 [facility] Serum or plasma anion gap de terminationOrdered By: Ольга Raya on 10-21-2022 Anion gap [Moles/Vol] 8.2 mmol/L 6.0-15.0 [facility] Sodium [Moles/volume] in Ser um or PlasmaOrdered By: Ольга Raya on 10-21-2022 Sodium [Moles/Vol] 144 mmol/L 136-145 [facility] Urea nitrogen [Mass/volume] in Serum or PlasmaOrdered By: Ольга Raya on 10-21-2022 Urea nitrogen [Mass/Vol] 17 mg/dL 10-26 [facility] Creatinine (Bld) [Mass/Vol]O rdered By: Lewis Ohara on 08-26-2022 Creatinine [Mass/Vol] 0.9 mg/dL 0.6-1.3 [facility] Comment on above: ER/ESD physician is notified/shown [...] Metabolic Panel; Status:Active - Retrospective Authorization; Requested for:[id number]; Overweight with body mass index (BMI) of 27 to 27.9 in adult Healthy Weight Tips; Status:Complete - Retrospective Authorization; Done: 02Aug2022 Some eating tips that can help you lose weight.; Status:Complete - Retrospective Authorization; Done: 02Aug2022 SocHx: Never a smoker Tobacco Use Screening; Status:Complete; Done: 02Aug2022 Patient Instructions Please bring all medicines, vitamins, [...] seen for follow-up of a hospitalization for [facility] d/c 07/07. History of Present Illness Patient [...] Recorded: 02Aug2022 10:49AM Heart Rate84, L Radial Tyrknenk239, LUE, Sitting Fapqvnyva63, LUE, Sitting Height5 ft Ugrcnj314 lb BMI Fafbninhdj57.54 kg/m2 BSA Calculated1.61 Tobacco Useb) No PHQ-2 #1. Over the last 2 weeks have you felt down, depressed or hopeless? (If yes, answer PHQ-9 below)No PHQ-2 (more content not included)... Normal [employer] Tobacco Screening.on 023 [facility] screening assessment [facility] [employer] 600 DO Work Phone: Fall risk assessment a) No falls within the last year [facility] [employer] 600 DO Work Phone: Tobacco use status CPHS b) No [facility] [employer] 600 DO Work Phone: Urinalysis - AUTOMATEDon Appearance (U) cloudy [employer] Other Bilirubin Ql (U) Negative [employer] Other Color (U) yellow [employer] Other Glucose Ql (U) Negative [employer] Other Hemoglobin Ql (U) Negative [employer] Other Ketones Ql (U) Negative [employer] Other Leukocyte esterase Test strip Ql (U) small [employer] Other Nitrite Ql (U) Negative [employer] Other pH (U) 6.0 [pH] [employer] Other Protein Ql (U) Negative [employer] Other Specific gravity (U) [Rel density] 1.010 [employer] Other Urobilinogen (U) [Mass/Vol] 0.2 mg/dL [employer] Other Urinalysis - AUTOMATED [employer] Other Urinalysis - AUTOMATEDon Appearance (U) clear [employer] Other Bilirubin Ql (U) Negative [employer] Other Color (U) yellow [employer] Other Glucose Ql (U) Negative [employer] Other Hemoglobin Ql (U) large [employer] Other Ketones Ql (U) Negative [employer] Other Leukocyte esterase Test strip Ql (U) small [employer] Other Nitrite Ql (U) Negative [employer] Other pH (U) 5.5 [pH] [employer] Other Protein Ql (U) 100 [employer] Other Specific gravity (U) [Rel density] 1.015 [employer] Other Urobilinogen (U) [Mass/Vol] 0.2 mg/dL [employer] Other Urinalysis - AUTOMATED [employer] Other Urine Cultureon 02-12-2022 Urine Culture >100,000 [employer] Other Office Visit (Cardiology)on 01-26-2022 Follow-up visit [...] DAMIR STAPLES; : 1950; Recorded: 26Jan2022 01:36PMRecorded: 26Jan2022 01:31PMRecorded: 26Jan2022 01:30PM Lpstlwcl345, RUE, Brdukeg238, LUE, Gmyyxtz033, LUE, Jfenmil390, RUE, Sitting Ihbrsqfmo68, RUE, Fkktqeb86, LUE, Jdrnrqc19, LUE, Knoptze50, RUE, Sitting Heart Rate64, R Radial Height5 ft Xpffru787 lb BMI Tlostgugxb34.54 kg/m2 BSA Calculated1.61 Normal [facility] Urine culture routineOrdered By: Juani Whitney on 12-19-2021 Bacteria identified Cx Nom (U) Strep. agalactiae Grp B [facility] No Panel InformationOrdered By: Juani Whitney on 12-17-2021 Bella albicans (JUVENAL) Negative Negative [facility] Comment on above: This test was develo ped and its performance characteristicsdetermined by [employer]. It has not been cleared orapproved by the Food and Drug Administration. Bella glabrata (JUVENAL) Negative Negative [facility] Comment on above: This test was develo ped and its performance characteristicsdetermined by [facility]. It has not been cleared orapproved by the Food and Drug Administration. Trichomonas vaginalis (JUVENAL) Negative Negative [facility] Comment on above: Performed at: = - [address] [id number] Director: Maile Aponte MD, Phone: [phone] Urinalysis - AUTOMATEDon Appearance (U) clear [employer] Other Bilirubin Ql (U) Negative [employer] Other Color (U) yellow [employer] Other Glucose Ql (U) Negative [employer] Other Hemoglobin Ql (U) Negative [employer] Other Ketones Ql (U) Negative [employer] Other Leukocyte esterase Test strip Ql (U) Negative [employer] Other Nitrite Ql (U) Negative [employer] Other pH (U) 6.5 [pH] [employer] Other Protein Ql (U) Negative [employer] Other Specific gravity (U) [Rel density] 1.010 [employer] Other Urobilinogen (U) [Mass/Vol] 0.20 mg/dL [employer] Other Urinalysis - AUTOMATED [employer] Other Vaginal fluid Atopobium vagi ariel DNA detection by probe and target amplification methoOrdered By: Juani Whitney on 12-17-2021 A. vaginae DNA JUVENAL+probe Ql (Vag fld) Low - 0 Score . [facility] Vaginal fluid Megasphaera sp ecies type 1 DNA detection by probe and target amplificatOrdered By: Juani Whitney on 12-17-2021 Megasphaera sp type 1 DNA JUVENAL+probe Ql (Vag fld) Low - 0 Score . [facility] Comment on above: Calculate total scor e by adding the 3 individual bacterialvaginosis (BV) marker scores together. Total score isinterpreted as follows:Total score 0-1: Indicates the absence of BV.Total score 2: Indeterminate for BV. Additional clinical data should be evaluated to establish a diagnosis.Total score 3-6: Indicates the presence of BV.This test was developed and its performance characteristicsdetermined by [employer]. It has not been cleared or approvedby the Food and Drug Administration. Vaginal fluid bacterial vagi nosis associated bacterium 2 DNA detection by probe and tOrdered By: Juani Whitney on 12-17-2021 Bacterial vaginosis associated bacterium 2 DNA JUVENAL+probe Ql (Vag fld) Low - 0 Score . [facility] SARS-CoV-2 (COVID-19) RNA NA A+probe Ql (Resp)on 11-09-2021 SARS-CoV-2 (COVID-19) RNA JUVENAL+probe Ql (Unsp spec) Negative [employer] Other Tobacco Screening.on 022 Adult depression screening assessment No [facility] 250 DO Work Phone: Fall risk assessment a) No falls within the last year [facility] 250 DO Work Phone: Tobacco use status CP b) No [facility] 250 DO Work Phone: Tobacco Screening.on 022 Fall risk assessment a) No falls within the last year -[facility] 250 DO Work Phone: Tobacco use status CPHS b) No -[facility] 250 DO Work Phone: [facility] CARDIAC STRESS/REST KIARRA Otero 02-09-2019 [facility] CARDIAC STRESS/REST INJECTION Patient Name: DAMIR STAPLES STUDY: MYOCARDIAL PERFUSION STRESS TEST WITH LEXISCAN Performing facility: [facility], [address] [place] [address], [address], [place] [address] [facility] Provider: Michael RAYA PCP: Dr. Kevin TITUS Supervising provider: FELIPE ROSENTHAL INDICATION: CP BRADYCARDIA HISTORY: Gender: F; Age: 68 y/o ; Height: 152.4 cm; Weight: 64.3141456 kg. HTN CP PPM Family HX CAD; Denies smoking. COMPARISON: ACCESSION NUMBER(S): [id number] ORDERING CLINICIAN: ОЛЬГА RAYA TECHNIQUE: ONE DAY [...] Electronically signed by: YANIQUE MOTLEY MD Normal [facility] Albumin [Mass/volume] in Ser um or Plasmaon 05-02-2017 Albumin [Mass/Vol] 3.9 g/dL 3.2-5.5 [facility] [facility] Auto (Bld) [#/Vol] on 05-02-2017 Basophils (Bld) [#/Vol] 0.0 10*3/uL 0.0-0.2 [facility] Basophils/100 WBC Auto (Bld) on 05-02-2017 Basophils/100 WBC (Bld) 0.3 % . [facility] Blood hemoglobin measurement (mass/volume)on 05-02-2017 Hemoglobin (Bld) [Mass/Vol] 14.6 g/dL 11.8-15.4 [facility] Creatinine and Glomerular fi ltration rate.predicted panel (S/P/Bld)on 05-02-2017 Creatinine [Mass/Vol] 0.78 mg/dL 0.44-1.03 [facility] Eosinophils Auto (Bld) [#/Vo l]on 05-02-2017 Eosinophils (Bld) [#/Vol] 0.3 10*3/uL 0.0-0.45 [facility] Eosinophils/100 WBC Auto (Bl d)on 05-02-2017 Eosinophils/100 WBC (Bld) 4.0 % . [facility] Erythrocyte distribution wid th Auto (RBC) [Ratio]on 05-02-2017 Erythrocyte distribution width (RBC) [Ratio] 13.8 % 11.9-15.3 [facility] Estimated glomerular filtrat ion rate (GFR) non- Americanon 05-02-2017 GFR/1.73 sq M.predicted among non-blacks MDRD (S/P/Bld) [Vol rate/Area] mL/min/{1.73_m2} [facility] Globulin Calc (S) [Mass/Vol] on 05-02-2017 Globulin (S) [Mass/Vol] 2.8 g/dL [facility] Hematocrit Auto (Bld) [Volum e fraction]on 05-02-2017 Hematocrit (Bld) [Volume fraction] 42.7 % 34.0-46.4 [facility] Laboratory - Chemistry and C hemistry - challengeon 05-02-2017 GFR/1.73 sq M.predicted among blacks MDRD (S/P/Bld) [Vol rate/Area] mL/min/{1.73_m2} [facility] Comment on above: GFR estimated refere nce range: According to KDOQI guidelines, <60 ml/min/1.73m2 is sufficient to diagnose a patient with chronic kidney disease. Lymphocytes Auto (Bld) [#/Vo l]on 05-02-2017 Lymphocytes (Bld) [#/Vol] 2.2 10*3/uL 1.00-4.8 [facility] Lymphocytes/100 WBC Auto (Bl d)on 05-02-2017 Lymphocytes/100 WBC (Bld) 33.2 % . [facility] MCH Auto (RBC) [Entitic mass ]on 05-02-2017 MCH (RBC) [Entitic mass] 32.6 pg 24.7-34.3 [facility] MCHC Auto (RBC) [Mass/Vol]on 05-02-2017 MCHC (RBC) [Mass/Vol] 34.2 g/dL 32.0-35.0 [facility] MCV Auto (RBC) [Entitic vol] on 05-02-2017 MCV (RBC) [Entitic vol] 95.4 fL 80-100 [facility] Monocytes Auto (Bld) [#/Vol] on 05-02-2017 Monocytes (Bld) [#/Vol] 0.6 10*3/uL 0.0-0.8 [facility] Monocytes/100 WBC Auto (Bld) on 05-02-2017 Monocytes/100 WBC (Bld) 9.7 % . [facility] Neutrophils Auto (Bld) [#/Vo l]on 05-02-2017 Neutrophils (Bld) [#/Vol] 3.5 10*3/uL 1.8-7.7 [facility] Neutrophils/100 WBC Auto (Bl d)on 05-02-2017 Neutrophils/100 WBC (Bld) 52.8 % . [facility] No Panel Informationon 05-02 Pharmacy Creatinine Clearance (Chem 40.2865 [facility] Platelet mean volume Auto (B ld) [Entitic vol]on 05-02-2017 Platelet mean volume (Bld) [Entitic vol] 7.4 fL 6.3-10.7 [facility] Platelets Auto (Bld) [#/Vol] on 05-02-2017 Platelets (Bld) [#/Vol] 272 10*3/uL 150-450 [facility] Protein [Mass/volume] in Ser um or Plasmaon 05-02-2017 Protein [Mass/Vol] 6.7 g/dL 6.1-7.9 [facility] RBC Auto (Bld) [#/Vol]on RBC (Bld) [#/Vol] 4.47 10*6/uL 3.60-5.00 [facility] Serum or plasma alanine mazariegos otransferase measurement without P-5'-P (enzymatic activion 05-02-2017 ALT No additional P-5'-P [Catalytic activity/Vol] 21 U/L 10-60 [facility] Serum or plasma albumin/glob ulin mass ratioon 05-02-2017 Albumin/Globulin [Mass ratio] 1.4 {ratio} [facility] Serum or plasma alkaline eduardo sphatase measurement (enzymatic activity/volume)on 05-02-2017 ALP [Catalytic activity/Vol] 71 U/L 32-92 [facility] Serum or plasma aspartate am inotransferase measurement (enzymatic activity/volume)on 05-02-2017 AST [Catalytic activity/Vol] 25 U/L 10-42 [facility] Serum or plasma calcium fabian urement (mass/volume)on 05-02-2017 Calcium [Mass/Vol] 9.6 mg/dL 8.2-10.2 [facility] Serum or plasma chloride cassandra surement (moles/volume)on 05-02-2017 Chloride [Moles/Vol] 103 mmol/L 95-114 [facility] Serum or plasma glucose fabian urement (mass/volume)on 05-02-2017 Glucose [Mass/Vol] 93 mg/dL 70-100 [facility] Comment on above: ADA recommended refe rence range Random Glucose Reference Range is dependent on time and content of last meal. Glucose of more than 200 mg/dL in a nonstressed, ambulatory subject supports the diagnosis of Diabetes Mellitus. Serum or plasma potassium me asurement (moles/volume)on 05-02-2017 Potassium [Moles/Vol] 3.8 mmol/L 3.5-5.1 [facility] Serum or plasma sodium measu rement (moles/volume)on 05-02-2017 Sodium [Moles/Vol] 139 mmol/L 136-146 [facility] Serum or plasma total biliru bin measurement (mass/volume)on 05-02-2017 Bilirubin [Mass/Vol] 1.2 mg/dL 0.3-1.2 [facility] Serum or plasma total carbon dioxide measurement (moles/volume)on 05-02-2017 CO2 [Moles/Vol] 27.5 mmol/L 22.0-30.0 [facility] Serum or plasma urea nitroge n measurement (mass/volume)on 05-02-2017 Urea nitrogen [Mass/Vol] 15 mg/dL 9-23 [facility] WBC Auto (Bld) [#/Vol]on WBC (Bld) [#/Vol] 6.5 10*3/uL 3.8-11.6 [facility] Vital Signs Date Time Vital Sign Value Performing Clinician Facility 05-28-2024 10:14-0500 Body mass index (BMI) [Ratio] 27.11 kg/m2 Mariah Duran [employer] Work Phone: [facility] 05-28-2024 10:14-0500 Body temperature 97.59 [degF] Mariah Duran [employer] Work Phone: [facility] 05-28-2024 10:14-0500 Body weight 62.96 kg Mariah Duran [employer] Work Phone: [facility] 05-28-2024 10:14-0500 Diastolic blood pressure 78 mm[Hg] Mariah Duran [employer] Work Phone: [facility] 05-28-2024 10:14-0500 Heart rate 104 /min Mariah Flanneryz [employer] Work Phone: [facility] 05-28-2024 10:14-0500 Respiratory rate 20 /min Mariah Flanneryz [employer] Work Phone: [facility] 05-28-2024 10:14-0500 SaO2% (BldA) [Mass fraction] 94 % Mariah Duran [employer] Work Phone: [facility] 05-28-2024 10:14-0500 Systolic blood pressure 122 mm[Hg] Mariah Flanneryz [employer] Work Phone: [facility] 04-25-2024 13:38-0500 Body height 152.4 cm Issac Edouard [employer] Work Phone: [facility] 04-25-2024 13:38-0500 Body mass index (BMI) [Ratio] 26.56 kg/m2 Issac Edouard [employer] Work Phone: [facility] 04-25-2024 13:38-0500 Body temperature 97.2 [degF] Issac Edouard [employer] Work Phone: [facility] 04-25-2024 13:38-0500 Body weight 61.69 kg Issac Edouard [employer] Work Phone: [facility] 04-25-2024 13:38-0500 Diastolic blood pressure 78 mm[Hg] Issac Edouard [employer] Work Phone: [facility] 04-25-2024 13:38-0500 Heart rate 93 /min Issac Edouard [employer] Work Phone: [facility] 04-25-2024 13:38-0500 Respiratory rate 18 /min Issac Edouard [employer] Work Phone: [facility] 04-25-2024 13:38-0500 SaO2% (BldA) [Mass fraction] 98 % Issac Edouard [employer] Work Phone: [facility] 04-25-2024 13:38-0500 Systolic blood pressure 138 mm[Hg] Issac Edouard [employer] Work Phone: [facility] 03-19-2024 10:33-0500 Body height 152.4 cm Issac Edouard [employer] Work Phone: [facility] 03-19-2024 10:33-0500 Body mass index (BMI) [Ratio] 27.58 kg/m2 Issac Edouard [employer] Work Phone: [facility] 03-19-2024 10:33-0500 Body temperature 96.4 [degF] Issac Edouard [employer] Work Phone: [facility] 03-19-2024 10:33-0500 Body weight 64.05 kg Issac Edouard [employer] Work Phone: [facility] 03-19-2024 10:33-0500 Diastolic blood pressure 82 mm[Hg] Issac Edouard [employer] Work Phone: [facility] 03-19-2024 10:33-0500 Heart rate 87 /min Issac Edouard [employer] Work Phone: [facility] 03-19-2024 10:33-0500 Respiratory rate 16 /min Issac Edouard [employer] Work Phone: [facility] 03-19-2024 10:33-0500 SaO2% (BldA) [Mass fraction] 97 % Issac Edouard [employer] Work Phone: [facility] 03-19-2024 10:33-0500 Systolic blood pressure 144 mm[Hg] Issac Edouard [employer] Work Phone: [facility] 02-23-2024 13:27-0500 Body height 152.4 cm Ankita CORTESM Work Phone: [facility] 02-23-2024 13:27-0500 Body mass index (BMI) [Ratio] 28.12 kg/m2 Ankita Mayra DPM Work Phone: [facility] 02-23-2024 13:27-0500 Body weight 65.32 kg Ankita Mayra DPM Work Phone: [facility] 01-04-2024 13:31-0400 Body height 152.4 cm Ольга Raya MD Work Phone: [facility] 01-04-2024 13:31-0400 Body mass index (BMI) [Ratio] 27.34 kg/m2 Ольга Raya MD Work Phone: [facility] 01-04-2024 13:31-0400 Body weight 63.5 kg Ольга Ryaa MD Work Phone: [facility] 01-04-2024 13:31-0400 Diastolic blood pressure 80 mm[Hg] Ольга Raya MD Work Phone: [facility] 01-04-2024 13:31-0400 Heart rate 66 /min Ольга Raya MD Work Phone: [facility] 01-04-2024 13:31-0400 Systolic blood pressure 138 mm[Hg] Ольга Raya MD Work Phone: [facility] 12-19-2023 10:06-0400 Body height 152.4 cm Issac Cuevaszpatrick [employer] Work Phone: [facility] 12-19-2023 10:06-0400 Body mass index (BMI) [Ratio] 28.12 kg/m2 Issac Edouard [employer] Work Phone: [facility] 12-19-2023 10:06-0400 Body temperature 96.69 [degF] Issac Edouard [employer] Work Phone: [facility] 12-19-2023 10:06-0400 Body weight 65.32 kg Issac Edouard [employer] Work Phone: [facility] 12-19-2023 10:06-0400 Diastolic blood pressure 84 mm[Hg] Issac Edouard [employer] Work Phone: [facility] 12-19-2023 10:06-0400 Heart rate 81 /min Issac Edouard [employer] Work Phone: [facility] Comment on above: 95% O2 12-19-2023 10:06-0400 Systolic blood pressure 150 mm[Hg] Issac Edouard [employer] Work Phone: [facility] 04-05-2023 13:20-0500 Body height 152.4 cm Ольга Raya MD Work Phone: [facility] 04-05-2023 13:20-0500 Body mass index (BMI) [Ratio] 27.93 kg/m2 Ольга Raya MD Work Phone: [facility] 04-05-2023 13:20-0500 Body weight 64.86 kg Ольга Raya MD Work Phone: [facility] 04-05-2023 13:20-0500 Diastolic blood pressure 80 mm[Hg] Ольга Raya MD Work Phone: [facility] 04-05-2023 13:20-0500 Heart rate 60 /min Ольга Raya MD Work Phone: [facility] 04-05-2023 13:20-0500 Systolic blood pressure 120 mm[Hg] Ольга Raya MD Work Phone: [facility] 03-25-2023 10:00-0500 Body height 152.4 cm Cassie Reyez Other [employer] Other 03-25-2023 10:00-0500 Body mass index (BMI) [Ratio] 27.34 kg/m2 Cassie Reyez Other [employer] Other 03-25-2023 10:00-0500 Body temperature 98.1 [degF] Cassie Reyez Other [employer] Other 03-25-2023 10:00-0500 Body weight 63.5 kg Cassie Reyez Other [employer] Other 03-25-2023 10:00-0500 Diastolic blood pressure 66 mm[Hg] Cassie Reyez Other [employer] Other 03-25-2023 10:00-0500 Respiratory rate 18 /min Cassie Reyez Other [employer] Other 03-25-2023 10:00-0500 SaO2% (BldA) [Mass fraction] 98 % Cassie Reyez Other [employer] Other 03-25-2023 10:00-0500 Systolic blood pressure 109 mm[Hg] Cassie Reyez Other [employer] Other 01-11-2023 13:50-0400 Body height 152.4 cm Ольга Raya MD Work Phone: [facility] 01-11-2023 13:50-0400 Body mass index (BMI) [Ratio] 28.32 kg/m2 Ольга Raya MD Work Phone: [facility] 01-11-2023 13:50-0400 Body weight 65.77 kg Ольга Raya MD Work Phone: [facility] 01-11-2023 13:50-0400 Diastolic blood pressure 80 mm[Hg] Ольга Raya MD Work Phone: [facility] 01-11-2023 13:50-0400 Systolic blood pressure 138 mm[Hg] Ольга Raya MD Work Phone: [facility] 01-11-2023 13:46-0400 Heart rate 68 /min Ольга Raya MD Work Phone: [facility] 12-02-2022 14:10-0400 Diastolic blood pressure 89 mm[Hg] Shaikh Mckennawad Work Phone: [facility] [address] DO Work Phone: 12-02-2022 14:10-0400 Systolic blood pressure 165 mm[Hg] Shaikh Tereaswwad Work Phone: [facility] DO Work Phone: 12-02-2022 13:44-0400 Body height 152.4 cm Shaikh Teresawwad Work Phone: [facility] DO Work Phone: 12-02-2022 13:44-0400 Body mass index (BMI) [Ratio] 27.93 kg/m2 Shaikh Teresawwad Work Phone: [facility] DO Work Phone: 12-02-2022 13:44-0400 Body surface area Derived from formula 1.62 m2 Shaikh Teresawwad Work Phone: [facility] DO Work Phone: 12-02-2022 13:44-0400 Body weight 64.86 kg Calderon Fawwad Work Phone: [facility] DO Work Phone: 12-02-2022 13:44-0400 Diastolic blood pressure 106 mm[Hg] Shaikh Faustinad Work Phone: [facility] DO Work Phone: 12-02-2022 13:44-0400 Heart rate 70 /min Shaikh Faustinad Work Phone: [facility] DO Work Phone: 12-02-2022 13:44-0400 Systolic blood pressure 198 mm[Hg] Shaikh Kirstie Work Phone: [facility] DO Work Phone: 10-29-2022 23:00-0400 Diastolic blood pressure 81 mm[Hg] [facility] 10-29-2022 23:00-0400 Heart rate 74 /min [facility] 10-29-2022 23:00-0400 Respiratory rate 18 /min [facility] 10-29-2022 23:00-0400 SaO2% (BldA) [Mass fraction] 94 % [facility] 10-29-2022 23:00-0400 Systolic blood pressure 180 mm[Hg] [facility] 10-29-2022 20:06-0400 Body height 152.4 cm [facility] 10-29-2022 20:06-0400 Body temperature 97.7 [degF] [facility] 10-29-2022 20:06-0400 Body weight 64.05 kg [facility] 08-02-2022 10:49-0400 Body height 152.4 cm Shaikh Kirstie Work Phone: [facility] [place] [address] DO Work Phone: 08-02-2022 10:49-0400 Body mass index (BMI) [Ratio] 27.54 kg/m2 Shaikh Faustinad Work Phone: [facility] DO Work Phone: 08-02-2022 10:49-0400 Body surface area Derived from formula 1.61 m2 Shaikh Kirstie [facility] Phone: [facility] [address] DO Work Phone: 08-02-2022 10:49-0400 Body weight 63.96 kg Shaikh Faustinad [facility]: [facility] [employer] [facility] [address] DO Work Phone: 08-02-2022 10:49-0400 Diastolic blood pressure 70 mm[Hg] Shaikh Kirstie Work Phone: [facility] [facility] [address] DO Work Phone: 08-02-2022 10:49-0400 Heart rate 84 /min Shaikh Faustinad Work Phone: [facility] [employer] [address] DO Work Phone: 08-02-2022 10:49-0400 Systolic blood pressure 132 mm[Hg] Shaikh Kirstie Work Phone: [facility] [employer] [address] DO Work Phone: 06-18-2022 13:35-0400 Body height 152.4 cm Cassie Reyez Other [employer] Other 06-18-2022 13:35-0400 Body mass index (BMI) [Ratio] 27.34 kg/m2 Cassie Reyez Other [employer] Other 06-18-2022 13:35-0400 Body temperature 97.9 [degF] Cassie Reyez Other [employer] Other 06-18-2022 13:35-0400 Body weight 63.5 kg Cassie Reyez Other [employer] Other 06-18-2022 13:35-0400 Respiratory rate 18 /min Cassie Reyez Other [employer] Other 06-18-2022 13:35-0400 SaO2% (BldA) [Mass fraction] 93 % Cassie Reyez Other [employer] Other 03-09-2022 13:17-0500 Diastolic blood pressure 80 mm[Hg] Shaikh Mckennawad Work Phone: [facility] DO Work Phone: 03-09-2022 13:17-0500 Systolic blood pressure 132 mm[Hg] Shaikh Mckennawad Work Phone: [facility] DO Work Phone: 03-09-2022 13:16-0500 Body height 152.4 cm Shaikh Mckennawad Work Phone: [facility] DO Work Phone: 03-09-2022 13:16-0500 Body mass index (BMI) [Ratio] 27.73 kg/m2 Shaikh Mckennawad Work Phone: [facility] DO Work Phone: 03-09-2022 13:16-0500 Body surface area Derived from formula 1.61 m2 Shaikh Mckennawad Work Phone: [facility] DO Work Phone: 03-09-2022 13:16-0500 Body weight 64.41 kg Shaikh Mckennawad Work Phone: [facility] DO Work Phone: 03-09-2022 13:16-0500 Diastolic blood pressure 84 mm[Hg] Shaikh Teresawwad Work Phone: [facility] [employer] [address] DO Work Phone: 03-09-2022 13:16-0500 Systolic blood pressure 138 mm[Hg] Shaikh Kirstie Work Phone: [facility] [address] DO Work Phone: 02-26-2022 11:40-0500 Body height 152.4 cm Ganesh Coronel Other [employer] Other 02-26-2022 11:40-0500 Body mass index (BMI) [Ratio] 27.73 kg/m2 Ganesh Coronel Other [employer] Other 02-26-2022 11:40-0500 Body temperature 97.7 [degF] Ganesh Coronel Other [employer] Other 02-26-2022 11:40-0500 Body weight 64.41 kg Ganesh Coronel Other [employer] Other 02-26-2022 11:40-0500 Diastolic blood pressure 66 mm[Hg] Ganesh Coronel Other [employer] Other 02-26-2022 11:40-0500 Respiratory rate 18 /min Ganesh Coronel Other [employer] Other 02-26-2022 11:40-0500 SaO2% (BldA) [Mass fraction] 95 % Ganesh Coronel Other [employer] Other 02-26-2022 11:40-0500 Systolic blood pressure 119 mm[Hg] Ganesh Coronel Other [employer] Other 02-12-2022 13:00-0500 Body height 152.4 cm Cassie Reyez Other [employer] Other 02-12-2022 13:00-0500 Body mass index (BMI) [Ratio] 27.5 kg/m2 Cassie Reyez Other [employer] Other 02-12-2022 13:00-0500 Body temperature 97.7 [degF] Cassie Reyez Other [employer] Other 02-12-2022 13:00-0500 Body weight 63.87 kg Cassie Reyez Other [employer] Other 02-12-2022 13:00-0500 Diastolic blood pressure 77 mm[Hg] Cassie Reyez Other [employer] Other 02-12-2022 13:00-0500 Respiratory rate 18 /min Cassie Reyez Other [employer] Other 02-12-2022 13:00-0500 SaO2% (BldA) [Mass fraction] 96 % Cassie Reyez Other [employer] Other 02-12-2022 13:00-0500 Systolic blood pressure 152 mm[Hg] Cassie Ninamond Other [employer] Other 01-26-2022 13:36-0400 Diastolic blood pressure 78 mm[Hg] Shaikh Kirstie Work Phone: [facility] [employer] [facility] DO Work Phone: 01-26-2022 13:36-0400 Diastolic blood pressure 88 mm[Hg] Shaikh Kirstie Work Phone: [facility] DO Work Phone: 01-26-2022 13:36-0400 Systolic blood pressure 144 mm[Hg] Shaikh Mckennawad Work Phone: [facility] DO Work Phone: 01-26-2022 13:36-0400 Systolic blood pressure 150 mm[Hg] Shaikh Mckennawad Work Phone: [facility] DO Work Phone: 01-26-2022 13:31-0400 Diastolic blood pressure 80 mm[Hg] Shaikh Mckennawad Work Phone: [facility] DO Work Phone: 01-26-2022 13:31-0400 Systolic blood pressure 142 mm[Hg] Shaikh Mckennawad Work Phone: [facility] DO Work Phone: 01-26-2022 13:30-0400 Body height 152.4 cm Shaikh Mckennawad Work Phone: [facility] DO Work Phone: 01-26-2022 13:30-0400 Body mass index (BMI) [Ratio] 27.54 kg/m2 Shaikh Mckennawad Work Phone: [facility] DO Work Phone: 01-26-2022 13:30-0400 Body surface area Derived from formula 1.61 m2 Shaikh Mckennawad Work Phone: [facility] DO Work Phone: 01-26-2022 13:30-0400 Body weight 63.96 kg Shaikh Mckennawad Work Phone: [facility] DO Work Phone: 01-26-2022 13:30-0400 Diastolic blood pressure 80 mm[Hg] Shaikh Mckennawad Work Phone: [facility] DO Work Phone: 01-26-2022 13:30-0400 Heart rate 64 /min Shaikh Faustinad Work Phone: [facility] DO Work Phone: 01-26-2022 13:30-0400 Systolic blood pressure 152 mm[Hg] Shaikh Faustinad Work Phone: [facility] DO Work Phone: 12-17-2021 12:00-0400 Body height 152.4 cm Juani Whitney Other [employer] Other 12-17-2021 12:00-0400 Body mass index (BMI) [Ratio] 27.34 kg/m2 Juani Whitney Other [employer] Other 12-17-2021 12:00-0400 Body temperature 97.4 [degF] Juani Whitney Other [employer] Other 12-17-2021 12:00-0400 Body weight 63.5 kg Juani Whitney Other [employer] Other 12-17-2021 12:00-0400 Diastolic blood pressure 77 mm[Hg] Juain Whitney Other [employer] Other 12-17-2021 12:00-0400 Respiratory rate 16 /min Juani Whitney Other [employer] Other 12-17-2021 12:00-0400 SaO2% (BldA) [Mass fraction] 99 % Juani Whitney Other [employer] Other 12-17-2021 12:00-0400 Systolic blood pressure 138 mm[Hg] Juani Whtiney Other [employer] Other 11-09-2021 11:15-0400 Body height 152.4 cm Gabbi Velásquez Other [employer] Other 11-09-2021 11:15-0400 Body mass index (BMI) [Ratio] 27.73 kg/m2 Gabbi Velásquez Other [employer] Other 11-09-2021 11:15-0400 Body temperature 96.2 [degF] Gabbi Velásquez Other [employer] Other 11-09-2021 11:15-0400 Body weight 64.41 kg Gabbi Velásquez Other [employer] Other 11-09-2021 11:15-0400 Respiratory rate 18 /min Gabbi Velásquez Other [employer] Other 11-09-2021 11:15-0400 SaO2% (BldA) [Mass fraction] 94 % Gabbi Angelesault Other [employer] Other 08-26-2021 15:10-0400 Body height 152.4 cm Angel Titus Work Phone: [facility] DO Work Phone: 08-26-2021 15:10-0400 Body mass index (BMI) [Ratio] 28.32 kg/m2 Angel Titus Work Phone: [facility] DO Work Phone: 08-26-2021 15:10-0400 Body surface area Derived from formula 1.63 m2 Angel Titus Work Phone: [facility] DO Work Phone: 08-26-2021 15:10-0400 Body weight 65.77 kg Angel Titus Work Phone: [facility] DO Work Phone: 08-26-2021 15:10-0400 Diastolic blood pressure 80 mm[Hg] Angel Titus Work Phone: [facility] DO Work Phone: 08-26-2021 15:10-0400 Heart rate 76 /min Angel Titus Work Phone: [facility] DO Work Phone: 08-26-2021 15:10-0400 Systolic blood pressure 156 mm[Hg] Angel Titus Work Phone: [facility] DO Work Phone: 06-20-2021 15:15-0400 Diastolic blood pressure 98 mm[Hg] MD Angel Titus Work Phone: [facility] 06-20-2021 15:15-0400 Systolic blood pressure 182 mm[Hg] MD Angel Titus Work Phone: [facility] 06-20-2021 14:26-0400 Body height 152.4 cm MD Angel Titus Work Phone: [facility] 06-20-2021 14:26-0400 Body mass index (BMI) [Ratio] 27.8 kg/m2 MD Angel Titus Work Phone: [facility] 06-20-2021 14:26-0400 Body temperature 98.3 [degF] MD Angel Titus Work Phone: [facility] 06-20-2021 14:26-0400 Body weight 64.8 kg MD Angel Titus Work Phone: [facility] 06-20-2021 14:26-0400 Heart rate 82 /min MD Angel Titus Work Phone: [facility] 06-20-2021 14:26-0400 Respiratory rate 18 /min MD Angel Titus Work Phone: [facility] 06-20-2021 14:26-0400 SaO2% (BldA) [Mass fraction] 96 % MD Angel Titus Work Phone: [facility] 04-08-2021 16:08-0500 Body height 152.4 cm Angel Titus Work Phone: [facility] DO Work Phone: 04-08-2021 16:08-0500 Body mass index (BMI) [Ratio] 28.75 kg/m2 Angel Titus Work Phone: [facility] DO Work Phone: 04-08-2021 16:08-0500 Body surface area Derived from formula 1.64 m2 Angel Titus Work Phone: [facility] 250 DO Work Phone: 04-08-2021 16:08-0500 Body weight 66.77 kg Angel Titus Work Phone: [facility] 250 DO Work Phone: 04-08-2021 16:08-0500 Diastolic blood pressure 106 mm[Hg] Angel Titus Work Phone: [facility] 250 DO Work Phone: 04-08-2021 16:08-0500 Heart rate 78 /min Angel Titus Work Phone: [facility] 250 DO Work Phone: 04-08-2021 16:08-0500 Systolic blood pressure 160 mm[Hg] Angel Titus Work Phone: [facility] 250 DO Work Phone: 10-17-2020 10:02-0400 Body temperature 97 [degF] MD Angel Titus Work Phone: [facility] 10-17-2020 10:02-0400 Body weight 65.9 kg MD Angel Titus Work Phone: [facility] 10-17-2020 10:02-0400 Diastolic blood pressure 83 mm[Hg] MD Angel Titus Work Phone: [facility] 10-17-2020 10:02-0400 Heart rate 76 /min MD Angel Titus Work Phone: [facility] 10-17-2020 10:02-0400 Respiratory rate 20 /min MD Angel Titus Work Phone: [facility] 10-17-2020 10:02-0400 SaO2% (BldA) [Mass fraction] 99 % MD Angel Titus Work Phone: [facility] 10-17-2020 10:02-0400 Systolic blood pressure 141 mm[Hg] MD Angel Titus Work Phone: [facility] 05-08-2020 14:28-0500 Body height 152.4 cm MD Angel Titus Work Phone: [facility] Encounters Encounter Date Encounter Type Care Provider Facility Start: 05-28-2024 End: 05-28-2024 Bamboo flowsheet Mariah Duran [employer] Work Phone: [facility] Start: 05-28-2024 End: 05-28-2024 Bamboo flowsheet Mariah Duran [employer] OPERATOR Work Phone: [facility] Start: 05-28-2024 End: 05-28-2024 Office outpatient visit 25 minutes Mariah Duran [employer]ATION OPERATOR Work Phone: [facility] Comment on above: Dyspnea, unspecified type (Primary Dx); Pulmonary fibrosis, unspecified (CMS/HCC); Paroxysmal atrial fibrillation (CMS/HCC); Mild intermittent reactive airway disease with wheezing without complication (CMS/HCC); Benign essential hypertension (CMS/HCC); Chronic heart failure with preserved ejection fraction (CMS/HCC); Sick sinus syndrome due to SA node dysfunction (CMS/HCC); Gastroesophageal reflux disease without esophagitis; Anticoagulated on Coumadin; 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) Start: 05-28-2024 End: 05-28-2024 ambulatory MARIAH DURAN Not Available Start: 05-18-2024 End: 05-18-2024 ambulatory Ольга Raya Facility:[facility] Start: 05-18-2024 Non-patient / Non-visit [facility] Start: 05-17-2024 End: 05-17-2024 Emergency department patient visit ISSAC EDOUARD [facility] Start: 05-11-2024 End: 05-11-2024 ambulatory [facility] Start: 04-26-2024 End: 04-26-2024 ambulatory [facility] Start: 04-26-2024 End: 04-26-2024 Follow-up encounter [facility] Comment on above: prison (current) use of anticoagulants (Primary Dx) Start: 04-25-2024 Non-patient / Non-visit [facility] Work Phone: Start: 04-25-2024 End: 04-25-2024 Bamboo flowsheet Issac Edouard [employer] OPERATOR Work Phone: [facility] Start: 04-25-2024 End: 04-25-2024 Bamboo flowsheet Issac Cuevaszpatrick [employer] OPERATOR Work Phone: [facility] Start: 04-25-2024 End: 04-25-2024 ambulatory ISSAC EDOUARD Not Available Start: 04-25-2024 End: 04-25-2024 Office outpatient visit 10 minutes Issac Vegaspatrick [employer] OPERATOR Work Phone: [facility] Comment on above: Chronic heart failur e with preserved ejection fraction (CMS/HCC) (Primary Dx) Start: 04-05-2024 End: 04-05-2024 ambulatory [facility] Start: 03-19-2024 End: 03-19-2024 Bamboo flowsheet Issac Davidsontrick [employer] OPERATOR Work Phone: [facility] Start: 03-19-2024 End: 03-19-2024 Bamboo flowsheet Issac Edouard [employer] OPERATOR Work Phone: [facility] Start: 03-19-2024 End: 03-19-2024 ambulatory ISSAC EDOUARD Not Available Start: 03-19-2024 End: 03-19-2024 Office outpatient visit 15 minutes Issac Cuevaszpatrick [employer] OPERATOR Work Phone: [facility] Comment on above: Primary hypertension (CMS/HCC) (Primary Dx); Gastroesophageal reflux disease without esophagitis; Benign essential hypertension (CMS/HCC); Paroxysmal atrial fibrillation (CMS/HCC); Allergic rhinitis, unspecified seasonality, unspecified trigger; Reactive airway disease with wheezing without complication, unspecified asthma severity, unspecified whether persistent (CMS/HCC) Start: 03-07-2024 End: 03-07-2024 ambulatory [facility] Start: 02-23-2024 End: 02-23-2024 Bamboo flowsheet Ankita Nunez DPM Work Phone: [facility] Start: 02-23-2024 End: 02-23-2024 Bamboo flowsheet Ankita Nunez DPM Work Phone: [facility] Start: 02-23-2024 End: 02-23-2024 Office outpatient visit 15 minutes Ankita Nunez DPM Work Phone: [facility] Comment on above: Paronychia of great toe of right foot (Primary Dx); Onychocryptosis; Pain of right great toe; Difficulty walking Start: 02-23-2024 End: 02-23-2024 ambulatory ANKITA NUNEZ Not Available Start: 02-21-2024 End: 02-21-2024 ambulatory [facility] Start: 02-17-2024 End: 02-17-2024 ambulatory Toney Prajapati Facility:[facility] Start: 02-17-2024 Non-patient / Non-visit [facility] Start: 02-13-2024 End: 02-13-2024 Patient encounter procedure [facility] [place] Work Phone: Start: 02-13-2024 End: 02-13-2024 ambulatory NON STAFF [facility] Work Phone: Start: 01-24-2024 End: 01-24-2024 ambulatory [facility] Start: 01-10-2024 End: 01-10-2024 ambulatory [facility] Start: 01-04-2024 End: 01-04-2024 Office outpatient visit 25 minutes Ольга Raya MD Work Phone: [facility] Comment on above: Paroxysmal atrial fi brillation (Multi); Benign essential hypertension; Sick sinus syndrome due to SA node dysfunction (Multi); Atypical chest pain; Bradycardia; Pacemaker; Anticoagulated; Overweight with body mass index (BMI) of 27 to 27.9 in adult Start: 01-04-2024 End: 01-04-2024 ambulatory [facility] Start: 01-03-2024 Non-patient / Non-visit [facility] Start: 12-19-2023 End: 12-19-2023 Bamboo flowsheet Issac Edouard [employer] OPERATOR Work Phone: [facility] Start: 12-19-2023 End: 12-19-2023 Bamboo flowsheet Issac Davidsontrick [employer]ATION OPERATOR Work Phone: [facility] Start: 12-19-2023 End: 12-19-2023 ambulatory ISSAC DAVIDSONTRICK Not Available Start: 12-19-2023 End: 12-19-2023 Office outpatient visit 15 minutes Issac Edouard [employer] OPERATOR Work Phone: [facility] Comment on above: Benign essential hyp ertension (CMS/HCC) (Primary Dx); Gastroesophageal reflux disease without esophagitis; Seasonal allergic rhinitis, unspecified trigger; Chronic heart failure with preserved ejection fraction (CMS/HCC); Thumb pain, right Start: 12-13-2023 End: 12-13-2023 ambulatory [facility] Start: 11-18-2023 End: 11-18-2023 Patient encounter procedure MD Shaikh Thacker Work Phone: [facility]Pac[facility] Check Start: 11-18-2023 End: 11-18-2023 ambulatory MD Shaikh Thacker Work Phone: [facility] Work Phone: Start: 11-09-2023 End: 11-09-2023 ambulatory [facility] Start: 10-24-2023 End: 10-24-2023 Patient encounter procedure MD Shaikh Thacker Work Phone: [facility] Work Phone: Start: 10-24-2023 End: 10-24-2023 ambulatory MD Shaikh Thacker Work Phone: [facility] Work Phone: Start: 10-24-2023 End: 10-24-2023 ambulatory [facility] Start: 10-17-2023 End: 10-17-2023 ambulatory ANKITA NUNEZ Not Available Start: 10-07-2023 End: 10-07-2023 ambulatory [facility] Start: 09-30-2023 End: 09-30-2023 ambulatory [facility] Start: 09-26-2023 End: 09-26-2023 ambulatory SHAIKH FAUSTINAJim Not Available Start: 09-02-2023 End: 09-02-2023 ambulatory [facility] Start: 08-23-2023 End: 08-23-2023 ambulatory SHAIKH MCKENNAMDJim [facility] Start: 08-18-2023 End: 08-18-2023 Patient encounter procedure MD Shaikh Thacker Work Phone: [facility]Pac[facility] Check Start: 08-18-2023 End: 08-18-2023 ambulatory MD Shaikh Thacker Work Phone: [facility] Work Phone: Start: 08-04-2023 End: 08-04-2023 ambulatory [facility] Start: 08-04-2023 End: 09-03-2023 ambulatory [facility] Start: 07-28-2023 End: 07-28-2023 ambulatory KIRSTIE Not Available Start: 07-08-2023 End: 07-08-2023 ambulatory [facility] Start: 06-23-2023 Patient encounter procedure Issac Edouard NP Work Phone: [facility] Start: 06-23-2023 End: 06-23-2023 ambulatory CALDERONMarsha THACKER Not Available Start: 06-10-2023 End: 06-10-2023 ambulatory [facility] Start: 02-05-2024 Orders Only Shaikh Kirstie BRITO Work Phone: [facility] Comment on above: Benign essential hyp ertension (CMS/HCC) (Primary Dx) Start: 04-05-2023 End: 04-05-2023 Office outpatient visit 25 minutes Ольга Raya MD Work Phone: [facility] Comment on above: Benign essential hyp ertension (Primary Dx); Pacemaker; Sick sinus syndrome due to SA node dysfunction (CMS/HCC); Anticoagulated; Overweight with body mass index (BMI) of 27 to 27.9 in adult Start: 03-25-2023 End: 03-25-2023 ambulatory Cassie Reyez Other [facility] [employer] Other Start: 03-25-2023 Office outpatient vi sit 15 minutes Cassie Reyez [facility] Start: 01-11-2023 End: 01-11-2023 Office outpatient visit 10 minutes Ольга Raya MD Work Phone: [facility] Comment on above: Benign essential hyp ertension (Primary Dx) Start: 12-02-[address] Ольга Raya Facility: Start: 12-02-2022 Office outpatient vi sit 25 minutes Shaikh Kirstie Work Phone: [facility] 250 DO Work Phone: Start: 12-02-2022 End: 12-02-2022 ambulatory NON STAFF [facility] Work Phone: Start: 12-02-2022 End: 12-02-2022 Patient encounter procedure [facility] [place] Work Phone: Start: 10-29-2022 End: 10-29-2022 Emergency department patient visit [facility] Work Phone: Start: 10-29-2022 End: 10-29-2022 ambulatory NON STAFF [facility] Work Phone: Start: 10-29-2022 End: 10-29-2022 Patient encounter procedure [facility]-Pac[facility] Check Start: 10-29-[address] Ольга Raya Facility:[id number] Start: 10-21-2022 Chart Update Shaikh Kirstie Work Phone: [facility] 250 DO Work Phone: Start: 10-21-2022 End: 10-21-2022 ambulatory NON STAFF [facility] Work Phone: Start: 10-21-2022 End: 10-21-2022 Patient encounter procedure MD Ольга Raya Work Phone: [facility] Work Phone: Start: 09-20-2022 Rx Renewal Shaikh Kirstie Work Phone: [facility] [address] [place] Work Phone: Start: 08-26-2022 End: 08-26-2022 Patient encounter procedure MD Ольга Raya Work Phone: [facility]-CT Scan [facility] [place] Work Phone: Start: 08-02-[address] Ольга Raya Facility: Start: 08-02-2022 Office outpatient vi sit 25 minutes Shaikh Kirstie Work Phone: [facility] 600 DO Work Phone: Start: 07-27-[address] Ольга Raya Facility:[id number] Start: 07-27-2022 End: 07-27-2022 ambulatory NON STAFF [facility] Work Phone: Start: 07-27-2022 End: 07-27-2022 Patient encounter procedure MD Ольга Raya Work Phone: [facility]Pacemaker Check Start: 06-18-2022 End: 06-18-2022 ambulatory Cassie Aissatou Other [employer] Other Start: 06-18-2022 Office outpatient vi sit 15 minutes Cassie Aissatou [facility] Start: 03-09-2022 Office outpatient vi sit 5 minutes Calderon Teresawwad Work Phone: [facility] 250 DO Work Phone: Start: 03-09-[address] Ольга Raya Facility: Start: 02-26-2022 End: 02-26-2022 ambulatory Ganesh Coronel Other [employer] Other Start: 02-26-2022 Office outpatient vi sit 15 minutes Ganesh Coronel [facility] Start: 02-12-2022 Office outpatient vi sit 25 minutes Cassie Aissatou [facility] Start: 02-12-2022 End: 02-12-2022 ambulatory DO Lazara G Mayur Work Phone: [facility] Work Phone: Start: 02-12-2022 End: 02-12-2022 Departed Referred DO Lazara Mayur Work Phone: [facility] [place] Start: 01-26-2022 Office outpatient vi sit 10 minutes Calderon Teresawwad Work Phone: [facility] 250 DO Work Phone: Start: 01-26-[address] Ольга Raya Facility: Start: 01-21-2022 End: 01-21-2022 Patient encounter procedure DO Lazara Mayur Work Phone: [facility]Pac[facility] Check Start: 01-21-[address] Ольга Raya Facility:[id number] Start: 12-17-2021 End: 12-17-2021 ambulatory Juani Whitney Other [employer] Other Start: 12-17-2021 Office outpatient vi sit 15 minutes Juani Whitney [facility] Start: 12-17-2021 End: 12-17-2021 Departed Referred MD Angel Titus Work Phone: [facility] [place] Start: 11-09-2021 End: 11-09-2021 ambulatory Gabbi Velásquez Other [facility] [employer] Other Start: 11-09-2021 Office outpatient vi sit 15 minutes Gabbi Velásquez [facility] Start: 10-22-2021 End: 10-22-2021 Patient encounter procedure MD Angel Titus Work Phone: [facility] Check Start: 10-19-2021 Registered Recurring MD Yadira Titus Work Phone: [facility] Start: 08-26-2021 Office outpatient vi sit 25 minutes Angel Titus Work Phone: [facility] 250 DO Work Phone: Start: 07-22-2021 End: 07-22-2021 Patient encounter procedure MD Angel Titus Work Phone: [facility] Check Start: 07-06-2021 Rx Renewal Angel garcia Work Phone: [facility] 250 DO Work Phone: Start: 06-20-2021 End: 06-20-2021 Emergency department patient visit MD Angel Titus Work Phone: [facility] Start: 05-05-2021 End: 05-05-2021 Patient encounter procedure MD Angel Titus Work Phone: [facility] Check Start: 04-08-2021 Office outpatient vi sit 25 minutes Angel Titus Work Phone: [facility] 250 DO Work Phone: Start: 01-29-2021 AUDIT Angel garcia Work Phone: [facility] 250[address] [place] Work Phone: Procedures Date Procedure Procedure Detail Performing Clinician Start: 04-26-2024 Prothrombin time [employer] Work Phone: Start: 10-24-2023 End: 10-24-2023 Screening mammography of bilateral breasts MD Shaikh Thacker Work Phone: Start: 10-29-2022 CT of head without contrast Start: 10-29-2022 Plain chest X-ray Start: 10-21-2022 Screening mammograph y of bilateral breasts MD Ольга Raya Work Phone: Start: 10-02-2022 Mammography Shaikh Mckenna izaguirre MD Work Phone: Start: 08-26-2022 Computed tomography of abdomen and pelvis with contrast MD Ольга Raya Work Phone: Start: 06-25-2022 Colonoscopy Issac carmona NP Work Phone: Start: 10-19-2021 Screening mammograph y of bilateral breasts MD Angel Titus Work Phone: Start: 10-15-2020 End: 10-15-2020 Bilateral mammography MD Angel Titus Work Phone: Start: 05-05-2020 Dual energy X-ray absorptiometry MD Angel Titus Work Phone: Start: 10-15-2019 Bilateral mammography Michael Titus Work Phone: Start: 10-10-2018 Bilateral mammography M Jim Titus Work Phone: Start: 05-11-2018 Colonoscopy Shaikh Mckenna izaguirre MD Work Phone: Start: 05-05-2018 Total colonoscopy Lorenzo Titus Work Phone: Start: 05-01-2018 Dual energy X-ray absorptiometry MD Angel Titus Work Phone: Start: 09-26-2017 Screening mammography M Jim Titus Work Phone: Start: 05-02-2017 CT chest w con MD Lorenzo Titus Work Phone: Start: 12-29-2016 CT chest w [...] Activity Detail Author Start: 06-25-2032 Screening for malignant neoplasm of colon [facility] Start: 05-11-2028 Screening for malignant neoplasm of colon [facility] Start: 06-26-2027 Screening for malignant neoplasm of colon Colonoscopy [facility] Start: 10-23-2024 Screening for malignant neoplasm of breast Mammogram [facility] Start: 07-04-2024 End: 07-04-2024 Patient encounter procedure 07/04/2024 10:40 AM EDT Office Visit [place] [address] [address] [facility] [address] [place] [address] Ольга Raya MD [address] [facility] [address] [place] [address] [facility] Start: 06-22-2024 End: 06-22-2024 Patient encounter procedure 06/22/2024 10:45 AM EDT Office Visit [facility] [address] [place] [id number] Deepak Alvarado MD [address] [place] [address] [facility] Start: 06-21-2024 End: 06-21-2024 Patient encounter procedure 06/21/2024 10:30 AM EDT Office Visit [facility] [address] [place] [phone] Issac Edouard NP [address] [place] [phone] [facility] Start: 05-28-2024 End: 05-28-2025 CBC W Auto Differential panel - Blood CBC and differential Lab Routine Paroxysmal atrial fibrillation (CMS/HCC) Chronic heart failure with preserved ejection fraction (CMS/HCC) Gastroesophageal reflux disease without esophagitis Anticoagulated on Coumadin Expected: 05/28/2024 (Approximate), Expires: 05/28/2025 [facility] Work Phone: Comment on above: Expected: 05/28/2024 (Approximate), Expi res: 05/28/2025 Start: 05-28-2024 End: 05-28-2025 Comprehensive metabolic 2000 panel - Serum or Plasma Comprehensive metabolic panel Lab Routine Benign essential hypertension (CMS/HCC) Chronic heart failure with preserved ejection fraction (CMS/HCC) Expected: 05/28/2024 (Approximate), Expires: 05/28/2025 [facility] Comment on above: Expected: 05/28/2024 (Approximate), Expi res: 05/28/2025 Start: 05-28-2024 End: 05-28-2025 CT Chest W contrast IV CT chest w IV contrast Imaging Routine Paroxysmal atrial fibrillation (CMS/HCC) Chronic heart failure with preserved ejection fraction (CMS/HCC) 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) Dyspnea, unspecified type Expected: 05/28/2024 (Approximate), Expires: 05/28/2025 [facility] Comment on above: Expected: 05/28/2024 (Approximate), Expi res: 05/28/2025 Start: 05-28-2024 End: 05-28-2025 Iron and Iron binding capacity panel - Serum or Plasma Iron level Lab Routine Chronic heart failure with preserved ejection fraction (CMS/HCC) Expected: 05/28/2024 (Approximate), Expires: 05/28/2025 [facility] Comment on above: Expected: 05/28/2024 (Approximate), Expi res: 05/28/2025 Start: 05-28-2024 End: 05-28-2025 Lipid 1996 panel - Serum or Plasma Lipid panel Lab Routine Benign essential hypertension (CMS/HCC) Chronic heart failure with preserved ejection fraction (CMS/HCC) Expected: 05/28/2024 (Approximate), Expires: 05/28/2025 [facility] Comment on above: Expected: 05/28/2024 (Approximate), Expi res: 05/28/2025 Start: 05-28-2024 End: 05-28-2025 Microalbumin/Creatinine panel in random Urine Microalbumin / creatinine, urine ratio Lab Routine Benign essential hypertension (CMS/HCC) Expected: 05/28/2024 (Approximate), Expires: 05/28/2025 [facility] Comment on above: Expected: 05/28/2024 (Approximate), Expi res: 05/28/2025 Start: 05-28-2024 End: 05-28-2025 Natriuretic peptide B [Mass/volume] in Blood B-type natriuretic peptide Lab Routine Chronic heart failure with preserved ejection fraction (CMS/HCC) Expected: 05/28/2024 (Approximate), Expires: 05/28/2025 [facility] Comment on above: Expected: 05/28/2024 (Approximate), Expi res: 05/28/2025 Start: 05-28-2024 End: 05-28-2025 Urinalysis complete panel - Urine Urinalysis with reflex microscopic (clean catch) Lab Routine Benign essential hypertension (CMS/HCC) Expected: 05/28/2024 (Approximate), Expires: 05/28/2025 [facility] Comment on above: Expected: 05/28/2024 (Approximate), Expi res: 05/28/2025 Start: 05-28-2024 End: 05-28-2024 Patient encounter procedure 05/28/2024 10:00 AM EST Office Visit [facility] [address] [place] [address] Mariah Duran NP [address] [place] [phone] Mild intermittent reactive airway disease with wheezing without complication (CMS/HCC) (Primary Dx); Pulmonary fibrosis, unspecified (CMS/HCC); Paroxysmal atrial fibrillation (CMS/HCC); Benign essential hypertension (CMS/HCC); Chronic heart failure with preserved ejection fraction (CMS/HCC); Sick sinus syndrome due to SA node dysfunction (CMS/HCC); Gastroesophageal reflux disease without esophagitis; Anticoagulated on Coumadin; 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) [facility] Comment on above: Mild intermittent reactive airway diseas e with wheezing without complication (CMS/HCC) (Primary Dx); Pulmonary fibrosis, unspecified (CMS/HCC); Paroxysmal atrial fibrillation (CMS/HCC); Benign essential hypertension (CMS/HCC); Chronic heart failure with preserved ejection fraction (CMS/HCC); Sick sinus syndrome due to SA node dysfunction (CMS/HCC); Gastroesophageal reflux disease without esophagitis; Anticoagulated on Coumadin; 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) Start: 05-11-2024 End: 05-11-2024 Follow-up encounter 05/11/2024 10:45 AM EST Follow Up Anticoagulation [facility] Medication Therapy Management [address] [place] [address] [facility] Start: 03-19-2024 End: 03-19-2024 Patient encounter procedure 03/19/2024 10:30 AM EST Office Visit [facility] [address] [place] [address] Issac Edouard NP [address] [place] [phone] [facility] Start: 02-23-2024 End: 02-23-2024 Patient encounter procedure 02/23/2024 1:30 PM EST Office Visit [facility] [address] [place] [place] [phone] Ankita Nunez DPM [address] [place] [address] Arrived [facility] Comment on above: Arrived Start: 01-04-2024 End: 01-04-2024 Patient encounter procedure 01/04/2024 1:20 PM EDT Office Visit [facility] [address] [facility] [address] [place] [phone] Ольга Raya MD [address] [facility] [place], [place] [phone] [facility] Start: 12-04-2023 COVID-19 Vaccine ( season) COVID-19 Vaccine ( season) [facility] Start: 12-04-2023 Influenza vaccination Influenza Vaccine (#1) [facility] Start: 10-03-2023 Screening for malignant neoplasm of breast Mammogram [facility] Start: 07-25-2023 Adult BMI Screening Adult BMI Screening [facility] Start: 07-25-2023 Tobacco Screening Tobacco Screening [facility] Start: 06-23-2023 Echocardiography Echocardiogram [facility] Start: 06-23-2023 End: 06-23-2023 Patient encounter procedure 06/23/2023 11:00 AM EDT Office Visit [facility] [address] [place] [address] Shaikh Thacker MD [address] [place] [address] [facility] Start: 06-22-2023 Screening for malignant neoplasm of colon FOBT [facility] Start: 04-05-2023 FUV, Provider: Ольга Raya, Status: Pen, Time: 1:10 PM FUV, Provider: Ольга Raya, Status: Pen, Time: 1:10 PM [facility] 250 DO Work Phone: Start: 04-05-2023 End: 04-05-2023 Patient encounter procedure 04/05/2023 1:10 PM EST Office Visit [facility] [address] [facility] [place] [id number] Ольга Raya MD [address] [place] [address] [facility] Start: 03-11-2023 Zoster Vaccines (2 of 2) Zoster Vaccines (2 of 2) [facility] Start: 01-11-2023 NURSEVST, Provider: JAMEY ALMEIDA SENIOR BI ARCHITECT 1,[id number], Status: Pen, Time: 1:00 PM NURSEVST, Provider: JAMEY ALMEIDA SENIOR BI ARCHITECT 1,[id number], Status: Pen, Time: 1:00 PM [facility] 250 DO Work Phone: Start: 12-03-2022 Influenza vaccination Influenza Vaccine (#1) [facility] Start: 12-02-2022 FUV, Provider: Ольга Raya, Status: Pen, Time: 1:20 PM FUV, Provider: Ольга Raya, Status: Pen, Time: 1:20 PM [facility] 600 DO Work Phone: Start: 12-02-2022 [facility] Start: 10-29-2022 CT of head without contrast CT head/brain wo con [facility] Start: 10-29-2022 CT Unspecified body region WO contrast [facility] Start: 10-29-2022 Plain chest X-ray XR chest 1V portable [facility] Start: 10-29-2022 XR Chest Single view [facility] Start: 08-26-2022 FUV, Provider: Ольга Raya, Status: Pen, Time: 1:10 PM FUV, Provider: Ольга Raya, Status: Pen, Time: 1:10 PM -[facility] 250 DO Work Phone: Start: 05-05-2022 Screening for osteoporosis Bone Density Scan [facility] Start: 03-09-2022 NURSEVST, Provider: JAMEY ALMEIDA SENIOR BI ARCHITECT 1,[id number], Status: Pen, Time: 1:00 PM NURSEVST, Provider: JAMEY ALMEIDA SENIOR BI ARCHITECT 1,[id number], Status: Pen, Time: 1:00 PM -[facility] 250 DO Work Phone: Start: 10-15-2021 Screening for malignant neoplasm of breast Mammogram [facility] Start: 10-13-2021 NURSEVST, Provider: JAMEY ALMEIDA SENIOR BI ARCHITECT 1,[id number], Status: Pen, Time: 2:30 PM NURSEVST, Provider: JAMEY ALMEIDA SENIOR BI ARCHITECT 1,[id number], Status: Pen, Time: 2:30 PM [facility] 250 DO Work Phone: Start: 08-26-2021 FUV, Provider: Ольга Raya, Status: Pen, Time: 2:40 PM FUV, Provider: Ольга Raya, Status: Pen, Time: 2:40 PM -[facility] 250 DO Work Phone: Start: 05-19-2021 FUV, Provider: Ольга Raya, Status: Pen, Time: 12:50 PM -[facility] 250 DO Work Phone: Start: 05-05-2021 Screening for osteoporosis Bone Density Scan [facility] Start: 08-16-2016 Fall Risk Screening Fall Risk Screening [facility] Start: 2011 RSV patients and/or patients aged 60+ years (1 - 1-dose 60+ series) RSV patients and/or patients aged 60+ years (1 - 1-dose 60+ series) [facility] Start: 08-16-2001 Zoster Vaccines (1 of 2) Zoster Vaccines (1 of 2) [facility] Start: 08-16-1973 DTaP/Tdap/Td Vaccines (1 - Tdap) DTaP/Tdap/Td Vaccines (1 - Tdap) [facility] Start: 08-16-1970 DTaP,Tdap and Td Vaccines (1 - Tdap) DTaP,Tdap and Td Vaccines (1 - Tdap) [facility] Start: 08-16-1969 Diabetes mellitus screening Diabetes Screening [facility] Start: 08-16-1969 Hepatitis C screening Hepatitis C Screening [facility] Start: 1963 Depression Screening Depression Screening [facility] Start: 02-17-1952 COVID-19 Vaccine (#1) COVID-19 Vaccine (#1) [facility] Start: 1950 Creatinine measurement Creatinine Level [facility] Start: 1951 Lipid panel Lipid Panel [facility] Start: 1950 Medicare Annual Wellness (AWV) Medicare Annual Wellness (AWV) [facility] Start: 1950 Medicare Annual Wellness Visit Medicare Annual Wellness Visit (AWV) [facility] Start: 1950 Potassium measurement Potassium Level [facility] Start: 1950 Screening for malignant neoplasm of colon [facility] Atopobium vaginae DN A [Presence] in Vaginal fluid by JUVENAL with probe detection [facility] Work Phone: Bacteria identified in Urine by Culture [facility] Bacterial vaginosis associated bacterium 2 DNA [Presence] in Vaginal fluid by JUVENAL with probe detection [facility] Work Phone: Megasphaera sp type 1 DNA [Presence] in Vaginal fluid by JUVENAL with probe detection [facility] Work Phone: Patient Education [facility] Work Phone: Patient referral [facility] Work Phone: Testosterone Free [Mass/volume] in Serum or Plasma [facility] Immunizations Immunization Date Immunization Notes Care Provider Teresa [facility] 03-05-2024 influenza, seasonal, injectable Issac Edouard [employer] Work Phone: [facility] 01-14-2023 Influenza, High-dose Seasonal, Quadrivalent, Preservative Free Shaikh Kirstie BRITO Work Phone: [facility] 01-14-2023 zoster vaccine recombinant Shaikh Kirstie BRITO Work Phone: [facility] 01-14-2023 Shingrix 50 MCG/0.5M L vaccine Issac Edouard [employer] OPERATOR Work Phone: [facility] 01-14-2023 influenza virus vaccine, unspecified formulation Issac Edouard [employer]ATION OPERATOR Work Phone: [facility] 02-04-2022 Fluzone High-Dose Quadrivalent 0.7 ML Intramuscular Suspension Prefilled Syringe Shaikh Kirstie Work Phone: [facility] 250 DO Work Phone: 02-04-2022 influenza virus vaccine, unspecified formulation Ольга Raya MD Work Phone: [facility] Work Phone: 03-10-2020 influenza, high dose seasonal, preservative-free Angel Titus Work Phone: [facility] 250 DO Work Phone: 04-20-2019 influenza, high dose seasonal, preservative-free Ольга Raya MD Work Phone: [facility] Work Phone: 04-04-2019 influenza virus vaccine, unspecified formulation Angel Titus Work Phone: [facility] 250 DO Work Phone: 01-02-2019 pneumococcal polysaccharide vaccine, 23 valent Angel Nair [place] Work Phone: [place] [address] DO Work Phone: 06-13-2018 pneumococcal polysaccharide vaccine, 23 valent Angel Nair [place] Work Phone: [place] [address] DO Work Phone: 01-18-2018 influenza, high dose seasonal, preservative-free Angel Titus Work Phone: [place] [address] DO Work Phone: 05-30-2017 pneumococcal conjuga te vaccine, 13 valent Angel Nair [place] Work Phone: [place] [address] DO Work Phone: 04-13-2017 Influenza, High-dose Seasonal, Quadrivalent, Preservative Free Shaikh Kirstie BRITO Work Phone: [facility] Healthcare Payers Date Payer Category Payer Medicare (Managed Care) [facility] [id number] 2024 Medicare HMO [employer] [id number] 2023 Medicare [id number] 2023 Self-pay [id number] 2022 Medicare [id number] 2022 Private Health Insurance [facility] [id number] 2022 Unknown [id number] 2.16.840.1.190666.19 2016 Medicare [id number] [id number]. [id number] 2016 Unknown 2016 Medicare [id number] 2016 Unknown [id number] 1951 Unknown [id number] 2.16.840.1.982065.3.579. 2.356 1951 Unknown [id number] 2.16.840.1.283771.3.579. 2.356 1951 Unknown [id number] 2.16.840.1.986891.3.579. 2.356 1951 Unknown [id number] 2.16.840.1.555897.3.579. 2.356 1951 Unknown [id number] 2.16.840.1.605010.3.579. 2.356 1951 Unknown [id number] 2.16.840.1.717102.3.579. 2.356 1951 Unknown [id number] 2.16.840.1.005894.3.579. 2.356 1951 Unknown [id number] 2.16.840.1.894749.3.579. 2.1285 1951 Unknown [id number] 2.16.840.1.108481.3.579. 2.1285 1951 Unknown [id number] 2..840.1.869128.3.579. 2.1285 1951 Unknown [id number] 2.16.840.1.136029.3.579. 2.1285 1951 Unknown [id number] 2.16.840.1.191970.3.579. 2.1285 1951 Unknown [id number] 2.16.840.1.082600.3.579. 2.1285 1951 Unknown [id number] 2.16.840.1.176453.3.579. 2.1285 1951 Unknown [id number] 2.16.840.1.353268.3.579. 2.1285 1951 Unknown [id number] 2.16.840.1.643471.3.579. 2.1285 1951 Unknown [id number] 2.16.840.1.152494.3.579. 2.1285 1951 Unknown [id number] 2.16.840.1.116415.3.579. 2.1285 1951 Unknown [id number] 2.16.840.1.897905.3.579. 2.1285 1951 Unknown [id number] 2.16.840.1.387762.3.579. 2.1285 1951 Unknown [id number] 2.16.840.1.498921.3.579. 2.1285 1951 Unknown [id number] 2.16.840.1.690456.3.579. 2.1285 1951 Unknown [id number] 2.16.840.1.976582.3.579. 2.1285 1951 Unknown [id number] 2.16.840.1.953723.3.579. 2.1285 1951 Unknown [id number] 2.16.840.1.476311.3.579. 2.1285 1951 Unknown [id number] 2.16.840.1.526161.3.579. 2.1285 1951 Unknown [id number] 2.16.840.1.477674.3.579. 2.1243 1951 Unknown [id number] 2.16.840.1.558197.3.579. 2.1258 1951 Unknown [id number] 2.16.840.1.786309.3.579. 2.1258 1951 Unknown [id number] 2.16.840.1.764038.3.579. 2.1258 1951 Unknown [id number] 2.16.840.1.423808.3.579. 2.1258 1951 Unknown [id number] 2.16.840.1.994210.3.579. 2.1258 1951 Unknown [id number] 2.16.840.1.154088.3.579. 2.1259 1951 Unknown [id number] 2.16.840.1.289633.3.579. 2.1259 1951 Unknown [id number] 2.16.840.1.205076.3.579. 2.1259 1951 Unknown [id number] 2.16.840.1.928424.3.579. 2.1259 Unknown [id number] Unknown [id number] 2.16.840.1.012424.3.579. 2.531 Unknown [id number] 2.16.840.1.203073.3.579. 2.531 Unknown [id number] 2.16.840.1.154488.3.579. 2.531 Unknown [id number] 2.16.840.1.015210.3.579. 2.531 Unknown [id number] 2.16.840.1.776993.3.579. 2.531 Unknown [id number] 2.16.840.1.626984.3.579. 2.531 Social History Date Type Detail Facility Start: 04-19-2023 End: 12-19-2023 No illicit drug use No illicit drug use [facility] 250 DO Work Phone: Start: 06-20-2021 End: 07-28-2023 Tobacco smoking status NHIS Never smoked tobacco (finding) [facility] Start: 1950 Sex Assigned At Female F [facility] Start: 04-19-2023 End: 12-19-2023 Sex Assigned At [employer] [facility] [employer] Other Start: 01-10-2023 Tobacco smoking status MAIS Tobacco smoking consumption unknown [facility] Work Phone: Start: 1950 Sex Assigned At Not on file U [facility] Work Phone: Start: 01-01-2023 End: 01-04-2024 Exposure to SARS-CoV-2 (event) Not sure [facility] Start: 04-05-2023 End: 07-28-2023 Tobacco use and exposure Smokeless tobacco non-user [facility] Work Phone: Start: 04-05-2023 End: 05-28-2024 Alcohol intake Lifetime non-drinker (finding) [facility] Work Phone: Start: 04-19-2023 Alcohol Comment caffeine: 1-2 cups per day [facility] Start: 02-14-2024 End: 05-19-2024 Sex Female (finding) [facility] History of tobacco use Passive smoker [facility] Start: 07-24-2022 Alcoholic beverage intake Current drinker of alcohol (finding) [facility] Are you worried or concerned that in the next two months you may not have stable housing that you own, rent or stay in as a part of a household? No [facility] Start: 02-17-2022 Alcohol Comment [facility] Start: 06-21-2022 Gender identity Identifies as female gender (finding) [facility] Start: 06-21-2022 Sexual orientation Heterosexual (fin ding) [facility] NEGATED: Highlighted rowStart: NINF History of tobacco use Passive smoker [facility] Medical Equipment Procedure Code Equipment Code Equipment Origin al Text Equipment Identifier Dates Insertion, pacemaker Endocardial pacing lead [id number] FDA Start: 01-04-2019 Insertion, pacemaker Endocardial pacing lead [id number] FDA Start: 01-04-2019 Insertion, pacemaker Endocardial pacing lead [id number] FDA Start: 01-04-2019 Insertion, pacemaker Dual-chamber implantable pacemaker, rate-responsive ()[id number] FDA Start: 01-04-2019 Goals Date Patient Goal Desired Activity /State Personal health goal Comment on above: Formatting of this n ote might be different from the original. Evaluation of progress towards goal: safe transition from hospital to home with family support. Clinical Notes 12-31-2016 to 05-28-2024 Mariah Duran NP - 05/28/2024 11:03 AM J LUIS MOHAN - 05/28/2024 10:00 AM Travis Duran NP - 05/28/2024 10:00 AM Travis Duran NP - 05/28/2024 6:40 AM ESTPatient Instructions Note Date & Type Note Facility 05-28-2024 History of Present illness Narrative Associated Problem(s): Dyspnea Unclear etiology Cardiac?? Will review ER notes/CXR from [facility] (not in chart) Other differentials: anxiety, possible heart failure related Hx breast cancer ?? Recurrence Will check CT chest with contrast Pt states that she had gone to [facility] with [facility] symptoms [facility], [facility] her with bronchitis- she believes she does not/did not have bronchitis they pretty much looked at [facility] notes listen to her lungs quickly and told told her she had bronchitis. Pt knows when she has bronchitis this never felt anything like her past experiences. Pt states she started to take the medication given but felt that her breathing felt like it was getting worse so she stopped taking it. Pt checked her 02 last night and was up to 95-96% Pt states that her breathing feels better today however she feels jittery and cold and heart is rasing possible heart palpitations. Pt thought that bread could be a possible reason for her breathing- she stopped eating bread foods. She knows she had a sensitivity to yeast. Images from the original note were not included. Damir Staples is a 73 y.o. female presents with chief complaint of No chief complaint on file. HPI: Dyspnea: hx HTN and CHF w pacemaker. 2 ER visits in the last month or so with Dyspnea. Was told had bronchitis, and she does not think so No fever, no hemoptysis, minimal cough. Dyspnea can be at rest and with activity. No increase in weight no increase in swelling of legs. She does have hx breaast cancer and no longer follows with in [place], but gets yearly mammograms No wheezes, no heart palpitations, but does feel trembling at times. Does have an aging spouse as well with some memory issues, so maybe some anxiety??? SUBJECTIVE: MEDICATIONS: Current Outpatient Medications Medication Instructions albuterol HFA 90 mcg/act inhaler 2 puffs, Inhalation, Every 4 hours PRN furosemide (Lasix) 20 MG tablet 1 tablet, Daily RT latanoprost (Xalatan) 0.005 % ophthalmic solution 1 drop, Nightly lisinopril 30 mg, Daily metoprolol tartrate (Lopressor) 50 MG tablet 1 tablet, 2 times daily montelukast (SINGULAIR) 10 mg, Oral, Daily warfarin (COUMADIN) 4 mg, Oral, See admin instructions, 1/2 tablet Tue/Tue, 1 tablet rest of the week. ALLERGIES: Allergies Allergen Reactions Amoxicillin-Pot Clavulanate GI intolerance and Unknown Sulfa Antibiotics Other fatigue Pt states this allergy Runs in the family Sulfamethoxazole-Trimethoprim Other Amoxicillin GI intolerance Clavulanic Acid GI intolerance Sulfamethoxazole Hives Trimethoprim Hives REVIEW OF SYMPTOMS: Review of Systems Constitutional: Negative for appetite change, chills and fever. HENT: Negative for congestion, ear pain and sore throat. Eyes: Negative for pain, discharge, redness and visual disturbance. Respiratory: Positive for shortness of breath. Negative for cough (occ) and wheezing. Cardiovascular: Positive for palpitations. Negative for chest pain and leg swelling. Gastrointestinal: Negative for abdominal pain, blood in stool, constipation, diarrhea, nausea and vomiting. Genitourinary: Negative for difficulty urinating, dysuria and frequency. Musculoskeletal: Negative for arthralgias, back pain, joint swelling and myalgias. Skin: Negative for rash and wound. Neurological: Negative for dizziness, tremors, seizures, syncope and headaches. Psychiatric/Behavioral: Negative for behavioral problems, self-injury and suicidal ideas. The patient is nervous/anxious. Hematological: Does not bruise/bleed easily. Endocrine: Negative for polydipsia, polyphagia and polyuria. Allergic/Immunologic: Negative for environmental allergies and food allergies. PAST MEDICAL HISTORY Past Medical History: Diagnosis Date A-fib ([facility]) Hx of Afib, currently seems to be in NSR. Acute bronchitis Acute gastroenteritis Acute pharyngitis Acute right otitis media Allergic rhinitis Arthritis Atopic dermatitis AV block, Mobitz 2 for pacemaker Bloating symptom Breast pain Central perforation of tympanic membrane Cervical radiculopathy Change in bowel habit Chest discomfort Chest discomfort, intermittent, x 5 days Better with Omeprazole. Worse with coffee intake. Some foods make her symptoms worse. Associated nausea, post prandial fullness. Chronic anxiety Chronic diastolic heart failure ([facility]) Chronic rhinosinusitis Colon polyp Conductive hearing loss, bilateral Ductal carcinoma in situ of right breast Dyspnea Elevated testosterone level in female Total Testosterone -> 70 normal range (2-45) Free testosterone --> 7.7 normal range (0.2-3.7) Eustachian tube disorder not elsewhere classified Gastro-esophageal reflux disease without esophagitis Glaucoma ([facility]) Head trauma Patient reports she ran into a wall at night when it was dark and hurt her head. Since then she is experiencing right side frontal TONY. No neurological signs or symptoms. She did develop a bump on her forehead when that happened. Did not lose consciousness, denies weakness, numbness, changes in vision. Heart block atrioventricular History of breast cancer History of medical problems Mold growth in home Hospital discharge follow-up Hospital admission for Acute resp failure with hypoxia due to asthma exacerbation. She also developed volume overload and anemia due to acute blood loss from esophageal ulcer likely caused by supra therapeutic INR. While in patient, she had an EGD, colonoscopy. New medication list was updated. her INR is still high and she has f/u INR check scheduled for tomorrow. HTN (hypertension) ([facility]) Last appt, patient was seen for poorly controlled HTN Reviewed home BP - better controlled now. BP slightly above goal No orthostasis Incomplete emptying of bladder Insomnia Invasive ductal carcinoma of breast ([facility]) Left lower quadrant pain Menopause present Mid-systolic click Mild intermittent asthma ([facility]) Mitral valve disorder Mucoid thickening of mitral valve Nausea and vomiting Neurodermatitis Nocturia Otalgia, bilateral Pain in left knee Pain of left lower leg Pain of right lower leg Postnasal drip PUD (peptic ulcer disease) h/o esophageal ulcer. Supposed to be on Protonix Reactive airway disease (CMS/HCC) Scalp psoriasis (CMS/HCC) Shortness of breath Tachycardia Temporomandibular joint disorder (TMJ) Tinnitus UGIB (upper gastrointestinal bleed) UGIB from esophageal ulcer likely caused by supra therapeutic INR Patient educated on NSAIDS uses. Has repeat INR check tomorrow. Denies melena,BRBPR Unspecified otitis externa, bilateral Vulvitis Warfarin anticoagulation On Coumadin for stroke px for Afib Past Surgical History: Procedure Laterality Date BREAST [...] [place] NASAL SEPTUM SURGERY 1981 Deviated septum family history includes Diabetes in her mother's brother and sister; Heart disease in her father and mother; High blood pressure in her sister; Osteoarthritis in her sister. OBJECTIVE: Visit Vitals BP 122/78 (BP Location: Left arm, Patient Position: Sitting, BP Cuff Size: Adult long) Pulse 104 Temp 97.6 F (Temporal) Resp 20 Wt 138 lb 12.8 oz SpO2 94% BMI 27.11 kg/m OB Status Postmenopausal Smoking Status Never BSA 1.63 m Physical Exam Vitals and nursing note reviewed. Constitutional: General: She is not in acute distress. Appearance: Normal appearance. She is not ill-appearing or diaphoretic. HENT: Head: Normocephalic and atraumatic. Right Ear: External ear normal. Left Ear: External ear normal. Nose: Nose normal. Mouth/Throat: Mouth: Mucous membranes are moist. Eyes: Extraocular Movements: Extraocular movements intact. Conjunctiva/sclera: Conjunctivae normal. Neck: Vascular: No carotid bruit. Comments: No JVD Cardiovascular: Rate and Rhythm: Normal rate and regular rhythm. Pulses: Normal pulses. Heart sounds: Normal heart sounds. Pulmonary: Effort: Pulmonary effort is normal. Breath sounds: Rales (bi basilar) present. No wheezing. Abdominal: General: Bowel sounds are normal. There is no distension. Palpations: Abdomen is soft. There is no mass. Tenderness: There is no abdominal tenderness. Musculoskeletal: General: Normal range of motion. Cervical back: Normal range of motion and neck supple. Right lower leg: No edema. Left lower leg: No edema. Lymphadenopathy: Cervical: No cervical adenopathy. Skin: General: Skin is warm and dry. Capillary Refill: Capillary refill takes 2 to 3 seconds. Findings: No rash (mild erythema to nasal labial folds). Neurological: General: No focal deficit present. Mental Status: She is alert and oriented to person, place, and time. Psychiatric: Mood and Affect: Mood normal. Behavior: Behavior normal. Thought Content: Thought content normal. Judgment: Judgment normal. ASSESSMENT AND PLAN: Follow up in about 3 weeks (around 06/18/2024) for Recheck. Problem List Items Addressed This Visit Benign essential hypertension (CMS/HCC) Please check blood pressure daily and record DASH diet Limit caffeine Take medication as directed Contact office if chest pain, pressure, dizziness, shortness of breath, swelling legs Recommend slow position changes Current meds: lisinopril and metoprolol, and lasix Relevant Orders Comprehensive metabolic panel Urinalysis with reflex microscopic (clean catch) Microalbumin / creatinine, urine ratio Lipid panel Gastroesophageal reflux disease Recommendations: freq small meals, nothing to eat or drink at least 2 hours prior to bed, limit caffeine, alcohol, as well as spicy foods Meds to limit or avoid if possible: NSAIDS Elevate HOB if possible No medications Relevant Orders CBC and differential Paroxysmal atrial fibrillation (CMS/HCC) Managed by cardiology Current meds: lasix, tracy, b artemio and warfarin Relevant Orders CBC and differential CT chest w IV contrast Chronic heart failure with preserved ejection fraction (CMS/HCC) Follows with cardiology Meds: tracy, b artemio and diuretic Relevant Orders CBC and differential Comprehensive metabolic panel B-type natriuretic peptide Lipid panel Iron level CT chest w IV contrast Sick sinus syndrome due to SA node dysfunction (CMS/HCC) Has pacemaker, managed by cardiology 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 Will review ER notes/CXR from [facility] (not in chart) Other differentials: anxiety, possible heart failure related Hx breast cancer ?? 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) Dx 2018 Was seeing Oncology, no longer sees them Yearly mammograms usually in October Associated Problem(s): Gastroesophageal reflux disease Recommendations: freq small meals, nothing to eat or drink at least 2 hours prior to bed, limit caffeine, alcohol, as well as spicy foods Meds to limit or avoid if possible: NSAIDS Elevate HOB if possible No medications Associated Problem(s): Sick sinus syndrome due to SA node dysfunction (CMS/HCC) Has pacemaker, managed by cardiology Associated Problem(s): Paroxysmal atrial fibrillation (CMS/HCC) Managed by cardiology Current meds: lasix, tracy, b artemio and warfarin Associated Problem(s): Chronic heart failure with preserved ejection fraction (CMS/HCC) Follows with cardiology Meds: tracy, b artemio and diuretic Associated Problem(s): Benign essential hypertension (CMS/HCC) Please check blood pressure daily and record DASH diet Limit caffeine Take medication as directed Contact office if chest pain, pressure, dizziness, shortness of breath, swelling legs Recommend slow position changes Current meds: lisinopril and metoprolol, and lasix Associated Problem(s): Reactive airway disease with wheezing without complication (CMS/HCC) Uses albuterol prn and monteleukast Reports has been tested for asthma twice dose not have this I have reviewed PFT from 08/2023 essentially normal Associated Problem(s): Pulmonary fibrosis, unspecified (CMS/HCC) (Resolved 05/28/2024) Albuterol inhaler documented in this encounter [facility] 05-28-2024 Instructions Mariah Duran NP - 05/28/2024 10:00 AM EST Lets check labs: fasting 8 hours (only water or black coffee) We will check CT chest -I will fax order to [facility] , they should call you. If they do not, here is the number: [phone] documented in this encounter [facility] 04-26-2024 History of Present illness Narrative 15 minute isih-ih-sduk follow-up anticoagulation appointment. INR performed in office per protocol. INR 1.7 (goal range: 2.0-3.0). Patient reports: Taking warfarin dosing as documented. Missed or extra doses of warfarin: No Changes to medications: No Changes to lifestyle (diet / alcohol / smoking / activity): No Recent emergency department visit / hospitalization / health changes / new contraindication to current anticoagulant: YES ER visit- dx with viral symptoms yesterday Signs/symptoms of bruising/bleeding or clotting or any intolerable adverse events: No Upcoming procedures: No Anticoagulant prescription needed: No Seen referring provider in the last year Duration of therapy reviewed Assessment: INR remains low. We will increase weekly dose 9% Plan: Patient instructed to increase to warfarin 4 mg 04/26, then increase weekly dose to 2 mg Sun/Thurs and 4 mg AOD. Check INR in 2.5 week(s). Patient verbalizes understanding of anticoagulant dosing instructions and information discussed. Dosing regimen, counseling, and follow-up appointment were provided to the patient. Patient reminded to call with questions or any medication changes. Patient instructed to seek medical attention if any major bleeding/bleeding that persists or worsens. Torie Osuna RPH 04/26/24 1056 documented in this encounter [facility] 04-25-2024 History of Present illness Narrative Associated Problem(s): Chronic heart failure with preserved ejection fraction (CMS/HCC) Is reporting shortness of breath, chest pain, difficulty catching breath, intermittent dizziness Is taking her diuretic (Lasix) daily but feels she is having decreased urinary output. Given patients cardiac history of CHF, Afib, and SSS, will send to ER for further evaluation. Images from the original note were not included. Subjective Patient ID: Damir Staples is a 73 y.o. female who presents for Cough (X5 days trouble breathing, cough, not productive, sore chest). HPI Is reporting shortness of breath, chest pain, difficulty catching breath, intermittent dizziness Is taking her diuretic (Lasix) daily but feels she is having decreased urinary output. Given patients cardiac history of CHF, Afib, and SSS, will send to ER for further evaluation. Denies numbness/tingling in arms Swelling in legs or feet Review of Systems Constitutional: Negative for activity change, appetite change, chills, diaphoresis, fatigue, fever and unexpected weight change. HENT: Negative for congestion, ear pain, rhinorrhea, sinus pressure, sinus pain, sneezing, sore throat, trouble swallowing and voice change. Eyes: Negative for visual disturbance. Respiratory: Positive for shortness of breath. Negative for cough, chest tightness and wheezing. Cardiovascular: Positive for chest pain. Negative for palpitations and leg swelling. Gastrointestinal: Negative for abdominal distention, abdominal pain, blood in stool, constipation, diarrhea and vomiting. Genitourinary: Positive for decreased urine volume. Negative for dysuria, flank pain, frequency, hematuria and urgency. Musculoskeletal: Negative for arthralgias, gait problem, joint swelling and myalgias. Skin: Negative for rash. Neurological: Negative for dizziness, tremors, syncope, weakness, light-headedness and headaches. Psychiatric/Behavioral: Negative for decreased concentration and suicidal ideas. The patient is not nervous/anxious. Hematological: Does not bruise/bleed easily. Endocrine: Negative for cold intolerance, heat intolerance, polydipsia, polyphagia and polyuria. Objective Physical Exam Constitutional: Appearance: Normal appearance. HENT: Head: Normocephalic. Right Ear: External ear normal. Left Ear: External ear normal. Nose: Nose normal. Mouth/Throat: Mouth: Mucous membranes are moist. Pharynx: Oropharynx is clear. Eyes: Pupils: Pupils are equal, round, and reactive to light. Cardiovascular: Rate and Rhythm: Normal rate and regular rhythm. Pulses: Normal pulses. Pulmonary: Effort: Pulmonary effort is normal. Breath sounds: Normal breath sounds. Abdominal: General: Abdomen is flat. Bowel sounds are normal. Palpations: Abdomen is soft. Musculoskeletal: General: Normal range of motion. Cervical back: Normal range of motion. Right lower leg: Edema present. Left lower leg: Edema present. Comments: Non pitting BLE Edema Skin: General: Skin is warm. Capillary Refill: Capillary refill takes less than 2 seconds. Neurological: Mental Status: She is alert and oriented to person, place, and time. Psychiatric: Mood and Affect: Mood normal. Behavior: Behavior normal. Assessment/Plan Problem List Items Addressed This Visit Chronic heart failure with preserved ejection fraction (CMS/HCC) - Primary Is reporting shortness of breath, chest pain, difficulty catching breath, intermittent dizziness Is taking her diuretic (Lasix) daily but feels she is having decreased urinary output. Given patients cardiac history of CHF, Afib, and SSS, will send to ER for further evaluation. documented in this encounter [facility] 03-19-2024 History of Present illness Narrative Associated Problem(s): Gastroesophageal reflux disease [...] who presents for Follow-up. HPI Specialists: Cardiology- Abbe Follows again on 01/04/24- will have blood work done then. [facility]- [place] Reports frequent post nasal drip. HTN: Currently [...] Reactive airway disease with wheezing without complication ([facility]) Relevant Medications albuterol HFA 90 mcg/act inhaler Other Visit Diagnoses Allergic rhinitis, unspecified seasonality, unspecified trigger Relevant Medications montelukast (Singulair) 10 MG tablet documented in this encounter [facility] 02-23-2024 History of Present illness Narrative Images from the original note [...] Ankita Nunez DPM documented in this encounter [facility] 02-23-2024 Instructions Ankita Nunez DPM - 02/23/2024 1:30 PM EST As noted documented in this encounter [facility] 01-04-2024 History of Present illness Narrative Subjective Damir Staples is a [...] mg tablet, Take by mouth. As directed [place] [facility], Disp: , Rfl: Assessment/Plan 1. [...] By signing my name below, I, Michelle Concepcion LPN , Scribe attest that this documentation has [...] discussion and plan. documented in this encounter [facility] Work Phone: 01-04-2024 Instructions Michelle Kingston [...] cannot be sent through Care Everywhere.DASH Diet (Vietnamese)documented in this encounter [facility] Work Phone: 12-19-2023 History of Present illness Narrative Associated Problem(s): Thumb pain, right [...] Hand Pain and Sinus Problem. Specialists: Cardiology- Abbe Follows again on 01/04/24- will have blood work done then. [facility]- [place] Reports frequent post nasal drip. Taking Claritin [...] right Ice, tylenol,.Monitor. documented in this encounter [facility] 12-19-2023 Instructions Issac Edouard NP - [...] symptoms have improved. documented in this encounter [facility] 04-05-2023 History of Present illness Narrative Subjective Damir Staples is a [...] mg tablet, Take by mouth. As directed [place] [facility], Disp: , Rfl: Assessment/Plan 1. Benign essential hypertension Follow Up In Cardiology 2. Pacemaker 3. Sick sinus syndrome due to SA node dysfunction (CMS/HCC) 4. Anticoagulated 5. Overweight with body mass index (BMI) of 27 to 27.9 in adult documented in this encounter [facility] Work Phone: 04-05-2023 Instructions Shamika Schumacher [...] up per routine documented in this encounter [facility] Work Phone: 03-25-2023 Evaluation note Encounter [...] PCP if no improvment in 2-3 days [employer] [facility] 10-10-2023 History of Present illness Narrative* [...] 1. Benign essential [facility] 1(847) 169-910510-10-2023 Instructions* Patient Instructions* Shu Liu LPN - 01/11/2023 1:30 PM EDT Keep Apr 24 visit [facility]s [facility] 1([phone]) 712-852603-17-2023 Evaluation note* Encounter Date Diagnosis Assessment Notes [...] no improvement in 2 to 3 days. [employer] Other 11-25-2022 Evaluation note* Encounter Date Diagnosis [...] Pt understood and agreed to teatment plan. [employer] Other 11-11-2022 Evaluation note* Encounter Date Diagnosis [...] printed Feb, Hematuria, unspecified (ICD-10 - R31.9) [employer] Other 09-15-2022 Evaluation note* Encounter Date Diagnosis [...] application. Patient to follow with PCP or OUTSIDE INSTALLATION MACHINIST as needed for persistent or worsening symptoms. Immediate eval if abdominal pain, fever, chills, body aches, back/flank pain, nausea, urinary complaints. Avoid scratching and douching. Patient verbalizes understanding and is agreeable to treatment plan [employer] Other 08-08-2022 Evaluation note* Encounter Date Diagnosis [...] weeks for the cough to go away [employer] Other 07-17-2021 Progress note Author Connie Thomas [facility] October 18, 2020 11:53am Note Date/Time October 17, 2020 10:[address] [place] [address] Cancer Center at [address] [address] Hem/Onc Follow Up Note - OP Signed Patient: Damir Staples MR#: [id number] : 1950 Acct:[id number] Age/Sex: 70 / F Type: REG RCR [...] Father , at age 58 due to ID Myocardial infarct Mother Pacemaker Pacemaker insertion at age 78 CHF (congestive heart failure) - Social History Smoking Status: Never smoker Substance Use Type: None Substance Abuse Comment: RARE 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 Dictated By: Connie Thomas MD DD/ 1015 Signed By: <Electronically signed by MD Connie Thomas> 10/18/20 4534 [facility] Work Phone: 1(391) 624-810102-05-2021 Progress note Author Connie Thomas [facility] May 09, 2020 9:51pm Note Date/Time May 08, 2020 2 :31pm [facility] [place] [address] Hem/Onc Follow Up Note - OP Signed Patient: Damir Staples MR#: [id number] : 1950 Acct:[id number] Age/Sex: 69 / F Type: REG RCR [...] Father , at age 58 due to ID Myocardial infarct Mother Pacemaker Pacemaker insertion at age 78 CHF (congestive heart failure) - Social History Smoking Status: Never smoker Substance Use Type: None Substance Abuse Comment: RARE 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 Tiuts her primary physician. Assessment and Plan - [...] for coordination of care (as documented) and sfyi-sl-edvy counseling of patient and/or family. Dictated By: Connie Thomas MD DD/ 1431 Signed By: <Electronically signed by MD Connie Thomas> 05/09/20 2155 [facility] Work Phone: 1([phone]) 351-431608-08-2020 Progress note Author Connie Thomas [facility] November 10, 2019 10:07am Note Date/Time November 08, 2019 2:1 3pm [facility] [place] [address] Hem/Onc Follow Up Note - OP Signed Patient: Damir Staples MR#: [id number] : 1950 Acct:[id number] Age/Sex: 69 / F Type: REG RCR Copies to: MD Ольга Woods MD~ Subjective Date/Time of Service: Date of Service: 11/08/2019 Time of Service: 14:13 Chief Complaint: Patient here for two month follow up appointment to review mammogram results. Patient reports increased fatigue over the last couple of days but notes improvement today. HPI: Mrs. 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 Dictated By: Connie Thomas MD DD/ 1413 Signed By: <Electronically signed by MD Connie Thomas> 11/10/[address] [place] [address] Ctr Work Phone: 1([phone]) [phone] Progress note Author Mariah Davelon [facility] September 07, 2019 7:59am Note Date/Time September 06, 2019 3:31p m [facility] [place] [id number] Hem/Onc Follow Up Note - OP Signed Patient: Damir Staples MR#: [id number] : 1950 Acct:[id number] Age/Sex: 69 / F Type: REG RCR [...] Father , at age 58 due to ID Myocardial infarct Mother Pacemaker Pacemaker insertion at age 78 CHF (congestive heart failure) - Social History Smoking Status: Never smoker Substance Use Type: Alcohol Substance Abuse Comment: RARE ETOH 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 Dictated By: aMriah Chairez APRN DD/ 1529 Signed By: <Electronically signed by NABILA Chairez> 09/07/19 0759 [facility] Work Phone: 1([phone]) 136-474211-12-2019 Progress note Author Connie Thomas [facility] February 13, 2019 7:02pm Note Date/Time February 12, 2019 3:09pm [facility] [place] [address] Hem/Onc Follow Up Note - OP Signed Patient: Damir Staples MR#: [id number] : 1950 Acct:[id number] Age/Sex: 68 / F Type: REG RCR [...] Tumor was negativefor lymphovascular invasion, and was ER/AZ positive and HER-2 nonamplified by IHC. Diagnosis [...] She is and lives with her in [place]. 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 Dictated By: Connie Thomas MD DD/ 1509 Signed By: <Electronically signed by MD Connie Thomas> 02/13/19 4647 [facility] Work Phone: 1([phone]) 483-165407-12-2019 Progress note Author Mariah Chairez [facility] October 13, 2018 10:59am Note Date/Time October 13, 2018 10:2 1am [facility] [place] [id number] Hem/Onc Follow Up Note - OP Signed Patient: Damir Staples MR#: [id number] : 1950 Acct:[id number] Age/Sex: 68 / F Type: REG RCR [...] Tumor was negativefor lymphovascular invasion, and was ER/AZ positive and HER-2 nonamplified by IHC. 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 Dictated By: Mariah Chairez APRN DD/ 1021 Signed By: <Electronically signed by NABILA Chairez> 10/13/18 1059 [facility] Work Phone: [phone]) [phone] Progress note Author Connie Thomas [facility] May 10, 2018 11:03pm Note Date/Time May 09, 2018 1 :20pm [facility] at [address] [address] Hem/Onc Follow Up Note - OP Signed Patient: Damir Staples MR#: [id number] : 1950 Acct:[id number] Age/Sex: 67 / F Type: REG RCR Copies to: Angel Titus MD, Fredric DO~ Subjective Date/Time of Service: Date of Service: 05/09/2018 Time of Service: 13:19 Chief Complaint: Patient is here for follow up history of right breast cancer, dexascan for review. Patient complains of biltateral breast [...] Tumor was negativefor lymphovascular invasion, and was ER/AZ positive and HER-2 nonamplified by IHC. PAST [...] She is and lives with her in [place]. She is now a homemaker butin the [...] routine screening mammogram at a hospital in [place] [facility]. Per history, it showed some abnormal [...] for coordination of care (as documented) and fhfq-eq-usrv counseling of patient and/or family. Dictated By: Connie Thomas MD DD/ 1319 Signed By: <Electronically signed by MD Connie Thomas> 05/10/18 6409 [facility] Work Phone: [phone]) [phone] Progress note Author Maverick Elder [facility] September 28, 2017 11:36am Note Date/Time September 28, 2017 11:3 6am [facility] [place] [address] Hem/Onc Follow Up Note - OP Signed Patient: Damir Staples MR#: [id number] : 1950 Acct:[id number] Age/Sex: 67 / F Type: REG RCR [...] Medications Medication Instructions Recorded Confirmed Type Ca-D3-mag lq-jlgi-btt-bianka-bor 2 tab PO DAILY 12/31/16 05/04/17 History [...] % (Auto) 33.2 % (.) 05/02/17 10:17 Elk % (Auto) 9.7 % (.) 05/02/17 10:17 Eos % (Auto) 4.0 % (.) 05/02/17 10:17 Baso % (Auto) 0.3 % (.) 05/02/17 10:17 Neut # (Auto) 3.5 x10E3/uL (1.8-7.7) 05/02/17 10:17 Lymph # (Auto) 2.2 x10E3/uL (1.00-4.8) 05/02/17 10:17 Elk # (Auto) 0.6 x10E3/uL (0.0-0.8) 05/02/17 10:17 [...] for coordination of care (as documented) and koyj-rl-fofw counseling of patient and/or family. Dictated By: Maverick Elder MD DD/ 34 Signed By: <Electronically signed by Maverick Elder MD> 09/28/17 1136 [facility] Work Phone: [phone]) 321-559201-31-2018 Progress note Author Maverick Elder [facility] May 04, 2017 11:05am Note Date/Time May 04, 2017 1 1:02am [facility] [place] [address] Hem/Onc Follow Up Note - OP Signed Patient: Damir Staples MR#: [id number] : 1950 Acct:[id number] Age/Sex: 66 / F Type: REG RCR [...] Medications Medication Instructions Recorded Confirmed Type Ca-D3-mag nm-difj-uub-bianka-bor 2 tab PO DAILY 12/31/16 05/04/17 History [...] % (Auto) 33.2 % (.) 05/02/17 10:17 Elk % (Auto) 9.7 % (.) 05/02/17 10:17 Eos % (Auto) 4.0 % (.) 05/02/17 10:17 Baso % (Auto) 0.3 % (.) 05/02/17 10:17 Neut # (Auto) 3.5 x10E3/uL (1.8-7.7) 05/02/17 10:17 Lymph # (Auto) 2.2 x10E3/uL (1.00-4.8) 05/02/17 10:17 Elk # (Auto) 0.6 x10E3/uL (0.0-0.8) 05/02/17 10:17 [...] for coordination of care (as documented) and myxe-le-rvsy counseling of patient and/or family. Dictated By: Maverick Elder MD DD/ 1100 Signed By: <Electronically signed by Maverick Elder MD> 05/04/17 1105 [facility] Work Phone: [phone]) [phone] Progress note Author Maverick Elder [facility] December 31, 2016 10:03am Note Date/Time December 31, 2016 9:59am [facility] [place] [id number] Hem/Onc Follow Up Note - OP Signed Patient: Damir Staples MR#: [id number] : 1950 Acct:[id number] Age/Sex: 66 / F Type: REG RCR [...] Medications Medication Instructions Recorded Confirmed Type Ca-D3-mag xm-pouz-cpf-bianka-bor 2 tab PO DAILY 12/31/16 12/31/16 History [...] % (Auto) 28.8 % (.) 12/29/16 12:15 Elk % (Auto) 7.6 % (.) 12/29/16 12:15 Eos % (Auto) 4.7 % (.) 12/29/16 12:15 Baso % (Auto) 0.5 % (.) 12/29/16 12:15 Neut # (Auto) 3.4 x10E3/uL (1.8-7.7) 12/29/16 12:15 Lymph # (Auto) 1.7 x10E3/uL (1.00-4.8) 12/29/16 12:15 Elk # (Auto) 0.4 x10E3/uL (0.0-0.8) 12/29/16 12:15 [...] for coordination of care (as documented) and dfin-gg-xllq counseling of patient and/or family. 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 Osteoporosis chronic Pacemaker chronic Substernal chest pain chroni c Mediastinal lymphadenopathy resolved [facility] Work Phone: Evaluation note* Diagnosis Benign essential hypertension- Primary Essential hypertension, benign documented in this encounter [facility] Work Phone: Evaluation note* Diagnosis Benign essential hypertension- Primary Essential hypertension, benign Pacemaker Cardiac pacemaker in situ Sick sinus syndrome due to SA node dysfunction (CMS/HCC) Anticoagulated Encounter for long-term (current) use of anticoagulants Overweight with body mass index (BMI) of 27 to 27.9 in adult documented in this encounter [facility] Work Phone: Evaluation note* Diagnosis Benign essential hypertension (CMS/HCC)- Primary Essential hypertension, benign documented in this encounter [facility]* Diagnosis Paroxysmal atrial fibrillation (Multi) Atrial fibrillation Benign essential hypertension Essential hypertension, benign Sick sinus syndrome due to SA node dysfunction (Multi) Atypical chest pain Other chest pain Bradycardia Other specified cardiac dysrhythmias Pacemaker Cardiac pacemaker in situ Anticoagulated Encounter for long-term (current) use of anticoagulants Overweight with body mass index (BMI) of 27 to 27.9 in adult documented in this encounter [facility] Work Phone: Evaluation note* Diagnosis Primary hypertension (CMS/HCC)- Primary Unspecified [...] Difficulty in walking documented in this encounter [facility] HealthcareEvaluation note* Diagnosis Benign essential hypertension (CMS/HCC)- Primary Essential hypertension, benign Gastroesophageal reflux disease without esophagitis Esophageal reflux Seasonal allergic rhinitis, unspecified trigger Chronic heart failure with preserved ejection fraction (CMS/HCC) Thumb pain, right documented in this encounter [facility] HealthcareEvaluation note* Diagnosis Primary hypertension (CMS/HCC)- Primary Unspecified [...] preserved ejection fraction (CMS/HCC) Thumb pain, right Primary hypertension (CMS/HCC)- Primary Unspecified essential hypertension Gastroesophageal reflux disease without esophagitis Esophageal reflux Benign essential hypertension (CMS/HCC) Essential hypertension, benign Paroxysmal atrial fibrillation (CMS/HCC) Atrial fibrillation Allergic rhinitis, unspecified seasonality, unspecified trigger Reactive airway disease with wheezing without complication, unspecified asthma severity, unspecified whether persistent (CMS/HCC) documented in this encounter [facility] HealthcareEvaluation note* Diagnosis Primary hypertension (CMS/HCC)- Primary Unspecified [...] preserved ejection fraction (CMS/HCC) Thumb pain, right Primary hypertension (CMS/HCC)- Primary Unspecified essential hypertension Gastroesophageal reflux disease without esophagitis Esophageal reflux Benign essential hypertension (CMS/HCC) Essential hypertension, benign Paroxysmal atrial fibrillation (CMS/HCC) Atrial fibrillation Allergic rhinitis, unspecified seasonality, unspecified trigger Reactive airway disease with wheezing without complication, unspecified asthma severity, unspecified whether persistent (CMS/HCC) Chronic heart failure with preserved ejection fraction (CMS/HCC)- Primary documented in this encounter [facility] HealthcareEvaluation note* Diagnosis prison (current) use of anticoagulants- Primary Long-term (current) use of anticoagulants documented [facility] encounter [facility]* Diagnosis Primary hypertension (CMS/HCC)- Primary [...] preserved ejection fraction (CMS/HCC) Thumb pain, right Primary hypertension (CMS/HCC)- Primary Unspecified essential hypertension Gastroesophageal reflux disease without esophagitis Esophageal reflux Benign essential hypertension (CMS/HCC) Essential hypertension, benign Paroxysmal atrial fibrillation (CMS/HCC) Atrial fibrillation Allergic rhinitis, unspecified seasonality, unspecified trigger Reactive airway disease with wheezing without complication, unspecified asthma severity, unspecified whether persistent (CMS/HCC) Chronic heart failure with preserved ejection fraction (CMS/HCC)- Primary Dyspnea, unspecified type- Primary Pulmonary fibrosis, unspecified (CMS/HCC) Paroxysmal atrial fibrillation (CMS/HCC) Atrial fibrillation Mild intermittent reactive airway disease with wheezing without complication (CMS/HCC) Benign essential hypertension (CMS/HCC) Essential hypertension, benign Chronic heart failure with preserved ejection fraction (CMS/HCC) Sick sinus syndrome due to SA node dysfunction (CMS/HCC) Gastroesophageal reflux disease without esophagitis Esophageal reflux Anticoagulated on Coumadin 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) documented in this encounter [facility] HealthcareHistory general Narrative - Reported* Type Description Date Medical History hypertension Medical History glaucoma Medical History hx of bradycardia Medical History stomach or duodenal ulcer Medical History Atrial fibrillation Surgical History Lumpectomy with adjuvant radiot herapy Surgical History arthoscopic left knee Surgical History cervical spinal fusion Surgical History Pacemaker 2019 Hospitalization History heart palpitations 2019 [employer] Other History of Present illness Narrative* Patient [...] reviewed with patient she understood and agreed [facility] [place] DO Work Phone: History of Present illness [...] reviewed with patient she understood and agreed [facility] Work Phone: History of Present illness [...] check and BMPin 6 to 8 weeks [facility] Nanoogo DO Work Phone: History of Present illness [...] the office in 3 months and follow-up [facility] 600 DO Work Phone: History of Present [...] the office [facility] Work Phone: Hospital Discharge instructions Additional Instructions Follow-up with your primary care doctor Return to ED if develop worsening symptoms or concerns Take 10mg of Lisinopril instead of 5mg until you see your primary care doctor Take the clonidine as needed if your blood pressure is still elevated [facility] Work Phone: InstructionsNot on filedocumented in this encounter [facility] Consultation (Routine) - Authorized Specialty Diagnoses / Procedures Referred By Francisco Javier t Referred To Contact Cardiology Diagnoses Benign essential hypertension Procedures Follow Up In Cardiology Ольга Raya MD [address] [place] [address] Ольга Raya MD [address] [place] [address] Referral ID Status Reason Start Date Expiration Date V isits Requested Visits Authorized [id number] Authorized 04/05/2023 04/04/2024 1 1 [facility] Work Phone: Reason for referral (narrative)* Consultation (Routine) - Authorized Specialty Diagnoses / Procedures Referred By Francisco Javier t Referred To Contact Cardiology Diagnoses Paroxysmal atrial fibrillation (Multi) Procedures Follow Up In Cardiology Ольга Raya MD [address] [place] [address] Ольга Raya MD [address] [place] [address] Referral ID Status Reason Start Date Expiration Date V isits Requested Visits Authorized [id number] Authorized 01/04/2024 01/03/2025 1 1 [facility] Work Phone: Summary Purpose Family History [...] Advance Directives Yes November 27, 2016 10:12am Date Activated Date Inactivated Comments 06/21/2022 3:22 [...] seen for follow-up of a hospitalization for [facility] d/c 07/07.DAMIR STAPLES is being seen for [...] 2024 11:22am bradycardia February 17, 2024 7:13am Chief Complaint Admit Date bradycardia May 18, 2024 11:57am Additional Source Comments INFORMATION SOURCE (unrecogn ized section and content) DATE CREATED AUTHOR 02/11/2019 [facility] DATE CREATED AUTHOR AUTHOR'S ORGANIZ ATION 12/03/2022 [facility] DATE CREATED AUTHOR AUTHOR'S ORGANIZ ATION 12/03/2022 [employer] DATE CREATED AUTHOR AUTHOR'S ORGANIZ ATION 05/19/2024 [facility] DATE CREATED AUTHOR AUTHOR'S ORGANIZ ATION 05/25/2024 [facility] DATE CREATED AUTHOR AUTHOR'S ORGANIZ ATION 05/26/2024 [facility] DATE CREATED AUTHOR AUTHOR'S ORGANIZ ATION 05/29/2024 [facility] Care Teams (unrecognized sec tion and content) [...] Inactive Member Role Status Dates Lazara Merchant DO Primary Care Provider Active Guillermo Reyez APRN Emergency Provider Active Team Status: Inactive Member Role Status Dates Ольга Raya MD Attending Provider Active Lazara G Mayur , DO Primary Care Provider Active Team Status: Inactive Member Role Status Dates Angel Titus MD Primary Care Provider Active Toney Prajapati MD Attending Provider Active Team Status: Active Member Role Status Dates Lazara Carlos Mayur , DO Primary Care Provider Active Team Status: Inactive Member Role Status Dates Lazaratay Wrighte , DO Primary Care Provider Active Toney [...] Dates Ольга Raya MD Attending Provider Active NON STAFF Primary [...] Active Della Garcia MD Attending Provider Active Customs Compliance Analyst Relationship Specialty Start Date End Date Shaikh Thacker MD [facility] [address] [place] [phone] PCP - General 04/04/21 Customs Compliance Analyst Relationship Specialty Start Date End Date Shaikh Thacker MD [facility] [id number] [place] [address] PCP - General 04/04/21 Customs Compliance Analyst Relationship Specialty Start Date End Date Shaikh Thacker MD PCP - General Internal Medicine 10/26/22 Team Status: Inactive Member Role Status Dates [...] November 18, 2023 End: November 18, 2023 Customs Compliance Analyst Relationship Specialty Start Date End Date Shaikh Thacker MD PCP - General 04/04/21 Team Status: Active Member Role Status Dates Toney Prajapati MD Other Provider Active Start: February 17, 2024 NON STAFF Primary Care Provider Active Start: February 17, 2024 Cheryl Wilcox MD Attending Provider Active Start: February 17, 2024 Customs Compliance Analyst Relationship Specialty Start Date End Date Deepak Alvarado MD [address] [place] [address] PCP - General Family Medicine 11/10/23 Issac Edouard NP [address] [place] [address] Nurse Practitioner Family Medicine 11/10/23 Customs Compliance Analyst Relationship Specialty Start Date End Date Deepak Alvarado MD [address] [place] [phone] PCP - General Family Medicine 11/10/23 Issac Edouard NP [address] [place] [address] Nurse Practitioner Family Medicine 11/10/23 Customs Compliance Analyst Relationship Specialty Start Date End Date Deepak Alvarado MD [address] [place] [phone] PCP - General Family Medicine 11/10/23 Issac Edouard NP [address] [place] [address] Nurse Practitioner Family Medicine 11/10/23 Customs Compliance Analyst Relationship Specialty Start Date End Date Deepak Alvarado MD [address] [place] [address] PCP - General Family Medicine 11/10/23 Issac Edouard NP [address] [place] [address] Nurse Practitioner Family Medicine 11/10/23 Customs Compliance Analyst Relationship Specialty Start Date End Date Deepak Alvarado MD [address] [place] [address] PCP - General Family Medicine 11/10/23 Issac Edouard NP [address] [place] [address] Nurse Practitioner Family Medicine 11/10/23 Customs Compliance Analyst Relationship Specialty Start Date End Date Deepak Alvarado MD [address] [place] [address] PCP - General Family Medicine 11/10/23 Issac Edouard NP [address] [place] [address] Nurse Practitioner Family Medicine 11/10/23 Customs Compliance Analyst Relationship Specialty Start Date End Date Deepak Alvarado MD [address] [place] [address] PCP - General Family Medicine 11/10/23 Issac Edouard NP [address] [place] [address] Nurse Practitioner Family Medicine 11/10/23 Customs Compliance Analyst Relationship Specialty Start Date End Date Deepak Alvarado MD [address] [place] [address] PCP - General Family Medicine 11/10/23 Issac Edouard NP [address] [place] [address] Nurse Practitioner Family Medicine 11/10/23 Customs Compliance Analyst Relationship Specialty Start Date End Date Shaikh Thacker MD PCP - General Internal Medicine 12/18/21 Team Status: Active Member Role Status Dates NON STAFF Primary Care Provider Active Start: April 25, 2024 Eric Llamas DO Attending Provider Active Sta rt: April 25, 2024 Team Status: Active Member Role Status Dates NON STAFF Primary Care Provider Active Start: May 18, 2024 Ольга Raya MD Other Provider Active St art: May 18, 2024 Cheryl Wilcox MD Attending Provider Active Start: May 18, 2024 Customs Compliance Analyst Relationship Specialty Start Date End Date Deepak Alvarado MD [address] [place] [address] PCP - General Family Medicine 11/10/23 Lazara Merchant DO [address] [facility] [place] [address] PCP - ACO Reach 05/18/24 Issac Edouard NP [address] [place] [address] Nurse Practitioner Family Medicine 11/10/23 Beatrice Smith, LISET [address] [facility] [place] [address] Registered Nurse Family Medicine 05/24/24 Customs Compliance Analyst Relationship Specialty Start Date End Date Deepak Alvarado MD [address] [place] [address] PCP - General Family Medicine 11/10/23 Lazara Merchant DO [address] [place] [address] PCP - ACO Reach 05/18/24 Issac Edouard NP [address] [place] [address] Nurse Practitioner Family Medicine 11/10/23 Beatrice Smith, RN [address] [place] [address] Registered Nurse Family Medicine 05/24/24 Goals (unrecognized section and content) Goals may [...] Follow Up In Cardiology Ольга Raya MD [address] [address] Ольга Raya MD [address] [facility] [address], [address] [address] Referral ID Status Reason Start Date Expiration Date V isits Requested Visits Authorized [id number] Authorized 04/05/2023 04/04/2024 1 1 Reason Comments Ingrown Toenail Established pt prese nts today with concerns with pain in RGT, ongoing for about a month. States pain mostly when in bed, unsure if it is ingrown nail. Reason Comments Hand Pain Sinus Problem Reason Comments Follow-up Reason Comments Cough X5 days trouble kay thing, cough, not productive, sore chest FOR RECORDS PERTAINING TO PATIENTS WHO ARE [...] BE BASED ON THE PRIMARY CLINICAL RECORDS. [facility]. provides no warranty or guarantee of the accuracy or completeness of information in this document.
--- NOTE | 2024-05-30 09:24 | CT_ITS ---
The [address] [address] Patient Name: DAMIR STAPLES MRN: [id number] date: 1950 Sex: F Assigned Patient Location: LAB Current Patient Location: LAB Accession/Order Number: [id number] Exam Date: 05/30/2024 11:22 Report Date: 05/30/2024 11:38 At the request of: ROEL CORONA NP Procedure: CT chest w con CT CHEST WITH INTRAVENOUS CONTRAST: CLINICAL HISTORY: Shortness of breath. Paroxysmal Atrial Fibrillation, Chronic Heart Failure COMPARISON: Chest x-ray 04/25/2024 TECHNIQUE: Spiral images were obtained through the chest following intravenous administration of 100 mL of Omnipaque 300. Images were reviewed using both narrow and wide window settings. This CT exam was performed using one or more following dose reduction techniques: Automated exposure control, adjustment of the mA and/or kV according to patient size, or use of iterative reconstruction technique. FINDINGS: A pacemaker is present on the left. The heart is borderline enlarged. There is no pericardial effusion. No aortic aneurysm or dissection is seen. There are some scattered mediastinal lymph nodes, largest in the subcarinal region with short axis dimension of 1 cm. A large calcified lymph node is seen in the right paratracheal region compatible granulomatous disease. A moderate sized hiatal hernia is seen. There is levoscoliotic curvature and mild endplate spurring at the spine. Mild scarring is visualized at both apices. Atelectasis and/or scarring is seen at the lower lungs. There is no focal consolidation, pleural effusion or pneumothorax. A calcified right upper lobe granuloma is seen. Limited cuts through the upper abdomen show a masslike area in the subdiaphragmatic region on the left. This abuts the spleen though there is different enhancement. An accessory spleen is still possible. This also abuts the superior pole of the right kidney. It measures approximately 5.3 cm in greatest dimension. There are some adjacent epigastric varices. Fatty infiltration of the liver is not excluded. CT/CT chest w con IMPRESSION: BORDERLINE CARDIOMEGALY. HIATAL HERNIA. GRANULOMATOUS CHANGES. SCARRING AND/OR ATELECTASIS. INDETERMINANT SOFT TISSUE STRUCTURE AT THE LEFT UPPER QUADRANT. ULTRASOUND FOLLOW-UP COULD BE CONSIDERED TO BETTER DETERMINE ITS ORIGIN. Impression dictated by: Cathy Coto M.D.05/30/2024 11:38 AM Dictation Location: [place] [address] Electronically authenticated by: [id number] Y Date: 05/30/2024 11:38
[2024-05-30 09:42] LABS: Basophils Percent Auto 0.5 % (0.2-2.0); Eosinophils Absolute Auto 0.4 10^3/uL (0.0-0.7); Eosinophils Percent Auto 5.5 % (0.9-7.0); Hematocrit 43.9 % (36.0-48.0); Hemoglobin 14.6 g/dL (12.0-16.0); Immature Granulocytes Abs Auto 0.02 10^3/uL (0.00-0.03); Immature Granulocytes Pct Auto 0.3 % (0.0-0.5); Lymphocytes Absolute Auto 1.8 10^3/uL (1.2-3.8); Lymphocytes Percent Auto 27.3 % (20.5-60.0); Mean Corpuscular HGB Conc 33.3 g/dL (29.9-35.2); Mean Corpuscular Hemoglobin 31.9 pg (26.7-34.0); Mean Corpuscular Volume 95.9 fL (81.0-99.0); Mean Platelet Volume 9.3 fL (9.5-13.5); Monocytes Absolute Auto 0.6 10^3/uL (0.3-0.8); Monocytes Percent Auto 8.9 % (1.7-12.0); Neutrophils Absolute Auto 3.7 10^3/uL (1.4-6.5); Neutrophils Percent Auto 57.5 % (43.0-75.0); Platelet Count 244 10^3/uL (150-450); Red Blood Count 4.58 10^6/uL (4.20-5.40); White Blood Count 6.4 10^3/uL (4.0-11.0)
[2024-05-30 09:45] LABS: Alanine Aminotransferase 21 U/L (14-59); Albumin Level 3.4 g/dL (3.4-5.0); Alkaline Phosphatase 91 U/L (46-116); Aspartate Amino Transferase 20 U/L (15-37); BUN Creatinine Ratio 20.3; Calcium 8.9 mg/dL (8.5-10.1); Carbon Dioxide 29.1 mmol/L (21.0-32.0); Chloride 106 mmol/L (98-107); Estimated GFR (African America >60 (>=60 mL/min/1.73m^2); Estimated GFR (Non-African Ame >60 (>=60 mL/min/1.73m^2); Globulin 3.4 g/dL; Glucose 94 mg/dL (74-106); Potassium 4.1 mmol/L (3.5-5.1); Sodium 142 mmol/L (136-145); Total Protein 6.8 g/dL (6.4-8.2)
[2024-05-30 10:06] LABS: Bilirubin Urine NEGATIVE (NEGATIVE); Blood Urine NEGATIVE (NEGATIVE); Clarity Urine CLEAR (CLEAR); Color Urine LT. YELLOW (YELLOW); Glucose Urine UA NEGATIVE (NEGATIVE); Ketones Urine NEGATIVE (NEGATIVE); Leukocyte Esterase Urine NEGATIVE (NEGATIVE); Nitrite Urine NEGATIVE (NEGATIVE); Protein Urine NEGATIVE (NEG/TRACE); Specific Gravity Urine <=1.005 (1.005-1.025); Urobilinogen Urine 0.2 EU/dL (0.2-1.0)
[2024-05-30 10:23] LABS: Urine Microscopic Indicated NO
[2024-05-30 10:46] LABS: Creatinine Urine Random 30.78 mg/dL (20.00-300.00); Microalbumin Urine Random <1.3 mg/dL (<=30.0)
[2024-05-30 13:34] LABS: Chol HDL Ratio 2.6; Cholesterol 224 mg/dL (<=200); HDL Cholesterol 85 mg/dL (40-60); Triglycerides 120 mg/dL (<=150)
== END 2024-05-30 08:57 | disposition home or self-care (01) ==
LOC: LAB 08:57
PROVIDERS: PCP Nurse Practitioner; Visit Provider Nurse Practitioner
DX: I48.0 Paroxysmal atrial fibrillation (principal); I50.32 Chronic diastolic (congestive) heart failure; C50.911 Malignant neoplasm of unspecified site of right female breast; R06.00 Dyspnea, unspecified; K21.9 Gastro-esophageal reflux disease without esophagitis; Z79.01 Long term (current) use of anticoagulants; K44.9 Diaphragmatic hernia without obstruction or gangrene; I11.0 Hypertensive heart disease with heart failure
CPT/HCPCS: 36415; 71260; 80053; 80061; 81003; 82043; 82570; 83540; 83880; 85025; Q9967

== ENCOUNTER 2024-06-05 08:25 | Outpatient (OUT) | payer MEDICARE, SELFPAY ==
--- NOTE | 2024-06-05 08:28 | US_ITS ---
The [address] [address] Patient Name: DAMIR STAPLES MRN: [id number] date: 1950 Sex: F Assigned Patient Location: US Current Patient Location: US Accession/Order Number: [id number] Exam Date: 06/05/2024 14:44 Report Date: 06/05/2024 14:54 At the request of: ROEL CORONA NP Procedure: US abdomen limited LIMITED ABDOMINAL ULTRASOUND - left upper quadrant: CLINICAL HISTORY: Follow-up abnormal chest CT showing left upper quadrant mass. COMPARISON: CT chest 05/30/2024 Real-time ultrasound evaluation of the left upper quadrant was performed using an intercostal approach. The left kidney shows no hydronephrosis or perinephric fluid. What is measured as the spleen has a somewhat rounded contour superiorly which correlates with the appearance on the CT study. Estimated size of the spleen is approximately 11.1 x 4.0 x 7.6 cm. There are echogenic foci within it that may correlate with calcified granulomas on the CT exam. No other soft tissue masses were imaged. US/US abdomen limited IMPRESSION: PROBABLE LOBULATED SPLEEN OR ADJACENT ACCESSORY SPLEEN WITH ASSOCIATED GRANULOMAS, DESCRIBED. UNLESS PATIENT HAS PRIOR OUTSIDE ABDOMINAL IMAGING WHICH DEMONSTRATES THIS FINDING, FOLLOW-UP ABDOMINAL CT COULD BE CONSIDERED TO ASSURE STABILITY. Impression dictated by: Cathy Coto M.D.06/05/2024 2:54 PM Dictation Location: [place] [address] Electronically authenticated by: [id number] Y Date: 06/05/2024 14:54
== END 2024-06-05 08:26 | disposition home or self-care (01) ==
LOC: US 08:25
PROVIDERS: PCP Nurse Practitioner; Visit Provider Nurse Practitioner
DX: R19.02 Left upper quadrant abdominal swelling, mass and lump (principal)
CPT/HCPCS: 76705